=== PATIENT | female | born 1945 | race Caucasian/White ===

== ENCOUNTER 2017-07-02 08:11 | Day surgery (SDC) | payer MEDICARE, BC ==
[~2017-07-02 08:11] MED LIST: KETOROLAC TROMETHAMINE 0.45% 4 DROP/0.4 ML DROPERETTE OS PRN
[2017-07-02] MEDS: LIDOCAINE 3.5% OPH GEL/PF 1 ML/TUBE OS PRN ×3 (08:44→09:19)
[2017-07-02] MEDS: TROPICAMIDE 1% OPH SOLN 3 ML OS PRN ×3 (08:45→09:10)
[2017-07-02] MEDS: CYCLOPENTOLATE 0.2%/PHENYLEPHRINE 1% OPH SOLN 2 ML OS PRN ×3 (08:45→09:10)
[2017-07-02] MEDS: BESIFLOXACIN HCL 0.6% OPH SUSP 5 ML BOTTLE OS PRN ×4 (08:46→09:43)
[2017-07-02] MEDS ORDERED: MIDAZOLAM 2 MG/2 ML INJ ONE (09:06)
[2017-07-02] MEDS: EPINEPHRINE INJ/PF 1 MG/1 ML AMPULE ONE ×2 (09:32)
[2017-07-02] MEDS: CHONDR SU A NA/HYALUR INTRAOC KIT (SURGICARE) ONE ×2 (09:32)
[2017-07-02] MEDS: LIDOCAINE 1% INJ-PF (10 MG/ML) 30 ML SDV ONE ×2 (09:32)
[2017-07-02] MEDS: TOBRAMYCIN SULFATE/DEXAMETH OPH OINTMENT 3.5 GM ONE ×2 (09:43)
== END 2017-07-02 10:26 | disposition home or self-care (01) ==
LOC: SC 08:11
PROVIDERS: ATTEND Ophthalmology
PROC: 08RK3JZ Replacement of Left Lens with Synthetic Substitute, Percutaneous Approach (ICD-10-PCS; principal; 2017-07-02 09:15)
DX: H25.12 Age-related nuclear cataract, left eye (principal); M19.90 Unspecified osteoarthritis, unspecified site; I10 Essential (primary) hypertension; Z79.899 Other long term (current) drug therapy
CPT/HCPCS: 66984; V2630; J2250; J3490 ×3; A9270 ×2; J0171; 142

== ENCOUNTER 2017-07-07 19:55 | Emergency (ER) | payer MEDICARE, BC ==
[2017-07-07] MEDS ORDERED: KETOROLAC TROMETHAMINE 60 MG/2 ML SDV IM ONE (19:59)
[2017-07-07] MEDS ORDERED: MORPHINE SULFATE 10 MG/ML INJ IM ONE (19:59)
[2017-07-07 20:09] VITALS: BP 158/71
--- NOTE | 2017-07-07 20:10 | ER Document Report ---
ED General - General Stated Complaint: BACK PAIN Time Seen by Provider: 07/07/17 19:59 Mode of Arrival: Medic Information source: Patient Notes: 71-year-old female presents with sudden right scapular pain when she was stretching. Patient has a history of gallbladder issues initially believed this was her gallbladder but denies any abdominal pain nausea vomiting or diarrhea TRAVEL OUTSIDE OF THE [place] IN LAST 30 DAYS: No - HPI Onset: Just prior to arrival Onset/Duration: Sudden Quality of pain: Sharp Severity: Moderate Pain Level: 2 Associated symptoms: Body/muscle aches Exacerbated by: Movement Relieved by: Denies Similar symptoms previously: No Recently seen / treated by doctor: No - Related Data Allergies/Adverse Reactions: No Known Allergies Allergy (Unverified 12/04/12 13:45) Past Medical History - Social History Smoking Status: Never Smoker Cigarette use (# per day): No Chew tobacco use (# tins/day): No Smoking Education Provided: No Family History: Reviewed & Not Pertinent - Past Medical History Cardiac Medical History: Reports: Hx Hypertension Denies: Hx Coronary Artery Disease, Hx Heart Attack Pulmonary Medical History: Reports: Hx Bronchitis - sinusitis,occas cough, Hx Pneumonia Denies: Hx Asthma, Hx COPD Neurological Medical History: Denies: Hx Cerebrovascular Accident, Hx Seizures GI Medical History: Denies: Hx Hepatitis, Hx Hiatal Hernia, Hx Ulcer Musculoskeltal Medical History: Reports Hx Arthritis - fingers,thumbs Infectious Medical History: Denies: Hx Hepatitis Past Surgical History: Denies: Hx Mastectomy, Hx Open Heart Surgery, Hx Pacemaker - Immunizations Hx Diphtheria, Pertussis, Tetanus Vaccination: No Hx Pneumococcal Vaccination: 11/17/09 Review of Systems - Review of Systems Notes: REVIEW OF SYSTEMS: CONSTITUTIONAL : Denies fever, chills, or sweats. Denies recent illness. EENT: Denies eye, ear, throat, or mouth pain or symptoms. Denies nasal or sinus congestion or discharge. Denies throat, tongue, or mouth swelling or difficulty swallowing. CARDIOVASCULAR: Denies chest pain. Denies palpitations or racing or irregular heart beat. Denies ankle edema. RESPIRATORY: Denies cough, cold, or chest congestion. Denies shortness of breath, difficulty breathing, or wheezing. GASTROINTESTINAL: Denies abdominal pain or distention. Denies nausea, vomiting , or diarrhea. Denies blood in vomitus, stools, or per rectum. Denies black, tarry stools. Denies constipation. GENITOURINARY: Denies difficulty urinating, painful urination, burning, frequency, blood in urine, or discharge. FEMALE GENITOURINARY: Denies vaginal bleeding, heavy or abnormal periods, irregular periods. Denies vaginal discharge or odor. MUSCULOSKELETAL: Right scapular pain. SKIN: Denies rash, lesions or sores. HEMATOLOGIC : Denies easy bruising or bleeding. LYMPHATIC: Denies swollen, enlarged glands. NEUROLOGICAL: Denies confusion or altered mental status. Denies passing out or loss of consciousness. Denies dizziness or lightheadedness. Denies headache. Denies weakness or paralysis or loss of use of either side. Denies problems with gait or speech. Denies sensory loss, numbness, or tingling. Denies seizures. PSYCHIATRIC: Denies anxiety or stress. Denies depression, suicidal ideation, or homicidal ideation. ALL OTHER SYSTEMS REVIEWED AND NEGATIVE. PHYSICAL EXAMINATION: GENERAL: Well-appearing, well-nourished and in no acute distress. HEAD: Atraumatic, normocephalic. EYES: Pupils equal round and reactive to light, extraocular movements intact, conjunctiva are normal. ENT: Nares patent, oropharynx clear without exudates. Moist mucous membranes. NECK: Normal range of motion, supple without lymphadenopathy LUNGS: Breath sounds clear to auscultation bilaterally and equal. No wheezes rales or rhonchi. HEART: Regular rate and rhythm without murmurs ABDOMEN: Soft, nontender, nondistended abdomen. No guarding, no rebound. No masses appreciated. Female : deferred Musculoskeletal: Tenderness with movement of the right shoulder pinpoint tenderness of the right scalp NEUROLOGICAL: Cranial nerves grossly intact. Normal speech, normal gait. Normal sensory, motor exams PSYCH: Normal mood, normal affect. SKIN: Warm, Dry, normal turgor, no rashes or lesions noted. Dictation was performed using [employer] voice recognition software Physical Exam - Vital signs Vitals: Temp Pulse Resp BP Pulse Ox 98.1 F 64 16 158/71 H 94 07/07/17 20:08 07/07/17 20:08 07/07/17 20:08 07/07/17 20:08 07/07/17 20:08 Course - Re-evaluation Re-evalutation: 07/07/17 20:10 Patient will be treated with pain control anti-inflammatory, x-ray is pending 07/08/17 00:05 X-ray noted no significant abnormality, patient on physical examination had easily reproducible pain with no abdominal tenderness, therefore I do not believe this is intra-abdominal cardiac in nature or related to the lungs. Is completely musculoskeletal related to her movement. Patient notes significant relief after treatment will be discharged home with the same. Patient will be given surgery follow-up for her presumptive gallbladder concerns After performing a Medical Screening Examination, I estimate there is LOW risk for RUPTURED ESOPHAGUS, PNEUMOTHORAX, PULMONARY EMBOLISM, ACUTE CORONARY SYNDROME, OR THORACIC AORTIC DISSECTION, thus I consider the discharge disposition reasonable. I have reevaluated this patient multiple times and no significant life threatening changes are noted. The patient and I have discussed the diagnosis and risks, and we agree with discharging home with close follow-up. We also discussed returning to the Emergency Department immediately if new or worsening symptoms occur. We have discussed the symptoms which are most concerning (e.g., bloody sputum, worsening pain or shortness of breath) that necessitate immediate return. - Vital Signs Vital signs: Temp Pulse Resp BP Pulse Ox 98.1 F 64 16 158/71 H 94 07/07/17 20:08 07/07/17 20:08 07/07/17 20:08 07/07/17 20:08 07/07/17 20:08 - Diagnostic Test Radiology reviewed: Image reviewed, Reports reviewed - No acute abnormality Discharge - Discharge Clinical Impression: Muscle strain of right scapular region Qualifiers: Encounter type: initial encounter Qualified Code(s): S46.911A - Strain of unspecified muscle, fascia and tendon at shoulder and upper arm level, right arm , initial encounter Hypertension Qualifiers: Hypertension type: essential hypertension Qualified Code(s): I10 - Essential ( primary) hypertension Condition: Stable Disposition: HOME, SELF-CARE Instructions: Muscle Strain ([facility]) Prescriptions: Ketorolac Tromethamine [Toradol 10 mg Tablet] 10 mg PO Q8HP PRN #14 tablet PRN Reason: Referrals: NISSA BRANHAM MD [ACTIVE STAFF] - Follow up tomorrow
--- NOTE | 2017-07-07 20:45 | RADIOLOGY REPORT (SQ) ---
EXAM DESCRIPTION: CHEST PA/LAT COMPLETED DATE/TIME: 07/07/2017 8:32 pm REASON FOR STUDY: right scapular pain COMPARISON: 12/04/2012 EXAM PARAMETERS: NUMBER OF VIEWS: two views TECHNIQUE: Digital Frontal and Lateral radiographic views of the chest acquired. RADIATION DOSE: NA LIMITATIONS: none FINDINGS: LUNGS AND PLEURA: No opacities, masses or pneumothorax. No pleural effusion. MEDIASTINUM AND HILAR STRUCTURES: No masses or contour abnormalities. HEART AND VASCULAR STRUCTURES: Heart normal size. No evidence for failure. BONES: No acute findings. HARDWARE: None in the chest. OTHER: No other significant finding. IMPRESSION: NO SIGNIFICANT RADIOGRAPHIC FINDING IN THE CHEST. TECHNICAL DOCUMENTATION: JOB ID: [id number] [employer]- All Rights Reserved
[2017-07-07] MEDS ORDERED: HYDROCODONE/ACETAMINOPHEN 5-325 MG 6 TAB/DSPK PO SCH (22:00)
== END 2017-07-07 22:09 | disposition home or self-care (01) ==
LOC: ER 19:55
DX: S46.911A Strain of unspecified muscle, fascia and tendon at shoulder and upper arm level, right arm, initial encounter (principal); I10 Essential (primary) hypertension; M79.1 Myalgia; M54.9 Dorsalgia, unspecified; X58.XXXA Exposure to other specified factors, initial encounter
CPT/HCPCS: 96372; 71020; J1885; J2270; A9270

== ENCOUNTER 2018-08-15 09:27 | Inpatient (IN) | payer MEDICARE, BC ==
[2018-08-15] MEDS ORDERED: NORMAL SALINE 1000 ML 1,000 ML IV ONE (09:52)
[2018-08-15] MEDS ORDERED: FENTANYL CITRATE INJ/PF 100 MCG/2 ML AMPUL IV ONE (09:52)
[2018-08-15] MEDS ORDERED: KETOROLAC TROMETHAMINE INJ/PF 30 MG/1 ML SDV IV ONE (09:52)
--- NOTE | 2018-08-15 09:55 | ER Document Report ---
ED Medical Screen (RME) - General Chief Complaint: Abdominal Pain Stated Complaint: ABDOMINAL PAIN Time Seen by Provider: 08/15/18 09:48 Notes: 72 years old female with a history of hypertension presents today since last Friday that is 3 days ago started having abdominal cramps and nausea which progressed to multiple episodes of loose stools, and diffuse abdominal pain, general body aches and pain and also chills. She went to the urgent care and she was given Phenergan IM and subsequently referred to the ED. She seems to be in moderate discomfort. Diffuse abdominal tenderness noted. TRAVEL OUTSIDE OF THE [place] IN LAST 30 DAYS: No - Related Data Allergies/Adverse Reactions: No Known Allergies Allergy (Verified 08/15/18 09:28) Past Medical History - Past Medical History Cardiac Medical History: Reports: Hx Hypertension Denies: Hx Coronary Artery Disease, Hx Heart Attack Pulmonary Medical History: Reports: Hx Bronchitis - sinusitis,occas cough, Hx Pneumonia Denies: Hx Asthma, Hx COPD Neurological Medical History: Denies: Hx Cerebrovascular Accident, Hx Seizures Renal/ Medical History: Denies: Hx Peritoneal Dialysis GI Medical History: Denies: Hx Hepatitis, Hx Hiatal Hernia, Hx Ulcer Musculoskeltal Medical History: Reports Hx Arthritis - fingers,thumbs Infectious Medical History: Denies: Hx Hepatitis Past Surgical History: Reports: Hx Appendectomy, Hx Hysterectomy, Hx Orthopedic Surgery - lt hand, josh feet. Denies: Hx Mastectomy, Hx Open Heart Surgery, Hx Pacemaker - Immunizations Hx Diphtheria, Pertussis, Tetanus Vaccination: No Physical Exam - Vital signs Vitals: Temp Pulse Resp BP Pulse Ox 97.8 F 87 16 184/81 H 95 08/15/18 09:31 08/15/18 09:31 08/15/18 09:31 08/15/18 09:31 08/15/18 09:31 Course - Vital Signs Vital signs: Temp Pulse Resp BP Pulse Ox 97.8 F 87 16 184/81 H 95 08/15/18 09:31 08/15/18 09:31 08/15/18 09:31 08/15/18 09:31 08/15/18 09:31 Doctor's Discharge - Discharge Referrals: LOCALMD,NO [Primary Care Provider] - Follow up as needed
[2018-08-15] MEDS ORDERED: DICYCLOMINE HCL INJ 20 MG/2 ML AMPULE IM ONE (10:00)
[2018-08-15 10:46] LABS: APPEARANCE,URINE CLOUDY; BILIRUBIN,URINE NEGATIVE (NEGATIVE); COLOR,URINE YELLOW; GLUCOSE, URINE 50 mg/dL (NEGATIVE); KETONES,URINE 20 mg/dL (NEGATIVE); LEUKOCYTE ESTERASE,URINE MODERATE (NEGATIVE); NITRITE,URINE NEGATIVE (NEGATIVE); PROTEIN,URINE 100 mg/dL (NEGATIVE); URINE SPECIFIC GRAVITY 1.026; UROBILINOGEN,URINE NEGATIVE mg/dL (<2.0)
--- NOTE | 2018-08-15 10:54 | RADIOLOGY REPORT (SQ) ---
EXAM DESCRIPTION: ACUTE ABDOMEN SERIES COMPLETED DATE/TIME: 08/15/2018 10:43 am REASON FOR STUDY: Abdominal pain COMPARISON: 2017 chest film. NUMBER OF VIEWS: Three views. TECHNIQUE: Frontal chest, supine abdomen and upright/decubitus abdomen radiographic images acquired. LIMITATIONS: None. FINDINGS: CHEST: Lungs clear of infiltrates. FREE AIR: None. No abnormal gas collections. BOWEL GAS PATTERN: Nonobstructive pattern. No dilated loops or air fluid levels. CALCIFICATIONS: No suspicious calcifications. HARDWARE: None in the abdomen. SOFT TISSUES: No gross mass or suggestion of organomegaly. BONES: No acute fracture. No worrisome bone lesions. OTHER: No other significant finding. IMPRESSION: NO RADIOGRAPHIC EVIDENCE FOR ACUTE ABDOMINAL DISEASE. TECHNICAL DOCUMENTATION: JOB ID: [id number] [employer] All Rights Reserved Reading location - IP/workstation name: [email or web address]
--- NOTE | 2018-08-15 10:55 | ER Document Report ---
ED GI/ - General Chief Complaint: Abdominal Pain Stated Complaint: ABDOMINAL PAIN Time Seen by Provider: 08/15/18 09:48 Notes: The patient is a 72-year-old female, past medical history hypertension, diverticulosis, presents with 4 days of diffuse abdominal pain and watery diarrhea. She is also having some nausea and subjective fevers. She was at her primary care office at the urgent care center and was sent to the ER for further evaluation and treatment. She denies hematemesis, blood in her stool, urinary symptoms, chest pain, shortness of breath, recent antibiotic use or recent travel. TRAVEL OUTSIDE OF THE [place] IN LAST 30 DAYS: No - Related Data Allergies/Adverse Reactions: No Known Allergies Allergy (Verified 08/15/18 09:28) Past Medical History - General Information source: Patient - Social History Smoking Status: Never Smoker Frequency of alcohol use: None Drug Abuse: None Family History: Reviewed & Not Pertinent Patient has suicidal ideation: No Patient has homicidal ideation: No - Past Medical History Cardiac Medical History: Reports: Hx Hypertension Denies: Hx Coronary Artery Disease, Hx Heart Attack Pulmonary Medical History: Reports: Hx Bronchitis - sinusitis,occas cough, Hx Pneumonia Denies: Hx Asthma, Hx COPD Neurological Medical History: Denies: Hx Cerebrovascular Accident, Hx Seizures Renal/ Medical History: Denies: Hx Peritoneal Dialysis GI Medical History: Denies: Hx Hepatitis, Hx Hiatal Hernia, Hx Ulcer Musculoskeletal Medical History: Reports Hx Arthritis - fingers,thumbs Infectious Medical History: Denies: Hx Hepatitis Past Surgical History: Reports: Hx Appendectomy, Hx Hysterectomy, Hx Orthopedic Surgery - lt hand, josh feet. Denies: Hx Mastectomy, Hx Open Heart Surgery, Hx Pacemaker - Immunizations Hx Diphtheria, Pertussis, Tetanus Vaccination: No Hx Pneumococcal Vaccination: 11/17/09 Review of Systems - Review of Systems Notes: REVIEW OF SYSTEMS: CONSTITUTIONAL: +fevers, -chills EENT: -eye pain, -difficulty swallowing, -nasal congestion CARDIOVASCULAR: -chest pain, -syncope. RESPIRATORY: -cough, -SOB GASTROINTESTINAL: +abdominal pain, +nausea, +vomiting, +diarrhea GENITOURINARY: -dysuria, -hematuria MUSCULOSKELETAL: -back pain, -neck pain SKIN: -rash or skin lesions. HEMATOLOGIC: -easy bruising or bleeding. LYMPHATIC: -swollen, enlarged glands. NEUROLOGICAL: -altered mental status or loss of consciousness, -headache, - neurologic symptoms PSYCHIATRIC: -anxiety, -depression. ALL OTHER SYSTEMS REVIEWED AND NEGATIVE. Physical Exam - Vital signs Vitals: Temp Pulse Resp BP Pulse Ox 97.8 F 87 16 184/81 H 95 08/15/18 09:31 08/15/18 09:31 08/15/18 09:31 08/15/18 09:31 08/15/18 09:31 - Notes Notes: PHYSICAL EXAMINATION: GENERAL: Uncomfortable. HEAD: Atraumatic, normocephalic. EYES: Pupils equal round and reactive to light, extraocular movements intact, sclera anicteric, conjunctiva are normal. ENT: nares patent, oropharynx clear without exudates. Moist mucous membranes. NECK: Normal range of motion, supple without lymphadenopathy LUNGS: Breath sounds clear to auscultation bilaterally and equal. No wheezes rales or rhonchi. HEART: Regular rate and rhythm without murmurs ABDOMEN: Diffuse tenderness, worse in epigastric region. Normal bowel sounds. No distention. EXTREMITIES: Normal range of motion, no pitting or edema. No cyanosis. NEUROLOGICAL: Cranial nerves grossly intact. Normal speech, normal gait. Normal sensory and motor exams. PSYCH: Normal mood, normal affect. SKIN: Warm, Dry, normal turgor, no rashes or lesions noted. Course - Re-evaluation Re-evalutation: 72-year-old female with nausea, vomiting and epigastric pain. Her lipase is elevated at [address] scan shows evidence of pancreatitis. Patient denies heavy drinking or history of gallstones. Her bilirubin is normal. Provided antibiotics due to the leukocytosis of 17. No other SIRS criteria to suggest sepsis. She requires admission for IV fluids, pain control and antiemetics. 08/15/18 13:[address] West (Hospitalist) and he has accepted patient to Inpatient Medical floor. - Vital Signs Vital signs: Temp Pulse Resp BP Pulse Ox 97.8 F 87 16 184/81 H 95 08/15/18 09:31 08/15/18 09:31 08/15/18 09:31 08/15/18 09:31 08/15/18 09:31 - Laboratory Result Diagrams: 08/15/18 11:38 08/15/18 11:38 Laboratory results interpreted by me: 08/15/18 08/15/18 08/15/18 10:08 11:38 11:38 WBC 17.0 H Hgb 16.0 H Seg Neuts % (Manual) 87 H Lymphocytes % (Manual) 7 L Abs Neuts (Manual) 14.8 H Chloride 97 L Glucose 134 H Lipase 1757.2 H Urine Protein 100 H Urine Glucose (UA) 50 H Urine Ketones 20 H Urine Blood SMALL H Ur Leukocyte Esterase MODERATE H - Diagnostic Test Radiology reviewed: Image reviewed, Reports reviewed Radiology results interpreted by me: CT A/P: Inflammation around the pancreas Discharge - Discharge Clinical Impression: Acute pancreatitis Qualifiers: Pancreatitis type: unspecified pancreatitis type Acute pancreatitis complication: unspecified Qualified Code(s): K85.90 - Acute pancreatitis without necrosis or infection, unspecified Condition: Stable Disposition: ADMITTED INPATIENT Admitting Provider: Hospitalist - Brett Unit Admitted: Medical Floor Referrals: LOCALMD,NO [NO LOCAL MD] - Follow up as needed
[2018-08-15] MEDS ORDERED: ONDANSETRON HCL INJ/PF 4 MG/2 ML SDV IV ONE (11:08)
[2018-08-15 12:20] LABS: MEAN CORPUSCULAR HEMOGLOBIN 31.4 pg (27.0-33.4); MEAN CORPUSCULAR VOLUME 92 fl (80-97); PLATELET COUNT 248 10^3/uL (150-450); RED BLOOD COUNT 5.08 10^6/uL (3.72-5.28); RED CELL DISTRIBUTION WIDTH 13.4 % (11.5-14.0)
[2018-08-15 12:38] LABS: ALANINE AMINOTRANSFERASE 23 U/L (9-52); ALBUMIN 4.3 g/dL (3.5-5.0); ALKALINE PHOSPHATASE 85 U/L (38-126); ANION GAP 15 (5-19); ASPARTATE AMINO TRANSFERASE 32 U/L (14-36); BILIRUBIN,DIRECT 0.3 mg/dL (0.0-0.4); BILIRUBIN,TOTAL 0.8 mg/dL (0.2-1.3); BLOOD UREA NITROGEN 19 mg/dL (7-20); CALCIUM 9.6 mg/dL (8.4-10.2); CARBON DIOXIDE 27 mmol/L (22-30); CHLORIDE 97 mmol/L (98-107); GLUCOSE 134 mg/dL (75-110); LIPASE 1757.2 U/L (23-300); POTASSIUM 3.9 mmol/L (3.6-5.0); SODIUM 139.4 mmol/L (137-145); TOTAL PROTEIN 7.9 g/dL (6.3-8.2)
[2018-08-15 12:39] LABS: ABSOLUTE LYMPHOCYTES# (MANUAL) 1.2 10^3/uL (0.5-4.7); ABSOLUTE NEUTROPHILS# (MANUAL) 14.8 10^3/uL (1.7-8.2); BASOPHILS % (MANUAL) 0 % (0-2); EOSINOPHILS % (MANUAL) 0 % (0-6); LYMPHOCYTES % (MANUAL) 7 % (13-45); MONOCYTES % (MANUAL) 6 % (3-13); PLATELET COMMENT ADEQUATE; RBC MORPHOLOGY COMMENT NORMO-CYTIC/CHROMIC; SEGMENTED NEUTROPHILS % (MAN) 87 % (42-78); TOTAL CELLS COUNTED 100
[2018-08-15] MEDS ORDERED: AMPICILLIN SOD/SULBACTAM 3 GM VIAL IV ONE (12:49)
--- NOTE | 2018-08-15 13:30 | RADIOLOGY REPORT (SQ) ---
EXAM DESCRIPTION: CT ABD/PELVIS WITH IV ONLY COMPLETED DATE/TIME: 08/15/2018 1:18 pm REASON FOR STUDY: LLQ tenderness, fever, Hx diverticulosis COMPARISON: 02/02/2014 TECHNIQUE: CT scan of the abdomen and pelvis performed using helical scanning technique with dynamic intravenous contrast injection. No oral contrast. Images reviewed with lung, soft tissue, and bone w indows. Reconstructed coronal and sagittal MPR images reviewed. Delayed images for evaluation of the urinary system also acquired. All images stored on PACS. All CT scanners at this facility use dose modulation, iterative reconstruction, and/or weight based d osing when appropriate to reduce radiation dose to as low as reasonably achievable (ALARA). [facility]: Dose Right [facility]: CareDose [facility]: Dose Right [facility]: Teradose 4D [facility]: Financeit CONTRAST TYPE AND DOSE: contrast/concentration: Isovue 350.00 mg/ml; Total Contrast Delivered: 88.0 ml; Total Saline Delivered: 39.9 ml RENAL FUNCTION: GFR > 60. RADIATION DOSE: CT Rad equipment meets quality standard of care and radiation dose reduction techniq ues were employed. CTDIvol: 11.3 - 14.6 mGy. DLP: 1423 mGy-cm.. LIMITATIONS: None. FINDINGS: LOWER CHEST: Minimal basilar subsegmental atelectasis. LIVER: Normal size. No enhancing masses. No dilated ducts. SPLEEN: Normal size. No focal lesions. PANCREAS: Mild adjacent inflammation in the region of the pancreatic head. Pancreatic duct not dilate d. GALLBLADDER: No calcified stones. No inflammatory changes to suggest cholecystitis. ADRENAL GLANDS: No significant masses. RIGHT KIDNEY AND URETER: No cysts identified. No solid masses identified. No calcified stones. No hyd ronephrosis or hydroureter. LEFT KIDNEY AND URETER: No cysts identified. No solid masses identified. No calcified stones. No hydr onephrosis or hydroureter. AORTA AND VESSELS: No aneurysm. No dissection. Renal arteries, SMA, celiac without significant stenos is. RETROPERITONEUM: No bulky retroperitoneal adenopathy. BOWEL AND PERITONEAL CAVITY: Diverticulosis. No obstruction or focal bowel inflammatory changes. No free fluid. APPENDIX: Surgically absent. PELVIS: Prior hysterectomy. Trace free fluid. Unremarkable bladder. ABDOMINAL WALL: No masses. No hernias. BONES: No acute findings. OTHER: No other significant finding. IMPRESSION: Mild adjacent inflammation in the region of the pancreatic head. TECHNICAL DOCUMENTATION: JOB ID: [id number] Quality ID # [id number]: Final reports with documentation of one or more dose reduction techniques (e.g., Au tomated exposure control, adjustment of the mA and/or kV according to patient size, use of iterative reconstruction technique) 2010 [employer]- All Rights Reserved Reading location - IP/workstation name: [email or web address]
[2018-08-15] MEDS ORDERED: HYDRALAZINE HCL 10 MG TABLET PO PRN (15:00)
--- NOTE | 2018-08-15 15:00 | PDOC H&P ---
History of Present Illness Admission Date/PCP: 08/15/18 14:02 Patient complains of: Abdominal pain times 4 days History of Present Illness: STARR TAYLOR is a 72 year old female with a complaint of abdominal pain onset Friday evening. Pain initially was a 7 out of 10. It persisted throughout the night and into the next day. Patient attempted to eat but had nausea and vomiting denies hematemesis. Pain continued throughout the week when she went to urgent care where she seeks her primary care. They advised her to come to the emergency room. Patient had been able to take her hypertensive medications and her Prozac for her depression. Evaluation in the emergency room patient was hypertensive having moderate abdominal pain. A CT of the abdomen was performed which was consistent with a pancreatitis there is no biliary obstruction detected. Her lipase was 1757 white count was elevated at 17,000. Urinalysis was negative. Patient was given empiric Unasyn for the elevated white count and no fever or other evidence of infection. Patient will be admitted for acute pancreatitis. She denies drinking denies elevated cholesterol by history. Past Medical History Cardiac Medical History: Reports: Hypertension Denies: Coronary Artery Disease, Myocardial Infarction Pulmonary Medical History: Reports: Bronchitis - sinusitis,occas cough, Pneumonia Denies: Asthma, Chronic Obstructive Pulmonary Disease (COPD) Neurological Medical History: Denies: Seizures GI Medical History: Denies: Hepatitis, Hiatal Hernia Musculoskeltal Medical History: Reports: Arthritis - fingers,thumbs Psychiatric Medical History: Reports: Depression Hematology: Denies: Anemia, Sickle Cell Disease Past Surgical History Past Surgical History: Reports: Appendectomy, Hysterectomy, Orthopedic Surgery - Left thumb arthroplasty, bilateral plantar fasciitis Denies: Amputation, Mastectomy, Pacemaker Social History Smoking Status: Never Smoker Frequency of Alcohol Use: None Drugs: None - Advance Directive Resuscitation Status: Full Code Family History Family History: Reviewed & Not Pertinent, COPD - Father and 2 brothers Parental Family History Reviewed: Yes Children Family History Reviewed: Yes Sibling(s) Family History Reviewed.: Yes Medication/Allergy Home Medications: Cetirizine HCl [Zyrtec 10 mg Tablet] 1 tab PO DAILY PRN 08/15/18 Fluoxetine HCl [Fluoxetine HCl] 1 cap PO DAILY 08/15/18 Lisinopril/Hydrochlorothiazide [Lisinopril-Hctz 20-12.5 mg Tab] 2 tab PO QAM Allergies/Adverse Reactions: No Known Allergies Allergy (Verified 08/15/18 09:28) Review of Systems Constitutional: ABSENT: chills, fever(s), headache(s), weight gain, weight loss Ears: ABSENT: hearing changes Nose, Mouth, and Throat: ABSENT: as per HPI, headache(s), mouth pain, sore throat, vertigo, other Cardiovascular: ABSENT: chest pain, dyspnea on exertion, edema, orthropnea, palpitations Respiratory: ABSENT: cough, hemoptysis Gastrointestinal: PRESENT: abdominal pain, heartburn, nausea, vomiting. ABSENT : coffee ground emesis, diarrhea, hematemesis, hematochezia Genitourinary: ABSENT: dysuria, hematuria Integumentary: ABSENT: rash, wounds Neurological: ABSENT: abnormal gait, abnormal speech, confusion, dizziness, focal weakness, syncope Psychiatric: ABSENT: anxiety, depression, homidical ideation, suicidal ideation Endocrine: ABSENT: cold intolerance, heat intolerance, polydipsia, polyuria Hematologic/Lymphatic: ABSENT: easy bleeding, easy bruising Physical Exam Vital Signs: Temp Pulse Resp BP Pulse Ox 98.1 F 78 16 144/57 H 96 08/15/18 14:39 08/15/18 14:39 08/15/18 14:39 08/15/18 14:39 08/15/18 14:39 General appearance: PRESENT: mild distress Eye exam: PRESENT: conjunctiva pink, EOMI, PERRLA. ABSENT: scleral icterus Mouth exam: PRESENT: moist, tongue midline Neck exam: ABSENT: carotid bruit, JVD, lymphadenopathy, thyromegaly Respiratory exam: PRESENT: clear to auscultation josh. ABSENT: rales, rhonchi, wheezes Cardiovascular exam: PRESENT: RRR. ABSENT: diastolic murmur, rubs, systolic murmur Pulses: PRESENT: normal dorsalis pedis pul GI/Abdominal exam: PRESENT: normal bowel sounds, rebound, soft, tenderness - Umbilical. ABSENT: distended, guarding, mass, organolmegaly Rectal exam: PRESENT: deferred Extremities exam: PRESENT: full ROM. ABSENT: calf tenderness, clubbing, pedal edema Musculoskeletal exam: PRESENT: normal inspection. ABSENT: tenderness Neurological exam: PRESENT: alert, awake, oriented to person, oriented to place , oriented to time, oriented to situation, CN II-XII grossly intact. ABSENT: motor sensory deficit Psychiatric exam: PRESENT: appropriate affect, normal mood. ABSENT: homicidal ideation, suicidal ideation Skin exam: PRESENT: dry, intact, warm. ABSENT: cyanosis, rash Results Impressions: Acute Abdomen Series 08/15/18 09:52 IMPRESSION: NO RADIOGRAPHIC EVIDENCE FOR ACUTE ABDOMINAL DISEASE. Abdomen/Pelvis CT 08/15/18 10:54 IMPRESSION: Mild adjacent inflammation in the region of the pancreatic head. Assessment & Plan - Diagnosis (1) Acute pancreatitis Qualifiers: Pancreatitis type: unspecified pancreatitis type Acute pancreatitis complication: unspecified Qualified Code(s): K85.90 - Acute pancreatitis without necrosis or infection, unspecified Is this a current diagnosis for this admission?: Yes Plan: Onset 4 days prior to admission. Patient's lipase currently 1757 I suspect it was higher. She has no history of alcohol consumption or high triglyceride. Patient may have passed a stone. Will obtain an ultrasound of the gallbladder to rule out small stones or sludge. If negative suspect patient may have had sphincter spasm. Will place on D5 half-normal saline repeat labs in a.m. and daily lipases x3. Will use morphine IV for pain control. Will not continue Unasyn no evidence of an infection repeat CBC in a.m. (2) Hypertension Is this a current diagnosis for this admission?: Yes Plan: Hypertension poor control due to pain will continue lisinopril but not hydrochlorothiazide. Will use as needed hydralazine IV for additional control. (3) Depression Plan: Continue Prozac. - Time Time Spent: 50 to 70 Minutes Anticipated discharge: Home Within: within 72 hours
[2018-08-15] MEDS: MORPHINE SULFATE 10 MG/ML INJ IV PRN ×2 (16:03→20:27)
[2018-08-15] MEDS: DEXTROSE 5%-1/2 NORMAL SALINE 1,000 ML IV PRN (16:12)
--- NOTE | 2018-08-15 20:17 | RADIOLOGY REPORT (SQ) ---
EXAM DESCRIPTION: U/S ABDOMEN COMPLETE W/O DOP COMPLETED DATE/TIME: 08/15/2018 4:56 pm REASON FOR STUDY: Pancreatitis COMPARISON: CT from earlier today. TECHNIQUE: Dynamic and static grayscale images acquired of the abdomen and recorded on PACS. Daleo keagan selected color Doppler and spectral images recorded. LIMITATIONS: None. FINDINGS: PANCREAS: Slightly echogenic and ill-defined. Probable pancreatitis. No regional fluid c ollections. LIVER: Just under 19 cm. Probable diffuse mild steatosis. LIVER VASCULATURE: Normal directional flow of the main portal vein and hepatic veins. GALLBLADDER: No stones. Normal wall thickness. No pericholecystic fluid. ULTRASOUND-DETECTED ANDERSON'S SIGN: Negative. INTRAHEPATIC DUCTS AND COMMON DUCT: CBD and intrahepatic ducts normal caliber. No filling defects. INFERIOR VENA CAVA: Normal flow. AORTA: No aneurysm. RIGHT KIDNEY:Normal size. Normal echogenicity. No solid or suspicious masses. No hydronephrosis. No c alcifications. LEFT KIDNEY: Normal size. Normal echogenicity. No solid or suspicious masses. No hydronephrosis. No calcifications. SPLEEN: Normal size. No solid masses. PERITONEAL AND PLEURAL SPACES: No ascites or effusions. OTHER: No other significant finding. IMPRESSION: 1. Findings suggesting pancreatitis. 2. Mildly enlarged liver, steatosis. 3. Gallbla dder unremarkable. TECHNICAL DOCUMENTATION: JOB ID: [id number] [employer]- All Rights Reserved Reading location - IP/workstation name: [email or web address]
[2018-08-15] MEDS: ONDANSETRON HCL INJ/PF 4 MG/2 ML SDV IV PRN (20:29)
[2018-08-16] MEDS: ACETAMINOPHEN 325 MG TABLET PO PRN ×3 (00:05→19:25)
[2018-08-16] MEDS: DEXTROSE 5%-1/2 NORMAL SALINE 1,000 ML IV PRN ×2 (02:44→13:21)
[2018-08-16] MEDS: MORPHINE SULFATE 10 MG/ML INJ IV PRN ×3 (05:59→23:34)
[2018-08-16] MEDS: ONDANSETRON HCL INJ/PF 4 MG/2 ML SDV IV PRN ×3 (06:03→23:56)
[2018-08-16 06:26] LABS: ABSOLUTE BASOPHILS # (AUTO) 0.1 10^3/uL (0.0-0.2); ABSOLUTE LYMPHOCYTES (AUTO) 1.5 10^3/uL (0.5-4.7); ABSOLUTE MONOCYTES (AUTO) 1.3 10^3/uL (0.1-1.4); ABSOLUTE NEUT (AUTO) 14.8 10^3/uL (1.7-8.2); BASOPHILS % (AUTO) 0.3 % (0-2); EOSINOPHILS % (AUTO) 0.2 % (0-6); HEMATOCRIT 40.6 % (36.0-47.0); HEMOGLOBIN 14.2 g/dL (12.0-15.5); LYMPHOCYTES % (AUTO) 8.6 % (13-45); MEAN CORPUSCULAR HEMOGLOBIN 32.1 pg (27.0-33.4); MEAN CORPUSCULAR VOLUME 92 fl (80-97); MONOCYTES % (AUTO) 7.5 % (3-13); PLATELET COUNT 194 10^3/uL (150-450); RED BLOOD COUNT 4.42 10^6/uL (3.72-5.28); RED CELL DISTRIBUTION WIDTH 13.2 % (11.5-14.0); SEGMENTED NEUTROPHILS % (AUTO) 83.4 % (42-78); TOTAL CELLS COUNTED % (AUTO) 100 %; WHITE BLOOD COUNT 17.8 10^3/uL (4.0-10.5)
[2018-08-16 06:45] LABS: ALANINE AMINOTRANSFERASE 25 U/L (9-52); ALBUMIN 3.3 g/dL (3.5-5.0); ALKALINE PHOSPHATASE 63 U/L (38-126); ANION GAP 7 (5-19); ASPARTATE AMINO TRANSFERASE 27 U/L (14-36); BILIRUBIN,DIRECT 0.4 mg/dL (0.0-0.4); BILIRUBIN,TOTAL 0.9 mg/dL (0.2-1.3); BLOOD UREA NITROGEN 17 mg/dL (7-20); CALCIUM 8.7 mg/dL (8.4-10.2); CARBON DIOXIDE 28 mmol/L (22-30); CHLORIDE 101 mmol/L (98-107); GLUCOSE 130 mg/dL (75-110); POTASSIUM 3.7 mmol/L (3.6-5.0); SODIUM 136.1 mmol/L (137-145); TOTAL PROTEIN 6.4 g/dL (6.3-8.2); TRIGLYCERIDES 81 mg/dL (<150)
[2018-08-16 06:56] LABS: DIRECT LDL 105 mg/dL (<100)
[2018-08-16] MEDS ORDERED: AMPICILLIN SOD/SULBACTAM 1.5 GM VIAL IV PRN (07:00)
[2018-08-16] MEDS ORDERED: AMPICILLIN SODIUM/SULBACTAM NA 1.5 GM in NORMAL SALINE 50 ML IV ONE (07:30)
[2018-08-16] MEDS: LISINOPRIL 10 MG TABLET PO SCH (09:21)
[2018-08-16] MEDS: ENOXAPARIN SODIUM INJ 40 MG/0.4 ML DISP.SYRIN SUBCUT SCH (09:21)
[2018-08-16] MEDS: FLUOXETINE HCL 20 MG CAPSULE PO SCH (09:22)
[2018-08-16] MEDS: AMPICILLIN SODIUM/SULBACTAM NA 1.5 GM in NORMAL SALINE 50 ML IV SCH ×2 (09:44→17:28)
[2018-08-16] MEDS ORDERED: FLUOXETINE HCL PO SCH (10:00)
--- NOTE | 2018-08-16 12:05 | PDOC PROGRESS REPORT ---
Subjective Progress Note for:: 08/16/18 Subjective:: 72-year-old white female presented with a elevated lipase consistent with pancreatitis. Ultrasound done showed normal gallbladder no stones steatohepatitis and pancreatic inflammatory changes consistent with pancreatitis. Patient's triglycerides are less than 100. Lipase this morning is 660 pain is still present but diminished. Patient remains n.p.o. pain control adequate Reason For Visit: PANCREATITIS Physical Exam Vital Signs: Temp Pulse Resp BP Pulse Ox 99.2 F 80 16 141/59 H 95 08/16/18 07:34 08/16/18 07:34 08/16/18 07:34 08/16/18 07:34 08/16/18 07:34 Intake & Output 08/15/18 08/16/18 08/17/18 06:59 06:59 06:59 Intake Total 1000 170 Balance 1000 170 Weight 78.4 kg General appearance: PRESENT: no acute distress, well-developed, well-nourished Head exam: PRESENT: atraumatic, normocephalic Neck exam: ABSENT: carotid bruit, JVD, lymphadenopathy, thyromegaly Respiratory exam: PRESENT: clear to auscultation josh. ABSENT: rales, rhonchi, wheezes Cardiovascular exam: PRESENT: RRR. ABSENT: diastolic murmur, rubs, systolic murmur GI/Abdominal exam: PRESENT: normal bowel sounds, rebound, soft, tenderness. ABSENT: distended, guarding, mass, organolmegaly Extremities exam: PRESENT: full ROM. ABSENT: calf tenderness, clubbing, pedal edema Results Laboratory Results: 08/16/18 06:04 08/16/18 06:04 08/16/18 08/16/18 06:04 06:04 WBC 17.8 H RBC 4.42 Hgb 14.2 Hct 40.6 MCV 92 MCH 32.1 MCHC 35.0 RDW 13.2 Plt Count 194 Seg Neutrophils % 83.4 H Lymphocytes % 8.6 L Monocytes % 7.5 Eosinophils % 0.2 Basophils % 0.3 Absolute Neutrophils 14.8 H Absolute Lymphocytes 1.5 Absolute Monocytes 1.3 Absolute Eosinophils 0.0 Absolute Basophils 0.1 Sodium 136.1 L Potassium 3.7 Chloride 101 Carbon Dioxide 28 Anion Gap 7 BUN 17 Creatinine 0.65 Est GFR ( Amer) > 60 Est GFR (Non-Af Amer) > 60 Glucose 130 H Calcium 8.7 Total Bilirubin 0.9 AST 27 ALT 25 Alkaline Phosphatase 63 Total Protein 6.4 Albumin 3.3 L Triglycerides 81 Cholesterol 175.20 LDL Cholesterol Direct 105 H VLDL Cholesterol 16.0 HDL Cholesterol 44 Lipase 667.0 H Impressions: Abdomen Ultrasound 08/15/18 00:00 IMPRESSION: 1. Findings suggesting pancreatitis. 2. Mildly enlarged liver, steatosis. 3. Gallbladder unremarkable. Acute Abdomen Series 08/15/18 09:52 IMPRESSION: NO RADIOGRAPHIC EVIDENCE FOR ACUTE ABDOMINAL DISEASE. Abdomen/Pelvis CT 08/15/18 10:54 IMPRESSION: Mild adjacent inflammation in the region of the pancreatic head. Assessment & Plan - Diagnosis (1) Acute pancreatitis Qualifiers: Pancreatitis type: unspecified pancreatitis type Acute pancreatitis complication: unspecified Qualified Code(s): K85.90 - Acute pancreatitis without necrosis or infection, unspecified Is this a current diagnosis for this admission?: Yes Plan: To new n.p.o. and BMP in a.m. lipase in a.m. If less than 300 begin later liquids (2) Hypertension Is this a current diagnosis for this admission?: Yes Plan: Reasonable control continue to monitor no change in current medications. (3) Depression Is this a current diagnosis for this admission?: Yes Plan: Continue Prozac. - Time Time Spent with patient: 25-34 minutes Anticipated discharge: Home Within: within 72 hours
[2018-08-16] MEDS ORDERED: AMPICILLIN SODIUM/SULBACTAM NA 1.5 GM in NORMAL SALINE 50 ML IV SCH (14:00)
[2018-08-17] MEDS: AMPICILLIN SODIUM/SULBACTAM NA 1.5 GM in NORMAL SALINE 50 ML IV SCH ×3 (02:19→18:55)
[2018-08-17 07:22] LABS: ANION GAP 5 (5-19); BLOOD UREA NITROGEN 11 mg/dL (7-20); CALCIUM 8.4 mg/dL (8.4-10.2); CARBON DIOXIDE 30 mmol/L (22-30); CHLORIDE 101 mmol/L (98-107); GLUCOSE 102 mg/dL (75-110); LIPASE 303.8 U/L (23-300); POTASSIUM 3.4 mmol/L (3.6-5.0); SODIUM 136.3 mmol/L (137-145)
[2018-08-17] MEDS: ONDANSETRON HCL INJ/PF 4 MG/2 ML SDV IV PRN ×2 (08:23→15:22)
[2018-08-17] MEDS: MORPHINE SULFATE 10 MG/ML INJ IV PRN ×2 (08:27→15:22)
--- NOTE | 2018-08-17 10:23 | PDOC PROGRESS REPORT ---
Subjective Progress Note for:: 08/17/18 Subjective:: 72-year-old white female presented with a elevated lipase consistent with pancreatitis. Ultrasound done showed normal gallbladder no stones steatohepatitis and pancreatic inflammatory changes consistent with pancreatitis. Patient's triglycerides are less than 100. Lipase this morning is 300 pain is still present but diminished. Patient begin clear liquids. Pain control adequate Reason For Visit: PANCREATITIS Physical Exam Vital Signs: Temp Pulse Resp BP Pulse Ox 99.0 F 82 20 130/69 H 94 08/17/18 07:50 08/17/18 07:50 08/17/18 07:50 08/17/18 07:50 08/17/18 07:50 Intake & Output 08/16/18 08/17/18 08/18/18 06:59 06:59 06:59 Intake Total 1000 2220 Balance 1000 2220 Weight 78.4 kg 77.5 kg General appearance: PRESENT: no acute distress, well-developed, well-nourished Neck exam: ABSENT: carotid bruit, JVD, lymphadenopathy, thyromegaly Cardiovascular exam: PRESENT: RRR. ABSENT: diastolic murmur, rubs, systolic murmur Vascular exam: PRESENT: normal capillary refill GI/Abdominal exam: PRESENT: normal bowel sounds, rebound, soft, tenderness - Umbilical and midepigastric. ABSENT: distended, guarding, mass, organolmegaly Extremities exam: PRESENT: full ROM. ABSENT: calf tenderness, clubbing, pedal edema Results Laboratory Results: 08/16/18 06:04 08/17/18 05:50 08/17/18 05:50 Sodium 136.3 L Potassium 3.4 L Chloride 101 Carbon Dioxide 30 Anion Gap 5 BUN 11 Creatinine 0.60 Est GFR ( Amer) > 60 Est GFR (Non-Af Amer) > 60 Glucose 102 Calcium 8.4 Lipase 303.8 H Impressions: Abdomen Ultrasound 08/15/18 00:00 IMPRESSION: 1. Findings suggesting pancreatitis. 2. Mildly enlarged liver, steatosis. 3. Gallbladder unremarkable. Acute Abdomen Series 08/15/18 09:52 IMPRESSION: NO RADIOGRAPHIC EVIDENCE FOR ACUTE ABDOMINAL DISEASE. Abdomen/Pelvis CT 08/15/18 10:54 IMPRESSION: Mild adjacent inflammation in the region of the pancreatic head. Assessment & Plan - Diagnosis (1) Acute pancreatitis Qualifiers: Pancreatitis type: unspecified pancreatitis type Acute pancreatitis complication: unspecified Qualified Code(s): K85.90 - Acute pancreatitis without necrosis or infection, unspecified Is this a current diagnosis for this admission?: Yes Plan: Continue to check lipases daily. Advance to clear liquids today. If tolerated and no increase of pain will go to full liquids this evening anticipate discharge if patient tolerating full liquids and lipase remains in a decreasing pattern in 24 hours. (2) Hypertension Is this a current diagnosis for this admission?: Yes Plan: Intensive continue to monitor (3) Depression Is this a current diagnosis for this admission?: Yes Plan: Continue Prozac. - Time Time Spent with patient: 15-24 minutes Anticipated discharge: Home Within: within 24 hours
[2018-08-17] MEDS: ENOXAPARIN SODIUM INJ 40 MG/0.4 ML DISP.SYRIN SUBCUT SCH (10:39)
[2018-08-17] MEDS: LISINOPRIL 10 MG TABLET PO SCH (10:41)
[2018-08-17] MEDS: FLUOXETINE HCL 20 MG CAPSULE PO SCH (10:43)
[2018-08-17] MEDS: DEXTROSE 5%-1/2 NORMAL SALINE 1,000 ML IV PRN ×2 (19:33)
[2018-08-18] MEDS: AMPICILLIN SODIUM/SULBACTAM NA 1.5 GM in NORMAL SALINE 50 ML IV SCH ×2 (05:09→12:44)
[2018-08-18 06:43] LABS: ABSOLUTE BASOPHILS # (AUTO) 0.1 10^3/uL (0.0-0.2); ABSOLUTE EOSINOPHILS # (AUTO) 0.6 10^3/uL (0.0-0.6); ABSOLUTE LYMPHOCYTES (AUTO) 1.8 10^3/uL (0.5-4.7); ABSOLUTE MONOCYTES (AUTO) 0.9 10^3/uL (0.1-1.4); ABSOLUTE NEUT (AUTO) 7.5 10^3/uL (1.7-8.2); BASOPHILS % (AUTO) 0.7 % (0-2); EOSINOPHILS % (AUTO) 5.5 % (0-6); HEMATOCRIT 32.7 % (36.0-47.0); LYMPHOCYTES % (AUTO) 16.9 % (13-45); MEAN CORPUSCULAR HEMOGLOBIN 32.3 pg (27.0-33.4); MEAN CORPUSCULAR VOLUME 92 fl (80-97); MONOCYTES % (AUTO) 8.3 % (3-13); PLATELET COUNT 210 10^3/uL (150-450); RED BLOOD COUNT 3.55 10^6/uL (3.72-5.28); RED CELL DISTRIBUTION WIDTH 13.1 % (11.5-14.0); SEGMENTED NEUTROPHILS % (AUTO) 68.6 % (42-78); TOTAL CELLS COUNTED % (AUTO) 100 %; WHITE BLOOD COUNT 10.9 10^3/uL (4.0-10.5)
[2018-08-18 06:44] LABS: HEMOGLOBIN 11.5 g/dL (12.0-15.5)
[2018-08-18 06:57] LABS: BLOOD UREA NITROGEN 8 mg/dL (7-20); CALCIUM 8.3 mg/dL (8.4-10.2); GLUCOSE 94 mg/dL (75-110); LIPASE 77.2 U/L (23-300); POTASSIUM 3.2 mmol/L (3.6-5.0)
[2018-08-18 07:02] LABS: CARBON DIOXIDE 32 mmol/L (22-30); CHLORIDE 101 mmol/L (98-107); SODIUM 136.5 mmol/L (137-145)
[2018-08-18 07:07] LABS: ANION GAP 4 (5-19)
[2018-08-18] MEDS: LISINOPRIL 10 MG TABLET PO SCH (09:14)
[2018-08-18] MEDS: FLUOXETINE HCL 20 MG CAPSULE PO SCH (09:15)
[2018-08-18] MEDS: ENOXAPARIN SODIUM INJ 40 MG/0.4 ML DISP.SYRIN SUBCUT SCH (09:33)
[2018-08-18] MEDS: POTASSI CL 20 MEQ/50 ML RIDER 20 MEQ/50 ML RTUPB IV SCH ×2 (09:35→10:51)
[2018-08-18] MEDS ORDERED: POTASSIUM CHLORIDE 10 MEQ CAPSULE.ER PO SCH (10:00)
[2018-08-18] MEDS: DEXTROSE 5%-1/2 NORMAL SALINE 1,000 ML IV PRN (12:44)
--- NOTE | 2018-08-18 14:04 | PDOC DISCHARGE SUMMARY ---
General - Admit/Disc Date/PCP Admission Date/Primary Care Provider: 08/15/18 14:02 Discharge Date: 08/18/18 - Discharge Diagnosis (1) Acute pancreatitis Is this a current diagnosis for this admission?: Yes (2) Hypertension Is this a current diagnosis for this admission?: Yes (3) Depression Is this a current diagnosis for this admission?: Yes (4) Hypokalemia Is this a current diagnosis for this admission?: Yes - Additional Information Resuscitation Status: Full Code Discharge Activity: Activity As Tolerated Prescriptions: Hydrocodone/Acetaminophen [Hydrocodon-Acetaminophen 5-325] 1 each PO Q6 PRN #12 tablet PRN Reason: For Pain Home Medications: Cetirizine HCl [Zyrtec 10 mg Tablet] 10 mg PO DAILYP PRN 08/15/18 Fluoxetine HCl [Prozac] 40 mg PO DAILY 08/15/18 Lisinopril/Hydrochlorothiazide [Zestoretic 20-12.5 mg Tablet] 2 tab PO QAM 08/15 Acetaminophen [Tylenol 325 mg Tablet] 650 mg PO Q4HP PRN tablet 08/18/18 Hydrocodone/Acetaminophen [Hydrocodon-Acetaminophen 5-325] 1 each PO Q6 PRN #12 tablet 08/18/18 History of Present Illness Patient complains of: Abdominal pain History of Present Illness: STARR TAYLOR is a 72 year old female with a complaint of abdominal pain onset Friday evening. Pain initially was a 7 out of 10. It persisted throughout the night and into the next day. Patient attempted to eat but had nausea and vomiting denies hematemesis. Pain continued throughout the week when she went to urgent care where she seeks her primary care. They advised her to come to the emergency room. Patient had been able to take her hypertensive medications and her Prozac for her depression. Evaluation in the emergency room patient was hypertensive having moderate abdominal pain. A CT of the abdomen was performed which was consistent with a pancreatitis there is no biliary obstruction detected. Her lipase was 1757 white count was elevated at 17,000. Urinalysis was negative. Patient was given empiric Unasyn for the elevated white count and no fever or other evidence of infection. Hospital Course Hospital Course: Patient was admitted to the medical floor and placed n.p.o. on IV hydration. Over the next 48 hours her lipase decreased to 300. She initially was placed on Unasyn for elevated white count. Her white count normalized and 48 hours and there was no source of infection found. She underwent a ultrasound of the abdomen which showed no gallstones no thickening of the gallbladder no evidence of biliary structuring. Her pancreatitis was felt to be secondary to sphincter spasm or idiopathic. Rods were checked and were less than 100 she was initiated on full liquids and tolerated them the following morning her lipase was in the 70s she was advanced to a GI soft diet. Her potassium had decreased to the low threes and she was given IV and p.o. supplementation. Patient had a gastrocolic reflux when eating causing her to have diarrhea but she did not have increased abdominal pain with her advancing of her diet. She wished to be discharged and it was recommended that she remain on full liquids for another 24 -48 hours and advance her diet slowly to a bland low-fat diet. She was provided hydrocodone for pain for short period of time and instructed to follow- up with her primary care provider. Physical Exam Vital Signs: Temp Pulse Resp BP Pulse Ox 98.4 F 75 16 109/89 H 91 L 08/18/18 11:30 08/18/18 11:30 08/18/18 11:30 08/18/18 11:30 08/18/18 11:30 Intake & Output 08/17/18 08/18/18 08/19/18 06:59 06:59 06:59 Intake Total 2270 3700 1432 Balance 2270 3700 1432 Weight 77.5 kg General appearance: PRESENT: no acute distress, well-developed, well-nourished Neck exam: ABSENT: carotid bruit, JVD, lymphadenopathy, thyromegaly Respiratory exam: PRESENT: clear to auscultation josh. ABSENT: rales, rhonchi, wheezes Cardiovascular exam: PRESENT: RRR. ABSENT: diastolic murmur, rubs, systolic murmur Pulses: PRESENT: normal dorsalis pedis pul GI/Abdominal exam: PRESENT: normal bowel sounds, soft, tenderness - Mild midepigastric. ABSENT: distended, guarding, mass, organolmegaly, rebound Extremities exam: PRESENT: full ROM. ABSENT: calf tenderness, clubbing, pedal edema Results Laboratory Results: 08/18/18 06:10 08/18/18 06:10 10/02/18 10/02/18 06:10 06:10 WBC 10.9 H RBC 3.55 L Hgb 11.5 L D Hct 32.7 L MCV 92 MCH 32.3 MCHC 35.0 RDW 13.1 Plt Count 210 Seg Neutrophils % 68.6 Lymphocytes % 16.9 Monocytes % 8.3 Eosinophils % 5.5 Basophils % 0.7 Absolute Neutrophils 7.5 Absolute Lymphocytes 1.8 Absolute Monocytes 0.9 Absolute Eosinophils 0.6 Absolute Basophils 0.1 Sodium 136.5 L Potassium 3.2 L Chloride 101 Carbon Dioxide 32 H Anion Gap 4 L BUN 8 Creatinine 0.57 Est GFR ( Amer) > 60 Est GFR (Non-Af Amer) > 60 Glucose 94 Calcium 8.3 L Magnesium 2.2 Lipase 77.2 Impressions: Abdomen Ultrasound 08/15/18 00:00 IMPRESSION: 1. Findings suggesting pancreatitis. 2. Mildly enlarged liver, steatosis. 3. Gallbladder unremarkable. Acute Abdomen Series 08/15/18 09:52 IMPRESSION: NO RADIOGRAPHIC EVIDENCE FOR ACUTE ABDOMINAL DISEASE. Abdomen/Pelvis CT 08/15/18 10:54 IMPRESSION: Mild adjacent inflammation in the region of the pancreatic head. Qualifiers - * PATIENT BEING DISCHARGED WITH ANY OF THE FOLLOWING DIAGNOSIS: No Plan Time Spent: Greater than 30 Minutes
[2018-08-18 14:50] VITALS: BP 144/57
== END 2018-08-18 15:52 | disposition home or self-care (01) | DRG 440 ==
LOC: ER 09:27 → EH 14:02 → 2N 14:35
PROVIDERS: ADMIT Family Medicine; ATTEND Family Medicine
DX: K85.90 Acute pancreatitis without necrosis or infection, unspecified (principal); I10 Essential (primary) hypertension; E87.6 Hypokalemia; F32.9 Major depressive disorder, single episode, unspecified; M13.849 Other specified arthritis, unspecified hand; Z90.49 Acquired absence of other specified parts of digestive tract; Z23 Encounter for immunization
CPT/HCPCS: 36415; 74022; 74177; 76700; 80048; 80053; 80061; 81001; 83690; 83735; 85025; 90471; 90686; 94799; 96361; 96365; 96372; 96375; 99285; G0008; J0295; J0500; J1650; J1885; J2270; J2405; J3010; J3480

== ENCOUNTER 2019-02-04 10:08 | Day surgery (SDC) | payer MEDICARE, BC ==
[2019-02-02 11:50] LABS: HEMATOCRIT 40.9 % (36.0-47.0); HEMOGLOBIN 14.2 g/dL (12.0-15.5); MEAN CORPUSCULAR HEMOGLOBIN 31.5 pg (27.0-33.4); MEAN CORPUSCULAR HGB CONC 34.7 g/dL (32.0-36.0); MEAN CORPUSCULAR VOLUME 91 fl (80-97); PLATELET COUNT 249 10^3/uL (150-450); RED BLOOD COUNT 4.51 10^6/uL (3.72-5.28); RED CELL DISTRIBUTION WIDTH 13.2 % (11.5-14.0)
[2019-02-02 12:13] LABS: ALANINE AMINOTRANSFERASE 28 U/L (9-52); ALBUMIN 4.1 g/dL (3.5-5.0); ALKALINE PHOSPHATASE 101 U/L (38-126); AMYLASE 86 U/L (30-110); ANION GAP 8 (5-19); ASPARTATE AMINO TRANSFERASE 28 U/L (14-36); BILIRUBIN,DIRECT 0.2 mg/dL (0.0-0.4); BILIRUBIN,TOTAL 0.8 mg/dL (0.2-1.3); BLOOD UREA NITROGEN 24 mg/dL (7-20); CALCIUM 9.7 mg/dL (8.4-10.2); CARBON DIOXIDE 29 mmol/L (22-30); CHLORIDE 104 mmol/L (98-107); GLUCOSE 97 mg/dL (75-110); POTASSIUM 4.2 mmol/L (3.6-5.0); SODIUM 140.5 mmol/L (137-145); TOTAL PROTEIN 7.4 g/dL (6.3-8.2)
[~2019-02-04 10:08] MED LIST changes: +ACETAMINOPHEN 325 MG TABLET PO PRN; +CEFAZOLIN 1 GM/D5W RTU 1 GM/50 ML RTUPB IV PRN; -KETOROLAC TROMETHAMINE 0.45% 4 DROP/0.4 ML DROPERETTE OS PRN; +LACTATED RINGERS 1000 ML IV PRN; +LIDOCAINE 0.5% INJ-PF (5 MG/ML) 50 ML SDV SUBCUT PRN; +METRONIDAZOLE 500 MG/NS RTU 500 MG/100 ML RTUPB IV PRN
[2019-02-04] MEDS ORDERED: GLYCOPYRROLATE 1 MG/5 ML SYRINGE ONE (10:19)
[2019-02-04] MEDS ORDERED: NEOSTIGMINE METHYLSULFATE 10 MG/10 ML VIAL ONE (10:19)
[2019-02-04] MEDS ORDERED: SUCCINYLCHOLINE CHLORIDE INJ 200 MG/10 ML VIAL ONE (10:19)
[2019-02-04] MEDS ORDERED: BUPIVACAINE HCL 0.25% /EPINEPHRINE INJ/PF 30 ML SDV ONE (10:32)
[2019-02-04] MEDS ORDERED: CEFAZOLIN 2 GM/D5W RTU 2 GM/50 ML RTUPB IV ONE (10:59)
[2019-02-04] MEDS ORDERED: CEFAZOLIN 1 GM/D5W RTU 1 GM/50 ML RTUPB IV ONE (11:00)
[2019-02-04] MEDS ORDERED: PROMETHAZINE HCL INJ 25 MG/1 ML VIAL ONE (11:45)
[2019-02-04] MEDS ORDERED: FENTANYL CITRATE INJ/PF 100 MCG/2 ML AMPUL ONE (11:45)
[2019-02-04] MEDS ORDERED: HYDROMORPHONE HCL INJ/PF 2 MG/ML AMPULE ONE (11:45)
[2019-02-04] MEDS ORDERED: DEXAMETHASONE SOD PHOSPHATE INJ 4 MG/1 ML VIAL ONE (11:46)
[2019-02-04] MEDS ORDERED: ONDANSETRON HCL INJ/PF 4 MG/2 ML SDV ONE (11:46)
[2019-02-04] MEDS ORDERED: MIDAZOLAM 2 MG/2 ML INJ ONE (11:46)
[2019-02-04] MEDS ORDERED: ACETAMINOPHEN 1,000 MG/100 ML RTUPB IV ONE (11:46)
[2019-02-04] MEDS ORDERED: PROPOFOL INJ 200 MG/20 ML VIAL IV ONE (11:46)
[2019-02-04] MEDS ORDERED: FENTANYL CITRATE INJ/PF 100 MCG/2 ML AMPUL IV PRN ×3 (12:22)
[2019-02-04] MEDS ORDERED: MORPHINE SULFATE 10 MG/ML INJ IV PRN (12:22)
[2019-02-04] MEDS ORDERED: PROMETHAZINE HCL INJ 25 MG/1 ML VIAL IV PRN ×2 (12:22)
[2019-02-04] MEDS ORDERED: DIPHENHYDRAMINE HCL 50 MG/ML VIAL IV PRN (12:22)
[2019-02-04] MEDS ORDERED: MEPERIDINE HCL/PF INJ 25 MG/1 ML DISP.SYRIN IV PRN (12:22)
--- NOTE | 2019-02-04 12:52 | Operative Report ---
Nonrecallable Operative Report DATE OF SURGERY: 02/04/19 PREOPERATIVE DIAGNOSIS: cholelilthiasis POSTOPERATIVE DIAGNOSIS: cholelithiasis OPERATION: laparoscopic chlecystectomy SURGEON: LAQUITA RIOS 1ST INSTRUCTIONAL TECHNOLOGY SPECIALIST: ELYSE BAUER ANESTHESIA: GA TISSUE REMOVED OR ALTERED: gallbladder COMPLICATIONS: none ESTIMATED BLOOD LOSS: 10cc INTRAOPERATIVE FINDINGS: see dictation PROCEDURE: see dictation
[2019-02-04] MEDS ORDERED: OXYCODONE-ACETAMINOPHEN 5-325 MG TABLET PO PRN (12:54)
--- NOTE | 2019-02-04 12:54 | Discharge Summary ---
Discharge Summary (SDC) - Discharge Final Diagnosis: cholelithiasis Date of Surgery: 02/04/19 Condition: Good Referrals: GIGI GIBBS MD [Primary Care Provider] - Discharge Diet: As Tolerated Discharge Activity: Activity As Tolerated, No Lifting Over 10 Pounds Report the Following to Your Physician Immediately: Shortness of Breath, Nausea, Vomiting, Increase in Pain, Yellow Skin - needs a f/u appoint with me in 7-10 days., Fever over 101 Degrees
--- NOTE | 2019-02-04 13:13 | OPERATIVE REPORT E ---
Operative Report NAME: STARR TAYLOR : 1945 AGE: 73Y DATE OF SURGERY: 02/04/2019 ROOM: PREOPERATIVE DIAGNOSIS: Cholelithiasis. POSTOPERATIVE DIAGNOSIS: Cholelithiasis. OPERATIVE PROCEDURE: Laparoscopic cholecystectomy. SURGEON: LAQUITA RIOS M.D. GEOTHERMAL PRODUCTION MANAGER: LATOSHA Calhoun, who was present for the entire case for wound retraction and wound closure. ANESTHESIA: General. PROCEDURE: The patient was brought to the operating room in an awake, alert, and stable condition, placed on the operating table in supine position, induced under general anesthesia, and intubated. The abdomen was prepped and draped in the usual sterile manner for the procedure. A Veress needle was placed into the umbilicus and the abdomen was insufflated with 6 L of CO2 gas. An infraumbilical semilunar incision was made with a 15 blade and a 10 mm port placed in the abdominal cavity. Intra-abdominal visualization revealed no evidence of Veress needle or trocar injury. An epigastric 5 mm port was placed under direct vision, and 2 lateral 5 mm ports were placed under direct vision. The gallbladder was identified. It was placed on traction. The hepatoduodenal ligament was identified and dissected. The cystic duct and cystic artery were both dissected out of the hepatoduodenal ligament, doubly clipped with Endoclips on the stay side, 1 on the specimen side, divided, and the gallbladder was dissected out of the liver bed with Bovie cautery. It was placed in an Endobag and removed through the umbilical port site. The right upper quadrant was irrigated with normal saline and suctioned dry. Hemostasis was noted to be intact. The pneumoperitoneum was reduced. The fascial defect at the umbilical site was closed with 0 Vicryl, and then all 4 skin incisions were closed with intracuticular 4-0 Biosyn. Steri-Strips completed the procedure. Estimated blood loss was less than 20 mL. Sponge and needle counts were correct x2. The patient was awakened in the operating room, extubated, and transferred to recovery in stable condition, no complications. DICTATING PHYSICIAN: LAQUITA RIOS M.D. [id number] PHY#: [id number] ID: [id number] JOB#: [id number] ACCT: [id number] cc:LAQUITA RIOS M.D. >
[2019-02-04] MEDS: FENTANYL CITRATE INJ/PF 100 MCG/2 ML AMPUL ONE ×2 (13:19→13:24)
[2019-02-04] MEDS ORDERED: KETOROLAC TROMETHAMINE INJ/PF 30 MG/1 ML SDV ONE (13:41)
[2019-02-04] MEDS ORDERED: NALOXONE HCL INJ/PF 0.4 MG/1 ML SDV ONE (16:53)
[2019-02-04 19:15] VITALS: BP 115/65
== END 2019-02-04 17:50 | disposition home or self-care (01) ==
LOC: OROUT 10:08
PROVIDERS: ATTEND Surgery
DX: K80.10 Calculus of gallbladder with chronic cholecystitis without obstruction (principal); I10 Essential (primary) hypertension; Z79.899 Other long term (current) drug therapy; Z01.818 Encounter for other preprocedural examination
CPT/HCPCS: 86900; 86901; 36415 ×2; 86850; 82150; 84132; 85027; 80076; 80048; 88304 ×2; 47562; J2250; J3490 ×2; J0690 ×2; J1100; J3010; J1885; J2310; J1170; J0330; J2405; J2704; J0131; 790; J2550

== ENCOUNTER 2019-02-06 16:53 | Inpatient (IN) | payer MEDICARE, BC ==
[2019-02-06] MEDS ORDERED: FAMOTIDINE INJ/PF 20 MG/2 ML SDV IV ONE (17:09)
[2019-02-06] MEDS ORDERED: ONDANSETRON HCL INJ/PF 4 MG/2 ML SDV IV ONE (17:09)
[2019-02-06] MEDS ORDERED: NORMAL SALINE 1000 ML 1,000 ML IV ONE (17:09)
--- NOTE | 2019-02-06 17:11 | ER Document Report ---
ED GI/ - General Chief Complaint: Abdominal Pain Stated Complaint: ABDOMINAL PAIN Time Seen by Provider: 02/06/19 17:05 Mode of Arrival: Stretcher Information source: Patient TRAVEL OUTSIDE OF THE [place] IN LAST 30 DAYS: No - HPI Patient complains to provider of: Abdominal pain, Vomiting Onset: Just prior to arrival Timing/Duration: Sudden Quality of pain: Achy Severity at maximum: Moderate Severity in ED: Moderate Pain Level: 3 Location: Epigastric, RLQ Associated symptoms: Nausea, Vomiting Exacerbated by: Denies Relieved by: Denies Similar symptoms previously: Yes Recently seen / treated by doctor: Yes Notes: 02/06/19 17:10 Patient is a 73-year-old female presenting to the emergency room today complaining of epigastric abdominal pain with nausea and vomiting that started at approximately 3:00 this afternoon, she reports pain in the epigastric and right upper quadrant, denies a fever, no sick contacts, denies dysuria hematuria, patient recently had a cholecystectomy on of last week, she ate fried chicken today right before her symptoms started - Related Data Allergies/Adverse Reactions: No Known Allergies Allergy (Verified 02/01/19 14:57) Past Medical History - General Information source: Patient - Social History Smoking Status: Unknown if Ever Smoked Family History: Reviewed & Not Pertinent, COPD - Father and 2 brothers Patient has suicidal ideation: No Patient has homicidal ideation: No - Past Medical History Cardiac Medical History: Reports: Hx Hypertension Denies: Hx Coronary Artery Disease, Hx Heart Attack Pulmonary Medical History: Reports: Hx Bronchitis, Hx Pneumonia Denies: Hx Asthma, Hx COPD Neurological Medical History: Denies: Hx Cerebrovascular Accident, Hx Seizures Renal/ Medical History: Denies: Hx Peritoneal Dialysis GI Medical History: Denies: Hx Hepatitis, Hx Hiatal Hernia, Hx Ulcer Musculoskeletal Medical History: Reports Hx Arthritis Psychiatric Medical History: Reports: Hx Depression - occasional takes prozac Infectious Medical History: Denies: Hx Hepatitis Past Surgical History: Reports: Hx Appendectomy, Hx Hysterectomy, Hx Orthopedic Surgery - Left thumb arthroplasty, bilateral plantar fasciitis. Denies: Hx Mastectomy, Hx Open Heart Surgery, Hx Pacemaker - Immunizations Hx Diphtheria, Pertussis, Tetanus Vaccination: No Hx Pneumococcal Vaccination: 11/17/16 Review of Systems - Review of Systems Constitutional: No symptoms reported EENT: No symptoms reported Cardiovascular: No symptoms reported Respiratory: No symptoms reported Gastrointestinal: See HPI Genitourinary: No symptoms reported Female Genitourinary: No symptoms reported Musculoskeletal: No symptoms reported Skin: No symptoms reported Hematologic/Lymphatic: No symptoms reported Neurological/Psychological: No symptoms reported -: Yes All other systems reviewed and negative Physical Exam - Vital signs Vitals: Resp BP 17 180/70 H 02/06/19 19:01 02/06/19 19:01 Interpretation: Normal - General General appearance: Appears well, Alert - HEENT Head: Normocephalic, Atraumatic Eyes: Normal Pupils: PERRL - Respiratory Respiratory status: No respiratory distress Chest status: Nontender Breath sounds: Normal Chest palpation: Normal - Cardiovascular Rhythm: Regular Heart sounds: Normal auscultation Murmur: No - Abdominal Inspection: Normal Distension: No distension Bowel sounds: Normal Tenderness: Tender - Epigastric and right upper quadrant Organomegaly: No organomegaly - Back Back: Normal, Nontender - Extremities General upper extremity: Normal inspection, Nontender, Normal color, Normal ROM, Normal temperature General lower extremity: Normal inspection, Nontender, Normal color, Normal ROM, Normal temperature, Normal weight bearing. No: Carley's sign - Neurological Neuro grossly intact: Yes Cognition: Normal Orientation: AAOx4 [place] Coma Scale Eye Opening: Spontaneous Karen Coma Scale Verbal: Oriented [place] Coma Scale Motor: Obeys Commands Karen Coma Scale Total: 15 Speech: Normal Motor strength normal: LUE, RUE, LLE, RLE Sensory: Normal - Psychological Associated symptoms: Normal affect, Normal mood - Skin Skin Temperature: Warm Skin Moisture: Dry Skin Color: Normal Course - Re-evaluation Re-evalutation: 02/06/19 19:33 Patient discussed with surgeon, Dr. Roman, who recommends proceeding with CT scan of the abdomen and pelvis with IV contrast, keep patient n.p.o., he will to admit for postop pancreatitis 02/06/19 21:22 Patient seen and evaluated by surgeon, Dr. Roman who will admit for postoperative pancreatitis, plan discussed with patient and family at bedside who are in agreement - Vital Signs Vital signs: Temp Pulse Resp BP Pulse Ox 17 180/70 H 02/06/19 19:01 02/06/19 19:01 - Laboratory Result Diagrams: 02/06/19 18:27 02/06/19 18:27 Laboratory results interpreted by me: 02/06/19 02/06/19 18:27 18:27 WBC 16.7 H Seg Neutrophils % 80.9 H Lymphocytes % 8.9 L Absolute Neutrophils 13.5 H Absolute Monocytes 1.6 H Potassium 3.3 L BUN 28 H Glucose 130 H AST 42 H Lipase 22148.9 H - Diagnostic Test Radiology reviewed: Image reviewed, Reports reviewed - EKG Interpretation by Me EKG shows normal: Sinus rhythm Rate: Normal Rhythm: NSR Discharge - Discharge Clinical Impression: Acute pancreatitis Qualifiers: Pancreatitis type: unspecified pancreatitis type Acute pancreatitis complication: unspecified Qualified Code(s): K85.90 - Acute pancreatitis without necrosis or infection, unspecified Condition: Stable Disposition: ADMITTED INPATIENT Admitting Provider: Surgicalist Unit Admitted: Medical Floor
[2019-02-06] MEDS ORDERED: MORPHINE SULFATE 10 MG/ML INJ IV ONE (18:27)
[2019-02-06 18:51] LABS: ABSOLUTE BASOPHILS # (AUTO) 0.1 10^3/uL (0.0-0.2); ABSOLUTE LYMPHOCYTES (AUTO) 1.5 10^3/uL (0.5-4.7); ABSOLUTE MONOCYTES (AUTO) 1.6 10^3/uL (0.1-1.4); ABSOLUTE NEUT (AUTO) 13.5 10^3/uL (1.7-8.2); BASOPHILS % (AUTO) 0.3 % (0-2); EOSINOPHILS % (AUTO) 0.2 % (0-6); HEMATOCRIT 45.3 % (36.0-47.0); HEMOGLOBIN 15.4 g/dL (12.0-15.5); LYMPHOCYTES % (AUTO) 8.9 % (13-45); MEAN CORPUSCULAR VOLUME 91 fl (80-97); MONOCYTES % (AUTO) 9.7 % (3-13); PLATELET COUNT 214 10^3/uL (150-450); RED BLOOD COUNT 4.97 10^6/uL (3.72-5.28); RED CELL DISTRIBUTION WIDTH 13.6 % (11.5-14.0); SEGMENTED NEUTROPHILS % (AUTO) 80.9 % (42-78); TOTAL CELLS COUNTED % (AUTO) 100 %; WHITE BLOOD COUNT 16.7 10^3/uL (4.0-10.5)
[2019-02-06 18:55] LABS: ALANINE AMINOTRANSFERASE 49 U/L (9-52); ALBUMIN 3.5 g/dL (3.5-5.0); ALKALINE PHOSPHATASE 80 U/L (38-126); ANION GAP 9 (5-19); ASPARTATE AMINO TRANSFERASE 42 U/L (14-36); BILIRUBIN,DIRECT 0.2 mg/dL (0.0-0.4); BILIRUBIN,TOTAL 0.6 mg/dL (0.2-1.3); BLOOD UREA NITROGEN 28 mg/dL (7-20); CALCIUM 8.9 mg/dL (8.4-10.2); CARBON DIOXIDE 29 mmol/L (22-30); CHLORIDE 103 mmol/L (98-107); GLUCOSE 130 mg/dL (75-110); POTASSIUM 3.3 mmol/L (3.6-5.0); SODIUM 141.2 mmol/L (137-145); TOTAL PROTEIN 6.4 g/dL (6.3-8.2)
[2019-02-06] MEDS: HYDROMORPHONE HCL INJ/PF 2 MG/ML AMPULE IV ONE ×2 (19:01→19:16)
[2019-02-06 19:18] LABS: LIPASE 17642.9 U/L (23-300)
[2019-02-06] MEDS ORDERED: HYDROMORPHONE HCL INJ/PF 2 MG/ML AMPULE IV ONE (20:19)
--- NOTE | 2019-02-06 20:19 | PDOC H&P ---
History of Present Illness Admission Date/PCP: GIGI GIBBS MD Patient complains of: upper abdominal pain and back pain. started this afternoon after eating chicken for breakfast History of Present Illness: STARR TAYLOR is a 73 year old female Past Medical History Cardiac Medical History: Reports: Hypertension Denies: Coronary Artery Disease, Myocardial Infarction Pulmonary Medical History: Reports: Bronchitis, Pneumonia Denies: Asthma, Chronic Obstructive Pulmonary Disease (COPD) Neurological Medical History: Denies: Seizures GI Medical History: Denies: Hepatitis, Hiatal Hernia Musculoskeltal Medical History: Reports: Arthritis Psychiatric Medical History: Reports: Depression - occasional takes prozac Hematology: Denies: Anemia, Sickle Cell Disease Past Surgical History Past Surgical History: Reports: Appendectomy, Cholecystectomy, Hysterectomy, Orthopedic Surgery - Left thumb arthroplasty, bilateral plantar fasciitis Denies: Amputation, Mastectomy, Pacemaker Social History Smoking Status: Unknown if Ever Smoked Frequency of Alcohol Use: None Hx Recreational Drug Use: No Drugs: None Hx Prescription Drug Abuse: No Family History Family History: Reviewed & Not Pertinent, COPD - Father and 2 brothers Parental Family History Reviewed: No Children Family History Reviewed: No Sibling(s) Family History Reviewed.: No Medication/Allergy Home Medications: Cetirizine HCl [Zyrtec 10 mg Tablet] 10 mg PO DAILYP PRN 08/15/18 Fluoxetine HCl [Prozac] 40 mg PO DAILY 08/15/18 Lisinopril/Hydrochlorothiazide [Zestoretic 20-12.5 mg Tablet] 2 tab PO QAM 08/15/18 Acetaminophen [Tylenol 325 mg Tablet] 650 mg PO Q4HP PRN tablet 08/18/18 Allergies/Adverse Reactions: No Known Allergies Allergy (Verified 02/01/19 14:57) Review of Systems Constitutional: PRESENT: fatigue, other - back pain and upper abdominal pain Ears: PRESENT: hearing changes, other - no hearing changes Breasts: PRESENT: other - no c/o breast masses Cardiovascular: PRESENT: other - no chest pain, Respiratory: PRESENT: other - no cough or shortness of breath Gastrointestinal: PRESENT: other - upper abdominal pain radiating to mid back Musculoskeletal: PRESENT: other - no muscular weakness Neurological: PRESENT: other - no focal weakness, no slurred speech or headaches Endocrine: PRESENT: other - no cold or heat intolerance Hematologic/Lymphatic: PRESENT: other - no easy brusing. Physical Exam Vital Signs: Temp Pulse Resp BP Pulse Ox 17 180/70 H 02/06/19 19:01 02/06/19 19:01 Intake & Output 02/05/19 02/06/19 02/07/19 06:59 06:59 06:59 Intake Total 1000 Balance 1000 Weight 83 kg General appearance: PRESENT: mild distress, morbidly obese Head exam: PRESENT: atraumatic Eye exam: PRESENT: conjunctiva pink, EOMI Mouth exam: PRESENT: dry mucosa Neck exam: PRESENT: full ROM Respiratory exam: PRESENT: clear to auscultation josh, unlabored Cardiovascular exam: PRESENT: RRR Pulses: PRESENT: normal radial pulses, normal femoral pulses Vascular exam: PRESENT: normal capillary refill GI/Abdominal exam: PRESENT: tenderness - tenderness in epigastrium to palpation lap sites intact Rectal exam: PRESENT: deferred Extremities exam: PRESENT: full ROM Musculoskeletal exam: PRESENT: full ROM Neurological exam: PRESENT: alert, awake, oriented to person, oriented to place, oriented to time, oriented to situation Psychiatric exam: PRESENT: appropriate affect Skin exam: PRESENT: dry Results Laboratory Results: 02/06/19 18:27 02/06/19 18:27 02/06/19 02/06/19 18:27 18:27 WBC 16.7 H RBC 4.97 Hgb 15.4 Hct 45.3 MCV 91 MCH 31.0 MCHC 34.0 RDW 13.6 Plt Count 214 Seg Neutrophils % 80.9 H Lymphocytes % 8.9 L Monocytes % 9.7 Eosinophils % 0.2 Basophils % 0.3 Absolute Neutrophils 13.5 H Absolute Lymphocytes 1.5 Absolute Monocytes 1.6 H Absolute Eosinophils 0.0 Absolute Basophils 0.1 Sodium 141.2 Potassium 3.3 L Chloride 103 Carbon Dioxide 29 Anion Gap 9 BUN 28 H Creatinine 0.78 Est GFR ( Amer) > 60 Est GFR (Non-Af Amer) > 60 Glucose 130 H Calcium 8.9 Total Bilirubin 0.6 AST 42 H ALT 49 Alkaline Phosphatase 80 Total Protein 6.4 Albumin 3.5 Lipase 19531.9 H Status: Imported from PACS Assessment & Plan - Diagnosis (1) Acute pancreatitis Qualifiers: Pancreatitis type: unspecified pancreatitis type Acute pancreatitis complication: unspecified Qualified Code(s): K85.90 - Acute pancreatitis without necrosis or infection, unspecified - Plan Summary Plan Summary: pt is two days s/p laparoscopic cholecystectomy developed acute abd pain radiating to her back this afternoon after eating chicken this morning. because of her pain, she came to er initial labs show elevated lipase c/w acute pancreatitis. impression biliary pancreatitis post lap wilfrido plan admit for iv hydration replace electrolytes pain management ct scan prob mrcp this admission
[2019-02-06] MEDS ORDERED: ONDANSETRON HCL INJ/PF 4 MG/2 ML SDV IV PRN (20:24)
[2019-02-06] MEDS ORDERED: HYDROMORPHONE HCL INJ/PF 2 MG/ML AMPULE IV PRN (20:27)
[2019-02-06] MEDS: POTASSI CL 30 MEQ/D5-1/2NS 1L 30 MEQ/1,000 ML RTUINJ IV PRN (21:20)
--- NOTE | 2019-02-06 21:25 | RADIOLOGY REPORT (SQ) ---
CT ABDOMEN PELVIS WITH IV CONTRAST EXAM DATE: 02/06/2019 19:23 HISTORY: Abdominal pain. COMPARISON: 08/15/2018 TECHNIQUE: CT scan of the abdomen and pelvis with IV contrast. This exam was performed according to our departmental dose-optimization program, which includes automated exposure control, adjustment of the mA and/or kV according to patient size and/or use of iterative reconstruction technique. FINDINGS: There is scattered atelectasis and scarring at the lung bases. No pleural or pericardial effusions. There is no hiatal hernia. There has been a prior cholecystectomy. There is marked inflammatory stranding surrounding the pancreas consistent with acute pancreatitis. No evidence of pseudocyst. The liver, spleen, adrenal glands, and kidneys are normal without hydronephrosis. There has been a prior hysterectomy. There are scattered colonic diverticula without surrounding inflammatory changes. There is a small amount of mesenteric stranding and free fluid likely reactive. There has been a prior appendectomy. The aorta is normal caliber and contains atherosclerotic calcifications. No acute osseous findings are seen. IMPRESSION: Acute pancreatitis without evidence of pseudocyst.
--- NOTE | 2019-02-06 22:14 | EKG REPORT ---
SEVERITY:- ABNORMAL ECG - SINUS RHYTHM PROBABLE LEFT ATRIAL ABNORMALITY BORDERLINE LEFT AXIS DEVIATION BORDERLINE T ABNORMALITIES, ANT-LAT LEADS BORDERLINE PROLONGED QT INTERVAL : Confirmed by: Yeison Ruby 06-Feb-2019 22:12:25
[2019-02-06 23:09] LABS: APPEARANCE,URINE SLIGHTLY-CLOUDY; BILIRUBIN,URINE NEGATIVE (NEGATIVE); COLOR,URINE YELLOW; GLUCOSE, URINE NEGATIVE (NEGATIVE); KETONES,URINE NEGATIVE (NEGATIVE); LEUKOCYTE ESTERASE,URINE SMALL (NEGATIVE); NITRITE,URINE NEGATIVE (NEGATIVE); PROTEIN,URINE NEGATIVE (NEGATIVE); URINE SPECIFIC GRAVITY 1.044; UROBILINOGEN,URINE NEGATIVE mg/dL (<2.0)
[2019-02-06] MEDS ORDERED: HYDRALAZINE HCL INJ/PF 20 MG/1 ML SDV ONE (23:30)
[2019-02-07 02:20] LABS: HEMATOCRIT 47.2 % (36.0-47.0); HEMOGLOBIN 16.1 g/dL (12.0-15.5); MEAN CORPUSCULAR HEMOGLOBIN 31.2 pg (27.0-33.4); MEAN CORPUSCULAR VOLUME 92 fl (80-97); PLATELET COUNT 178 10^3/uL (150-450); RED BLOOD COUNT 5.14 10^6/uL (3.72-5.28); RED CELL DISTRIBUTION WIDTH 13.2 % (11.5-14.0)
[2019-02-07 02:34] LABS: ABSOLUTE LYMPHOCYTES# (MANUAL) 0.1 10^3/uL (0.5-4.7); ABSOLUTE MONOCYTES # (MANUAL) 0.9 10^3/uL (0.1-1.4); BASOPHILS % (MANUAL) 0 % (0-2); EOSINOPHILS % (MANUAL) 0 % (0-6); LYMPHOCYTES % (MANUAL) 1 % (13-45); MONOCYTES % (MANUAL) 7 % (3-13); SEGMENTED NEUTROPHILS % (MAN) 92 % (42-78); TOTAL CELLS COUNTED 100
[2019-02-07 02:36] LABS: PLATELET COMMENT ADEQUATE; RBC MORPHOLOGY COMMENT NORMO-CYTIC/CHROMIC; TOXIC VACUOLATION PRESENT
[2019-02-07 03:10] LABS: ALANINE AMINOTRANSFERASE 45 U/L (9-52); ALBUMIN 3.5 g/dL (3.5-5.0); ALKALINE PHOSPHATASE 83 U/L (38-126); ANION GAP 10 (5-19); ASPARTATE AMINO TRANSFERASE 76 U/L (14-36); BILIRUBIN,DIRECT 0.3 mg/dL (0.0-0.4); BILIRUBIN,TOTAL 0.9 mg/dL (0.2-1.3); BLOOD UREA NITROGEN 29 mg/dL (7-20); CALCIUM 8.6 mg/dL (8.4-10.2); CARBON DIOXIDE 25 mmol/L (22-30); CHLORIDE 105 mmol/L (98-107); GLUCOSE 224 mg/dL (75-110); PHOSPHORUS 6.1 mg/dL (2.5-4.5); POTASSIUM 3.9 mmol/L (3.6-5.0); SODIUM 140.2 mmol/L (137-145); TOTAL PROTEIN 6.5 g/dL (6.3-8.2)
[2019-02-07 03:32] LABS: LIPASE 7158.4 U/L (23-300)
[2019-02-07 05:06] LABS: ARTERIAL BLOOD BASE EXCESS -1.7 mmol/L; ARTERIAL BLOOD H2CO3 1.56 mmol/L (1.05-1.35); ARTERIAL BLOOD HCO3 25.5 mmol/L (20-24); ARTERIAL BLOOD PCO2 51.9 mmHg (35-45); ARTERIAL BLOOD PH 7.31 (7.35-7.45); ARTERIAL BLOOD PO2 89.6 mmHg (80-100); ARTERIAL BLOOD TOTAL CO2 27.1 mmol/L (21-25)
[2019-02-07 05:08] LABS: ARTERIAL BLOOD FIO2 3L
[2019-02-07] MEDS: HYDRALAZINE HCL INJ/PF 20 MG/1 ML SDV IV PRN (05:20)
[2019-02-07] MEDS: MORPHINE SULFATE 10 MG/ML INJ IV PRN ×3 (05:24→20:02)
[2019-02-07] MEDS ORDERED: POTASSI CL 30 MEQ/D5-1/2NS 1L 30 MEQ/1,000 ML RTUINJ IV ONE (05:43)
[2019-02-07] MEDS: POTASSI CL 30 MEQ/D5-1/2NS 1L 30 MEQ/1,000 ML RTUINJ IV PRN ×2 (05:57→17:56)
[2019-02-07] MEDS ORDERED: HYDROMORPHONE HCL INJ/PF 2 MG/ML AMPULE IV PRN (08:13)
--- NOTE | 2019-02-07 08:22 | PDOC PROGRESS REPORT ---
Subjective Progress Note for:: 02/07/19 Subjective:: abdominal pain Reason For Visit: PANCREATITIS Physical Exam Vital Signs: Temp Pulse Resp BP Pulse Ox 98.4 F 94 14 162/56 H 94 02/07/19 03:20 02/07/19 06:20 02/07/19 06:20 02/07/19 06:20 02/07/19 06:20 Intake & Output 02/06/19 02/07/19 02/08/19 06:59 06:59 06:59 Intake Total 1999 Balance 1999 Weight 83 kg General appearance: PRESENT: mild distress, morbidly obese Head exam: PRESENT: normocephalic Eye exam: PRESENT: EOMI Mouth exam: PRESENT: dry mucosa Neck exam: PRESENT: full ROM Respiratory exam: PRESENT: clear to auscultation josh Cardiovascular exam: PRESENT: RRR Pulses: PRESENT: normal radial pulses, normal femoral pulses Vascular exam: PRESENT: normal capillary refill GI/Abdominal exam: PRESENT: other - softly distended, few bs tender to palpation no rebound tenderness Rectal exam: PRESENT: deferred Extremities exam: PRESENT: full ROM Musculoskeletal exam: PRESENT: full ROM Neurological exam: PRESENT: alert, awake Psychiatric exam: PRESENT: anxious Skin exam: PRESENT: dry Results Laboratory Results: 02/07/19 02:03 02/07/19 02:42 02/06/19 02/06/19 02/06/19 18:27 18:27 22:53 WBC 16.7 H RBC 4.97 Hgb 15.4 Hct 45.3 MCV 91 MCH 31.0 MCHC 34.0 RDW 13.6 Plt Count 214 Seg Neutrophils % 80.9 H Lymphocytes % 8.9 L Monocytes % 9.7 Eosinophils % 0.2 Basophils % 0.3 Absolute Neutrophils 13.5 H Absolute Lymphocytes 1.5 Absolute Monocytes 1.6 H Absolute Eosinophils 0.0 Absolute Basophils 0.1 Carbonic Acid HCO3/H2CO3 Ratio ABG pH ABG pCO2 ABG pO2 ABG HCO3 ABG O2 Saturation ABG Base Excess FiO2 Sodium 141.2 Potassium 3.3 L Chloride 103 Carbon Dioxide 29 Anion Gap 9 BUN 28 H Creatinine 0.78 Est GFR ( Amer) > 60 Est GFR (Non-Af Amer) > 60 Glucose 130 H Calcium 8.9 Phosphorus Magnesium Total Bilirubin 0.6 AST 42 H ALT 49 Alkaline Phosphatase 80 Total Protein 6.4 Albumin 3.5 Lipase 23776.9 H Urine Color YELLOW Urine Appearance SLIGHTLY-CLOUDY Urine pH 5.0 Ur Specific [place] 1.044 Urine Protein NEGATIVE Urine Glucose (UA) NEGATIVE Urine Ketones NEGATIVE Urine Blood MODERATE H Urine Nitrite NEGATIVE Ur Leukocyte Esterase SMALL H Urine WBC (Auto) 15 Urine RBC (Auto) 2 02/07/19 02/07/19 02/07/19 02:03 02:03 02:03 WBC 13.0 H RBC 5.14 Hgb 16.1 H Hct 47.2 H MCV 92 MCH 31.2 MCHC 34.0 RDW 13.2 Plt Count 178 Seg Neutrophils % Not Reportable Lymphocytes % Not Reportable Monocytes % Not Reportable Eosinophils % Not Reportable Basophils % Not Reportable Absolute Neutrophils Not Reportable Absolute Lymphocytes Not Reportable Absolute Monocytes Not Reportable Absolute Eosinophils Not Reportable Absolute Basophils Not Reportable Carbonic Acid HCO3/H2CO3 Ratio ABG pH ABG pCO2 ABG pO2 ABG HCO3 ABG O2 Saturation ABG Base Excess FiO2 Sodium Cancelled Cancelled Potassium Cancelled Cancelled Chloride Cancelled Cancelled Carbon Dioxide Cancelled Cancelled Anion Gap Cancelled Cancelled BUN Cancelled Cancelled Creatinine Cancelled Cancelled Est GFR ( Amer) Cancelled Cancelled Est GFR (Non-Af Amer) Cancelled Cancelled Glucose Cancelled Cancelled Calcium Cancelled Cancelled Phosphorus Cancelled Magnesium Cancelled Total Bilirubin Cancelled Cancelled AST Cancelled Cancelled ALT Cancelled Cancelled Alkaline Phosphatase Cancelled Cancelled Total Protein Cancelled Cancelled Albumin Cancelled Cancelled Lipase Cancelled Cancelled Urine Color Urine Appearance Urine pH Ur Specific [place] Urine Protein Urine Glucose (UA) Urine Ketones Urine Blood Urine Nitrite Ur Leukocyte Esterase Urine WBC (Auto) Urine RBC (Auto) 02/07/19 02/07/19 02:42 04:35 WBC RBC Hgb Hct MCV MCH MCHC RDW Plt Count Seg Neutrophils % Lymphocytes % Monocytes % Eosinophils % Basophils % Absolute Neutrophils Absolute Lymphocytes Absolute Monocytes Absolute Eosinophils Absolute Basophils Carbonic Acid 1.56 H HCO3/H2CO3 Ratio 16:1 ABG pH 7.31 L ABG pCO2 51.9 H ABG pO2 89.6 ABG HCO3 25.5 H ABG O2 Saturation 96.0 ABG Base Excess -1.7 FiO2 3L Sodium 140.2 Potassium 3.9 Chloride 105 Carbon Dioxide 25 Anion Gap 10 BUN 29 H Creatinine 0.85 Est GFR ( Amer) > 60 Est GFR (Non-Af Amer) > 60 Glucose 224 H Calcium 8.6 Phosphorus 6.1 H Magnesium 1.8 Total Bilirubin 0.9 AST 76 H ALT 45 Alkaline Phosphatase 83 Total Protein 6.5 Albumin 3.5 Lipase 7158.4 H Urine Color Urine Appearance Urine pH Ur Specific [place] Urine Protein Urine Glucose (UA) Urine Ketones Urine Blood Urine Nitrite Ur Leukocyte Esterase Urine WBC (Auto) Urine RBC (Auto) Impressions: Abdomen/Pelvis CT 02/06/19 19:23 IMPRESSION: Acute pancreatitis without evidence of pseudocyst. Assessment & Plan - Diagnosis (1) Acute pancreatitis Qualifiers: Pancreatitis type: unspecified pancreatitis type Acute pancreatitis complication: unspecified Qualified Code(s): K85.90 - Acute pancreatitis without necrosis or infection, unspecified Is this a current diagnosis for this admission?: Yes - Plan Summary Plan Summary: admitted with acute pancreatitis still with abd pain labs improved overnight with iv hydration lipase 44388 to 7000 this am wbc down to 16 to 13k plan will cont iv hydration cont pain management. add dilaudid and toradol close observation
[2019-02-07] MEDS ORDERED: LORAZEPAM INJ 2 MG/1 ML VIAL IV ONE (09:00)
[2019-02-07] MEDS ORDERED: BISACODYL 10 MG SUPP.RECT PR ONE ×2 (09:30→16:00)
[2019-02-07] MEDS: KETOROLAC TROMETHAMINE INJ/PF 30 MG/1 ML SDV IV PRN ×2 (16:30→23:20)
[2019-02-08] MEDS: POTASSI CL 30 MEQ/D5-1/2NS 1L 30 MEQ/1,000 ML RTUINJ IV PRN (00:56)
[2019-02-08] MEDS: MORPHINE SULFATE 10 MG/ML INJ IV PRN (03:01)
[2019-02-08] MEDS ORDERED: NORMAL SALINE 1000 ML 1,000 ML IV ONE (07:30)
[2019-02-08 07:59] LABS: HEMATOCRIT 42.9 % (36.0-47.0); HEMOGLOBIN 14.2 g/dL (12.0-15.5); MEAN CORPUSCULAR HGB CONC 33.1 g/dL (32.0-36.0); MEAN CORPUSCULAR VOLUME 94 fl (80-97); PLATELET COUNT 199 10^3/uL (150-450); RED BLOOD COUNT 4.59 10^6/uL (3.72-5.28); WHITE BLOOD COUNT 16.4 10^3/uL (4.0-10.5)
[2019-02-08 08:17] LABS: ANION GAP 8 (5-19); BLOOD UREA NITROGEN 36 mg/dL (7-20); CALCIUM 8.2 mg/dL (8.4-10.2); CARBON DIOXIDE 25 mmol/L (22-30); CHLORIDE 110 mmol/L (98-107); GLUCOSE 187 mg/dL (75-110); POTASSIUM 4.4 mmol/L (3.6-5.0); SODIUM 142.8 mmol/L (137-145)
[2019-02-08] MEDS: KETOROLAC TROMETHAMINE INJ/PF 30 MG/1 ML SDV IV PRN (08:28)
[2019-02-08 08:39] LABS: ABSOLUTE MONOCYTES # (MANUAL) 0.8 10^3/uL (0.1-1.4); ABSOLUTE NEUTROPHILS# (MANUAL) 14.6 10^3/uL (1.7-8.2); BASOPHILS % (MANUAL) 0 % (0-2); EOSINOPHILS % (MANUAL) 0 % (0-6); LYMPHOCYTES % (MANUAL) 5 % (13-45); METAMYELOCYTES % (MANUAL) 2 % (0); MONOCYTES % (MANUAL) 5 % (3-13); SEGMENTED NEUTROPHILS % (MAN) 73 % (42-78); TOTAL CELLS COUNTED 100
[2019-02-08 08:40] LABS: OVALOCYTES 1+; PLATELET COMMENT ADEQUATE; POIKILOCYTOSIS 1+; POLYCHROMASIA SLIGHT
[2019-02-08 08:42] LABS: BAND NEUTROPHILS % (MANUAL) 14 % (3-5)
[2019-02-08 09:16] LABS: LIPASE 4313.2 U/L (23-300)
[2019-02-08] MEDS ORDERED: NORMAL SALINE 1000 ML 1,000 ML IV PRN ×2 (09:59→13:00)
[2019-02-08] MEDS ORDERED: NORMAL SALINE 500 ML IV PRN (10:11)
[2019-02-08] MEDS ORDERED: VANCOMYCIN HCL 0 MG in DEXTROSE 5%-WATER 250 ML IV NR (10:15)
--- NOTE | 2019-02-08 10:18 | PDOC PROGRESS REPORT ---
Subjective Progress Note for:: 02/08/19 Subjective:: pancreatitis still with abd pain, sl better than admission sl more confused today pulled out her iv last pm Reason For Visit: PANCREATITIS, post lap wilfrido Physical Exam Vital Signs: Temp Pulse Resp BP Pulse Ox 99.3 F 106 H 20 172/68 H 91 L 02/08/19 07:37 02/08/19 07:37 02/08/19 07:37 02/08/19 07:37 02/08/19 07:37 Intake & Output 02/07/19 02/08/19 02/09/19 06:59 06:59 06:59 Intake Total 1999 1999 999 Balance 1999 1999 999 Weight 83 kg 83 kg General appearance: PRESENT: mild distress, morbidly obese Head exam: PRESENT: normocephalic Eye exam: PRESENT: conjunctiva pink, EOMI Mouth exam: PRESENT: dry mucosa Neck exam: PRESENT: full ROM Respiratory exam: PRESENT: clear to auscultation josh Cardiovascular exam: PRESENT: RRR Pulses: PRESENT: +2 pedal pulses bilateral GI/Abdominal exam: PRESENT: other - pump and still operator diffusely no rebound tenderness few bs Rectal exam: PRESENT: deferred Gentrourinary exam: PRESENT: other - passing urine into diaper, op not well recorded Extremities exam: PRESENT: full ROM Musculoskeletal exam: PRESENT: full ROM Neurological exam: PRESENT: alert, altered, awake, oriented to person, oriented to place, other - still sl confused,]knows where she is and who she is wanted to go to the lab this morning Skin exam: PRESENT: dry Results Laboratory Results: 02/08/19 07:14 02/08/19 07:14 02/08/19 02/08/19 07:14 07:14 WBC 16.4 H RBC 4.59 Hgb 14.2 Hct 42.9 MCV 94 MCH 31.0 MCHC 33.1 RDW 14.0 Plt Count 199 Seg Neutrophils % Not Reportable Lymphocytes % Not Reportable Monocytes % Not Reportable Eosinophils % Not Reportable Basophils % Not Reportable Absolute Neutrophils Not Reportable Absolute Lymphocytes Not Reportable Absolute Monocytes Not Reportable Absolute Eosinophils Not Reportable Absolute Basophils Not Reportable Sodium 142.8 Potassium 4.4 Chloride 110 H Carbon Dioxide 25 Anion Gap 8 BUN 36 H Creatinine 0.81 Est GFR ( Amer) > 60 Est GFR (Non-Af Amer) > 60 Glucose 187 H Calcium 8.2 L Lipase 4313.2 H 02/06/19 22:53 Clean Catch Midstream Urine Culture - Final NO GROWTH 2 DAYS Impressions: Abdomen/Pelvis CT 02/06/19 19:23 IMPRESSION: Acute pancreatitis without evidence of pseudocyst. Assessment & Plan - Diagnosis (1) Acute pancreatitis Qualifiers: Pancreatitis type: unspecified pancreatitis type Acute pancreatitis complication: unspecified Qualified Code(s): K85.90 - Acute pancreatitis without necrosis or infection, unspecified Is this a current diagnosis for this admission?: Yes - Plan Summary Plan Summary: post op pancreatiis lipase improving 4300 today from [id number] upon admission still with abd pain sl elevated wbc 16k iwth 14%bands other lft's wnl plan cont npo wiill arrange for picc for tpn baker for better monitoring of urine op have asked Dr Worley to eval iv bolus given this am 1l ns Dr Worley also gave 1 liter bolus, will start emperic abx due to wbc close observation
[2019-02-08 11:51] LABS: PATH REVIEW PATHOLOGIST REVIEWED
[2019-02-08] MEDS ORDERED: GLUCAGON,HUMAN RECOMB 1 MG INJ IM PRN (12:00)
[2019-02-08] MEDS ORDERED: DEXTROSE 40% GEL 15 GM TUBE X 2 PO PRN (12:00)
[2019-02-08] MEDS ORDERED: DEXTROSE 50%-WATER SYRINGE 12.5 GM/25 ML DOSE IV PRN (12:00)
[2019-02-08] MEDS ORDERED: DEXTROSE 10%-WATER 1,000 ML IV PRN (12:00)
[2019-02-08] MEDS ORDERED: DEXTROSE 40% GEL 15 GM TUBE PO PRN (12:00)
[2019-02-08] MEDS ORDERED: DEXTROSE 50%-WATER SYRINGE 25 GM/50 ML DOSE IV PRN (12:00)
[2019-02-08] MEDS: HYDRALAZINE HCL INJ/PF 20 MG/1 ML SDV IV PRN ×2 (12:11→21:31)
[2019-02-08] MEDS: CEFEPIME 1 GM/D5W RTU 1 GM/50 ML RTUPB IV SCH ×2 (12:18→21:30)
[2019-02-08 13:06] LABS: AMORPHOUS SEDIMENT,URINE 1+ /HPF; APPEARANCE,URINE CLOUDY; BILIRUBIN,URINE NEGATIVE (NEGATIVE); GLUCOSE, URINE 50 mg/dL (NEGATIVE); KETONES,URINE NEGATIVE (NEGATIVE); LEUKOCYTE ESTERASE,URINE NEGATIVE (NEGATIVE); NITRITE,URINE NEGATIVE (NEGATIVE); PROTEIN,URINE 30 mg/dL (NEGATIVE); URINE SPECIFIC GRAVITY 1.014
[2019-02-08 13:13] LABS: COLOR,URINE DARK YELLOW
[2019-02-08] MEDS: VANCOMYCIN HCL 750 MG in DEXTROSE 5%-WATER 250 ML IV SCH ×2 (13:22→23:24)
[2019-02-08 14:29] LABS: ARTERIAL BLOOD BASE EXCESS -2.7 mmol/L; ARTERIAL BLOOD FIO2 2L; ARTERIAL BLOOD H2CO3 1.06 mmol/L (1.05-1.35); ARTERIAL BLOOD HCO3 21.4 mmol/L (20-24); ARTERIAL BLOOD O2 SATURATION 92.5 % (94-98); ARTERIAL BLOOD PCO2 35.1 mmHg (35-45); ARTERIAL BLOOD PO2 63.4 mmHg (80-100); ARTERIAL BLOOD TOTAL CO2 22.4 mmol/L (21-25)
--- NOTE | 2019-02-08 15:16 | RADIOLOGY REPORT (SQ) ---
EXAM DESCRIPTION: PICC INSERTION; FLUORO/CV PLACEMENT; U/S GUIDE FOR VASCULAR ACCESS COMPLETED DATE/TIME: 02/08/2019 2:59 pm REASON FOR STUDY: needs picc for tpn; TPN COMPARISON: None. FLUOROSCOPY TIME: 0.2 minutes. 1 images saved to PACS. TECHNIQUE: Fluoroscopic and ultrasound guided PICC placement. LIMITATIONS: None. PROCEDURE: After written consent and assessment were obtained, the patient was brought into the fluo roscopy room and placed supine on the table. Ultrasound evaluation of potential access sites were per formed. After successfully identifying a patent left basilic vein, the left arm was prepped and drape d in a sterile fashion along with the ultrasound probe. The entry site was anesthetized with 1% lidoc darnell. A 21 gauge 7 cm needle was advanced through the skin and into the basilic vein under live ultra sound guidance. An ultrasound image was saved to PACS confirming access site. A .018 guide wire was then inserted through the needle and into the venous system. The needle was then removed and an 11 b lade scalpel was used to make a 1cm skin incision. A 5 fr peel-away sheath was advanced over the wir e and into the venous system. A measurement was then made using the existing wire and live fluoroscop ic guidance. The wire was then removed and trimmed. The PICC was advanced through the peel-away sheat h and into the venous system. The peel-away sheath was removed and the catheter was adhered to the pa tients arm with a stat lock. The catheter was then aspirated and flushed and a sterile bandage was pl aced over the access site. A fluoroscopic spot image was saved to PACS confirming the catheter tip w ithin the superior vena cava. IMPRESSION: SUCCESSFUL PLACEMENT OF A 5 FR DUAL LUMEN 44 CM PICC IN THE LEFT BASILIC VEIN. COMMENT: Patient medication list reviewed: Yes- Quality ID# 130:Eligible professional attests to doc umenting in the medical record they obtained, updated, or reviewed the patient's current medications. . Quality ID 145: Final reports for procedures using fluoroscopy that document radiation exposure magui aurelia, or exposure time and number of fluorographic images (if radiation exposure indices are not avail able) Quality ID #76: The patient was prepped and draped using maximum sterile barrier technique including cap, mask, sterile gown, sterile gloves, a large sterile sheet, hand hygiene, and 2% Chlorhexidine fo r cutaneous antisepsis. When ultrasound is used, sterile ultrasound techniques are followed requiring sterile gel and sterile probes. TECHNICAL DOCUMENTATION: JOB ID: [id number] [employer]- All Rights Reserved rev-04/03 Reading location - IP/workstation name: [email or web address]
--- NOTE | 2019-02-08 16:13 | RADIOLOGY REPORT (SQ) ---
EXAM DESCRIPTION: CHEST SINGLE VIEW COMPLETED DATE/TIME: 02/08/2019 4:03 pm REASON FOR STUDY: altered mental status. r/o pneumonia COMPARISON: 07/07/2017. EXAM PARAMETERS: NUMBER OF VIEWS: One view. TECHNIQUE: Single frontal radiographic view of the chest acquired. RADIATION DOSE: NA LIMITATIONS: None. FINDINGS: LUNGS AND PLEURA: Patchy left basilar density with poor definition of the left hemidiaphra gm. Possible left pleural effusion. MEDIASTINUM AND HILAR STRUCTURES: No masses. Contour normal. HEART AND VASCULAR STRUCTURES: Mild cardiac enlargement. Normal vasculature. BONES: No acute findings. HARDWARE: PICC line. OTHER: No other significant finding. IMPRESSION: LEFT BASILAR DENSITY SECONDARY TO ATELECTASIS AND/OR PNEUMONIA. POSSIBLE LEFT PLEURAL E FFUSION. TECHNICAL DOCUMENTATION: JOB ID: [id number] [employer]- All Rights Reserved Reading location - IP/workstation name: [email or web address]
[2019-02-08 16:21] LABS: HEMATOCRIT 40.1 % (36.0-47.0); HEMOGLOBIN 13.6 g/dL (12.0-15.5); MEAN CORPUSCULAR HEMOGLOBIN 31.4 pg (27.0-33.4); MEAN CORPUSCULAR HGB CONC 33.9 g/dL (32.0-36.0); MEAN CORPUSCULAR VOLUME 93 fl (80-97); PLATELET COUNT 205 10^3/uL (150-450); RED BLOOD COUNT 4.34 10^6/uL (3.72-5.28); RED CELL DISTRIBUTION WIDTH 14.5 % (11.5-14.0); WHITE BLOOD COUNT 16.9 10^3/uL (4.0-10.5)
[2019-02-08 16:33] LABS: ANION GAP 9 (5-19); BLOOD UREA NITROGEN 32 mg/dL (7-20); CALCIUM 8.3 mg/dL (8.4-10.2); CARBON DIOXIDE 20 mmol/L (22-30); CHLORIDE 115 mmol/L (98-107); GLUCOSE 156 mg/dL (75-110); POTASSIUM 4.3 mmol/L (3.6-5.0); SODIUM 143.8 mmol/L (137-145)
[2019-02-08] MEDS ORDERED: FUROSEMIDE INJ/PF 20 MG/2 ML SDV IV ONE (16:39)
[2019-02-08 17:05] LABS: ABSOLUTE LYMPHOCYTES# (MANUAL) 1.4 10^3/uL (0.5-4.7); ABSOLUTE MONOCYTES # (MANUAL) 1.4 10^3/uL (0.1-1.4); ABSOLUTE NEUTROPHILS# (MANUAL) 14.2 10^3/uL (1.7-8.2); BAND NEUTROPHILS % (MANUAL) 5 % (3-5); BASOPHILS % (MANUAL) 0 % (0-2); EOSINOPHILS % (MANUAL) 0 % (0-6); LYMPHOCYTES % (MANUAL) 8 % (13-45); MONOCYTES % (MANUAL) 8 % (3-13); SEGMENTED NEUTROPHILS % (MAN) 79 % (42-78); TOTAL CELLS COUNTED 100
[2019-02-08 17:07] LABS: PLATELET COMMENT ADEQUATE
--- NOTE | 2019-02-08 19:36 | PDOC CONSULTATION ---
Consultation Consult Date: 02/08/19 Attending physician:: LAQUITA RIOS Consult reason:: Somnolent, increasing white blood cell count, pancreatitis History of Present Illness Admission Date/PCP: 02/06/19 21:19 GIGI GIBBS MD Patient complains of: Abdominal pain History of Present Illness: STARR TAYLOR is a 73 year old female who recently underwent laparoscopic cholecystectomy. She was discharged home. Unfortunately she was not compliant with Dr. Rios's diet instructions and ate fried chicken after discharge. She did have significantly increased abdominal pain as well as a markedly elevated lipase level. Unfortunately yesterday and today she has exhibited somnolence. She is not forming concise thoughts and will mumble when trying to give answers. She keeps her eyes closed. She always reports that she feels terrible. Today her white blood cell count has increased. Dr. Rios has asked the hospitalist service to consult for hypertension as well as altered mental status. Past Medical History Past Medical History: Due to her current mental state the patient is not a reliable historian. In add ition to speaking with the patient I did review her Counts include 234 beds at the [facility] records for information. Cardiac Medical History: Reports: Hypertension Denies: Coronary Artery Disease, Myocardial Infarction Pulmonary Medical History: Reports: Bronchitis, Pneumonia Denies: Asthma, Chronic Obstructive Pulmonary Disease (COPD) Neurological Medical History: Denies: Seizures Endocrine Medical History: Denies: Diabetes Mellitus Type 1, Diabetes Mellitus Type 2 Renal/ Medical History: Denies: Chronic Kidney Disease GI Medical History: Denies: Hepatitis, Hiatal Hernia Musculoskeltal Medical History: Reports: Arthritis Skin Medical History: Denies: None Psychiatric Medical History: Reports: Depression - occasional takes prozac Hematology: Denies: Anemia, Sickle Cell Disease Past Surgical History Past Surgical History: Reports: Appendectomy, Cholecystectomy, Hysterectomy, Orthopedic Surgery - Left thumb arthroplasty, bilateral plantar fasciitis Denies: Amputation, Mastectomy, Pacemaker Social History Information Source: Patient, [facility] Records Lives with: Family Smoking Status: Unknown if Ever Smoked Frequency of Alcohol Use: None Hx Recreational Drug Use: No Drugs: None Hx Prescription Drug Abuse: No - Advance Directive Resuscitation Status: Full Code Surrogate healthcare decision maker:: Unable to tell me if there is an existing healthcare proxy. Her is listed as her contact. He is not at the bedside. Family History Family History: Reviewed & Not Pertinent, COPD - Father and 2 brothers Parental Family History Reviewed: Yes - By old records Children Family History Reviewed: Yes - By old records Sibling(s) Family History Reviewed.: Yes - By old records Medication/Allergy Home Medications: Cetirizine HCl [Zyrtec 10 mg Tablet] 10 mg PO DAILY 02/07/19 Fluoxetine HCl [Prozac 20 mg Capsule] 60 mg PO DAILY 02/07/19 Fluticasone Propionate [Flonase Nasal [place] 50 Mcg/[place] 16 gm] 2 sprays NASL DAILY 02/07/19 Lisinopril/Hydrochlorothiazide [Lisinopril-Hctz 20-12.5 mg Tab] 2 tab PO QAM 02/07/19 Omeprazole 20 mg PO Q6AM 02/07/19 Allergies/Adverse Reactions: No Known Allergies Allergy (Verified 02/01/19 14:57) Review of Systems ROS unobtainable: Due to mental status Constitutional: PRESENT: other - She did tell me that she feels terrible all over Eyes: PRESENT: other - Eyes are Closed during the encounter Gastrointestinal: PRESENT: abdominal pain, nausea, vomiting Integumentary: PRESENT: other - Incisions from laparoscopic cholecystectomy Physical Exam Vital Signs: Temp Pulse Resp BP Pulse Ox 99.3 F 106 H 20 172/68 H 91 L 02/08/19 07:37 02/08/19 07:37 02/08/19 07:37 02/08/19 07:37 02/08/19 07:37 Intake & Output 02/07/19 02/08/19 02/09/19 06:59 06:59 06:59 Intake Total 1999 1999 999 Balance 1999 1999 999 Weight 83 kg 83 kg General appearance: PRESENT: cooperative - Attempted to cooperate but could not to complete a sentence or maintain a thought. ABSENT: no acute distress - Moderate distress Head exam: PRESENT: atraumatic, normocephalic Eye exam: PRESENT: other - Did not assess Ear exam: PRESENT: normal external ear exam Neck exam: ABSENT: carotid bruit, lymphadenopathy Respiratory exam: PRESENT: rales, symmetrical. ABSENT: accessory muscle use, rhonchi, wheezes Cardiovascular exam: PRESENT: +S1, +S2, tachycardia GI/Abdominal exam: PRESENT: distended - Slightly, hypoactive bowel sounds, soft - Difficult to assess fully due to her pain, tenderness - Diffusely over the abdomen Rectal exam: PRESENT: deferred Gentrourinary exam: ABSENT: indwelling catheter Extremities exam: ABSENT: pedal edema, tenderness Musculoskeletal exam: ABSENT: ambulatory Neurological exam: PRESENT: awake, oriented to person, oriented to place, o riented to situation. ABSENT: alert - Somnolent Psychiatric exam: PRESENT: appropriate affect - Affect reflects her current state of discomfort. ABSENT: agitated, anxious Focused psych exam: PRESENT: other - Somnolent. Unable to communicate clearly consistently. Results Laboratory Results: 02/08/19 07:14 02/08/19 07:14 02/08/19 02/08/19 07:14 07:14 WBC 16.4 H RBC 4.59 Hgb 14.2 Hct 42.9 MCV 94 MCH 31.0 MCHC 33.1 RDW 14.0 Plt Count 199 Seg Neutrophils % Not Reportable Lymphocytes % Not Reportable Monocytes % Not Reportable Eosinophils % Not Reportable Basophils % Not Reportable Absolute Neutrophils Not Reportable Absolute Lymphocytes Not Reportable Absolute Monocytes Not Reportable Absolute Eosinophils Not Reportable Absolute Basophils Not Reportable Sodium 142.8 Potassium 4.4 Chloride 110 H Carbon Dioxide 25 Anion Gap 8 BUN 36 H Creatinine 0.81 Est GFR ( Amer) > 60 Est GFR (Non-Af Amer) > 60 Glucose 187 H Calcium 8.2 L Lipase 4313.2 H 02/06/19 22:53 Clean Catch Midstream Urine Culture - Final NO GROWTH 2 DAYS Impressions: Abdomen/Pelvis CT 02/06/19 19:23 IMPRESSION: Acute pancreatitis without evidence of pseudocyst. Assessment and Plan - Diagnosis (1) Acute pancreatitis Qualifiers: Pancreatitis type: unspecified pancreatitis type Acute pancreatitis complication: unspecified Qualified Code(s): K85.90 - Acute pancreatitis without necrosis or infection, unspecified Is this a current diagnosis for this admission?: Yes Plan: Recent laparoscopic cholecystectomy. The patient did not follow Dr. Rios's dietary directions. She comes back with a lipase of 17,000. Her lipase has been decreasing consistently. It was less than 5000 today. Her abdomen is stil l tender. Bowel sounds are decreased. Dr. Rios is going to initiate TPN orders. (2) Altered mental status Qualifiers: Altered mental status type: somnolence Qualified Code(s): R40.0 - Somnolence Is this a current diagnosis for this admission?: Yes Plan: Her somnolence is due to several factors. Certainly her acute illnesses is a contributing factor. She was receiving narcotic analgesia and did develop hypercapnia with depressed respiratory rate yesterday. Her blood gas today was improved and her PCO2 was normal. She is requiring oxygen supplementation. Her white blood cell count is increased and infection is a possibility. Cultures were sent and she was started on antibiotics. We will continue to evaluate daily. Staff reports that she is better today than yesterday. Hopefully by minimizing medications, providing IV fluid and supportive care as well as antibiotics we will continue to see improvement daily. (3) Left lower lobe pneumonia Qualifiers: Pneumonia type: due to unspecified organism Qualified Code(s): J18.1 - Lobar pneumonia, unspecified organism Is this a current diagnosis for this admission?: Yes Plan: The patient did have surgery recently. She certainly could have aspirated. She was hospitalized and hospital-acquired pneumonia is a possibility. She is not producing any sputum however. Chest x-ray did suggest a left lower lobe infiltrate. She is on oxygen supplementation and has an elevated white blood cell count. Antibiotic therapy was started. We will continue to monitor. (4) Hypertension Qualifiers: Hypertension type: essential hypertension Qualified Code(s): I10 - Essential (primary) hypertension Is this a current diagnosis for this admission?: Yes Plan: The patient's blood pressure has been quite high. She is on ELAINE inhibitor and diuretic therapy at home. I have ordered enalapril IV on a scheduled q. 6-hour basis at 6.25 mg. I will also start low-dose furosemide so that her fluid resuscitation is not overwhelming. She does have a Ley catheter now so that we may track intake and output. (5) Depression Qualifiers: Depression Type: unspecified Qualified Code(s): F32.9 - Major depressive disorder, single episode, unspecified Is this a current diagnosis for this admission?: Yes Plan: The patient has a history of depression. While on n.p.o. status she is unable to receive her serotonin reuptake inhibitor medication. I do not think that this is related to any type of abrupt cessation of her medication. Soon as she is back on oral diet we will resume her medication.
[2019-02-08] MEDS: AMINO ACIDS 5 %/DEXTROSE 20 % 1,000 ML IV PRN (20:07)
[2019-02-08] MEDS: FUROSEMIDE INJ/PF 20 MG/2 ML SDV IV SCH (21:32)
[2019-02-08 21:39] LABS: HEMATOCRIT 38.2 % (36.0-47.0); HEMOGLOBIN 12.8 g/dL (12.0-15.5); MEAN CORPUSCULAR HEMOGLOBIN 31.3 pg (27.0-33.4); MEAN CORPUSCULAR HGB CONC 33.6 g/dL (32.0-36.0); MEAN CORPUSCULAR VOLUME 93 fl (80-97); PLATELET COUNT 190 10^3/uL (150-450); RED CELL DISTRIBUTION WIDTH 14.1 % (11.5-14.0); WHITE BLOOD COUNT 14.3 10^3/uL (4.0-10.5)
[2019-02-08 21:42] LABS: INTERNATIONAL RATION (INR) 1.32; PROTHROMBIN TIME 17.1 SEC (11.4-15.4)
[2019-02-08 22:00] LABS: ALANINE AMINOTRANSFERASE 96 U/L (9-52); ALBUMIN 2.7 g/dL (3.5-5.0); ALKALINE PHOSPHATASE 98 U/L (38-126); ANION GAP 5 (5-19); ASPARTATE AMINO TRANSFERASE 127 U/L (14-36); BILIRUBIN,DIRECT 1.5 mg/dL (0.0-0.4); BILIRUBIN,TOTAL 3.1 mg/dL (0.2-1.3); BLOOD UREA NITROGEN 31 mg/dL (7-20); CARBON DIOXIDE 26 mmol/L (22-30); CHLORIDE 113 mmol/L (98-107); GLUCOSE 169 mg/dL (75-110); PHOSPHORUS 1.9 mg/dL (2.5-4.5); POTASSIUM 3.6 mmol/L (3.6-5.0); TOTAL PROTEIN 5.3 g/dL (6.3-8.2); TRIGLYCERIDES 101 mg/dL (<150)
[2019-02-08 22:12] LABS: PREALBUMIN 9.7 mg/dL (17.6-36.0)
[2019-02-08 22:17] LABS: ABSOLUTE LYMPHOCYTES# (MANUAL) 1.6 10^3/uL (0.5-4.7); ABSOLUTE MONOCYTES # (MANUAL) 0.4 10^3/uL (0.1-1.4); ABSOLUTE NEUTROPHILS# (MANUAL) 12.3 10^3/uL (1.7-8.2); BAND NEUTROPHILS % (MANUAL) 6 % (3-5); BASOPHILS % (MANUAL) 0 % (0-2); EOSINOPHILS % (MANUAL) 0 % (0-6); LYMPHOCYTES % (MANUAL) 9 % (13-45); MONOCYTES % (MANUAL) 3 % (3-13); PLATELET COMMENT ADEQUATE; SEGMENTED NEUTROPHILS % (MAN) 80 % (42-78); TOTAL CELLS COUNTED 100
[2019-02-08] MEDS: NORMAL SALINE 10 ML SDV (SCHEDULED) IV SCH (23:11)
[2019-02-09] MEDS: ENALAPRILAT DIHYDRATE INJ/PF 1.25 MG/1 ML SDV IV SCH ×5 (00:13→17:58)
[2019-02-09] MEDS ORDERED: LORAZEPAM INJ 2 MG/1 ML VIAL IV PRN (07:30)
--- NOTE | 2019-02-09 07:34 | PDOC PROGRESS REPORT ---
Subjective Progress Note for:: 02/09/19 Subjective:: abd pain improved Reason For Visit: PANCREATITIS Physical Exam Vital Signs: Temp Pulse Resp BP Pulse Ox 98.1 F 106 H 19 180/78 H 91 L 02/09/19 00:00 02/09/19 05:50 02/09/19 00:00 02/09/19 05:50 02/09/19 04:08 Pulse Oximeter Continuous Start: 02/08/19 13:05 Freq: RTQ4 Status: Active Protocol: Document 02/09/19 04:08 [facility] [place]Rec: 02/09/19 04:09 [facility] [id number]) Pulse Oximetry Assessment Oxygen Saturation (92-100) 91 Oxygen Flow Rate (L/min) 4 Oxygen Delivery Method Nasal Cannula Fraction of Inspired Oxygen (FIO2) 36 Equipment Usage Equipment in Use Continuous SpO2 Machine # [id number] Intake & Output 02/08/19 02/09/19 02/10/19 06:59 06:59 06:59 Intake Total 1999 3340 Output Total 2499 Balance 1999 840 Weight 83 kg 83 kg General appearance: PRESENT: mild distress Head exam: PRESENT: normocephalic Eye exam: PRESENT: EOMI Mouth exam: PRESENT: dry mucosa, moist Neck exam: PRESENT: full ROM Respiratory exam: PRESENT: clear to auscultation josh Cardiovascular exam: PRESENT: RRR, tachycardia Pulses: PRESENT: normal radial pulses, normal femoral pulses GI/Abdominal exam: PRESENT: soft Rectal exam: PRESENT: deferred Extremities exam: PRESENT: full ROM Musculoskeletal exam: PRESENT: full ROM Neurological exam: PRESENT: altered - sl confused, follows commands when reoriented, awake Skin exam: PRESENT: dry Results Laboratory Results: 02/09/19 05:00 02/09/19 05:00 02/08/19 02/08/19 02/08/19 07:14 07:14 12:20 WBC 16.4 H RBC 4.59 Hgb 14.2 Hct 42.9 MCV 94 MCH 31.0 MCHC 33.1 RDW 14.0 Plt Count 199 Seg Neutrophils % Not Reportable Lymphocytes % Not Reportable Monocytes % Not Reportable Eosinophils % Not Reportable Basophils % Not Reportable Absolute Neutrophils Not Reportable Absolute Lymphocytes Not Reportable Absolute Monocytes Not Reportable Absolute Eosinophils Not Reportable Absolute Basophils Not Reportable Carbonic Acid HCO3/H2CO3 Ratio ABG pH ABG pCO2 ABG pO2 ABG HCO3 ABG O2 Saturation ABG Base Excess FiO2 Sodium 142.8 Potassium 4.4 Chloride 110 H Carbon Dioxide 25 Anion Gap 8 BUN 36 H Creatinine 0.81 Est GFR ( Amer) > 60 Est GFR (Non-Af Amer) > 60 Glucose 187 H Lactic Acid Calcium 8.2 L Phosphorus Magnesium Total Bilirubin AST ALT Alkaline Phosphatase Total Protein Albumin Prealbumin Triglycerides Lipase 4313.2 H Urine Color DARK YELLOW Urine Appearance CLOUDY Urine pH 5.0 Ur Specific Center 1.014 Urine Protein 30 H Urine Glucose (UA) 50 H Urine Ketones NEGATIVE Urine Blood LARGE H Urine Nitrite NEGATIVE Ur Leukocyte Esterase NEGATIVE Urine WBC (Auto) 1 Urine RBC (Auto) 1 02/08/19 02/08/19 02/08/19 14:10 14:15 15:11 WBC RBC Hgb Hct MCV MCH MCHC RDW Plt Count Seg Neutrophils % Lymphocytes % Monocytes % Eosinophils % Basophils % Absolute Neutrophils Absolute Lymphocytes Absolute Monocytes Absolute Eosinophils Absolute Basophils Carbonic Acid 1.06 HCO3/H2CO3 Ratio 20:1 ABG pH 7.40 ABG pCO2 35.1 ABG pO2 63.4 L ABG HCO3 21.4 ABG O2 Saturation 92.5 L ABG Base Excess -2.7 FiO2 2L Sodium 143.8 Potassium 4.3 Chloride 115 H Carbon Dioxide 20 L Anion Gap 9 BUN 32 H Creatinine 0.68 Est GFR ( Amer) > 60 Est GFR (Non-Af Amer) > 60 Glucose 156 H Lactic Acid 2.6 H Calcium 8.3 L Phosphorus Magnesium 2.0 Total Bilirubin AST ALT Alkaline Phosphatase Total Protein Albumin Prealbumin Triglycerides Lipase Urine Color Urine Appearance Urine pH Ur Specific Center Urine Protein Urine Glucose (UA) Urine Ketones Urine Blood Urine Nitrite Ur Leukocyte Esterase Urine WBC (Auto) Urine RBC (Auto) 02/08/19 02/08/19 02/08/19 15:25 21:05 21:05 WBC 16.9 H 14.3 H RBC 4.34 4.10 Hgb 13.6 12.8 Hct 40.1 38.2 MCV 93 93 MCH 31.4 31.3 MCHC 33.9 33.6 RDW 14.5 H 14.1 H Plt Count 205 190 Seg Neutrophils % Not Reportable Not Reportable Lymphocytes % Not Reportable Not Reportable Monocytes % Not Reportable Not Reportable Eosinophils % Not Reportable Not Reportable Basophils % Not Reportable Not Reportable Absolute Neutrophils Not Reportable Not Reportable Absolute Lymphocytes Not Reportable Not Reportable Absolute Monocytes Not Reportable Not Reportable Absolute Eosinophils Not Reportable Not Reportable Absolute Basophils Not Reportable Not Reportable Carbonic Acid HCO3/H2CO3 Ratio ABG pH ABG pCO2 ABG pO2 ABG HCO3 ABG O2 Saturation ABG Base Excess FiO2 Sodium Cancelled Potassium Cancelled Chloride Cancelled Carbon Dioxide Cancelled Anion Gap Cancelled BUN Cancelled Creatinine Cancelled Est GFR ( Amer) Cancelled Est GFR (Non-Af Amer) Cancelled Glucose Cancelled Lactic Acid Calcium Cancelled Phosphorus Magnesium 1.8 Total Bilirubin AST ALT Alkaline Phosphatase Total Protein Albumin Prealbumin Triglycerides Lipase Urine Color Urine Appearance Urine pH Ur Specific Center Urine Protein Urine Glucose (UA) Urine Ketones Urine Blood Urine Nitrite Ur Leukocyte Esterase Urine WBC (Auto) Urine RBC (Auto) 02/08/19 02/08/19 02/09/19 21:05 21:05 05:00 WBC Cancelled RBC Cancelled Hgb Cancelled Hct Cancelled MCV Cancelled MCH Cancelled MCHC Cancelled RDW Cancelled Plt Count Cancelled Seg Neutrophils % Cancelled Lymphocytes % Cancelled Monocytes % Cancelled Eosinophils % Cancelled Basophils % Cancelled Absolute Neutrophils Cancelled Absolute Lymphocytes Cancelled Absolute Monocytes Cancelled Absolute Eosinophils Cancelled Absolute Basophils Cancelled Carbonic Acid HCO3/H2CO3 Ratio ABG pH ABG pCO2 ABG pO2 ABG HCO3 ABG O2 Saturation ABG Base Excess FiO2 Sodium 144.0 Potassium 3.6 Chloride 113 H Carbon Dioxide 26 Anion Gap 5 BUN 31 H Creatinine 0.75 Est GFR ( Amer) > 60 Est GFR (Non-Af Amer) > 60 Glucose 169 H Lactic Acid 2.3 H Calcium 8.0 L Phosphorus 1.9 L Magnesium Total Bilirubin 3.1 H AST 127 H ALT 96 H Alkaline Phosphatase 98 Total Protein 5.3 L Albumin 2.7 L Prealbumin 9.7 L Triglycerides 101 Lipase Urine Color Urine Appearance Urine pH Ur Specific Center Urine Protein Urine Glucose (UA) Urine Ketones Urine Blood Urine Nitrite Ur Leukocyte Esterase Urine WBC (Auto) Urine RBC (Auto) 02/09/19 05:00 WBC RBC Hgb Hct MCV MCH MCHC RDW Plt Count Seg Neutrophils % Lymphocytes % Monocytes % Eosinophils % Basophils % Absolute Neutrophils Absolute Lymphocytes Absolute Monocytes Absolute Eosinophils Absolute Basophils Carbonic Acid HCO3/H2CO3 Ratio ABG pH ABG pCO2 ABG pO2 ABG HCO3 ABG O2 Saturation ABG Base Excess FiO2 Sodium Cancelled Potassium Cancelled Chloride Cancelled Carbon Dioxide Cancelled Anion Gap Cancelled BUN Cancelled Creatinine Cancelled Est GFR ( Amer) Cancelled Est GFR (Non-Af Amer) Cancelled Glucose Cancelled Lactic Acid Calcium Cancelled Phosphorus Magnesium Total Bilirubin AST ALT Alkaline Phosphatase Total Protein Albumin Prealbumin Triglycerides Lipase Cancelled Urine Color Urine Appearance Urine pH Ur Specific Center Urine Protein Urine Glucose (UA) Urine Ketones Urine Blood Urine Nitrite Ur Leukocyte Esterase Urine WBC (Auto) Urine RBC (Auto) 02/06/19 22:53 Clean Catch Midstream Urine Culture - Final NO GROWTH 2 DAYS Impressions: Abdomen/Pelvis CT 02/06/19 19:23 IMPRESSION: Acute pancreatitis without evidence of pseudocyst. Chest X-Ray 02/08/19 00:00 IMPRESSION: LEFT BASILAR DENSITY SECONDARY TO ATELECTASIS AND/OR PNEUMONIA. POSSIBLE LEFT PLEURAL EFFUSION. Guidance Fluoroscopy 02/08/19 00:00 IMPRESSION: SUCCESSFUL PLACEMENT OF A 5 FR DUAL LUMEN 44 CM PICC IN THE LEFT BASILIC VEIN. Interventional Vascular Procedure 02/08/19 00:00 IMPRESSION: SUCCESSFUL PLACEMENT OF A 5 FR DUAL LUMEN 44 CM PICC IN THE LEFT BASILIC VEIN. PICC Line Insertion 02/08/19 00:00 IMPRESSION: SUCCESSFUL PLACEMENT OF A 5 FR DUAL LUMEN 44 CM PICC IN THE LEFT BASILIC VEIN. Assessment & Plan - Diagnosis (1) Acute pancreatitis Qualifiers: Pancreatitis type: unspecified pancreatitis type Acute pancreatitis complication: unspecified Qualified Code(s): K85.90 - Acute pancreatitis without necrosis or infection, unspecified Is this a current diagnosis for this admission?: Yes - Plan Summary Plan Summary: confused overnight, now with sitter am labs pending tbili 3.1 this am lipase pending good urine op with lasix yesterday lactate last pm down to 2.3 plan mrcp today, r/o retained cbc stones cont tpn awainting am labs.
[2019-02-09 07:53] LABS: HEMATOCRIT 37.1 % (36.0-47.0); HEMOGLOBIN 12.5 g/dL (12.0-15.5); MEAN CORPUSCULAR HEMOGLOBIN 31.1 pg (27.0-33.4); MEAN CORPUSCULAR HGB CONC 33.7 g/dL (32.0-36.0); MEAN CORPUSCULAR VOLUME 92 fl (80-97); PLATELET COUNT 190 10^3/uL (150-450); RED BLOOD COUNT 4.02 10^6/uL (3.72-5.28); RED CELL DISTRIBUTION WIDTH 14.1 % (11.5-14.0)
[2019-02-09 08:08] LABS: ANION GAP 6 (5-19); BLOOD UREA NITROGEN 29 mg/dL (7-20); CALCIUM 8.6 mg/dL (8.4-10.2); CARBON DIOXIDE 28 mmol/L (22-30); CHLORIDE 110 mmol/L (98-107); GLUCOSE 235 mg/dL (75-110); LIPASE 966.9 U/L (23-300); POTASSIUM 3.5 mmol/L (3.6-5.0); SODIUM 143.8 mmol/L (137-145)
[2019-02-09 08:45] LABS: ALANINE AMINOTRANSFERASE 79 U/L (9-52); ALBUMIN 2.5 g/dL (3.5-5.0); ALKALINE PHOSPHATASE 68 U/L (38-126); ASPARTATE AMINO TRANSFERASE 100 U/L (14-36); BILIRUBIN,TOTAL 2.1 mg/dL (0.2-1.3); PHOSPHORUS 2.7 mg/dL (2.5-4.5); TOTAL PROTEIN 4.8 g/dL (6.3-8.2)
[2019-02-09 09:08] LABS: ABSOLUTE LYMPHOCYTES# (MANUAL) 1.3 10^3/uL (0.5-4.7); ABSOLUTE NEUTROPHILS# (MANUAL) 11.8 10^3/uL (1.7-8.2); BAND NEUTROPHILS % (MANUAL) 5 % (3-5); BASOPHILS % (MANUAL) 0 % (0-2); EOSINOPHILS % (MANUAL) 0 % (0-6); LYMPHOCYTES % (MANUAL) 9 % (13-45); MONOCYTES % (MANUAL) 7 % (3-13); SEGMENTED NEUTROPHILS % (MAN) 79 % (42-78); TOTAL CELLS COUNTED 100
[2019-02-09] MEDS: HYDRALAZINE HCL INJ/PF 20 MG/1 ML SDV IV PRN ×3 (09:08→20:37)
[2019-02-09] MEDS: FUROSEMIDE INJ/PF 20 MG/2 ML SDV IV SCH ×2 (09:08→22:50)
[2019-02-09 09:09] LABS: ANISOCYTOSIS SLIGHT; OVALOCYTES 1+; PLATELET COMMENT ADEQUATE; POIKILOCYTOSIS 1+; TEAR DROP CELLS 1+
[2019-02-09] MEDS: CEFEPIME 1 GM/D5W RTU 1 GM/50 ML RTUPB IV SCH (09:09)
[2019-02-09] MEDS: INSULIN REG, HUMAN 100 UNIT/ML 3 ML VIAL (PYX) SUBCUT PRN ×2 (09:09→11:28)
[2019-02-09] MEDS: NORMAL SALINE 10 ML SDV (SCHEDULED) IV SCH ×2 (09:10→21:51)
[2019-02-09] MEDS ORDERED: (PENDING PHARMACY ID) (Lisinopril/Hydrochlorothiazide [Lisinopril-Hctz 20-12.5 Mg Tab] 2 T PO SCH (09:15)
[2019-02-09] MEDS ORDERED: FLUOXETINE HCL 20 MG CAPSULE PO SCH (10:00)
[2019-02-09] MEDS ORDERED: CETIRIZINE 10 MG TABLET PO SCH (10:00)
[2019-02-09] MEDS ORDERED: MORPHINE SULFATE 10 MG/ML INJ IV PRN (10:00)
[2019-02-09] MEDS: ONDANSETRON HCL INJ/PF 4 MG/2 ML SDV IV PRN (10:22)
[2019-02-09] MEDS: VANCOMYCIN HCL 750 MG in DEXTROSE 5%-WATER 250 ML IV SCH ×2 (10:22→22:53)
[2019-02-09] MEDS: FLUTICASONE NASAL SPRAY 50 MCG/SPRY 120 SPRAY/16 GM NASL SCH (11:17)
[2019-02-09] MEDS ORDERED: LABETALOL HCL INJ 20 MG/4 ML DISP.SYRIN IV PRN (14:43)
[2019-02-09] MEDS ORDERED: HALOPERIDOL LACTATE INJ 5 MG/1 ML VIAL IV ONE (17:30)
[2019-02-09 18:06] LABS: ARTERIAL BLOOD BASE EXCESS 1.6 mmol/L; ARTERIAL BLOOD H2CO3 1.06 mmol/L (1.05-1.35); ARTERIAL BLOOD O2 SATURATION 93.7 % (94-98); ARTERIAL BLOOD PCO2 35.2 mmHg (35-45); ARTERIAL BLOOD PH 7.47 (7.35-7.45); ARTERIAL BLOOD PO2 63.8 mmHg (80-100); ARTERIAL BLOOD TOTAL CO2 26.1 mmol/L (21-25)
[2019-02-09 18:10] LABS: ARTERIAL BLOOD FIO2 2.5L
[2019-02-09 19:47] LABS: HEMATOCRIT 35.1 % (36.0-47.0); HEMOGLOBIN 11.9 g/dL (12.0-15.5); MEAN CORPUSCULAR HEMOGLOBIN 31.1 pg (27.0-33.4); MEAN CORPUSCULAR HGB CONC 33.7 g/dL (32.0-36.0); PLATELET COUNT 203 10^3/uL (150-450); RED BLOOD COUNT 3.81 10^6/uL (3.72-5.28); RED CELL DISTRIBUTION WIDTH 14.6 % (11.5-14.0); WHITE BLOOD COUNT 14.9 10^3/uL (4.0-10.5)
[2019-02-09 19:54] LABS: MEAN CORPUSCULAR VOLUME 92 fl (80-97)
[2019-02-09 20:01] LABS: ALANINE AMINOTRANSFERASE 66 U/L (9-52); ALBUMIN 2.5 g/dL (3.5-5.0); ALKALINE PHOSPHATASE 85 U/L (38-126); ASPARTATE AMINO TRANSFERASE 58 U/L (14-36); BILIRUBIN,DIRECT 0.8 mg/dL (0.0-0.4); BILIRUBIN,TOTAL 1.6 mg/dL (0.2-1.3); BLOOD UREA NITROGEN 26 mg/dL (7-20); CALCIUM 8.4 mg/dL (8.4-10.2); GLUCOSE 250 mg/dL (75-110); LIPASE 459.9 U/L (23-300); PHOSPHORUS 1.3 mg/dL (2.5-4.5); POTASSIUM 3.7 mmol/L (3.6-5.0); TOTAL PROTEIN 5.1 g/dL (6.3-8.2)
[2019-02-09 20:05] LABS: CARBON DIOXIDE 29 mmol/L (22-30); CHLORIDE 110 mmol/L (98-107); SODIUM 142.4 mmol/L (137-145)
[2019-02-09 20:10] LABS: ANION GAP 4 (5-19)
[2019-02-09 20:21] LABS: ABSOLUTE MONOCYTES # (MANUAL) 0.9 10^3/uL (0.1-1.4); ABSOLUTE NEUTROPHILS# (MANUAL) 12.8 10^3/uL (1.7-8.2); ANISOCYTOSIS SLIGHT; BAND NEUTROPHILS % (MANUAL) 8 % (3-5); BASOPHILS % (MANUAL) 0 % (0-2); EOSINOPHILS % (MANUAL) 1 % (0-6); LYMPHOCYTES % (MANUAL) 5 % (13-45); METAMYELOCYTES % (MANUAL) 2 % (0); MONOCYTES % (MANUAL) 6 % (3-13); PLATELET COMMENT ADEQUATE; SEGMENTED NEUTROPHILS % (MAN) 76 % (42-78); TOTAL CELLS COUNTED 100; TOXIC GRANULATION 2+
[2019-02-09] MEDS ORDERED: DEXTROSE 10%-WATER 1,000 ML IV PRN (21:45)
--- NOTE | 2019-02-09 21:49 | PDOC PROGRESS REPORT ---
Subjective Progress Note for:: 02/09/19 Subjective:: The patient is acutely encephalopathic. She is agitated and looks acutely sick. She is receiving oxygen via nasal cannula and currently is hypoxic. Review of systems could not be obtained. Her hospitalization was reviewed with the daughter at the bedside. We are going to repeat her CT imaging studies tonight as her abdomen seems to be more distended today. I am going to repeat labs as well. Reason For Visit: PANCREATITIS Physical Exam Vital Signs: Temp Pulse Resp BP Pulse Ox 101.0 F H 114 H 20 180/70 H 93 02/09/19 20:07 02/09/19 20:07 02/09/19 20:07 02/09/19 20:32 02/09/19 20:07 Pulse Oximeter Continuous Start: 02/08/19 13:05 Freq: RTQ4 Status: Active Protocol: Document 02/09/19 16:29 [facility] (Rec: 02/09/19 16:29 [facility] [id number]) Pulse Oximetry Assessment Equipment Usage Equipment Standby Continuous SpO2 Machine # 8 Intake & Output 02/08/19 02/09/19 02/10/19 06:59 06:59 06:59 Intake Total 1999 3340 1292 Output Total 2500 1560 Balance 1999 840 -268 Weight 83 kg 83 kg General appearance: PRESENT: other - Acutely ill-appearing and encephalopathic and somewhat agitated. Head exam: PRESENT: atraumatic, normocephalic Mouth exam: PRESENT: moist, tongue midline Respiratory exam: PRESENT: decreased breath sounds - She has decreased breath sounds in the lower bases bilaterally, tachypnea Cardiovascular exam: PRESENT: tachycardia GI/Abdominal exam: PRESENT: other - Abdomen is somewhat distended. It is tender to palpation diffusely. She has significantly hypoactive bowel sounds. No rigidity or rebound tenderness. Laparoscopic wounds show no evidence of infection. Rectal exam: PRESENT: deferred Extremities exam: PRESENT: full ROM. ABSENT: calf tenderness, clubbing, pedal edema Neurological exam: PRESENT: altered, awake. ABSENT: alert, oriented to person, oriented to time, oriented to situation Psychiatric exam: PRESENT: agitated Skin exam: PRESENT: dry, intact, warm. ABSENT: cyanosis, rash Results Laboratory Results: 02/09/19 19:10 02/09/19 19:10 02/08/19 02/08/19 02/08/19 21:05 21:05 21:05 WBC 14.3 H RBC 4.10 Hgb 12.8 Hct 38.2 MCV 93 MCH 31.3 MCHC 33.6 RDW 14.1 H Plt Count 190 Seg Neutrophils % Not Reportable Lymphocytes % Not Reportable Monocytes % Not Reportable Eosinophils % Not Reportable Basophils % Not Reportable Absolute Neutrophils Not Reportable Absolute Lymphocytes Not Reportable Absolute Monocytes Not Reportable Absolute Eosinophils Not Reportable Absolute Basophils Not Reportable Carbonic Acid HCO3/H2CO3 Ratio ABG pH ABG pCO2 ABG pO2 ABG HCO3 ABG O2 Saturation ABG Base Excess FiO2 Sodium Cancelled Potassium Cancelled Chloride Cancelled Carbon Dioxide Cancelled Anion Gap Cancelled BUN Cancelled Creatinine Cancelled Est GFR ( Amer) Cancelled Est GFR (Non-Af Amer) Cancelled Glucose Cancelled Lactic Acid 2.3 H Calcium Cancelled Phosphorus Magnesium 1.8 Total Bilirubin AST ALT Alkaline Phosphatase Total Protein Albumin Prealbumin Triglycerides Lipase 02/08/19 02/09/19 02/09/19 21:05 05:00 05:00 WBC Cancelled RBC Cancelled Hgb Cancelled Hct Cancelled MCV Cancelled MCH Cancelled MCHC Cancelled RDW Cancelled Plt Count Cancelled Seg Neutrophils % Cancelled Lymphocytes % Cancelled Monocytes % Cancelled Eosinophils % Cancelled Basophils % Cancelled Absolute Neutrophils Cancelled Absolute Lymphocytes Cancelled Absolute Monocytes Cancelled Absolute Eosinophils Cancelled Absolute Basophils Cancelled Carbonic Acid HCO3/H2CO3 Ratio ABG pH ABG pCO2 ABG pO2 ABG HCO3 ABG O2 Saturation ABG Base Excess FiO2 Sodium 144.0 Cancelled Potassium 3.6 Cancelled Chloride 113 H Cancelled Carbon Dioxide 26 Cancelled Anion Gap 5 Cancelled BUN 31 H Cancelled Creatinine 0.75 Cancelled Est GFR ( Amer) > 60 Cancelled Est GFR (Non-Af Amer) > 60 Cancelled Glucose 169 H Cancelled Lactic Acid Calcium 8.0 L Cancelled Phosphorus 1.9 L Magnesium Total Bilirubin 3.1 H AST 127 H ALT 96 H Alkaline Phosphatase 98 Total Protein 5.3 L Albumin 2.7 L Prealbumin 9.7 L Triglycerides 101 Lipase Cancelled 02/09/19 02/09/19 02/09/19 07:30 07:30 07:30 WBC 14.0 H RBC 4.02 Hgb 12.5 Hct 37.1 MCV 92 MCH 31.1 MCHC 33.7 RDW 14.1 H Plt Count 190 Seg Neutrophils % Not Reportable Lymphocytes % Not Reportable Monocytes % Not Reportable Eosinophils % Not Reportable Basophils % Not Reportable Absolute Neutrophils Not Reportable Absolute Lymphocytes Not Reportable Absolute Monocytes Not Reportable Absolute Eosinophils Not Reportable Absolute Basophils Not Reportable Carbonic Acid HCO3/H2CO3 Ratio ABG pH ABG pCO2 ABG pO2 ABG HCO3 ABG O2 Saturation ABG Base Excess FiO2 Sodium 143.8 Cancelled Potassium 3.5 L Cancelled Chloride 110 H Cancelled Carbon Dioxide 28 Cancelled Anion Gap 6 Cancelled BUN 29 H Cancelled Creatinine 0.69 Cancelled Est GFR ( Amer) > 60 Cancelled Est GFR (Non-Af Amer) > 60 Cancelled Glucose 235 H Cancelled Lactic Acid Calcium 8.6 Cancelled Phosphorus 2.7 Magnesium Total Bilirubin 2.1 H AST 100 H ALT 79 H Alkaline Phosphatase 68 Total Protein 4.8 L Albumin 2.5 L Prealbumin 7.0 L Triglycerides Lipase 966.9 H 02/09/19 02/09/19 02/09/19 17:03 17:03 17:50 WBC Cancelled RBC Cancelled Hgb Cancelled Hct Cancelled MCV Cancelled MCH Cancelled MCHC Cancelled RDW Cancelled Plt Count Cancelled Seg Neutrophils % Cancelled Lymphocytes % Cancelled Monocytes % Cancelled Eosinophils % Cancelled Basophils % Cancelled Absolute Neutrophils Cancelled Absolute Lymphocytes Cancelled Absolute Monocytes Cancelled Absolute Eosinophils Cancelled Absolute Basophils Cancelled Carbonic Acid 1.06 HCO3/H2CO3 Ratio 23:1 ABG pH 7.47 H ABG pCO2 35.2 ABG pO2 63.8 L ABG HCO3 25.0 H ABG O2 Saturation 93.7 L ABG Base Excess 1.6 FiO2 2.5L Sodium Cancelled Potassium Cancelled Chloride Cancelled Carbon Dioxide Cancelled Anion Gap Cancelled BUN Cancelled Creatinine Cancelled Est GFR ( Amer) Cancelled Est GFR (Non-Af Amer) Cancelled Glucose Cancelled Lactic Acid Calcium Cancelled Phosphorus Cancelled Magnesium Cancelled Total Bilirubin Cancelled AST Cancelled ALT Cancelled Alkaline Phosphatase Cancelled Total Protein Cancelled Albumin Cancelled Prealbumin Triglycerides Lipase Cancelled 02/09/19 02/09/19 19:10 19:10 WBC 14.9 H RBC 3.81 Hgb 11.9 L Hct 35.1 L MCV 92 MCH 31.1 MCHC 33.7 RDW 14.6 H Plt Count 203 Seg Neutrophils % Not Reportable Lymphocytes % Not Reportable Monocytes % Not Reportable Eosinophils % Not Reportable Basophils % Not Reportable Absolute Neutrophils Not Reportable Absolute Lymphocytes Not Reportable Absolute Monocytes Not Reportable Absolute Eosinophils Not Reportable Absolute Basophils Not Reportable Carbonic Acid HCO3/H2CO3 Ratio ABG pH ABG pCO2 ABG pO2 ABG HCO3 ABG O2 Saturation ABG Base Excess FiO2 Sodium 142.4 Potassium 3.7 Chloride 110 H Carbon Dioxide 29 Anion Gap 4 L BUN 26 H Creatinine 0.72 Est GFR ( Amer) > 60 Est GFR (Non-Af Amer) > 60 Glucose 250 H Lactic Acid Calcium 8.4 Phosphorus 1.3 L Magnesium 2.1 Total Bilirubin 1.6 H AST 58 H ALT 66 H Alkaline Phosphatase 85 Total Protein 5.1 L Albumin 2.5 L Prealbumin Triglycerides Lipase 459.9 H 02/09/19 07:30 NT-Pro-B Natriuret Pep 1330 H Impressions: Chest X-Ray 02/08/19 00:00 IMPRESSION: LEFT BASILAR DENSITY SECONDARY TO ATELECTASIS AND/OR PNEUMONIA. POSSIBLE LEFT PLEURAL EFFUSION. Guidance Fluoroscopy 02/08/19 00:00 IMPRESSION: SUCCESSFUL PLACEMENT OF A 5 FR DUAL LUMEN 44 CM PICC IN THE LEFT BASILIC VEIN. Interventional Vascular Procedure 02/08/19 00:00 IMPRESSION: SUCCESSFUL PLACEMENT OF A 5 FR DUAL LUMEN 44 CM PICC IN THE LEFT BASILIC VEIN. PICC Line Insertion 02/08/19 00:00 IMPRESSION: SUCCESSFUL PLACEMENT OF A 5 FR DUAL LUMEN 44 CM PICC IN THE LEFT BASILIC VEIN. Assessment and Plan - Diagnosis (1) Acute pancreatitis Qualifiers: Pancreatitis type: unspecified pancreatitis type Acute pancreatitis complication: unspecified Qualified Code(s): K85.90 - Acute pancreatitis without necrosis or infection, unspecified Is this a current diagnosis for this admission?: Yes Plan: Recent laparoscopic cholecystectomy. The patient did not follow Dr. Roman's dietary directions at discharge. She came back in with a lipase of 17,000. This is been trending downwards however the patient has had worsening encephalopathy and is now running high fever tonight. (2) Acute encephalopathy Is this a current diagnosis for this admission?: Yes Plan: She remains acutely encephalopathic. This is likely multifactorial. I believe she is developing a septic picture. Also due to pain medications and recent surgery. (3) Acute respiratory failure with hypoxia Is this a current diagnosis for this admission?: Yes Plan: She has no pneumonia and increasing oxygen requirements. She has been receiving IV vancomycin and cefepime. I am changing her cefepime to Zosyn tonight. We will continue oxygen support as needed. (4) Sepsis Is this a current diagnosis for this admission?: Yes Plan: I believe the patient is developing a septic picture. Currently with a fever of 101. She has leukocytosis which is worsening, tachycardia, acute encephalopathy and likely has some sort of infection related to her recent surgery. Going to get a stat lactic acid on the patient. A CT scan of the abdomen and pelvis has been ordered but not yet read. (5) Hypertensive urgency Is this a current diagnosis for this admission?: Yes Plan: Markedly elevated blood pressures today. She has IV hydralazine and IV labetalol available as needed. (6) Left lower lobe pneumonia Qualifiers: Pneumonia type: due to unspecified organism Qualified Code(s): J18.1 - Lobar pneumonia, unspecified organism Is this a current diagnosis for this admission?: Yes Plan: The patient did have surgery recently. She certainly could have aspirated. She was hospitalized and hospital-acquired pneumonia is a possibility. She is not producing any sputum however. Chest x-ray did suggest a left lower lobe infiltrate. She has increasing oxygen requirement. I am going to change her cefepime to Zosyn and she will continue IV vancomycin. Continue oxygen support as needed. (7) Status post laparoscopic cholecystectomy Is this a current diagnosis for this admission?: Yes Plan: Certainly she is having significant complications post surgery. It was reported that she did not follow instructions when she went home. (8) Diabetes Is this a current diagnosis for this admission?: Yes Plan: Continue sliding scale coverage (9) Obesity (BMI 30.0-34.9) Is this a current diagnosis for this admission?: Yes Plan: At this point she remains n.p.o. (10) Hypokalemia Is this a current diagnosis for this admission?: Yes Plan: Repleted and resolved (11) Hypophosphatemia Is this a current diagnosis for this admission?: Yes Plan: We will replete with IV potassium phosphate (12) Elevated liver function tests Is this a current diagnosis for this admission?: Yes Plan: Her liver function tests are actually trending downwards. - Time Time Spent with patient: 35 or more minutes - Inpatient Certification Medical Necessity: Other - Inpatient hospitalization remains necessary. The patient is developing early sepsis from some sort of abdominal process. She needs imaging studies and further input from the surgery service. Timing of di sposition will be determined by her clinical course
--- NOTE | 2019-02-09 21:59 | RADIOLOGY REPORT (SQ) ---
CT ABDOMEN PELVIS WITHOUT IV CONTRAST HISTORY: History of pancreatitis. Abdominal pain. COMPARISON: None. TECHNIQUE: CT scan of the abdomen and pelvis without IV contrast. This exam was performed according to our departmental dose-optimization program, which includes automated exposure control, adjustment of the mA and/or kV according to patient size and/or use of iterative reconstruction technique. FINDINGS: There is a small left and trace right pleural effusion with adjacent atelectasis. No pericardial effusion. There has been a prior cholecystectomy. Again seen is marked inflammatory stranding surrounding the pancreas. No fluid collection is seen. The liver, spleen, adrenal glands, and kidneys are normal without hydronephrosis. There has been a prior hysterectomy. A Ley catheter is seen in the bladder. There are scattered colonic diverticula without surrounding inflammatory changes. No small bowel obstruction. There has been a prior appendectomy. There is mild mesenteric stranding, unchanged from prior. The aorta is normal caliber and contains atherosclerotic calcifications. No acute osseous findings. Mild body wall anasarca. No body wall hernia is appreciated. IMPRESSION: Redemonstrated pancreatitis. No fluid collection is seen.
[2019-02-09] MEDS ORDERED: PIPERACILLIN SODIUM/TAZOBACTAM 3.375 GM in NORMAL SALINE 100 ML IV SCH (22:00)
[2019-02-09] MEDS ORDERED: POTASSIUM PHOS,M-BASIC-D-BASIC 20 MMOL in NORMAL SALINE 500 ML IV ONE (22:30)
--- NOTE | 2019-02-10 00:17 | RADIOLOGY REPORT (SQ) ---
EXAM DESCRIPTION: XR ABDOMEN 1 VIEW (KUB) COMPLETED DATE/TME: 02/09/2019 23:15 CLINICAL HISTORY: 73 years Female, abdominal distention COMPARISON: Concurrent CT. NUMBER OF VIEWS/TECHNIQUE: 2 FINDINGS: Intestinal gas pattern is within normal limits. No suspicious calcification. Grossly intact skeletal structures. Ley. IMPRESSION: No acute findings.
[2019-02-10] MEDS: ENALAPRILAT DIHYDRATE INJ/PF 1.25 MG/1 ML SDV IV SCH ×4 (00:48→18:40)
[2019-02-10] MEDS: INSULIN REG, HUMAN 100 UNIT/ML 3 ML VIAL (PYX) SUBCUT PRN ×2 (01:42→18:40)
[2019-02-10] MEDS: HYDRALAZINE HCL INJ/PF 20 MG/1 ML SDV IV PRN ×2 (02:37→21:38)
[2019-02-10 05:47] LABS: HEMATOCRIT 35.8 % (36.0-47.0); HEMOGLOBIN 12.2 g/dL (12.0-15.5); MEAN CORPUSCULAR HEMOGLOBIN 31.1 pg (27.0-33.4); MEAN CORPUSCULAR HGB CONC 34.1 g/dL (32.0-36.0); MEAN CORPUSCULAR VOLUME 91 fl (80-97); PLATELET COUNT 219 10^3/uL (150-450); RED BLOOD COUNT 3.92 10^6/uL (3.72-5.28); RED CELL DISTRIBUTION WIDTH 14.7 % (11.5-14.0); WHITE BLOOD COUNT 17.6 10^3/uL (4.0-10.5)
[2019-02-10 06:14] LABS: ALANINE AMINOTRANSFERASE 59 U/L (9-52); ALBUMIN 2.7 g/dL (3.5-5.0); ALKALINE PHOSPHATASE 100 U/L (38-126); ANION GAP 8 (5-19); ASPARTATE AMINO TRANSFERASE 45 U/L (14-36); BILIRUBIN,DIRECT 0.8 mg/dL (0.0-0.4); BILIRUBIN,TOTAL 1.3 mg/dL (0.2-1.3); BLOOD UREA NITROGEN 25 mg/dL (7-20); CARBON DIOXIDE 27 mmol/L (22-30); CHLORIDE 112 mmol/L (98-107); GLUCOSE 186 mg/dL (75-110); POTASSIUM 3.4 mmol/L (3.6-5.0); SODIUM 146.9 mmol/L (137-145); TOTAL PROTEIN 5.4 g/dL (6.3-8.2)
[2019-02-10 06:21] LABS: PREALBUMIN 6.1 mg/dL (17.6-36.0)
[2019-02-10 06:27] LABS: ABSOLUTE LYMPHOCYTES# (MANUAL) 1.4 10^3/uL (0.5-4.7); ABSOLUTE MONOCYTES # (MANUAL) 2.5 10^3/uL (0.1-1.4); ABSOLUTE NEUTROPHILS# (MANUAL) 13.7 10^3/uL (1.7-8.2); BASOPHILS % (MANUAL) 0 % (0-2); EOSINOPHILS % (MANUAL) 0 % (0-6); HYPOCHROMASIA SLIGHT; LYMPHOCYTES % (MANUAL) 8 % (13-45); MONOCYTES % (MANUAL) 14 % (3-13); PLATELET COMMENT ADEQUATE; POLYCHROMASIA 1+; ROULEAUX SLIGHT; SEGMENTED NEUTROPHILS % (MAN) 78 % (42-78); TOTAL CELLS COUNTED 100
--- NOTE | 2019-02-10 08:04 | PDOC PROGRESS REPORT ---
Subjective Progress Note for:: 02/10/19 Subjective:: abd pain improved Reason For Visit: PANCREATITIS abd pain improved Physical Exam Vital Signs: Temp Pulse Resp BP Pulse Ox 98.9 F 91 21 H 152/70 H 94 02/10/19 03:58 02/10/19 07:00 02/10/19 03:58 02/10/19 03:58 02/10/19 03:58 Pulse Oximeter Continuous Start: 02/08/19 13:05 Freq: RTQ4 Status: Active Protocol: Document 02/10/19 03:54 [facility] (Rec: 02/10/19 03:55 [facility] [id number]) Pulse Oximetry Assessment Oxygen Saturation (92-100) 93 Oxygen Flow Rate (L/min) 4 Oxygen Delivery Method Nasal Cannula Fraction of Inspired Oxygen (FIO2) 36 Equipment Usage Equipment in Use Continuous SpO2 Machine # 8 Intake & Output 02/09/19 02/10/19 02/11/19 06:59 06:59 06:59 Intake Total 3340 2456.6667 Output Total 2500 2510 Balance 840 -53.3333 Weight 83 kg 81.5 kg General appearance: PRESENT: mild distress Head exam: PRESENT: atraumatic Eye exam: PRESENT: EOMI Mouth exam: PRESENT: dry mucosa, moist Neck exam: PRESENT: full ROM Respiratory exam: PRESENT: clear to auscultation josh Cardiovascular exam: PRESENT: RRR Pulses: PRESENT: normal radial pulses, normal femoral pulses Vascular exam: PRESENT: normal capillary refill GI/Abdominal exam: PRESENT: hypoactive bowel sounds Rectal exam: PRESENT: deferred Gentrourinary exam: PRESENT: indwelling catheter Extremities exam: PRESENT: +1 edema Musculoskeletal exam: PRESENT: full ROM Neurological exam: PRESENT: awake, oriented to person, oriented to place Psychiatric exam: PRESENT: anxious Skin exam: PRESENT: dry Results Laboratory Results: 02/10/19 04:52 02/10/19 04:52 02/09/19 02/09/19 02/09/19 07:30 07:30 17:03 WBC RBC Hgb Hct MCV MCH MCHC RDW Plt Count Seg Neutrophils % Lymphocytes % Monocytes % Eosinophils % Basophils % Absolute Neutrophils Absolute Lymphocytes Absolute Monocytes Absolute Eosinophils Absolute Basophils Carbonic Acid HCO3/H2CO3 Ratio ABG pH ABG pCO2 ABG pO2 ABG HCO3 ABG O2 Saturation ABG Base Excess FiO2 Sodium 143.8 Cancelled Cancelled Potassium 3.5 L Cancelled Cancelled Chloride 110 H Cancelled Cancelled Carbon Dioxide 28 Cancelled Cancelled Anion Gap 6 Cancelled Cancelled BUN 29 H Cancelled Cancelled Creatinine 0.69 Cancelled Cancelled Est GFR ( Amer) > 60 Cancelled Cancelled Est GFR (Non-Af Amer) > 60 Cancelled Cancelled Glucose 235 H Cancelled Cancelled Lactic Acid Calcium 8.6 Cancelled Cancelled Phosphorus 2.7 Cancelled Magnesium Cancelled Total Bilirubin 2.1 H Cancelled AST 100 H Cancelled ALT 79 H Cancelled Alkaline Phosphatase 68 Cancelled Total Protein 4.8 L Cancelled Albumin 2.5 L Cancelled Prealbumin 7.0 L Lipase 966.9 H Cancelled 02/09/19 02/09/19 02/09/19 17:03 17:50 19:10 WBC Cancelled 14.9 H RBC Cancelled 3.81 Hgb Cancelled 11.9 L Hct Cancelled 35.1 L MCV Cancelled 92 MCH Cancelled 31.1 MCHC Cancelled 33.7 RDW Cancelled 14.6 H Plt Count Cancelled 203 Seg Neutrophils % Cancelled Not Reportable Lymphocytes % Cancelled Not Reportable Monocytes % Cancelled Not Reportable Eosinophils % Cancelled Not Reportable Basophils % Cancelled Not Reportable Absolute Neutrophils Cancelled Not Reportable Absolute Lymphocytes Cancelled Not Reportable Absolute Monocytes Cancelled Not Reportable Absolute Eosinophils Cancelled Not Reportable Absolute Basophils Cancelled Not Reportable Carbonic Acid 1.06 HCO3/H2CO3 Ratio 23:1 ABG pH 7.47 H ABG pCO2 35.2 ABG pO2 63.8 L ABG HCO3 25.0 H ABG O2 Saturation 93.7 L ABG Base Excess 1.6 FiO2 2.5L Sodium Potassium Chloride Carbon Dioxide Anion Gap BUN Creatinine Est GFR ( Amer) Est GFR (Non-Af Amer) Glucose Lactic Acid Calcium Phosphorus Magnesium Total Bilirubin AST ALT Alkaline Phosphatase Total Protein Albumin Prealbumin Lipase 02/09/19 02/09/19 02/10/19 19:10 22:35 04:52 WBC RBC Hgb Hct MCV MCH MCHC RDW Plt Count Seg Neutrophils % Lymphocytes % Monocytes % Eosinophils % Basophils % Absolute Neutrophils Absolute Lymphocytes Absolute Monocytes Absolute Eosinophils Absolute Basophils Carbonic Acid HCO3/H2CO3 Ratio ABG pH ABG pCO2 ABG pO2 ABG HCO3 ABG O2 Saturation ABG Base Excess FiO2 Sodium 142.4 146.9 H Potassium 3.7 3.4 L Chloride 110 H 112 H Carbon Dioxide 29 27 Anion Gap 4 L 8 BUN 26 H 25 H Creatinine 0.72 0.65 Est GFR ( Amer) > 60 > 60 Est GFR (Non-Af Amer) > 60 > 60 Glucose 250 H 186 H Lactic Acid 1.7 Calcium 8.4 8.0 L Phosphorus 1.3 L 3.0 Magnesium 2.1 2.1 Total Bilirubin 1.6 H 1.3 AST 58 H 45 H ALT 66 H 59 H Alkaline Phosphatase 85 100 Total Protein 5.1 L 5.4 L Albumin 2.5 L 2.7 L Prealbumin 6.1 L Lipase 459.9 H 02/10/19 02/10/19 04:52 04:52 WBC 17.6 H RBC 3.92 Hgb 12.2 Hct 35.8 L MCV 91 MCH 31.1 MCHC 34.1 RDW 14.7 H Plt Count 219 Seg Neutrophils % Not Reportable Lymphocytes % Not Reportable Monocytes % Not Reportable Eosinophils % Not Reportable Basophils % Not Reportable Absolute Neutrophils Not Reportable Absolute Lymphocytes Not Reportable Absolute Monocytes Not Reportable Absolute Eosinophils Not Reportable Absolute Basophils Not Reportable Carbonic Acid HCO3/H2CO3 Ratio ABG pH ABG pCO2 ABG pO2 ABG HCO3 ABG O2 Saturation ABG Base Excess FiO2 Sodium Cancelled Potassium Cancelled Chloride Cancelled Carbon Dioxide Cancelled Anion Gap Cancelled BUN Cancelled Creatinine Cancelled Est GFR ( Amer) Cancelled Est GFR (Non-Af Amer) Cancelled Glucose Cancelled Lactic Acid Calcium Cancelled Phosphorus Cancelled Magnesium Total Bilirubin AST ALT Alkaline Phosphatase Total Protein Albumin Cancelled Prealbumin Lipase 02/09/19 07:30 NT-Pro-B Natriuret Pep 1330 H Impressions: Chest X-Ray 02/08/19 00:00 IMPRESSION: LEFT BASILAR DENSITY SECONDARY TO ATELECTASIS AND/OR PNEUMONIA. POSSIBLE LEFT PLEURAL EFFUSION. Guidance Fluoroscopy 02/08/19 00:00 IMPRESSION: SUCCESSFUL PLACEMENT OF A 5 FR DUAL LUMEN 44 CM PICC IN THE LEFT BASILIC VEIN. Interventional Vascular Procedure 02/08/19 00:00 IMPRESSION: SUCCESSFUL PLACEMENT OF A 5 FR DUAL LUMEN 44 CM PICC IN THE LEFT BASILIC VEIN. PICC Line Insertion 02/08/19 00:00 IMPRESSION: SUCCESSFUL PLACEMENT OF A 5 FR DUAL LUMEN 44 CM PICC IN THE LEFT BASILIC VEIN. Abdomen/Pelvis CT 02/09/19 00:00 IMPRESSION: Redemonstrated pancreatitis. No fluid collection is seen. KUB X-Ray 02/09/19 23:15 IMPRESSION: No acute findings. 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 lft improved, \ lipase improved lytes wnl This am pt is afebril stable vitals she is more alert still with dry mucosa abd is soft with min tenderness passing flatus plan will increase mobilization start clear liquid diet bp management per medicine.\
[2019-02-10 10:57] LABS: VANCOMYCIN,TROUGH 6.7 ug/mL (5.0-20.0)
--- NOTE | 2019-02-10 11:10 | RADIOLOGY REPORT (SQ) ---
EXAM DESCRIPTION: PICC INSERTION; FLUORO/CV PLACEMENT; U/S GUIDE FOR VASCULAR ACCESS COMPLETED DATE/TIME: 02/10/2019 11:03 am REASON FOR STUDY: TPN COMPARISON: 02/08/2019 FLUOROSCOPY TIME: 23 seconds 1 digital fluoroscopic and 1 digital ultrasound images saved to PACS. TECHNIQUE: Fluoroscopic and ultrasound guided PICC placement. LIMITATIONS: None. PROCEDURE: After written consent and assessment were obtained, the patient was brought into the fluo roscopy room and placed supine on the table. Ultrasound evaluation of potential access sites were per formed. After successfully identifying a patent left basilic vein, the left arm was prepped and drape d in a sterile fashion along with the ultrasound probe. The entry site was anesthetized with 1% lidoc darnell. A 21 gauge 7 cm needle was advanced through the skin and into the basilic vein under live ultra sound guidance. An ultrasound image was saved to PACS confirming access site. A .018 guide wire was then inserted through the needle and into the venous system. The needle was then removed and an 11 b lade scalpel was used to make a 1cm skin incision. A 5 fr peel-away sheath was advanced over the wir e and into the venous system. A measurement was then made using the existing wire and live fluoroscop ic guidance. The wire was then removed and trimmed. The PICC was advanced through the peel-away sheat h and into the venous system. The peel-away sheath was removed and the catheter was adhered to the pa tients arm with a stat lock. The catheter was then aspirated and flushed and a sterile bandage was pl aced over the access site. A fluoroscopic spot image was saved to PACS confirming the catheter tip w ithin the superior vena cava. IMPRESSION: SUCCESSFUL PLACEMENT OF A 5 FR DUAL LUMEN 44 CM PICC IN THE LEFT BASILIC VEIN. COMMENT: Patient medication list reviewed: Yes- Quality ID# 130:Eligible professional attests to doc umenting in the medical record they obtained, updated, or reviewed the patient's current medications. . Quality ID 145: Final reports for procedures using fluoroscopy that document radiation exposure magui aurelia, or exposure time and number of fluorographic images (if radiation exposure indices are not avail able) Quality ID #76: The patient was prepped and draped using maximum sterile barrier technique including cap, mask, sterile gown, sterile gloves, a large sterile sheet, hand hygiene, and 2% Chlorhexidine fo r cutaneous antisepsis. When ultrasound is used, sterile ultrasound techniques are followed requiring sterile gel and sterile probes. TECHNICAL DOCUMENTATION: JOB ID: [id number] [employer]- All Rights Reserved rev-04/03 Reading location - IP/workstation name: [email or web address]
[2019-02-10] MEDS: VANCOMYCIN HCL 750 MG in DEXTROSE 5%-WATER 250 ML IV SCH (11:32)
[2019-02-10] MEDS: FLUTICASONE NASAL SPRAY 50 MCG/SPRY 120 SPRAY/16 GM NASL SCH (11:33)
[2019-02-10] MEDS: POTASSIUM CHLORIDE 20 MEQ/50 ML RTU IV SCH ×2 (11:33→13:49)
[2019-02-10] MEDS: NORMAL SALINE 10 ML SDV (SCHEDULED) IV SCH ×2 (11:34→21:39)
[2019-02-10] MEDS: AMINO ACIDS 5 %/DEXTROSE 20 % 1,000 ML IV PRN (12:00)
[2019-02-10] MEDS: ONDANSETRON HCL INJ/PF 4 MG/2 ML SDV IV PRN (13:52)
--- NOTE | 2019-02-10 17:50 | PDOC PROGRESS REPORT ---
Subjective Progress Note for:: 02/10/19 Subjective:: No adverse events overnight. She still a little encephalopathic but her mental status has improved and she is more awake. She is afebrile. Blood pressures remain elevated and treated with IV medication. She is not having much of a cough. Still has some abdominal pain but it apparently has improved. Surgery has advanced her diet today. Reason For Visit: PANCREATITIS Physical Exam Vital Signs: Temp Pulse Resp BP Pulse Ox 98.4 F 86 20 177/73 H 95 02/10/19 16:20 02/10/19 16:20 02/10/19 16:20 02/10/19 16:20 02/10/19 16:20 Pulse Oximeter Continuous Start: 02/08/19 13:05 Freq: RTQ4 Status: Active Protocol: Document 02/10/19 15:35 LDA (Rec: 02/10/19 15:35 LDA [id number]) Pulse Oximetry Assessment Equipment Usage Equipment Standby Continuous SpO2 Machine # 8 Intake & Output 02/09/19 02/10/19 02/11/19 06:59 06:59 06:59 Intake Total 3340 2456.6667 1373 Output Total 2500 2510 502 Balance 840 -53.3333 871 Weight 83 kg 81.5 kg General appearance: PRESENT: cooperative, disheveled, mild distress, obese Respiratory exam: PRESENT: clear to auscultation josh, decreased breath sounds - Left base, unlabored. ABSENT: accessory muscle use, chest wall tenderness, crackles, rhonchi, symmetrical, tachypnea, wheezes Cardiovascular exam: PRESENT: tachycardia Pulses: PRESENT: normal carotid pulses Vascular exam: PRESENT: normal capillary refill GI/Abdominal exam: PRESENT: hypoactive bowel sounds, soft, tenderness - Mild midepigastric tenderness. ABSENT: distended, guarding, rebound Extremities exam: ABSENT: clubbing, pedal edema Musculoskeletal exam: PRESENT: normal inspection. ABSENT: deformity Neurological exam: PRESENT: awake - Minimally conversive but can follow some simple commands, oriented to person Psychiatric exam: PRESENT: flat affect Skin exam: PRESENT: dry, warm Results Laboratory Results: 02/10/19 04:52 02/10/19 04:52 02/09/19 02/09/19 02/09/19 17:03 17:03 17:50 WBC Cancelled RBC Cancelled Hgb Cancelled Hct Cancelled MCV Cancelled MCH Cancelled MCHC Cancelled RDW Cancelled Plt Count Cancelled Seg Neutrophils % Cancelled Lymphocytes % Cancelled Monocytes % Cancelled Eosinophils % Cancelled Basophils % Cancelled Absolute Neutrophils Cancelled Absolute Lymphocytes Cancelled Absolute Monocytes Cancelled Absolute Eosinophils Cancelled Absolute Basophils Cancelled Carbonic Acid 1.06 HCO3/H2CO3 Ratio 23:1 ABG pH 7.47 H ABG pCO2 35.2 ABG pO2 63.8 L ABG HCO3 25.0 H ABG O2 Saturation 93.7 L ABG Base Excess 1.6 FiO2 2.5L Sodium Cancelled Potassium Cancelled Chloride Cancelled Carbon Dioxide Cancelled Anion Gap Cancelled BUN Cancelled Creatinine Cancelled Est GFR ( Amer) Cancelled Est GFR (Non-Af Amer) Cancelled Glucose Cancelled Lactic Acid Calcium Cancelled Phosphorus Cancelled Magnesium Cancelled Total Bilirubin Cancelled AST Cancelled ALT Cancelled Alkaline Phosphatase Cancelled Total Protein Cancelled Albumin Cancelled Prealbumin Lipase Cancelled 02/09/19 02/09/19 02/09/19 19:10 19:10 22:35 WBC 14.9 H RBC 3.81 Hgb 11.9 L Hct 35.1 L MCV 92 MCH 31.1 MCHC 33.7 RDW 14.6 H Plt Count 203 Seg Neutrophils % Not Reportable Lymphocytes % Not Reportable Monocytes % Not Reportable Eosinophils % Not Reportable Basophils % Not Reportable Absolute Neutrophils Not Reportable Absolute Lymphocytes Not Reportable Absolute Monocytes Not Reportable Absolute Eosinophils Not Reportable Absolute Basophils Not Reportable Carbonic Acid HCO3/H2CO3 Ratio ABG pH ABG pCO2 ABG pO2 ABG HCO3 ABG O2 Saturation ABG Base Excess FiO2 Sodium 142.4 Potassium 3.7 Chloride 110 H Carbon Dioxide 29 Anion Gap 4 L BUN 26 H Creatinine 0.72 Est GFR ( Amer) > 60 Est GFR (Non-Af Amer) > 60 Glucose 250 H Lactic Acid 1.7 Calcium 8.4 Phosphorus 1.3 L Magnesium 2.1 Total Bilirubin 1.6 H AST 58 H ALT 66 H Alkaline Phosphatase 85 Total Protein 5.1 L Albumin 2.5 L Prealbumin Lipase 459.9 H 02/10/19 02/10/19 02/10/19 04:52 04:52 04:52 WBC 17.6 H RBC 3.92 Hgb 12.2 Hct 35.8 L MCV 91 MCH 31.1 MCHC 34.1 RDW 14.7 H Plt Count 219 Seg Neutrophils % Not Reportable Lymphocytes % Not Reportable Monocytes % Not Reportable Eosinophils % Not Reportable Basophils % Not Reportable Absolute Neutrophils Not Reportable Absolute Lymphocytes Not Reportable Absolute Monocytes Not Reportable Absolute Eosinophils Not Reportable Absolute Basophils Not Reportable Carbonic Acid HCO3/H2CO3 Ratio ABG pH ABG pCO2 ABG pO2 ABG HCO3 ABG O2 Saturation ABG Base Excess FiO2 Sodium 146.9 H Cancelled Potassium 3.4 L Cancelled Chloride 112 H Cancelled Carbon Dioxide 27 Cancelled Anion Gap 8 Cancelled BUN 25 H Cancelled Creatinine 0.65 Cancelled Est GFR ( Amer) > 60 Cancelled Est GFR (Non-Af Amer) > 60 Cancelled Glucose 186 H Cancelled Lactic Acid Calcium 8.0 L Cancelled Phosphorus 3.0 Cancelled Magnesium 2.1 Total Bilirubin 1.3 AST 45 H ALT 59 H Alkaline Phosphatase 100 Total Protein 5.4 L Albumin 2.7 L Cancelled Prealbumin 6.1 L Lipase 02/10/19 04:52 WBC RBC Hgb Hct MCV MCH MCHC RDW Plt Count Seg Neutrophils % Lymphocytes % Monocytes % Eosinophils % Basophils % Absolute Neutrophils Absolute Lymphocytes Absolute Monocytes Absolute Eosinophils Absolute Basophils Carbonic Acid HCO3/H2CO3 Ratio ABG pH ABG pCO2 ABG pO2 ABG HCO3 ABG O2 Saturation ABG Base Excess FiO2 Sodium Potassium Chloride Carbon Dioxide Anion Gap BUN Creatinine Est GFR ( Amer) Est GFR (Non-Af Amer) Glucose Lactic Acid Calcium Phosphorus Magnesium Total Bilirubin AST ALT Alkaline Phosphatase Total Protein Albumin Prealbumin Lipase 314.2 H 02/09/19 07:30 NT-Pro-B Natriuret Pep 1330 H Impressions: Chest X-Ray 02/08/19 00:00 IMPRESSION: LEFT BASILAR DENSITY SECONDARY TO ATELECTASIS AND/OR PNEUMONIA. POSSIBLE LEFT PLEURAL EFFUSION. Abdomen/Pelvis CT 02/09/19 00:00 IMPRESSION: Redemonstrated pancreatitis. No fluid collection is seen. KUB X-Ray 02/09/19 23:15 IMPRESSION: No acute findings. Guidance Fluoroscopy 02/10/19 00:00 IMPRESSION: SUCCESSFUL PLACEMENT OF A 5 FR DUAL LUMEN 44 CM PICC IN THE LEFT BASILIC VEIN. Interventional Vascular Procedure 02/10/19 00:00 IMPRESSION: SUCCESSFUL PLACEMENT OF A 5 FR DUAL LUMEN 44 CM PICC IN THE LEFT BASILIC VEIN. PICC Line Insertion 02/10/19 00:00 IMPRESSION: SUCCESSFUL PLACEMENT OF A 5 FR DUAL LUMEN 44 CM PICC IN THE LEFT BASILIC VEIN. Assessment and Plan - Diagnosis (1) Acute pancreatitis Qualifiers: Pancreatitis type: unspecified pancreatitis type Acute pancreatitis co mplication: unspecified Qualified Code(s): K85.90 - Acute pancreatitis without necrosis or infection, unspecified Is this a current diagnosis for this admission?: Yes Plan: This is improving nicely, her lipase was down to 314 today, greater than 17,000 on admission. She is currently getting TPN, and her diet was advanced to clear liquids today. (2) Acute encephalopathy Is this a current diagnosis for this admission?: Yes Plan: Metabolic encephalopathy due to her medical issues. Improving today with treatment of her condition. (3) Obesity (BMI 30.0-34.9) Is this a current diagnosis for this admission?: Yes Plan: Encouraged lifestyle modification - Time Time Spent with patient: 25-34 minutes - Plan Summary Plan Summary: She was empirically put on antibiotics, switched to Zosyn, which I think was appropriate. She definitely has SIRS. I am not entirely convinced that she has a left lower lobe pneumonia, as the degree of pancreatitis that she had could have certainly caused the pleural effusion, and the inflammatory response triggered by the pancreatitis could have definitely given her the fever that she had yesterday. However, I think antibiotics are appropriate and would recommend continuing them at this time. Cultures are pending.
[2019-02-10] MEDS: VANCOMYCIN HCL 1,000 MG in DEXTROSE 5%-WATER 250 ML IV SCH (18:40)
--- NOTE | 2019-02-10 21:59 | XCELERA REPORT ---
[address] [address] Transthoracic Echocardiogram Report Name: STARR TAYLOR Age: 73 yrs Gender: Female : 1945 Patient Status: Inpatient Patient Location: [facility]^A Study Date: 02/10/2019 09:21 AM Height: 61 in Weight: 182 lb BSA: 1.8 m2 Procedure: A two-dimensional transthoracic echocardiogram with color flow Doppler was performed. Study Quality: Poor. The study was technically difficult with many images being suboptimal in quality. Reason For Study: htn urgency, r/o chf History: CHF. Ordering Physician: ZAK HOLLOWAY Performed By: Laure Rothman Interpretation Summary The left ventricle is normal in size. There is mild concentric left ventricular hypertrophy. The left ventricular ejection fraction is within normal limits. LV EF is > than 65% Doppler measurements suggest pseudonormalized left ventricular relaxation, which is associated with grade II/IV or mild to moderate diastolic dysfunction Probably no regional wall motion abnormality. The right ventricle is not well visualized secondary to technical limitations Right atrium not well visualized secondary to technical limitations The left atrial size is normal. There is no evidence of mitral valve prolapse. There is no mitral valve stenosis. There is no mitral regurgitation noted. There is no aortic valve stenosis No aortic regurgitation is present. There is no tricuspid stenosis. There is a trace to mild amount of tricuspid regurgitation There is mild pulmonary hypertension by echo RVSP is 41 mm of Hg , with RA mean of 10. There is no pulmonic valvular stenosis. There is no pulmonic valvular regurgitation. There is no pericardial effusion. Probable moderate Left Pleural effusion. MMode/2D Measurements & Calculations RVDd: 3.4 cm LVIDd: 4.1 cm FS: 37.0 % Ao root diam: 3.5 cm IVSd: 1.2 cm LVIDs: 2.6 cm EDV(Teich): 72.2 ml Ao root area: 9.4 cm2 LVPWd: 1.2 cm ESV(Teich): 23.5 ml EF(Teich): 67.4 % Doppler Measurements & Calculations MV E max irvin: MV dec slope: Ao V2 max: LV V1 max P.6 cm/sec 694.9 cm/sec2 136.7 cm/sec 4.5 mmHg MV A max irvin: MV dec time: 0.10 secAo max PG: LV V1 max: 130.4 cm/sec 7.5 mmHg 106.6 cm/sec MV E/A: 0.52 PA V2 max: TR max irvin: 112.2 cm/sec 278.8 cm/sec PA max P.0 mmHg TR max P.1 mmHg Left Ventricle The left ventricle is normal in size. There is mild concentric left ventricular hypertrophy. The left ventricular ejection fraction is within normal limits. LV EF is > than 65%. Doppler measurements suggest pseudonormalized left ventricular relaxation, which is associated with grade II/IV or mild to moderate diastolic dysfunction. Probably no regional wall motion abnormality. Right Ventricle The right ventricle is not well visualized secondary to technical limitations. Atria Right atrium not well visualized secondary to technical limitations. The left atrial size is normal. Mitral Valve There is no evidence of mitral valve prolapse. There is no vegetation seen on the mitral valve. There is no mitral valve stenosis. There is no mitral regurgitation noted. Aortic Valve There is no aortic valve stenosis. No aortic regurgitation is present. Tricuspid Valve There is no tricuspid stenosis. There is a trace to mild amount of tricuspid regurgitation. There is mild pulmonary hypertension by echo. RVSP is 41 mm of Hg , with RA mean of 10. Pulmonic Valve There is no pulmonic valvular stenosis. There is no pulmonic valvular regurgitation. Effusions There is no pericardial effusion. Probable moderate Left Pleural effusion. : ZAK HOLLOWAY > Lucia Maza
[2019-02-11] MEDS: ENALAPRILAT DIHYDRATE INJ/PF 1.25 MG/1 ML SDV IV SCH ×3 (00:36→11:26)
[2019-02-11] MEDS: INSULIN REG, HUMAN 100 UNIT/ML 3 ML VIAL (PYX) SUBCUT PRN ×3 (00:41→12:46)
[2019-02-11] MEDS: VANCOMYCIN HCL 1,000 MG in DEXTROSE 5%-WATER 250 ML IV SCH ×3 (02:42→18:37)
[2019-02-11] MEDS: HYDRALAZINE HCL INJ/PF 20 MG/1 ML SDV IV PRN ×2 (04:43→21:42)
--- NOTE | 2019-02-11 09:20 | PDOC PROGRESS REPORT ---
Subjective Progress Note for:: 02/11/19 Subjective:: pancreatitis feels better today no further abdominal pain passing stool and flatus Reason For Visit: PANCREATITIS Physical Exam Vital Signs: Temp Pulse Resp BP Pulse Ox 97.3 F 95 24 H 157/52 H 96 02/11/19 04:04 02/11/19 07:00 02/11/19 04:04 02/11/19 05:20 02/11/19 04:04 Pulse Oximeter Continuous Start: 02/08/19 13:05 Freq: RTQ4 Status: Active Protocol: Document 02/11/19 04:00 LRO (Rec: 02/11/19 05:37 LRO [id number]) Pulse Oximetry Assessment Oxygen Saturation (92-100) 6 Oxygen Flow Rate (L/min) 3 Oxygen Delivery Method Nasal Cannula Fraction of Inspired Oxygen (FIO2) 32 Equipment Usage Equipment Standby Continuous SpO2 Machine # 8 Intake & Output 02/10/19 02/11/19 02/12/19 06:59 06:59 06:59 Intake Total 1257.6627 2681 Output Total 5104 5460 Balance -53.3333 55 Weight 81.5 kg 86 kg General appearance: PRESENT: no acute distress Head exam: PRESENT: normocephalic Eye exam: PRESENT: EOMI Mouth exam: PRESENT: moist Neck exam: PRESENT: full ROM Respiratory exam: PRESENT: clear to auscultation josh Cardiovascular exam: PRESENT: RRR Pulses: PRESENT: normal radial pulses, normal femoral pulses GI/Abdominal exam: PRESENT: soft Rectal exam: PRESENT: deferred Gentrourinary exam: PRESENT: indwelling catheter Musculoskeletal exam: PRESENT: full ROM Neurological exam: PRESENT: alert, awake, oriented to person, oriented to place Psychiatric exam: PRESENT: appropriate affect Skin exam: PRESENT: dry Results Laboratory Results: 02/10/19 04:52 02/10/19 04:52 02/09/19 07:30 NT-Pro-B Natriuret Pep 1330 H Impressions: Chest X-Ray 02/08/19 00:00 IMPRESSION: LEFT BASILAR DENSITY SECONDARY TO ATELECTASIS AND/OR PNEUMONIA. POSSIBLE LEFT PLEURAL EFFUSION. Abdomen/Pelvis CT 02/09/19 00:00 IMPRESSION: Redemonstrated pancreatitis. No fluid collection is seen. KUB X-Ray 02/09/19 23:15 IMPRESSION: No acute findings. Guidance Fluoroscopy 02/10/19 00:00 IMPRESSION: SUCCESSFUL PLACEMENT OF A 5 FR DUAL LUMEN 44 CM PICC IN THE LEFT BASILIC VEIN. Interventional Vascular Procedure 02/10/19 00:00 IMPRESSION: SUCCESSFUL PLACEMENT OF A 5 FR DUAL LUMEN 44 CM PICC IN THE LEFT BASILIC VEIN. PICC Line Insertion 02/10/19 00:00 IMPRESSION: SUCCESSFUL PLACEMENT OF A 5 FR DUAL LUMEN 44 CM PICC IN THE LEFT BASILIC VEIN. Assessment & Plan - Diagnosis (1) Acute pancreatitis Qualifiers: Pancreatitis type: unspecified pancreatitis type Acute pancreatitis complication: unspecified Qualified Code(s): K85.90 - Acute pancreatitis without necrosis or infection, unspecified Is this a current diagnosis for this admission?: Yes - Plan Summary Plan Summary: afeb vss feels better much more alert and cooperative slept well last pm cont tpn dc baker awaiting labs
[2019-02-11] MEDS: AMINO ACIDS 5 %/DEXTROSE 20 % 1,000 ML IV PRN (10:30)
[2019-02-11] MEDS: FLUTICASONE NASAL SPRAY 50 MCG/SPRY 120 SPRAY/16 GM NASL SCH (10:31)
[2019-02-11] MEDS: FAT EMULSIONS 250 ML IV SCH (10:31)
[2019-02-11] MEDS: NORMAL SALINE 10 ML SDV (SCHEDULED) IV SCH ×2 (10:31→21:41)
[2019-02-11 10:45] LABS: HEMATOCRIT 35.7 % (36.0-47.0); HEMOGLOBIN 11.8 g/dL (12.0-15.5); MEAN CORPUSCULAR HEMOGLOBIN 30.3 pg (27.0-33.4); MEAN CORPUSCULAR HGB CONC 33.1 g/dL (32.0-36.0); MEAN CORPUSCULAR VOLUME 92 fl (80-97); PLATELET COUNT 207 10^3/uL (150-450); RED CELL DISTRIBUTION WIDTH 14.5 % (11.5-14.0)
[2019-02-11 11:06] LABS: ALANINE AMINOTRANSFERASE 47 U/L (9-52); ALBUMIN 2.6 g/dL (3.5-5.0); ALKALINE PHOSPHATASE 112 U/L (38-126); ANION GAP 9 (5-19); ASPARTATE AMINO TRANSFERASE 28 U/L (14-36); BILIRUBIN,DIRECT 0.4 mg/dL (0.0-0.4); BILIRUBIN,TOTAL 0.9 mg/dL (0.2-1.3); BLOOD UREA NITROGEN 19 mg/dL (7-20); CARBON DIOXIDE 30 mmol/L (22-30); CHLORIDE 100 mmol/L (98-107); GLUCOSE 206 mg/dL (75-110); LIPASE 86.4 U/L (23-300); POTASSIUM 3.4 mmol/L (3.6-5.0); SODIUM 138.7 mmol/L (137-145); TOTAL PROTEIN 5.3 g/dL (6.3-8.2)
[2019-02-11 11:19] LABS: ABSOLUTE LYMPHOCYTES# (MANUAL) 2.1 10^3/uL (0.5-4.7); ABSOLUTE MONOCYTES # (MANUAL) 0.2 10^3/uL (0.1-1.4); ABSOLUTE NEUTROPHILS# (MANUAL) 16.5 10^3/uL (1.7-8.2); BAND NEUTROPHILS % (MANUAL) 3 % (3-5); BASOPHILS % (MANUAL) 0 % (0-2); EOSINOPHILS % (MANUAL) 1 % (0-6); LYMPHOCYTES % (MANUAL) 9 % (13-45); MONOCYTES % (MANUAL) 1 % (3-13); MYELOCYTES % (MANUAL) 1 % (0); SEGMENTED NEUTROPHILS % (MAN) 82 % (42-78); TOTAL CELLS COUNTED 100
[2019-02-11 11:20] LABS: TOXIC GRANULATION 1+; TOXIC VACUOLATION PRESENT
[2019-02-11 11:22] LABS: ANISOCYTOSIS SLIGHT; PLATELET COMMENT ADEQUATE; PLATELET GIANT PRESENT
[2019-02-11 11:32] LABS: METAMYELOCYTES % (MANUAL) 1 % (0)
[2019-02-11] MEDS ORDERED: LISINOPRIL 10 MG TABLET PO ONE (16:58)
[2019-02-11] MEDS ORDERED: AMLODIPINE BESYLATE 5 MG TABLET PO ONE (16:59)
--- NOTE | 2019-02-11 17:10 | PDOC PROGRESS REPORT ---
Subjective Progress Note for:: 02/11/19 Subjective:: More alert and awake today. Much more interactive and talkative. Diet has been advanced to clears, but she said she really does not want to eat Jell-O and would like to have something with a bit more substance. I deferred this decision to her surgeon. Blood pressure is still somewhat elevated. She said at home she was on lisinopril and HCTZ. Reason For Visit: PANCREATITIS Physical Exam Vital Signs: Temp Pulse Resp BP Pulse Ox 98.0 F 92 18 173/71 H 97 02/11/19 10:46 02/11/19 10:46 02/11/19 10:46 02/11/19 10:46 02/11/19 10:46 Pulse Oximeter Continuous Start: 02/08/19 13:05 Freq: RTQ4 Status: Complete Protocol: Document 02/11/19 08:00 LDA (Rec: 02/11/19 09:42 LDA [email or web address]) Pulse Oximetry Assessment Equipment Usage Equipment Discontinued Continuous SpO2 Machine # 8 Intake & Output 02/10/19 02/11/19 02/12/19 06:59 06:59 06:59 Intake Total 2456.6667 2685 1605 Output Total 2510 2630 450 Balance -53.3333 55 1155 Weight 81.5 kg 86 kg General appearance: PRESENT: cooperative, disheveled, no apparent distress, obese Respiratory exam: PRESENT: clear to auscultation josh, decreased breath sounds - Left base, unlabored. ABSENT: accessory muscle use, chest wall tenderness, crackles, rhonchi, symmetrical, tachypnea, wheezes Cardiovascular exam: PRESENT: RRR S1-S2 Pulses: PRESENT: normal carotid pulses Vascular exam: PRESENT: normal capillary refill GI/Abdominal exam: PRESENT: hypoactive bowel sounds, soft, tenderness - Mild midepigastric tenderness. ABSENT: distended, guarding, rebound Extremities exam: ABSENT: clubbing, pedal edema Musculoskeletal exam: PRESENT: normal inspection. ABSENT: deformity Neurological exam: PRESENT: awake, alert, oriented to person, oriented to place, oriented to situation Psychiatric exam: PRESENT: flat affect Skin exam: PRESENT: dry, warm Results Laboratory Results: 02/11/19 10:26 02/11/19 10:26 02/11/19 02/11/19 10:26 10:26 WBC 19.0 H RBC 3.90 Hgb 11.8 L Hct 35.7 L MCV 92 MCH 30.3 MCHC 33.1 RDW 14.5 H Plt Count 207 Seg Neutrophils % Not Reportable Lymphocytes % Not Reportable Monocytes % Not Reportable Eosinophils % Not Reportable Basophils % Not Reportable Absolute Neutrophils Not Reportable Absolute Lymphocytes Not Reportable Absolute Monocytes Not Reportable Absolute Eosinophils Not Reportable Absolute Basophils Not Reportable Sodium 138.7 Potassium 3.4 L Chloride 100 Carbon Dioxide 30 Anion Gap 9 BUN 19 Creatinine 0.56 Est GFR ( Amer) > 60 Est GFR (Non-Af Amer) > 60 Glucose 206 H Calcium 8.0 L Total Bilirubin 0.9 AST 28 ALT 47 Alkaline Phosphatase 112 Total Protein 5.3 L Albumin 2.6 L Lipase 86.4 02/09/19 07:30 NT-Pro-B Natriuret Pep 1330 H Impressions: Chest X-Ray 02/08/19 00:00 IMPRESSION: LEFT BASILAR DENSITY SECONDARY TO ATELECTASIS AND/OR PNEUMONIA. POSSIBLE LEFT PLEURAL EFFUSION. Abdomen/Pelvis CT 02/09/19 00:00 IMPRESSION: Redemonstrated pancreatitis. No fluid collection is seen. KUB X-Ray 02/09/19 23:15 IMPRESSION: No acute findings. Guidance Fluoroscopy 02/10/19 00:00 IMPRESSION: SUCCESSFUL PLACEMENT OF A 5 FR DUAL LUMEN 44 CM PICC IN THE LEFT BASILIC VEIN. Interventional Vascular Procedure 02/10/19 00:00 IMPRESSION: SUCCESSFUL PLACEMENT OF A 5 FR DUAL LUMEN 44 CM PICC IN THE LEFT BASILIC VEIN. PICC Line Insertion 02/10/19 00:00 IMPRESSION: SUCCESSFUL PLACEMENT OF A 5 FR DUAL LUMEN 44 CM PICC IN THE LEFT BASILIC VEIN. Assessment and Plan - Diagnosis (1) Acute pancreatitis Qualifiers: Pancreatitis type: other Acute pancreatitis complication: no infection or necrosis Qualified Code(s): K85.80 - Other acute pancreatitis without necrosis or infection Is this a current diagnosis for this admission?: Yes Plan: , Currently still on TPN, diet has advanced to clears. I told her that if she is able to tolerate clears without any problems, her surgery may be likely to discontinue the TPN and advance her diet, but that ultimately the decision was up to the surgeon. (2) Acute encephalopathy Is this a current diagnosis for this admission?: Yes Plan: Resolved (3) Obesity (BMI 30.0-34.9) Is this a current diagnosis for this admission?: Yes Plan: Encouraged lifestyle modification (4) Hypertensive urgency Is this a current diagnosis for this admission?: Yes Plan: Since she is now able to take p.o., I am going to discontinue the scheduled IV enalapril and will put her back on lisinopril. I declined to put her back on HCTZ, even though it is only a class III drug for drug-induced pancreatitis, and in favor of amlodipine. It is noted that lisinopril is also a class III drug, but felt that since she has been on enalapril here, which is a class I a drug, that she would likely tolerate the lisinopril without complication. - Time Time Spent with patient: 25-34 minutes
[2019-02-11] MEDS: POLYETHYLENE GLYCOL 3350 POWDER 17 GM/1 PACKET PO PRN (17:49)
[2019-02-11 19:10] LABS: VANCOMYCIN,TROUGH 11.5 ug/mL (5.0-20.0)
[2019-02-11] MEDS: MAG HYDROX/AL HYDROX/SIMETH SUSP 30 ML UDCUP PO PRN (23:47)
[2019-02-12] MEDS: VANCOMYCIN HCL 1,000 MG in DEXTROSE 5%-WATER 250 ML IV SCH ×2 (02:27→10:44)
[2019-02-12] MEDS: INSULIN REG, HUMAN 100 UNIT/ML 3 ML VIAL (PYX) SUBCUT PRN ×2 (03:17→12:41)
[2019-02-12] MEDS ORDERED: AMLODIPINE BESYLATE 5 MG TABLET PO SCH (10:00)
[2019-02-12] MEDS ORDERED: LISINOPRIL 10 MG TABLET PO SCH (10:00)
[2019-02-12] MEDS: FLUTICASONE NASAL SPRAY 50 MCG/SPRY 120 SPRAY/16 GM NASL SCH (10:44)
[2019-02-12] MEDS: AMINO ACIDS 5 %/DEXTROSE 20 % 1,000 ML IV PRN (10:46)
[2019-02-12] MEDS: NORMAL SALINE 10 ML SDV (SCHEDULED) IV SCH ×2 (10:52→21:28)
[2019-02-12] MEDS: MAG HYDROX/AL HYDROX/SIMETH SUSP 30 ML UDCUP PO PRN (11:01)
--- NOTE | 2019-02-12 11:04 | PDOC PROGRESS REPORT ---
Subjective Progress Note for:: 02/12/19 Subjective:: pancreatitis feels better today no further abdominal pain passing stool and flatus Reason For Visit: PANCREATITIS Physical Exam Vital Signs: Temp Pulse Resp BP Pulse Ox 97.6 F 93 16 180/72 H 97 02/12/19 08:39 02/12/19 08:39 02/12/19 08:39 02/12/19 08:57 02/12/19 08:39 Pulse Oximeter Continuous Start: 02/08/19 13:05 Freq: RTQ4 Status: Complete Protocol: Document 02/11/19 08:00 LDA (Rec: 02/11/19 09:42 LDA [email or web address]) Pulse Oximetry Assessment Equipment Usage Equipment Discontinued Continuous SpO2 Machine # 8 Intake & Output 02/11/19 02/12/19 02/13/19 06:59 06:59 06:59 Intake Total 2685 3555 1000 Output Total 2630 2925 Balance 55 630 1000 Weight 86 kg 86.8 kg General appearance: PRESENT: mild distress Head exam: PRESENT: normocephalic Eye exam: PRESENT: EOMI Mouth exam: PRESENT: moist Neck exam: PRESENT: full ROM Respiratory exam: PRESENT: clear to auscultation josh Cardiovascular exam: PRESENT: RRR Pulses: PRESENT: normal radial pulses, normal femoral pulses Vascular exam: PRESENT: normal capillary refill GI/Abdominal exam: PRESENT: other - ABD SOFTLY DISTENDED, SOME TENDERNESS TO PALPATION NO REBOUND TENDERNESS + BOWEL SOUNDS Gentrourinary exam: PRESENT: indwelling catheter Musculoskeletal exam: PRESENT: full ROM Neurological exam: PRESENT: alert, altered, awake, oriented to person, oriented to time, oriented to situation Psychiatric exam: PRESENT: anxious Skin exam: PRESENT: dry Results Laboratory Results: 02/11/19 10:26 02/11/19 10:26 02/11/19 10:26 Sodium 138.7 Potassium 3.4 L Chloride 100 Carbon Dioxide 30 Anion Gap 9 BUN 19 Creatinine 0.56 Est GFR ( Amer) > 60 Est GFR (Non-Af Amer) > 60 Glucose 206 H Calcium 8.0 L Total Bilirubin 0.9 AST 28 ALT 47 Alkaline Phosphatase 112 Total Protein 5.3 L Albumin 2.6 L Lipase 86.4 02/09/19 07:30 NT-Pro-B Natriuret Pep 1330 H Impressions: Chest X-Ray 02/08/19 00:00 IMPRESSION: LEFT BASILAR DENSITY SECONDARY TO ATELECTASIS AND/OR PNEUMONIA. POSSIBLE LEFT PLEURAL EFFUSION. Abdomen/Pelvis CT 02/09/19 00:00 IMPRESSION: Redemonstrated pancreatitis. No fluid collection is seen. KUB X-Ray 02/09/19 23:15 IMPRESSION: No acute findings. Guidance Fluoroscopy 02/10/19 00:00 IMPRESSION: SUCCESSFUL PLACEMENT OF A 5 FR DUAL LUMEN 44 CM PICC IN THE LEFT BASILIC VEIN. Interventional Vascular Procedure 02/10/19 00:00 IMPRESSION: SUCCESSFUL PLACEMENT OF A 5 FR DUAL LUMEN 44 CM PICC IN THE LEFT BASILIC VEIN. PICC Line Insertion 02/10/19 00:00 IMPRESSION: SUCCESSFUL PLACEMENT OF A 5 FR DUAL LUMEN 44 CM PICC IN THE LEFT BASILIC VEIN. Assessment & Plan - Diagnosis (1) Acute pancreatitis Qualifiers: Pancreatitis type: other Acute pancreatitis complication: no infection or necrosis Qualified Code(s): K85.80 - Other acute pancreatitis without necrosis or infection Is this a current diagnosis for this admission?: Yes - Plan Summary Plan Summary: AFEB VSS C/O MORE ABD BLOATING THIS AM PASSING FLATUS, MIN STOOL SINCE 2 DAYS AGO AUGUSTINE PO LIQUIDS LABS THIS AM PENDING DISCUSSED PROGRESS WITH PT ABOUT THE PANCREATITIS EXPLAINED RESOLUTION CAN TAKE SOME TIME AND DESPITE THE FACT SHE WANTS TO EAT AND GO HOME TODAY OR TOMORROW, WE NEED TO WAIT ON RESOLUCTION OF THE PANCREATIC SWELLING AND ABD DISTENSION LABS PENDING THIS AM WILL ORDER KUB TO ASSESS FOR ILEUS AND DC MATTHEWS PT NEEDS TO BE UP AMBULATING MORE OFTEN.
[2019-02-12 11:25] LABS: HEMATOCRIT 32.1 % (36.0-47.0); HEMOGLOBIN 10.9 g/dL (12.0-15.5); MEAN CORPUSCULAR HEMOGLOBIN 31.1 pg (27.0-33.4); MEAN CORPUSCULAR HGB CONC 34.1 g/dL (32.0-36.0); MEAN CORPUSCULAR VOLUME 91 fl (80-97); PLATELET COUNT 206 10^3/uL (150-450); RED BLOOD COUNT 3.51 10^6/uL (3.72-5.28); RED CELL DISTRIBUTION WIDTH 14.3 % (11.5-14.0); WHITE BLOOD COUNT 21.1 10^3/uL (4.0-10.5)
[2019-02-12 11:43] LABS: ALANINE AMINOTRANSFERASE 41 U/L (9-52); ALBUMIN 2.4 g/dL (3.5-5.0); ALKALINE PHOSPHATASE 119 U/L (38-126); ANION GAP 5 (5-19); ASPARTATE AMINO TRANSFERASE 31 U/L (14-36); BILIRUBIN,DIRECT 0.4 mg/dL (0.0-0.4); BILIRUBIN,TOTAL 0.7 mg/dL (0.2-1.3); BLOOD UREA NITROGEN 14 mg/dL (7-20); CALCIUM 7.9 mg/dL (8.4-10.2); CARBON DIOXIDE 28 mmol/L (22-30); CHLORIDE 103 mmol/L (98-107); GLUCOSE 255 mg/dL (75-110); LIPASE 69.5 U/L (23-300); POTASSIUM 3.4 mmol/L (3.6-5.0); SODIUM 135.9 mmol/L (137-145)
[2019-02-12 11:48] LABS: ABSOLUTE LYMPHOCYTES# (MANUAL) 3.6 10^3/uL (0.5-4.7); ABSOLUTE MONOCYTES # (MANUAL) 1.1 10^3/uL (0.1-1.4); ABSOLUTE NEUTROPHILS# (MANUAL) 16.5 10^3/uL (1.7-8.2); BAND NEUTROPHILS % (MANUAL) 2 % (3-5); BASOPHILS % (MANUAL) 0 % (0-2); EOSINOPHILS % (MANUAL) 0 % (0-6); LYMPHOCYTES % (MANUAL) 16 % (13-45); MONOCYTES % (MANUAL) 5 % (3-13); SEGMENTED NEUTROPHILS % (MAN) 76 % (42-78); TOTAL CELLS COUNTED 100
[2019-02-12 11:49] LABS: ANISOCYTOSIS SLIGHT; OVALOCYTES SLIGHT; PLATELET COMMENT ADEQUATE; POIKILOCYTOSIS SLIGHT; POLYCHROMASIA SLIGHT
[2019-02-12] MEDS ORDERED: METRONIDAZOLE 500 MG/NS RTU 500 MG/100 ML RTUPB IV SCH (12:00)
--- NOTE | 2019-02-12 12:17 | RADIOLOGY REPORT (SQ) ---
EXAM DESCRIPTION: KUB/ABDOMEN (SINGLE VIEW) COMPLETED DATE/TIME: 02/12/2019 11:49 am REASON FOR STUDY: PANCREATITIS COMPARISON: None. NUMBER OF VIEWS: One view. TECHNIQUE: Supine radiographic image of the abdomen acquired. LIMITATIONS: None. FINDINGS: BOWEL GAS PATTERN: Normal bowel gas pattern. No dilated loops. CALCIFICATIONS: No suspicious calcifications. SOFT TISSUES: No gross mass or suggestion of organomegaly. HARDWARE: None in the abdomen. BONES: No acute fracture. No worrisome bone lesions. OTHER: No other significant finding. IMPRESSION: NO RADIOGRAPHIC EVIDENCE FOR ACUTE ABDOMINAL DISEASE. TECHNICAL DOCUMENTATION: JOB ID: [id number] [employer]- All Rights Reserved Reading location - IP/workstation name: [email or web address]
[2019-02-12] MEDS: KETOROLAC TROMETHAMINE INJ/PF 30 MG/1 ML SDV IV PRN (12:41)
[2019-02-12] MEDS: AMPICILLIN SODIUM/SULBACTAM NA 3 GM in NORMAL SALINE 100 ML IV SCH ×2 (13:33→18:39)
[2019-02-12] MEDS: NORMAL SALINE 1000 ML 1,000 ML IV PRN (13:39)
[2019-02-12] MEDS ORDERED: AMLODIPINE BESYLATE 5 MG TABLET PO ONE (13:52)
[2019-02-12] MEDS: ONDANSETRON HCL INJ/PF 4 MG/2 ML SDV IV PRN ×2 (15:13→21:34)
--- NOTE | 2019-02-12 15:19 | PDOC PROGRESS REPORT ---
Subjective Progress Note for:: 02/12/19 Subjective:: 02/12/2019. No acute events overnight. Still complaining of persistent bloating and abdominal pain. Passing flatus has not had a bowel movement for the last 2 days. Tolerating p.o. liquid intake. Somnolent however easily arousable and answering questions properly. Denies any any fever, chills, chest pain or shortness of breath. Reason For Visit: PANCREATITIS Physical Exam Vital Signs: Temp Pulse Resp BP Pulse Ox 98.3 F 89 16 167/68 H 96 02/12/19 12:29 02/12/19 12:29 02/12/19 12:29 02/12/19 12:29 02/12/19 12:29 Pulse Oximeter Continuous Start: 02/08/19 13:05 Freq: RTQ4 Status: Complete Protocol: Document 02/11/19 08:00 LDA (Rec: 02/11/19 09:42 LDA [email or web address]) Pulse Oximetry Assessment Equipment Usage Equipment Discontinued Continuous SpO2 Machine # 8 Intake & Output 02/11/19 02/12/19 02/13/19 06:59 06:59 06:59 Intake Total 2685 3555 1400 Output Total 2630 2925 1 Balance 55 630 1399 Weight 86 kg 86.8 kg General appearance: PRESENT: no acute distress Head exam: PRESENT: atraumatic, normocephalic Respiratory exam: PRESENT: clear to auscultation josh. ABSENT: rales, rhonchi, wheezes Cardiovascular exam: PRESENT: RRR. ABSENT: diastolic murmur, rubs, systolic murmur GI/Abdominal exam: PRESENT: normal bowel sounds, soft, tenderness. ABSENT: distended, guarding, mass, organolmegaly, rebound Neurological exam: PRESENT: alert, oriented to person Results Laboratory Results: 02/12/19 10:37 02/12/19 10:37 02/12/19 02/12/19 10:37 10:37 WBC 21.1 H RBC 3.51 L Hgb 10.9 L Hct 32.1 L MCV 91 MCH 31.1 MCHC 34.1 RDW 14.3 H Plt Count 206 Seg Neutrophils % Not Reportable Lymphocytes % Not Reportable Monocytes % Not Reportable Eosinophils % Not Reportable Basophils % Not Reportable Absolute Neutrophils Not Reportable Absolute Lymphocytes Not Reportable Absolute Monocytes Not Reportable Absolute Eosinophils Not Reportable Absolute Basophils Not Reportable Sodium 135.9 L Potassium 3.4 L Chloride 103 Carbon Dioxide 28 Anion Gap 5 BUN 14 Creatinine 0.49 L Est GFR ( Amer) > 60 Est GFR (Non-Af Amer) > 60 Glucose 255 H Calcium 7.9 L Total Bilirubin 0.7 AST 31 ALT 41 Alkaline Phosphatase 119 Total Protein 5.0 L Albumin 2.4 L Lipase 69.5 02/09/19 07:30 NT-Pro-B Natriuret Pep 1330 H Impressions: Chest X-Ray 02/08/19 00:00 IMPRESSION: LEFT BASILAR DENSITY SECONDARY TO ATELECTASIS AND/OR PNEUMONIA. POSSIBLE LEFT PLEURAL EFFUSION. Abdomen/Pelvis CT 02/09/19 00:00 IMPRESSION: Redemonstrated pancreatitis. No fluid collection is seen. Guidance Fluoroscopy 02/10/19 00:00 IMPRESSION: SUCCESSFUL PLACEMENT OF A 5 FR DUAL LUMEN 44 CM PICC IN THE LEFT BASILIC VEIN. Interventional Vascular Procedure 02/10/19 00:00 IMPRESSION: SUCCESSFUL PLACEMENT OF A 5 FR DUAL LUMEN 44 CM PICC IN THE LEFT BASILIC VEIN. PICC Line Insertion 02/10/19 00:00 IMPRESSION: SUCCESSFUL PLACEMENT OF A 5 FR DUAL LUMEN 44 CM PICC IN THE LEFT BASILIC VEIN. KUB X-Ray 02/12/19 00:00 IMPRESSION: NO RADIOGRAPHIC EVIDENCE FOR ACUTE ABDOMINAL DISEASE. Assessment and Plan - Diagnosis (1) Hypertensive urgency Is this a current diagnosis for this admission?: Yes Plan: Better controlled not optimized. IV enalapril was switched to p.o. lisinopril. Increase amlodipine to 10 mg p.o. daily. Monitoring vitals and adjust meds as needed. (2) Acute pancreatitis Qualifiers: Pancreatitis type: other Acute pancreatitis complication: no infection or necrosis Qualified Code(s): K85.80 - Other acute pancreatitis without necrosis or infection Is this a current diagnosis for this admission?: Yes Plan: Some leukocytosis with bandemia. Continue empiric antibiotics. Follow blood cultures. Currently on TPN and clear liquids. Tolerating p.o. intake. Will defer manag ement to surgery. (3) Status post laparoscopic cholecystectomy Is this a current diagnosis for this admission?: Yes Plan: Postsurgical complication. Likely due to noncompliance. Will defer management to surgery.
--- NOTE | 2019-02-12 17:59 | RADIOLOGY REPORT (SQ) ---
EXAM DESCRIPTION: CT ABD/PELVIS WITH IV ONLY COMPLETED DATE/TIME: 02/12/2019 5:12 pm REASON FOR STUDY: pancreatitis, rising wbc. COMPARISON: None. TECHNIQUE: CT scan of the abdomen and pelvis performed using helical scanning technique with dynamic intravenous contrast injection. No oral contrast. Images reviewed with lung, soft tissue, and bone windows. Reconstructed coronal and sagittal MPR images reviewed. Delayed images for evaluation of the urinary system also acquired. All images stored on PACS. All CT scanners at this facility use dose modulation, iterative reconstruction, and/or weight based d osing when appropriate to reduce radiation dose to as low as reasonably achievable (ALARA). [facility]: Dose Right [facility]: CareDose [facility]: Dose Right [facility]: Teradose 4D [facility]: Sparktrend CONTRAST TYPE AND DOSE: contrast/concentration: Isovue 350.00 mg/ml; Total Contrast Delivered: 98.0 ml; Total Saline Delivered: 72.0 ml RENAL FUNCTION: BUN 14 creatinine 0.5 RADIATION DOSE: CT Rad equipment meets quality standard of care and radiation dose reduction techniq ues were employed. CTDIvol: 16.5 - 19.3 mGy. DLP: 1903 mGy-cm.. LIMITATIONS: None. FINDINGS: LOWER CHEST: No significant findings. No nodules or infiltrates. LIVER: The liver is mildly hypoattenuating. There is no mass. SPLEEN: Normal size. No focal lesions. PANCREAS: Marked inflammatory changes are present around the pancreas. There is fluid around the jauregui creas. There is a definable 5 x 8 cm fluid collection anterior to the pancreas, posterior to the sto mach on image 29. GALLBLADDER: Surgically absent. ADRENAL GLANDS: No significant masses or asymmetry. RIGHT KIDNEY AND URETER: No solid masses. No significant calcifications. No hydronephrosis or hyd roureter. LEFT KIDNEY AND URETER: No solid masses. No significant calcifications. No hydronephrosis or hydr oureter. AORTA AND VESSELS: No aneurysm. No dissection. Renal arteries, SMA, celiac without stenosis. RETROPERITONEUM: No retroperitoneal adenopathy, hemorrhage or masses. BOWEL AND PERITONEAL CAVITY: Extensive sigmoid diverticulosis with no associated inflammation. APPENDIX: Surgically absent. PELVIS: No mass. No free fluid. Normal bladder. ABDOMINAL WALL: No masses. No hernias. BONES: No significant or acute findings. OTHER: No other significant finding. IMPRESSION: Worsening pancreatitis with considerable free fluid and with a definable 5 x 8 cm pseudo cyst as described. TECHNICAL DOCUMENTATION: JOB ID: [id number] Quality ID # [id number]: Final reports with documentation of one or more dose reduction techniques (e.g., Au tomated exposure control, adjustment of the mA and/or kV according to patient size, use of iterative reconstruction technique) 2010 [employer]- All Rights Reserved Reading location - IP/workstation name: [email or web address]
[2019-02-12] MEDS: POLYETHYLENE GLYCOL 3350 POWDER 17 GM/1 PACKET PO PRN (20:09)
[2019-02-12] MEDS ORDERED: DIPHENHYDRAMINE HCL 50 MG/ML VIAL IV ONE (22:22)
[2019-02-13] MEDS: KETOROLAC TROMETHAMINE INJ/PF 30 MG/1 ML SDV IV PRN ×4 (00:02→22:55)
[2019-02-13] MEDS: AMPICILLIN SODIUM/SULBACTAM NA 3 GM in NORMAL SALINE 100 ML IV SCH ×5 (00:02→23:07)
[2019-02-13] MEDS: INSULIN REG, HUMAN 100 UNIT/ML 3 ML VIAL (PYX) SUBCUT PRN ×2 (01:07→05:51)
[2019-02-13] MEDS: NORMAL SALINE 1000 ML 1,000 ML IV PRN (04:01)
[2019-02-13 05:08] LABS: ALANINE AMINOTRANSFERASE 39 U/L (9-52); ALBUMIN 2.3 g/dL (3.5-5.0); ALKALINE PHOSPHATASE 125 U/L (38-126); ASPARTATE AMINO TRANSFERASE 43 U/L (14-36); BILIRUBIN,DIRECT 0.3 mg/dL (0.0-0.4); BILIRUBIN,TOTAL 0.5 mg/dL (0.2-1.3)
[2019-02-13] MEDS: AMINO ACIDS 5 %/DEXTROSE 20 % 1,000 ML IV PRN (07:17)
[2019-02-13] MEDS ORDERED: DEXTROSE 40% GEL 15 GM TUBE PO PRN ×2 (07:29)
[2019-02-13] MEDS ORDERED: GLUCAGON,HUMAN RECOMB 1 MG INJ IM PRN (07:29)
[2019-02-13] MEDS ORDERED: DEXTROSE 50%-WATER 25 GM/50 ML DISP.SYRIN IV PRN ×2 (07:29)
--- NOTE | 2019-02-13 08:35 | PDOC PROGRESS REPORT ---
Subjective Progress Note for:: 02/13/19 Subjective:: feels better, less abd pain tatum clear liquids Reason For Visit: PANCREATITIS Physical Exam Vital Signs: Temp Pulse Resp BP Pulse Ox 98.4 F 90 20 161/70 H 95 02/13/19 04:47 02/13/19 07:00 02/13/19 04:47 02/13/19 04:55 02/13/19 04:47 Pulse Oximeter Continuous Start: 02/08/19 13:05 Freq: RTQ4 Status: Complete Protocol: Document 02/11/19 08:00 LDA (Rec: 02/11/19 09:42 LDA [email or web address]) Pulse Oximetry Assessment Equipment Usage Equipment Discontinued Continuous SpO2 Machine # 8 Intake & Output 02/12/19 02/13/19 02/14/19 06:59 06:59 06:59 Intake Total 3555 4589 923 Output Total 2925 701 Balance 630 3888 923 Weight 86.8 kg 87 kg General appearance: PRESENT: no acute distress Head exam: PRESENT: normocephalic Mouth exam: PRESENT: moist Neck exam: PRESENT: full ROM Respiratory exam: PRESENT: clear to auscultation josh Cardiovascular exam: PRESENT: RRR Pulses: PRESENT: normal radial pulses, normal femoral pulses GI/Abdominal exam: PRESENT: soft Rectal exam: PRESENT: deferred Extremities exam: PRESENT: full ROM Musculoskeletal exam: PRESENT: full ROM Neurological exam: PRESENT: alert, awake, oriented to person, oriented to time Skin exam: PRESENT: dry Results Laboratory Results: 02/12/19 10:37 02/12/19 10:37 02/12/19 02/12/19 02/13/19 10:37 10:37 04:01 WBC 21.1 H RBC 3.51 L Hgb 10.9 L Hct 32.1 L MCV 91 MCH 31.1 MCHC 34.1 RDW 14.3 H Plt Count 206 Seg Neutrophils % Not Reportable Lymphocytes % Not Reportable Monocytes % Not Reportable Eosinophils % Not Reportable Basophils % Not Reportable Absolute Neutrophils Not Reportable Absolute Lymphocytes Not Reportable Absolute Monocytes Not Reportable Absolute Eosinophils Not Reportable Absolute Basophils Not Reportable Sodium 135.9 L Potassium 3.4 L Chloride 103 Carbon Dioxide 28 Anion Gap 5 BUN 14 Creatinine 0.49 L Est GFR ( Amer) > 60 Est GFR (Non-Af Amer) > 60 Glucose 255 H Calcium 7.9 L Total Bilirubin 0.7 0.5 AST 31 43 H ALT 41 39 Alkaline Phosphatase 119 125 Total Protein 5.0 L 5.0 L Albumin 2.4 L 2.3 L Lipase 69.5 02/09/19 07:30 NT-Pro-B Natriuret Pep 1330 H Impressions: Chest X-Ray 02/08/19 00:00 IMPRESSION: LEFT BASILAR DENSITY SECONDARY TO ATELECTASIS AND/OR PNEUMONIA. POSSIBLE LEFT PLEURAL EFFUSION. Guidance Fluoroscopy 02/10/19 00:00 IMPRESSION: SUCCESSFUL PLACEMENT OF A 5 FR DUAL LUMEN 44 CM PICC IN THE LEFT BASILIC VEIN. Interventional Vascular Procedure 02/10/19 00:00 IMPRESSION: SUCCESSFUL PLACEMENT OF A 5 FR DUAL LUMEN 44 CM PICC IN THE LEFT BASILIC VEIN. PICC Line Insertion 02/10/19 00:00 IMPRESSION: SUCCESSFUL PLACEMENT OF A 5 FR DUAL LUMEN 44 CM PICC IN THE LEFT BA SILIC VEIN. Abdomen/Pelvis CT 02/12/19 00:00 IMPRESSION: Worsening pancreatitis with considerable free fluid and with a definable 5 x 8 cm pseudocyst as described. KUB X-Ray 02/12/19 00:00 IMPRESSION: NO RADIOGRAPHIC EVIDENCE FOR ACUTE ABDOMINAL DISEASE. Assessment & Plan - Diagnosis (1) Acute pancreatitis Qualifiers: Pancreatitis type: other Acute pancreatitis complication: no infection or necrosis Qualified Code(s): K85.80 - Other acute pancreatitis without necrosis or infection Is this a current diagnosis for this admission?: Yes - Plan Summary Plan Summary: pt with pancreatitis slowely improving lipase normalized, pain improved with return of bowel function wbc yesterday 21k, prompted a ct showing inflmmation around pancrease with large pseudocyst, no evidence of pancreatic necrosis or abscess plan, will cont current management with zosyn ok to start full liquids cont tpn if pain is controlled and pt tolerats full liquids and wbc down, will plan on dc home and f/u on the pseudocyst as op.
[2019-02-13] MEDS: INSULIN LISPRO 100 UNIT/ML 3 ML VIAL SUBCUT SCH ×7 (09:04→21:14)
--- NOTE | 2019-02-13 09:52 | PDOC PROGRESS REPORT ---
Subjective Progress Note for:: 02/13/19 Subjective:: 02/12/2019. No acute events overnight. Still complaining of persistent bloating and abdominal pain. Passing flatus has not had a bowel movement for the last 2 days. Tolerating p.o. liquid intake. Somnolent however easily arousable and answering questions properly. Denies any any fever, chills, chest pain or shortness of breath. 02/13/2019. No acute events overnight. Patient alert oriented x3 in no apparent distress and cooperative with physical examination. Patient states she is feeling better and had a better sleep last night. She is tolerating clear l iquid and passing gas. Abdominal pain is improving. Denies any fever, chills, nausea, vomiting, diarrhea, constipation or any urinary symptoms. Reason For Visit: PANCREATITIS Physical Exam Vital Signs: Temp Pulse Resp BP Pulse Ox 97.9 F 94 18 169/71 H 96 02/13/19 08:30 02/13/19 08:30 02/13/19 08:30 02/13/19 08:30 02/13/19 08:30 Pulse Oximeter Continuous Start: 02/08/19 13:05 Freq: RTQ4 Status: Complete Protocol: Document 02/11/19 08:00 LDA (Rec: 02/11/19 09:42 LDA [email or web address]) Pulse Oximetry Assessment Equipment Usage Equipment Discontinued Continuous SpO2 Machine # 8 Intake & Output 02/12/19 02/13/19 02/14/19 06:59 06:59 06:59 Intake Total 3555 4589 923 Output Total 2925 701 Balance 630 3888 923 Weight 86.8 kg 87 kg General appearance: PRESENT: no acute distress, well-developed, well-nourished Head exam: PRESENT: atraumatic, normocephalic Respiratory exam: PRESENT: clear to auscultation josh. ABSENT: rales, rhonchi, wheezes GI/Abdominal exam: PRESENT: distended, guarding, normal bowel sounds, soft, tenderness - Epigastric. ABSENT: mass, organolmegaly, rebound Neurological exam: PRESENT: alert, awake, oriented to person, oriented to place, oriented to time, oriented to situation, CN II-XII grossly intact. ABSENT: motor sensory deficit Results Laboratory Results: 02/12/19 10:37 02/12/19 10:37 02/12/19 02/12/19 02/13/19 10:37 10:37 04:01 WBC 21.1 H RBC 3.51 L Hgb 10.9 L Hct 32.1 L MCV 91 MCH 31.1 MCHC 34.1 RDW 14.3 H Plt Count 206 Seg Neutrophils % Not Reportable Lymphocytes % Not Reportable Monocytes % Not Reportable Eosinophils % Not Reportable Basophils % Not Reportable Absolute Neutrophils Not Reportable Absolute Lymphocytes Not Reportable Absolute Monocytes Not Reportable Absolute Eosinophils Not Reportable Absolute Basophils Not Reportable Sodium 135.9 L Potassium 3.4 L Chloride 103 Carbon Dioxide 28 Anion Gap 5 BUN 14 Creatinine 0.49 L Est GFR ( Amer) > 60 Est GFR (Non-Af Amer) > 60 Glucose 255 H Calcium 7.9 L Total Bilirubin 0.7 0.5 AST 31 43 H ALT 41 39 Alkaline Phosphatase 119 125 Total Protein 5.0 L 5.0 L Albumin 2.4 L 2.3 L Lipase 69.5 02/09/19 07:30 NT-Pro-B Natriuret Pep 1330 H Impressions: Chest X-Ray 02/08/19 00:00 IMPRESSION: LEFT BASILAR DENSITY SECONDARY TO ATELECTASIS AND/OR PNEUMONIA. POSSIBLE LEFT PLEURAL EFFUSION. Guidance Fluoroscopy 02/10/19 00:00 IMPRESSION: SUCCESSFUL PLACEMENT OF A 5 FR DUAL LUMEN 44 CM PICC IN THE LEFT BASILIC VEIN. Interventional Vascular Procedure 02/10/19 00:00 IMPRESSION: SUCCESSFUL PLACEMENT OF A 5 FR DUAL LUMEN 44 CM PICC IN THE LEFT BASILIC VEIN. PICC Line Insertion 02/10/19 00:00 IMPRESSION: SUCCESSFUL PLACEMENT OF A 5 FR DUAL LUMEN 44 CM PICC IN THE LEFT BASILIC VEIN. Abdomen/Pelvis CT 02/12/19 00:00 IMPRESSION: Worsening pancreatitis with considerable free fluid and with a definable 5 x 8 cm pseudocyst as described. KUB X-Ray 02/12/19 00:00 IMPRESSION: NO RADIOGRAPHIC EVIDENCE FOR ACUTE ABDOMINAL DISEASE. Assessment and Plan - Diagnosis (1) Hypertensive urgency Is this a current diagnosis for this admission?: Yes Plan: Better controlled not optimized. IV enalapril was switched to p.o. lisinopril. Increase amlodipine to 10 mg p.o. daily. Increase lisinopril to 40 mg daily. Monitoring vitals and adjust meds as needed. (2) Acute pancreatitis Qualifiers: Pancreatitis type: other Acute pancreatitis complication: no infection or necrosis Qualified Code(s): K85.80 - Other acute pancreatitis without necrosis or infection Is this a current diagnosis for this admission?: Yes Plan: Some leukocytosis with bandemia. Continue empiric antibiotics. Follow blood cultures. Currently on TPN and clear liquids. Tolerating p.o. intake. Will defer m anagement to surgery. (3) Status post laparoscopic cholecystectomy Is this a current diagnosis for this admission?: Yes Plan: Postsurgical complication. Likely due to noncompliance. Will defer management to surgery.
[2019-02-13] MEDS: FLUTICASONE NASAL SPRAY 50 MCG/SPRY 120 SPRAY/16 GM NASL SCH (10:38)
[2019-02-13] MEDS: NORMAL SALINE 10 ML SDV (SCHEDULED) IV SCH ×2 (10:39→21:13)
[2019-02-13] MEDS: INSULIN GLARGINE,HUM.REC.ANLOG 1,000 UNIT/10 ML VIAL SUBCUT SCH (10:39)
[2019-02-13] MEDS: AMLODIPINE BESYLATE 5 MG TABLET PO SCH (10:40)
[2019-02-13] MEDS: LISINOPRIL 10 MG TABLET PO SCH (10:40)
[2019-02-13] MEDS: HYDRALAZINE HCL INJ/PF 20 MG/1 ML SDV IV PRN (13:25)
[2019-02-13 14:17] LABS: HEMATOCRIT 27.6 % (36.0-47.0); HEMOGLOBIN 9.1 g/dL (12.0-15.5); MEAN CORPUSCULAR HEMOGLOBIN 31.2 pg (27.0-33.4); PLATELET COUNT 196 10^3/uL (150-450); RED BLOOD COUNT 2.92 10^6/uL (3.72-5.28); RED CELL DISTRIBUTION WIDTH 15.2 % (11.5-14.0); WHITE BLOOD COUNT 17.6 10^3/uL (4.0-10.5)
[2019-02-13 14:42] LABS: MEAN CORPUSCULAR VOLUME 95 fl (80-97)
[2019-02-13 14:45] LABS: ABSOLUTE LYMPHOCYTES# (MANUAL) 1.6 10^3/uL (0.5-4.7); ABSOLUTE MONOCYTES # (MANUAL) 0.5 10^3/uL (0.1-1.4); BAND NEUTROPHILS % (MANUAL) 3 % (3-5); BASOPHILS % (MANUAL) 0 % (0-2); EOSINOPHILS % (MANUAL) 3 % (0-6); LYMPHOCYTES % (MANUAL) 9 % (13-45); MONOCYTES % (MANUAL) 3 % (3-13); NUCLEATED RED BLOOD CELLS 2 /100 WBC (0); SEGMENTED NEUTROPHILS % (MAN) 82 % (42-78); TOTAL CELLS COUNTED 100
[2019-02-13 14:46] LABS: ANISOCYTOSIS SLIGHT; PLATELET COMMENT ADEQUATE; POLYCHROMASIA SLIGHT
[2019-02-13 16:45] LABS: BLOOD UREA NITROGEN 15 mg/dL (7-20); CALCIUM 7.4 mg/dL (8.4-10.2); CARBON DIOXIDE 28 mmol/L (22-30); CHLORIDE 103 mmol/L (98-107); GLUCOSE 273 mg/dL (75-110); LIPASE 94.2 U/L (23-300); POTASSIUM 3.4 mmol/L (3.6-5.0); SODIUM 135.1 mmol/L (137-145)
[2019-02-13 16:46] LABS: ANION GAP 4 (5-19)
[2019-02-13] MEDS: MAG HYDROX/AL HYDROX/SIMETH SUSP 30 ML UDCUP PO PRN (21:21)
[2019-02-14] MEDS: AMPICILLIN SODIUM/SULBACTAM NA 3 GM in NORMAL SALINE 100 ML IV SCH ×3 (05:20→17:55)
[2019-02-14] MEDS: AMINO ACIDS 5 %/DEXTROSE 20 % 1,000 ML IV PRN (05:20)
[2019-02-14] MEDS: KETOROLAC TROMETHAMINE INJ/PF 30 MG/1 ML SDV IV PRN ×2 (06:40→22:24)
[2019-02-14] MEDS: INSULIN LISPRO 100 UNIT/ML 3 ML VIAL SUBCUT SCH ×5 (08:58→21:33)
[2019-02-14] MEDS: AMLODIPINE BESYLATE 5 MG TABLET PO SCH (09:00)
[2019-02-14] MEDS: FLUTICASONE NASAL SPRAY 50 MCG/SPRY 120 SPRAY/16 GM NASL SCH (09:00)
[2019-02-14] MEDS: LISINOPRIL 10 MG TABLET PO SCH (09:01)
[2019-02-14] MEDS: NORMAL SALINE 10 ML SDV (SCHEDULED) IV SCH ×2 (09:02→21:34)
[2019-02-14] MEDS: INSULIN GLARGINE,HUM.REC.ANLOG 1,000 UNIT/10 ML VIAL SUBCUT SCH (09:03)
[2019-02-14] MEDS ORDERED: DEXTROSE 50%-WATER 25 GM/50 ML DISP.SYRIN IV PRN ×4 (09:20→09:26)
[2019-02-14] MEDS ORDERED: DEXTROSE 40% GEL 15 GM TUBE PO PRN ×4 (09:20→09:26)
[2019-02-14] MEDS ORDERED: GLUCAGON,HUMAN RECOMB 1 MG INJ IM PRN ×2 (09:20→09:26)
--- NOTE | 2019-02-14 09:38 | PDOC PROGRESS REPORT ---
Subjective Progress Note for:: 02/14/19 Subjective:: 02/12/2019. No acute events overnight. Still complaining of persistent bloating and abdominal pain. Passing flatus has not had a bowel movement for the last 2 days. Tolerating p.o. liquid intake. Somnolent however easily arousable and answering questions properly. Denies any any fever, chills, chest pain or shortness of breath. 02/13/2019. No acute events overnight. Patient alert oriented x3 in no apparent distress and cooperative with physical examination. Patient states she is feeling better and had a better sleep last night. She is tolerating clear l iquid and passing gas. Abdominal pain is improving. Denies any fever, chills, nausea, vomiting, diarrhea, constipation or any urinary symptoms. 02/14/2019. No acute events overnight. Abdominal pain is improving compared to yesterday. Patient is having nonbloody loose bowels since yesterday. Denies any fever, chills, nausea, vomiting, constipation or any urinary symptoms. Reason For Visit: PANCREATITIS Physical Exam Vital Signs: Temp Pulse Resp BP Pulse Ox 98.1 F 94 15 166/71 H 95 02/14/19 08:02 02/14/19 08:02 02/14/19 08:02 02/14/19 08:02 02/14/19 08:02 Pulse Oximeter Continuous Start: 02/08/19 13:05 Freq: RTQ4 Status: Complete Protocol: Document 02/11/19 08:00 LDA (Rec: 02/11/19 09:42 LDA [email or web address]) Pulse Oximetry Assessment Equipment Usage Equipment Discontinued Continuous SpO2 Machine # 8 Intake & Output 02/13/19 02/14/19 02/15/19 06:59 06:59 06:59 Intake Total 4589 4008 Output Total 701 Balance 3888 4008 Weight 87 kg 87.9 kg General appearance: PRESENT: obese Head exam: PRESENT: atraumatic, normocephalic Respiratory exam: PRESENT: clear to auscultation josh. ABSENT: rales, rhonchi, wheezes Cardiovascular exam: PRESENT: RRR. ABSENT: diastolic murmur, rubs, systolic murmur GI/Abdominal exam: PRESENT: distended, normal bowel sounds, soft, tenderness - Epigastric.. ABSENT: guarding, mass, organolmegaly, rebound Neurological exam: PRESENT: alert, awake, oriented to person, oriented to place, oriented to time, oriented to situation, CN II-XII grossly intact. ABSENT: motor sensory deficit Results Laboratory Results: 02/13/19 14:00 02/13/19 16:02 02/13/19 02/13/19 02/13/19 14:00 14:00 16:02 WBC 17.6 H RBC 2.92 L Hgb 9.1 L Hct 27.6 L MCV 95 D MCH 31.2 MCHC 33.0 RDW 15.2 H Plt Count 196 Seg Neutrophils % Not Reportable Lymphocytes % Not Reportable Monocytes % Not Reportable Eosinophils % Not Reportable Basophils % Not Reportable Absolute Neutrophils Not Reportable Absolute Lymphocytes Not Reportable Absolute Monocytes Not Reportable Absolute Eosinophils Not Reportable Absolute Basophils Not Reportable Sodium Cancelled 135.1 L Potassium Cancelled 3.4 L Chloride Cancelled 103 Carbon Dioxide Cancelled 28 Anion Gap Cancelled 4 L BUN Cancelled 15 Creatinine Cancelled 0.50 L Est GFR ( Amer) Cancelled > 60 Est GFR (Non-Af Amer) Cancelled > 60 Glucose Cancelled 273 H Calcium Cancelled 7.4 L Lipase Cancelled 94.2 02/08/19 12:20 Blood Blood Culture - Final NO GROWTH IN 5 DAYS 02/08/19 12:30 Blood Blood Culture - Final NO GROWTH IN 5 DAYS 02/09/19 07:30 NT-Pro-B Natriuret Pep 1330 H Impressions: Chest X-Ray 02/08/19 00:00 IMPRESSION: LEFT BASILAR DENSITY SECONDARY TO ATELECTASIS AND/OR PNEUMONIA. POSSIBLE LEFT PLEURAL EFFUSION. Guidance Fluoroscopy 02/10/19 00:00 IMPRESSION: SUCCESSFUL PLACEMENT OF A 5 FR DUAL LUMEN 44 CM PICC IN THE LEFT BASILIC VEIN. Interventional Vascular Procedure 02/10/19 00:00 IMPRESSION: SUCCESSFUL PLACEMENT OF A 5 FR DUAL LUMEN 44 CM PICC IN THE LEFT BASILIC VEIN. PICC Line Insertion 02/10/19 00:00 IMPRESSION: SUCCESSFUL PLACEMENT OF A 5 FR DUAL LUMEN 44 CM PICC IN THE LEFT BASILIC VEIN. Abdomen/Pelvis CT 02/12/19 00:00 IMPRESSION: Worsening pancreatitis with considerable free fluid and with a definable 5 x 8 cm pseudocyst as described. KUB X-Ray 03/29/19 00:00 IMPRESSION: NO RADIOGRAPHIC EVIDENCE FOR ACUTE ABDOMINAL DISEASE. Assessment and Plan - Diagnosis (1) Hypertensive urgency Is this a current diagnosis for this admission?: Yes Plan: Better controlled not optimized. IV enalapril was switched to p.o. lisinopril. Increase amlodipine to 10 mg p.o. daily. Increase lisinopril to 40 mg daily. Monitoring vitals and adjust meds as needed. (2) Acute pancreatitis Qualifiers: Pancreatitis type: other Acute pancreatitis complication: no infection or necrosis Qualified Code(s): K85.80 - Other acute pancreatitis without necrosis or infection Is this a current diagnosis for this admission?: Yes Plan: Complicated by pancreatic pseudocyst. Improving leukocytosis and bandemia. Afebrile. Continue empiric antibiotics. Cultures from admission negative. Tolerating p.o. intake. Started on TPN by surgery. Continue IV fluids guided by volume status. DC DW 10 due to hyperglycemia. Monitor electrolytes and vitals. Advance diet as tolerated. 02/12/2019 CT abdomen worsening pancreatitis was controllable free fluid and with a definable 5 x 8 cm pseudocyst. (3) Status post laparoscopic cholecystectomy Is this a current diagnosis for this admission?: Yes Plan: Postsurgical complication. Likely due to noncompliance. Will defer management to surgery. (4) Diabetes Is this a current diagnosis for this admission?: Yes Plan: Hemoglobin A1c 6%. Patient has been having uncontrolled hyperglycemia most likely due to DW10 that she has been receiving on top of TPN. DC DW10. Continue normal saline. Continue sliding scale insulin. Adjust dosage as needed. (5) Diarrhea Is this a current diagnosis for this admission?: Yes Plan: C. difficile toxin to rule out C. difficile colitis. Stool workup to rule out any infectious causes. Volume status and electrolytes. Continue IV fluids guided by volume status.
[2019-02-14] MEDS ORDERED: INSULIN GLARGINE,HUM.REC.ANLOG 1,000 UNIT/10 ML VIAL SUBCUT SCH (10:00)
[2019-02-14] MEDS ORDERED: CARVEDILOL 6.25 MG TABLET PO SCH (10:00)
[2019-02-14] MEDS ORDERED: INSULIN LISPRO 100 UNIT/ML 3 ML VIAL SUBCUT SCH (11:00)
[2019-02-14 11:18] LABS: HEMATOCRIT 29.2 % (36.0-47.0); HEMOGLOBIN 9.5 g/dL (12.0-15.5); MEAN CORPUSCULAR HEMOGLOBIN 31.3 pg (27.0-33.4); MEAN CORPUSCULAR HGB CONC 32.6 g/dL (32.0-36.0); MEAN CORPUSCULAR VOLUME 96 fl (80-97); PLATELET COUNT 262 10^3/uL (150-450); RED BLOOD COUNT 3.04 10^6/uL (3.72-5.28); RED CELL DISTRIBUTION WIDTH 15.1 % (11.5-14.0); WHITE BLOOD COUNT 19.6 10^3/uL (4.0-10.5)
[2019-02-14 11:19] LABS: ALANINE AMINOTRANSFERASE 45 U/L (9-52); ALBUMIN 2.1 g/dL (3.5-5.0); ALKALINE PHOSPHATASE 92 U/L (38-126); ANION GAP 7 (5-19); ASPARTATE AMINO TRANSFERASE 42 U/L (14-36); BILIRUBIN,DIRECT 0.3 mg/dL (0.0-0.4); BILIRUBIN,TOTAL 0.4 mg/dL (0.2-1.3); BLOOD UREA NITROGEN 12 mg/dL (7-20); CALCIUM 7.5 mg/dL (8.4-10.2); CARBON DIOXIDE 29 mmol/L (22-30); CHLORIDE 98 mmol/L (98-107); SODIUM 133.6 mmol/L (137-145); TOTAL PROTEIN 4.6 g/dL (6.3-8.2)
[2019-02-14 11:29] LABS: POTASSIUM 4.6 mmol/L (3.6-5.0)
[2019-02-14 11:31] LABS: GLUCOSE 765 mg/dL (75-110)
[2019-02-14 11:39] LABS: ABSOLUTE LYMPHOCYTES# (MANUAL) 2.2 10^3/uL (0.5-4.7); ABSOLUTE MONOCYTES # (MANUAL) 0.6 10^3/uL (0.1-1.4); ABSOLUTE NEUTROPHILS# (MANUAL) 16.9 10^3/uL (1.7-8.2); BAND NEUTROPHILS % (MANUAL) 3 % (3-5); BASOPHILS % (MANUAL) 0 % (0-2); EOSINOPHILS % (MANUAL) 0 % (0-6); LYMPHOCYTES % (MANUAL) 11 % (13-45); MONOCYTES % (MANUAL) 3 % (3-13); SEGMENTED NEUTROPHILS % (MAN) 83 % (42-78); TOTAL CELLS COUNTED 100
[2019-02-14 11:41] LABS: ANISOCYTOSIS SLIGHT; PLATELET COMMENT ADEQUATE; POLYCHROMASIA SLIGHT; TOXIC GRANULATION SLIGHT; TOXIC VACUOLATION PRESENT
[2019-02-14] MEDS: NORMAL SALINE 1000 ML 1,000 ML IV PRN ×2 (11:53→22:24)
[2019-02-14] MEDS: TRAMADOL HCL 50 MG TABLET PO PRN (13:00)
[2019-02-14] MEDS: HYDRALAZINE HCL INJ/PF 20 MG/1 ML SDV IV PRN (13:00)
--- NOTE | 2019-02-14 20:39 | PDOC PROGRESS REPORT ---
Subjective Progress Note for:: 02/14/19 Reason For Visit: PANCREATITIS Physical Exam Vital Signs: Temp Pulse Resp BP Pulse Ox 98.2 F 96 24 H 134/45 H 96 02/14/19 19:12 02/14/19 19:12 02/14/19 19:12 02/14/19 19:12 02/14/19 19:12 Pulse Oximeter Continuous Start: 02/08/19 13:05 Freq: RTQ4 Status: Complete Protocol: Document 02/11/19 08:00 LDA (Rec: 02/11/19 09:42 LDA [email or web address]) Pulse Oximetry Assessment Equipment Usage Equipment Discontinued Continuous SpO2 Machine # 8 Intake & Output 02/13/19 02/14/19 02/15/19 06:59 06:59 06:59 Intake Total 4589 4008 974 Output Total 701 Balance 3888 4008 974 Weight 87 kg 87.9 kg Results Laboratory Results: 02/14/19 11:01 02/14/19 10:44 02/14/19 02/14/19 02/14/19 10:44 10:44 11:01 WBC 19.6 H RBC 3.04 L Hgb 9.5 L Hct 29.2 L MCV 96 MCH 31.3 MCHC 32.6 RDW 15.1 H Plt Count 262 Seg Neutrophils % Not Reportable Lymphocytes % Not Reportable Monocytes % Not Reportable Eosinophils % Not Reportable Basophils % Not Reportable Absolute Neutrophils Not Reportable Absolute Lymphocytes Not Reportable Absolute Monocytes Not Reportable Absolute Eosinophils Not Reportable Absolute Basophils Not Reportable Sodium 133.6 L Cancelled Potassium 4.6 D Cancelled Chloride 98 Cancelled Carbon Dioxide 29 Cancelled Anion Gap 7 Cancelled BUN 12 Cancelled Creatinine 0.61 Cancelled Est GFR ( Amer) > 60 Cancelled Est GFR (Non-Af Amer) > 60 Cancelled Glucose 765 H* Cancelled Calcium 7.5 L Cancelled Magnesium 2.6 H Total Bilirubin 0.4 AST 42 H ALT 45 Alkaline Phosphatase 92 Total Protein 4.6 L Albumin 2.1 L Lipase 91.2 02/09/19 07:30 NT-Pro-B Natriuret Pep 1330 H Impressions: Chest X-Ray 02/08/19 00:00 IMPRESSION: LEFT BASILAR DENSITY SECONDARY TO ATELECTASIS AND/OR PNEUMONIA. POSSIBLE LEFT PLEURAL EFFUSION. Guidance Fluoroscopy 02/10/19 00:00 IMPRESSION: SUCCESSFUL PLACEMENT OF A 5 FR DUAL LUMEN 44 CM PICC IN THE LEFT BASILIC VEIN. Interventional Vascular Procedure 02/10/19 00:00 IMPRESSION: SUCCESSFUL PLACEMENT OF A 5 FR DUAL LUMEN 44 CM PICC IN THE LEFT BASILIC VEIN. PICC Line Insertion 02/10/19 00:00 IMPRESSION: SUCCESSFUL PLACEMENT OF A 5 FR DUAL LUMEN 44 CM PICC IN THE LEFT BASILIC VEIN. Abdomen/Pelvis CT 02/12/19 00:00 IMPRESSION: Worsening pancreatitis with considerable free fluid and with a definable 5 x 8 cm pseudocyst as described. KUB X-Ray 02/12/19 00:00 IMPRESSION: NO RADIOGRAPHIC EVIDENCE FOR ACUTE ABDOMINAL DISEASE. Assessment & Plan - Diagnosis (1) Pancreatic pseudocyst Is this a current diagnosis for this admission?: Yes (2) Acute pancreatitis Qualifiers: Pancreatitis type: other Acute pancreatitis complication: no infection or necrosis Qualified Code(s): K85.80 - Other acute pancreatitis without necrosis or infection Is this a current diagnosis for this admission?: Yes - Plan Summary Plan Summary: 73 y/o f with acute pancreatitis after cholecystectomy. She has a developing pseudocyst. She complains of pain with oral intake. She does not feel well today. She denies vomiting, fevers, or chills. Continue with supportive care. Cont TPN. Add ultram for pain. Still with leukocytosis Lipase normal.
[2019-02-14] MEDS: MAG HYDROX/AL HYDROX/SIMETH SUSP 30 ML UDCUP PO PRN (21:34)
[2019-02-15] MEDS: AMINO ACIDS 5 %/DEXTROSE 20 % 1,000 ML IV PRN ×2 (00:12→19:30)
[2019-02-15] MEDS: AMPICILLIN SODIUM/SULBACTAM NA 3 GM in NORMAL SALINE 100 ML IV SCH ×5 (00:12→23:06)
[2019-02-15] MEDS: NORMAL SALINE 10 ML SDV (AFTER EACH USE) IV PRN (05:37)
[2019-02-15 05:58] LABS: HEMATOCRIT 30.3 % (36.0-47.0); HEMOGLOBIN 10.1 g/dL (12.0-15.5); MEAN CORPUSCULAR HEMOGLOBIN 30.2 pg (27.0-33.4); MEAN CORPUSCULAR HGB CONC 33.3 g/dL (32.0-36.0); PLATELET COUNT 325 10^3/uL (150-450); RED BLOOD COUNT 3.34 10^6/uL (3.72-5.28); RED CELL DISTRIBUTION WIDTH 13.8 % (11.5-14.0); WHITE BLOOD COUNT 20.8 10^3/uL (4.0-10.5)
[2019-02-15 06:00] LABS: MEAN CORPUSCULAR VOLUME 91 fl (80-97)
[2019-02-15 06:07] LABS: ALANINE AMINOTRANSFERASE 39 U/L (9-52); ALBUMIN 2.3 g/dL (3.5-5.0); ALKALINE PHOSPHATASE 126 U/L (38-126); ASPARTATE AMINO TRANSFERASE 38 U/L (14-36); BILIRUBIN,DIRECT 0.3 mg/dL (0.0-0.4); BILIRUBIN,TOTAL 0.5 mg/dL (0.2-1.3); BLOOD UREA NITROGEN 9 mg/dL (7-20); CALCIUM 7.5 mg/dL (8.4-10.2); CARBON DIOXIDE 28 mmol/L (22-30); CHLORIDE 105 mmol/L (98-107); GLUCOSE 207 mg/dL (75-110); LIPASE 97.1 U/L (23-300); SODIUM 136.1 mmol/L (137-145); TOTAL PROTEIN 5.3 g/dL (6.3-8.2)
[2019-02-15 06:25] LABS: ANION GAP 3 (5-19); POTASSIUM 3.4 mmol/L (3.6-5.0)
[2019-02-15 06:27] LABS: ABSOLUTE LYMPHOCYTES# (MANUAL) 0.8 10^3/uL (0.5-4.7); ABSOLUTE NEUTROPHILS# (MANUAL) 18.9 10^3/uL (1.7-8.2); BAND NEUTROPHILS % (MANUAL) 3 % (3-5); BASOPHILS % (MANUAL) 0 % (0-2); EOSINOPHILS % (MANUAL) 0 % (0-6); LYMPHOCYTES % (MANUAL) 4 % (13-45); MONOCYTES % (MANUAL) 5 % (3-13); SEGMENTED NEUTROPHILS % (MAN) 84 % (42-78); TOTAL CELLS COUNTED 100
[2019-02-15 06:50] LABS: PLATELET COMMENT ADEQUATE; POLYCHROMASIA SLIGHT
[2019-02-15 06:51] LABS: ANISOCYTOSIS SLIGHT; METAMYELOCYTES % (MANUAL) 3 % (0); MYELOCYTES % (MANUAL) 1 % (0); POIKILOCYTOSIS SLIGHT; TOXIC GRANULATION 1+; TOXIC VACUOLATION PRESENT
--- NOTE | 2019-02-15 07:23 | PDOC PROGRESS REPORT ---
Subjective Progress Note for:: 02/15/19 Subjective:: slept well, feels better, min pain Reason For Visit: PANCREATITIS Physical Exam Vital Signs: Temp Pulse Resp BP Pulse Ox 97.9 F 91 24 H 176/72 H 95 02/15/19 03:02 02/15/19 03:02 02/15/19 03:02 02/15/19 03:02 02/15/19 03:02 Pulse Oximeter Continuous Start: 02/08/19 13:05 Freq: RTQ4 Status: Complete Protocol: Document 02/11/19 08:00 LDA (Rec: 02/11/19 09:42 LDA [email or web address]) Pulse Oximetry Assessment Equipment Usage Equipment Discontinued Continuous SpO2 Machine # 8 Intake & Output 02/14/19 02/15/19 02/16/19 06:59 06:59 06:59 Intake Total 4008 4161 Balance 4008 4161 Weight 87.9 kg 89.3 kg General appearance: PRESENT: no acute distress Head exam: PRESENT: normocephalic Eye exam: PRESENT: EOMI Mouth exam: PRESENT: moist Neck exam: PRESENT: full ROM Respiratory exam: PRESENT: clear to auscultation josh Cardiovascular exam: PRESENT: RRR Pulses: PRESENT: normal radial pulses, normal femoral pulses Vascular exam: PRESENT: normal capillary refill GI/Abdominal exam: PRESENT: soft - min llq tenderness. Rectal exam: PRESENT: deferred Extremities exam: PRESENT: full ROM Musculoskeletal exam: PRESENT: full ROM Neurological exam: PRESENT: alert, awake, oriented to person, oriented to place, oriented to time, oriented to situation Skin exam: PRESENT: dry Results Laboratory Results: 02/15/19 05:35 02/15/19 05:35 02/14/19 02/14/19 02/14/19 10:44 10:44 11:01 WBC 19.6 H RBC 3.04 L Hgb 9.5 L Hct 29.2 L MCV 96 MCH 31.3 MCHC 32.6 RDW 15.1 H Plt Count 262 Seg Neutrophils % Not Reportable Lymphocytes % Not Reportable Monocytes % Not Reportable Eosinophils % Not Reportable Basophils % Not Reportable Absolute Neutrophils Not Reportable Absolute Lymphocytes Not Reportable Absolute Monocytes Not Reportable Absolute Eosinophils Not Reportable Absolute Basophils Not Reportable Sodium 133.6 L Cancelled Potassium 4.6 D Cancelled Chloride 98 Cancelled Carbon Dioxide 29 Cancelled Anion Gap 7 Cancelled BUN 12 Cancelled Creatinine 0.61 Cancelled Est GFR ( Amer) > 60 Cancelled Est GFR (Non-Af Amer) > 60 Cancelled Glucose 765 H* Cancelled Calcium 7.5 L Cancelled Magnesium 2.6 H Total Bilirubin 0.4 AST 42 H ALT 45 Alkaline Phosphatase 92 Total Protein 4.6 L Albumin 2.1 L Lipase 91.2 02/15/19 02/15/19 05:35 05:35 WBC 20.8 H RBC 3.34 L Hgb 10.1 L Hct 30.3 L MCV 91 D MCH 30.2 MCHC 33.3 RDW 13.8 Plt Count 325 Seg Neutrophils % Not Reportable Lymphocytes % Not Reportable Monocytes % Not Reportable Eosinophils % Not Reportable Basophils % Not Reportable Absolute Neutrophils Not Reportable Absolute Lymphocytes Not Reportable Absolute Monocytes Not Reportable Absolute Eosinophils Not Reportable Absolute Basophils Not Reportable Sodium 136.1 L Potassium 3.4 L D Chloride 105 Carbon Dioxide 28 Anion Gap 3 L BUN 9 Creatinine 0.46 L Est GFR ( Amer) > 60 Est GFR (Non-Af Amer) > 60 Glucose 207 H Calcium 7.5 L Magnesium 2.1 Total Bilirubin 0.5 AST 38 H ALT 39 Alkaline Phosphatase 126 Total Protein 5.3 L Albumin 2.3 L Lipase 97.1 02/09/19 07:30 NT-Pro-B Natriuret Pep 1330 H Impressions: Chest X-Ray 02/08/19 00:00 IMPRESSION: LEFT BASILAR DENSITY SECONDARY TO ATELECTASIS AND/OR PNEUMONIA. POSSIBLE LEFT PLEURAL EFFUSION. Guidance Fluoroscopy 02/10/19 00:00 IMPRESSION: SUCCESSFUL PLACEMENT OF A 5 FR DUAL LUMEN 44 CM PICC IN THE LEFT BASILIC VEIN. Interventional Vascular Procedure 02/10/19 00:00 IMPRESSION: SUCCESSFUL PLACEMENT OF A 5 FR DUAL LUMEN 44 CM PICC IN THE LEFT BASILIC VEIN. PICC Line Insertion 02/10/19 00:00 IMPRESSION: SUCCESSFUL PLACEMENT OF A 5 FR DUAL LUMEN 44 CM PICC IN THE LEFT BASILIC VEIN. Abdomen/Pelvis CT 02/12/19 00:00 IMPRESSION: Worsening pancreatitis with considerable free fluid and with a definable 5 x 8 cm pseudocyst as described. KUB X-Ray 02/12/19 00:00 IMPRESSION: NO RADIOGRAPHIC EVIDENCE FOR ACUTE ABDOMINAL DISEASE. Assessment & Plan - Diagnosis (1) Acute pancreatitis Qualifiers: Pancreatitis type: other Acute pancreatitis complication: no infection or necrosis Qualified Code(s): K85.80 - Other acute pancreatitis without necrosis or infection Is this a current diagnosis for this admission?: Yes - Plan Summary Plan Summary: feeling better this am tolerated full liquids still with leukocytosis, on abx no fevers. will cont iv abx now with pancreatic pseudocyst. prob repeat ct in 1-2 days cont encourage po full liquids
[2019-02-15] MEDS: INSULIN LISPRO 100 UNIT/ML 3 ML VIAL SUBCUT SCH ×4 (09:49→21:35)
[2019-02-15] MEDS: FLUTICASONE NASAL SPRAY 50 MCG/SPRY 120 SPRAY/16 GM NASL SCH (09:51)
[2019-02-15] MEDS: LISINOPRIL 10 MG TABLET PO SCH (09:53)
[2019-02-15] MEDS: AMLODIPINE BESYLATE 5 MG TABLET PO SCH (09:53)
[2019-02-15] MEDS: NORMAL SALINE 10 ML SDV (SCHEDULED) IV SCH ×2 (09:53→21:33)
[2019-02-15] MEDS: FAT EMULSIONS 250 ML IV SCH (09:53)
[2019-02-15] MEDS: NORMAL SALINE 1000 ML 1,000 ML IV PRN ×2 (10:00→19:31)
[2019-02-15 12:04] LABS: PATH REVIEW PATHOLOGIST REVIEWED
[2019-02-15] MEDS: CHLORTHALIDONE 25 MG TABLET PO SCH (12:45)
[2019-02-15] MEDS ORDERED: POTASSIUM CHLORIDE 20 MEQ/15 ML UDCUP PO ONE (13:30)
[2019-02-15] MEDS: TRAMADOL HCL 50 MG TABLET PO PRN ×2 (15:10→19:35)
[2019-02-15] MEDS: MAG HYDROX/AL HYDROX/SIMETH SUSP 30 ML UDCUP PO PRN (15:11)
--- NOTE | 2019-02-15 15:16 | PDOC PROGRESS REPORT ---
Subjective Progress Note for:: 02/15/19 Subjective:: No adverse events overnight. No new complaints. She still has a little bit of abdominal pain. It is nonradiating. Blood pressure is still been a little bit elevated. She still on clear liquids. Reason For Visit: PANCREATITIS Physical Exam Vital Signs: Temp Pulse Resp BP Pulse Ox 98.7 F 91 16 166/58 H 97 02/15/19 12:05 02/15/19 12:05 02/15/19 12:05 02/15/19 12:05 02/15/19 12:05 Pulse Oximeter Continuous Start: 02/08/19 13:05 Freq: RTQ4 Status: Complete Protocol: Document 02/11/19 08:00 LDA (Rec: 02/11/19 09:42 LDA [email or web address]) Pulse Oximetry Assessment Equipment Usage Equipment Discontinued Continuous SpO2 Machine # 8 Intake & Output 02/14/19 02/15/19 02/16/19 06:59 06:59 06:59 Intake Total 4008 4261 100 Balance 4008 4261 100 Weight 87.9 kg 89.3 kg General appearance: PRESENT: cooperative, disheveled, mild distress, obese Respiratory exam: PRESENT: clear to auscultation josh, decreased breath sounds - Left base, unlabored. ABSENT: accessory muscle use, chest wall tenderness, crackles, rhonchi, symmetrical, tachypnea, wheezes Cardiovascular exam: PRESENT: RRR Pulses: PRESENT: normal carotid pulses Vascular exam: PRESENT: normal capillary refill GI/Abdominal exam: PRESENT: hypoactive bowel sounds, soft, tenderness - Mild midepigastric tenderness. ABSENT: distended, guarding, rebound Extremities exam: ABSENT: clubbing, pedal edema Musculoskeletal exam: PRESENT: normal inspection. ABSENT: deformity Neurological exam: PRESENT: awake, alert, oriented to person, oriented to place, oriented to time, oriented to situation Psychiatric exam: PRESENT: flat affect Skin exam: PRESENT: dry, warm Results Laboratory Results: 02/15/19 05:35 02/15/19 05:35 02/15/19 02/15/19 05:35 05:35 WBC 20.8 H RBC 3.34 L Hgb 10.1 L Hct 30.3 L MCV 91 D MCH 30.2 MCHC 33.3 RDW 13.8 Plt Count 325 Seg Neutrophils % Not Reportable Lymphocytes % Not Reportable Monocytes % Not Reportable Eosinophils % Not Reportable Basophils % Not Reportable Absolute Neutrophils Not Reportable Absolute Lymphocytes Not Reportable Absolute Monocytes Not Reportable Absolute Eosinophils Not Reportable Absolute Basophils Not Reportable Sodium 136.1 L Potassium 3.4 L D Chloride 105 Carbon Dioxide 28 Anion Gap 3 L BUN 9 Creatinine 0.46 L Est GFR ( Amer) > 60 Est GFR (Non-Af Amer) > 60 Glucose 207 H Calcium 7.5 L Magnesium 2.1 Total Bilirubin 0.5 AST 38 H ALT 39 Alkaline Phosphatase 126 Total Protein 5.3 L Albumin 2.3 L Lipase 97.1 02/09/19 07:30 NT-Pro-B Natriuret Pep 1330 H Impressions: Chest X-Ray 02/08/19 00:00 IMPRESSION: LEFT BASILAR DENSITY SECONDARY TO ATELECTASIS AND/OR PNEUMONIA. POSSIBLE LEFT PLEURAL EFFUSION. Guidance Fluoroscopy 02/10/19 00:00 IMPRESSION: SUCCESSFUL PLACEMENT OF A 5 FR DUAL LUMEN 44 CM PICC IN THE LEFT BASILIC VEIN. Interventional Vascular Procedure 02/10/19 00:00 IMPRESSION: SUCCESSFUL PLACEMENT OF A 5 FR DUAL LUMEN 44 CM PICC IN THE LEFT BASILIC VEIN. PICC Line Insertion 02/10/19 00:00 IMPRESSION: SUCCESSFUL PLACEMENT OF A 5 FR DUAL LUMEN 44 CM PICC IN THE LEFT BASILIC VEIN. Abdomen/Pelvis CT 02/12/19 00:00 IMPRESSION: Worsening pancreatitis with considerable free fluid and with a de finable 5 x 8 cm pseudocyst as described. KUB X-Ray 02/12/19 00:00 IMPRESSION: NO RADIOGRAPHIC EVIDENCE FOR ACUTE ABDOMINAL DISEASE. Assessment and Plan - Diagnosis (1) Acute pancreatitis Qualifiers: Pancreatitis type: other Acute pancreatitis complication: no infection or necrosis Qualified Code(s): K85.80 - Other acute pancreatitis without necrosis or infection Is this a current diagnosis for this admission?: Yes Plan: Now resolved. Patient has now developed pseudocyst. Surgery is monitoring this and planning to repeat a CT scan of the next 1-2 days. She continues on TPN and clear liquids. (2) Acute encephalopathy Is this a current diagnosis for this admission?: Yes Plan: Resolved (3) Obesity (BMI 30.0-34.9) Is this a current diagnosis for this admission?: Yes Plan: Encouraged lifestyle modification (4) Hypertensive urgency Is this a current diagnosis for this admission?: Yes Plan: She is been on 2 different medications and her blood pressures are still elevated. We will start low-dose chlorthalidone. - Time Time Spent with patient: 25-34 minutes
[2019-02-15] MEDS: ONDANSETRON HCL INJ/PF 4 MG/2 ML SDV IV PRN (22:43)
[2019-02-15] MEDS: KETOROLAC TROMETHAMINE INJ/PF 30 MG/1 ML SDV IV PRN (23:12)
[2019-02-16] MEDS: NORMAL SALINE 1000 ML 1,000 ML IV PRN ×2 (05:04→17:12)
[2019-02-16] MEDS: AMPICILLIN SODIUM/SULBACTAM NA 3 GM in NORMAL SALINE 100 ML IV SCH ×4 (05:04→23:42)
[2019-02-16 05:43] LABS: HEMATOCRIT 32.1 % (36.0-47.0); HEMOGLOBIN 10.8 g/dL (12.0-15.5); MEAN CORPUSCULAR HEMOGLOBIN 30.4 pg (27.0-33.4); MEAN CORPUSCULAR HGB CONC 33.7 g/dL (32.0-36.0); MEAN CORPUSCULAR VOLUME 90 fl (80-97); PLATELET COUNT 394 10^3/uL (150-450); RED BLOOD COUNT 3.56 10^6/uL (3.72-5.28); RED CELL DISTRIBUTION WIDTH 14.3 % (11.5-14.0); WHITE BLOOD COUNT 23.2 10^3/uL (4.0-10.5)
[2019-02-16 05:55] LABS: BLOOD UREA NITROGEN 10 mg/dL (7-20); CARBON DIOXIDE 29 mmol/L (22-30); CHLORIDE 104 mmol/L (98-107); GLUCOSE 272 mg/dL (75-110); POTASSIUM 3.8 mmol/L (3.6-5.0); SODIUM 137.2 mmol/L (137-145)
[2019-02-16 06:40] LABS: ABSOLUTE LYMPHOCYTES# (MANUAL) 1.4 10^3/uL (0.5-4.7); ABSOLUTE MONOCYTES # (MANUAL) 0.9 10^3/uL (0.1-1.4); ABSOLUTE NEUTROPHILS# (MANUAL) 20.6 10^3/uL (1.7-8.2); BASOPHILS % (MANUAL) 0 % (0-2); EOSINOPHILS % (MANUAL) 1 % (0-6); LYMPHOCYTES % (MANUAL) 6 % (13-45); MONOCYTES % (MANUAL) 4 % (3-13); SEGMENTED NEUTROPHILS % (MAN) 89 % (42-78); TOTAL CELLS COUNTED 100
[2019-02-16 06:41] LABS: TOXIC GRANULATION 1+; TOXIC VACUOLATION PRESENT
[2019-02-16 06:42] LABS: ANION GAP 8 (5-19)
[2019-02-16 06:43] LABS: ANISOCYTOSIS SLIGHT; OVALOCYTES 1+; PLATELET COMMENT ADEQUATE; POIKILOCYTOSIS SLIGHT
[2019-02-16] MEDS: INSULIN LISPRO 100 UNIT/ML 3 ML VIAL SUBCUT SCH ×4 (09:34→21:24)
[2019-02-16] MEDS: AMLODIPINE BESYLATE 5 MG TABLET PO SCH (09:36)
[2019-02-16] MEDS: NORMAL SALINE 10 ML SDV (SCHEDULED) IV SCH ×2 (09:41→21:14)
[2019-02-16] MEDS: LISINOPRIL 10 MG TABLET PO SCH (09:41)
[2019-02-16] MEDS: CHLORTHALIDONE 25 MG TABLET PO SCH (09:44)
[2019-02-16] MEDS: FLUTICASONE NASAL SPRAY 50 MCG/SPRY 120 SPRAY/16 GM NASL SCH (09:45)
--- NOTE | 2019-02-16 10:04 | PDOC PROGRESS REPORT ---
Subjective Progress Note for:: 02/16/19 Reason For Visit: PANCREATITIS Physical Exam Vital Signs: Temp Pulse Resp BP Pulse Ox 97.8 F 94 16 154/73 H 91 L 02/16/19 07:30 02/16/19 07:30 02/16/19 07:30 02/16/19 07:30 02/16/19 07:30 Pulse Oximeter Continuous Start: 02/08/19 13:05 Freq: RTQ4 Status: Complete Protocol: Document 02/11/19 08:00 LDA (Rec: 02/11/19 09:42 LDA [email or web address]) Pulse Oximetry Assessment Equipment Usage Equipment Discontinued Continuous SpO2 Machine # 8 Intake & Output 02/15/19 02/16/19 02/17/19 06:59 06:59 06:59 Intake Total 4261 4247 Balance 4261 4247 Weight 89.3 kg 86.6 kg General appearance: PRESENT: no acute distress Eye exam: PRESENT: PERRLA Respiratory exam: PRESENT: clear to auscultation josh Cardiovascular exam: PRESENT: RRR GI/Abdominal exam: PRESENT: soft, other - sl tenderness in epigstrium Rectal exam: PRESENT: deferred Extremities exam: PRESENT: full ROM Musculoskeletal exam: PRESENT: full ROM Neurological exam: PRESENT: alert, awake, oriented to place Psychiatric exam: PRESENT: appropriate affect Skin exam: PRESENT: dry Results Laboratory Results: 02/16/19 05:27 02/16/19 05:27 02/16/19 02/16/19 02/16/19 04:00 04:00 05:27 WBC Cancelled RBC Cancelled Hgb Cancelled Hct Cancelled MCV Cancelled MCH Cancelled MCHC Cancelled RDW Cancelled Plt Count Cancelled Seg Neutrophils % Cancelled Lymphocytes % Cancelled Monocytes % Cancelled Eosinophils % Cancelled Basophils % Cancelled Absolute Neutrophils Cancelled Absolute Lymphocytes Cancelled Absolute Monocytes Cancelled Absolute Eosinophils Cancelled Absolute Basophils Cancelled Sodium Cancelled 137.2 Potassium Cancelled 3.8 Chloride Cancelled 104 Carbon Dioxide Cancelled 29 Anion Gap Cancelled 8 BUN Cancelled 10 Creatinine Cancelled 0.46 L Est GFR ( Amer) Cancelled > 60 Est GFR (Non-Af Amer) Cancelled > 60 Glucose Cancelled 272 H Calcium Cancelled 8.0 L 02/16/19 05:27 WBC 23.2 H RBC 3.56 L Hgb 10.8 L Hct 32.1 L MCV 90 MCH 30.4 MCHC 33.7 RDW 14.3 H Plt Count 394 Seg Neutrophils % Not Reportable Lymphocytes % Not Reportable Monocytes % Not Reportable Eosinophils % Not Reportable Basophils % Not Reportable Absolute Neutrophils Not Reportable Absolute Lymphocytes Not Reportable Absolute Monocytes Not Reportable Absolute Eosinophils Not Reportable Absolute Basophils Not Reportable Sodium Potassium Chloride Carbon Dioxide Anion Gap BUN Creatinine Est GFR ( Amer) Est GFR (Non-Af Amer) Glucose Calcium 02/09/19 07:30 NT-Pro-B Natriuret Pep 1330 H Impressions: Chest X-Ray 02/08/19 00:00 IMPRESSION: LEFT BASILAR DENSITY SECONDARY TO ATELECTASIS AND/OR PNEUMONIA. POSSIBLE LEFT PLEURAL EFFUSION. Guidance Fluoroscopy 02/10/19 00:00 IMPRESSION: SUCCESSFUL PLACEMENT OF A 5 FR DUAL LUMEN 44 CM PICC IN THE LEFT BASILIC VEIN. Interventional Vascular Procedure 02/10/19 00:00 IMPRESSION: SUCCESSFUL PLACEMENT OF A 5 FR DUAL LUMEN 44 CM PICC IN THE LEFT BASILIC VEIN. PICC Line Insertion 02/10/19 00:00 IMPRESSION: SUCCESSFUL PLACEMENT OF A 5 FR DUAL LUMEN 44 CM PICC IN THE LEFT BASILIC VEIN. Abdomen/Pelvis CT 02/12/19 00:00 IMPRESSION: Worsening pancreatitis with considerable free fluid and with a definable 5 x 8 cm pseudocyst as described. KUB X-Ray 02/12/19 00:00 IMPRESSION: NO RADIOGRAPHIC EVIDENCE FOR ACUTE ABDOMINAL DISEASE. Assessment & Plan - Diagnosis (1) Acute pancreatitis Qualifiers: Pancreatitis type: other Acute pancreatitis complication: no infection or necrosis Qualified Code(s): K85.80 - Other acute pancreatitis without necrosis or infection Is this a current diagnosis for this admission?: Yes - Plan Summary Plan Summary: pt feels well today states she has not "felt this good in awhile" tatum full liquids without nausea wbc stll elevagted to 23 today no fever, chills no palp pain in extremities neg narayan's plan will advance diet dc picc line if wbc still elevated in am will repeat ct.
[2019-02-16] MEDS: KETOROLAC TROMETHAMINE INJ/PF 30 MG/1 ML SDV IV PRN ×2 (13:08→23:43)
[2019-02-16] MEDS: PANTOPRAZOLE SODIUM 40 MG TABLET.DR PO SCH (17:08)
[2019-02-16] MEDS: MAG HYDROX/AL HYDROX/SIMETH SUSP 30 ML UDCUP PO PRN (21:18)
--- NOTE | 2019-02-16 22:25 | PDOC PROGRESS REPORT ---
Subjective Progress Note for:: 02/16/19 Subjective:: STARR TAYLOR is a 73 year old female with a PMH of HTN, morbid obesity and bronchitis. who recently underwent laparoscopic cholecystectomy. She was discharged home. Unfortunately she was not compliant with Dr. Roman's diet instructions and ate fried chicken after discharge. She did have significantly increased abdominal pain as well as a markedly elevated lipase level. She was admitted to [facility] with pancreatitis. The patient was seen this morning on rounds, her diet was advanced today from full luquids to a cardiac diet. The patient was able to tolerate a few bites of applesauce when she began experiencing abdominal bloating. The patient reports she is passing gas. Denies BM, N/V/D. (+) bowel sounds. Abdomen appears distended. Worsening leukocytosis today, patient remains afebrile. PICC line removed. If WBC increases tomorrow, plan for CT abdomen. BP moderately controlled, SBP remains 150-160. Will plan to add 4th medication to regimen today. Reason For Visit: PANCREATITIS Physical Exam Vital Signs: Temp Pulse Resp BP Pulse Ox 98.6 F 103 H 18 154/58 H 95 02/16/19 19:08 02/16/19 20:07 02/16/19 19:08 02/16/19 19:08 02/16/19 19:08 Pulse Oximeter Continuous Start: 02/08/19 13:05 Freq: RTQ4 Status: Complete Protocol: Document 02/11/19 08:00 LDA (Rec: 02/11/19 09:42 LDA [email or web address]) Pulse Oximetry Assessment Equipment Usage Equipment Discontinued Continuous SpO2 Machine # 8 Intake & Output 02/15/19 02/16/19 02/17/19 06:59 06:59 06:59 Intake Total 4264 4247 3135 Balance 4261 4247 3135 Weight 89.3 kg 86.6 kg General appearance: PRESENT: morbidly obese Eye exam: PRESENT: conjunctiva pink Mouth exam: PRESENT: moist Neck exam: PRESENT: full ROM Respiratory exam: PRESENT: clear to auscultation josh, symmetrical, unlabored Cardiovascular exam: PRESENT: RRR Pulses: PRESENT: normal radial pulses GI/Abdominal exam: PRESENT: distended, normal bowel sounds, soft, tenderness Rectal exam: PRESENT: deferred Extremities exam: PRESENT: full ROM, pedal edema, tenderness Musculoskeletal exam: PRESENT: full ROM Neurological exam: PRESENT: alert, awake, oriented to person, oriented to place, oriented to time, oriented to situation Psychiatric exam: PRESENT: appropriate affect Skin exam: PRESENT: dry, intact Results Laboratory Results: 02/16/19 05:27 02/16/19 05:27 02/16/19 02/16/19 02/16/19 04:00 04:00 05:27 WBC Cancelled RBC Cancelled Hgb Cancelled Hct Cancelled MCV Cancelled MCH Cancelled MCHC Cancelled RDW Cancelled Plt Count Cancelled Seg Neutrophils % Cancelled Lymphocytes % Cancelled Monocytes % Cancelled Eosinophils % Cancelled Basophils % Cancelled Absolute Neutrophils Cancelled Absolute Lymphocytes Cancelled Absolute Monocytes Cancelled Absolute Eosinophils Cancelled Absolute Basophils Cancelled Sodium Cancelled 137.2 Potassium Cancelled 3.8 Chloride Cancelled 104 Carbon Dioxide Cancelled 29 Anion Gap Cancelled 8 BUN Cancelled 10 Creatinine Cancelled 0.46 L Est GFR ( Amer) Cancelled > 60 Est GFR (Non-Af Amer) Cancelled > 60 Glucose Cancelled 272 H Calcium Cancelled 8.0 L 02/16/19 05:27 WBC 23.2 H RBC 3.56 L Hgb 10.8 L Hct 32.1 L MCV 90 MCH 30.4 MCHC 33.7 RDW 14.3 H Plt Count 394 Seg Neutrophils % Not Reportable Lymphocytes % Not Reportable Monocytes % Not Reportable Eosinophils % Not Reportable Basophils % Not Reportable Absolute Neutrophils Not Reportable Absolute Lymphocytes Not Reportable Absolute Monocytes Not Reportable Absolute Eosinophils Not Reportable Absolute Basophils Not Reportable Sodium Potassium Chloride Carbon Dioxide Anion Gap BUN Creatinine Est GFR ( Amer) Est GFR (Non-Af Amer) Glucose Calcium 02/09/19 07:30 NT-Pro-B Natriuret Pep 1330 H Impressions: Chest X-Ray 02/08/19 00:00 IMPRESSION: LEFT BASILAR DENSITY SECONDARY TO ATELECTASIS AND/OR PNEUMONIA. POSSIBLE LEFT PLEURAL EFFUSION. Guidance Fluoroscopy 02/10/19 00:00 IMPRESSION: SUCCESSFUL PLACEMENT OF A 5 FR DUAL LUMEN 44 CM PICC IN THE LEFT BASILIC VEIN. Interventional Vascular Procedure 02/10/19 00:00 IMPRESSION: SUCCESSFUL PLACEMENT OF A 5 FR DUAL LUMEN 44 CM PICC IN THE LEFT BASILIC VEIN. PICC Line Insertion 02/10/19 00:00 IMPRESSION: SUCCESSFUL PLACEMENT OF A 5 FR DUAL LUMEN 44 CM PICC IN THE LEFT BASILIC VEIN. Abdomen/Pelvis CT 02/12/19 00:00 IMPRESSION: Worsening pancreatitis with considerable free fluid and with a definable 5 x 8 cm pseudocyst as described. KUB X-Ray 02/12/19 00:00 IMPRESSION: NO RADIOGRAPHIC EVIDENCE FOR ACUTE ABDOMINAL DISEASE. Status: Imported from PACS Assessment and Plan - Diagnosis (1) Acute pancreatitis Qualifiers: Pancreatitis type: other Acute pancreatitis complication: no infection or necrosis Qualified Code(s): K85.80 - Other acute pancreatitis without necrosis or infection Is this a current diagnosis for this admission?: Yes Plan: Management regarding fiet per surgery Patient had advanced diet from full iquids to cardiac solid foods (2) Acute encephalopathy Is this a current diagnosis for this admission?: Yes Plan: Resolved (3) Hypertensive urgency Is this a current diagnosis for this admission?: Yes Plan: Lisinopril and amlodipine different medications and her blood pressures are still elevated. Started low-dose chlorthalidone yesterday, did not make much difference Start metoprolol today (4) Obesity (BMI 30.0-34.9) Is this a current diagnosis for this admission?: Yes Plan: Encouraged lifestyle modification - Time Time Spent with patient: 15-24 minutes Medications reviewed and adjusted accordingly: Yes Anticipated discharge: Home - Inpatient Certification Based on my medical assessment, after consideration of the patient's comorbidities, presenting symptoms, or acuity I expect that the services needed warrant INPATIENT care.: Yes I certify that my determination is in accordance with my understanding of Medicare's requirements for reasonable and necessary INPATIENT services [42 CFR 412.3e].: Yes Medical Necessity: Risk of Complication if Not Cared For in Hospital
[2019-02-16] MEDS: METOPROLOL TARTRATE 25 MG TABLET PO SCH (23:43)
[2019-02-17] MEDS: PANTOPRAZOLE SODIUM 40 MG TABLET.DR PO SCH ×2 (05:06→17:19)
[2019-02-17] MEDS: AMPICILLIN SODIUM/SULBACTAM NA 3 GM in NORMAL SALINE 100 ML IV SCH ×4 (05:06→23:04)
[2019-02-17] MEDS: NORMAL SALINE 1000 ML 1,000 ML IV PRN ×2 (05:06→14:34)
[2019-02-17 05:30] LABS: HEMATOCRIT 35.8 % (36.0-47.0); MEAN CORPUSCULAR HEMOGLOBIN 30.4 pg (27.0-33.4); MEAN CORPUSCULAR HGB CONC 33.5 g/dL (32.0-36.0); MEAN CORPUSCULAR VOLUME 91 fl (80-97); PLATELET COUNT 477 10^3/uL (150-450); RED BLOOD COUNT 3.94 10^6/uL (3.72-5.28); RED CELL DISTRIBUTION WIDTH 14.2 % (11.5-14.0); WHITE BLOOD COUNT 22.2 10^3/uL (4.0-10.5)
[2019-02-17 05:50] LABS: ANION GAP 7 (5-19); BLOOD UREA NITROGEN 10 mg/dL (7-20); CALCIUM 8.4 mg/dL (8.4-10.2); CARBON DIOXIDE 30 mmol/L (22-30); CHLORIDE 102 mmol/L (98-107); GLUCOSE 128 mg/dL (75-110); POTASSIUM 3.8 mmol/L (3.6-5.0); SODIUM 139.1 mmol/L (137-145)
[2019-02-17 06:07] LABS: ABSOLUTE LYMPHOCYTES# (MANUAL) 1.8 10^3/uL (0.5-4.7); ABSOLUTE MONOCYTES # (MANUAL) 1.3 10^3/uL (0.1-1.4); ABSOLUTE NEUTROPHILS# (MANUAL) 18.9 10^3/uL (1.7-8.2); BAND NEUTROPHILS % (MANUAL) 1 % (3-5); BASOPHILS % (MANUAL) 1 % (0-2); EOSINOPHILS % (MANUAL) 0 % (0-6); LYMPHOCYTES % (MANUAL) 8 % (13-45); MONOCYTES % (MANUAL) 6 % (3-13); PLATELET COMMENT INCREASED; RBC MORPHOLOGY COMMENT NORMO-CYTIC/CHROMIC; SEGMENTED NEUTROPHILS % (MAN) 84 % (42-78); TOTAL CELLS COUNTED 100; TOXIC GRANULATION 1+; TOXIC VACUOLATION PRESENT
--- NOTE | 2019-02-17 08:38 | PDOC PROGRESS REPORT ---
Subjective Progress Note for:: 02/17/19 Reason For Visit: PANCREATITIS Physical Exam Vital Signs: Temp Pulse Resp BP Pulse Ox 98.0 F 82 17 158/68 H 93 02/17/19 03:34 02/17/19 07:00 02/17/19 03:34 02/17/19 03:34 02/17/19 03:34 Pulse Oximeter Continuous Start: 02/08/19 13:05 Freq: RTQ4 Status: Complete Protocol: Document 02/11/19 08:00 LDA (Rec: 02/11/19 09:42 LDA [email or web address]) Pulse Oximetry Assessment Equipment Usage Equipment Discontinued Continuous SpO2 Machine # 8 Intake & Output 02/16/19 02/17/19 02/18/19 06:59 06:59 06:59 Intake Total 4247 5807 Balance 4247 5807 Weight 86.6 kg 87.5 kg General appearance: PRESENT: no acute distress Head exam: PRESENT: normocephalic Eye exam: PRESENT: EOMI Mouth exam: PRESENT: moist Neck exam: PRESENT: full ROM Respiratory exam: PRESENT: clear to auscultation josh Cardiovascular exam: PRESENT: RRR Pulses: PRESENT: normal femoral pulses, normal dorsalis pedis pul GI/Abdominal exam: PRESENT: soft, other Rectal exam: PRESENT: deferred Extremities exam: PRESENT: full ROM Musculoskeletal exam: PRESENT: full ROM Neurological exam: PRESENT: alert, awake, oriented to person, oriented to place, oriented to time Results Laboratory Results: 02/17/19 04:47 02/17/19 04:47 02/17/19 02/17/19 04:47 04:47 WBC 22.2 H RBC 3.94 Hgb 12.0 Hct 35.8 L MCV 91 MCH 30.4 MCHC 33.5 RDW 14.2 H Plt Count 477 H Seg Neutrophils % Not Reportable Lymphocytes % Not Reportable Monocytes % Not Reportable Eosinophils % Not Reportable Basophils % Not Reportable Absolute Neutrophils Not Reportable Absolute Lymphocytes Not Reportable Absolute Monocytes Not Reportable Absolute Eosinophils Not Reportable Absolute Basophils Not Reportable Sodium 139.1 Potassium 3.8 Chloride 102 Carbon Dioxide 30 Anion Gap 7 BUN 10 Creatinine 0.48 L Est GFR ( Amer) > 60 Est GFR (Non-Af Amer) > 60 Glucose 128 H Calcium 8.4 Magnesium 2.2 02/09/19 07:30 NT-Pro-B Natriuret Pep 1330 H Impressions: Chest X-Ray 02/08/19 00:00 IMPRESSION: LEFT BASILAR DENSITY SECONDARY TO ATELECTASIS AND/OR PNEUMONIA. POSSIBLE LEFT PLEURAL EFFUSION. Guidance Fluoroscopy 02/10/19 00:00 IMPRESSION: SUCCESSFUL PLACEMENT OF A 5 FR DUAL LUMEN 44 CM PICC IN THE LEFT BASILIC VEIN. Interventional Vascular Procedure 02/10/19 00:00 IMPRESSION: SUCCESSFUL PLACEMENT OF A 5 FR DUAL LUMEN 44 CM PICC IN THE LEFT BASILIC VEIN. PICC Line Insertion 02/10/19 00:00 IMPRESSION: SUCCESSFUL PLACEMENT OF A 5 FR DUAL LUMEN 44 CM PICC IN THE LEFT BASILIC VEIN. Abdomen/Pelvis CT 02/12/19 00:00 IMPRESSION: Worsening pancreatitis with considerable free fluid and with a definable 5 x 8 cm pseudocyst as described. KUB X-Ray 02/12/19 00:00 IMPRESSION: NO RADIOGRAPHIC EVIDENCE FOR ACUTE ABDOMINAL DISEASE. Assessment & Plan - Diagnosis (1) Acute pancreatitis Qualifiers: Pancreatitis type: other Acute pancreatitis complication: no infection or necrosis Qualified Code(s): K85.80 - Other acute pancreatitis without necrosis or infection Is this a current diagnosis for this admission?: Yes - Plan Summary Plan Summary: afeb vss feels ok tatum solid foods yesterday passing small bm's wbc sl decreased but still elevated ?etiol will obtain doppler studies today to r/o occult dvt repeat ct abd to reassess pancreatitis picc line removed yesterday will cont iv abx
[2019-02-17] MEDS: INSULIN LISPRO 100 UNIT/ML 3 ML VIAL SUBCUT SCH ×2 (09:34→12:36)
[2019-02-17] MEDS: FLUTICASONE NASAL SPRAY 50 MCG/SPRY 120 SPRAY/16 GM NASL SCH (09:38)
[2019-02-17] MEDS: AMLODIPINE BESYLATE 5 MG TABLET PO SCH (09:39)
[2019-02-17] MEDS: LISINOPRIL 10 MG TABLET PO SCH (09:39)
[2019-02-17] MEDS: CHLORTHALIDONE 25 MG TABLET PO SCH (09:40)
[2019-02-17] MEDS: NORMAL SALINE 10 ML SDV (SCHEDULED) IV SCH ×2 (09:41→21:37)
[2019-02-17] MEDS: METOPROLOL TARTRATE 25 MG TABLET PO SCH ×2 (09:46→21:37)
[2019-02-17] MEDS: TRAMADOL HCL 50 MG TABLET PO PRN (09:53)
--- NOTE | 2019-02-17 11:43 | RADIOLOGY REPORT (SQ) ---
EXAM DESCRIPTION: CT ABD/PELVIS NO ORAL OR IV COMPLETED DATE/TIME: 02/17/2019 10:46 am REASON FOR STUDY: pancreatitis, f/u pseudocyst COMPARISON: 02/11/2019 TECHNIQUE: CT scan of the abdomen and pelvis performed without intravenous or oral contrast. Images reviewed with lung, soft tissue, and bone windows. Reconstructed coronal and sagittal MPR images revi ewed. All images stored on PACS. All CT scanners at this facility use dose modulation, iterative reconstruction, and/or weight based d osing when appropriate to reduce radiation dose to as low as reasonably achievable (ALARA). [facility]: Dose Right [facility]: CareDose [facility]: Dose Right [facility]: Teradose 4D [facility]: [employer] RADIATION DOSE: CT Rad equipment meets quality standard of care and radiation dose reduction techniq ues were employed. CTDIvol: 13.0 mGy. DLP: 696 mGy-cm.mGy. LIMITATIONS: None. FINDINGS: LOWER CHEST: Small left pleural effusion and left basilar consolidation, likely atelectasi s. Unremarkable visualized right hemithorax. NON-CONTRASTED LIVER, SPLEEN, ADRENALS: Evaluation limited by lack of IV contrast. No identified sign ificant masses. PANCREAS: Persistent hypoattenuation throughout the pancreatic body and tail with peripancreatic stra nding and fluid. There is been interval development of a low-attenuation collection anterior to the pancreas and posterior to the stomach measuring 10.9 x 7.2 cm (series 2, image 24). There are additi onal collections tracking posterior to the pancreas and within the left paracolic gutter measuring ap proximately an 5.3 x 3.4 x 5.7 cm. Evaluation for pancreatic enhancement limited secondary to lack o f intravenous contrast. GALLBLADDER: Surgically absent. RIGHT KIDNEY AND URETER: No suspicious masses. Assessment limited by lack of IV contrast. No signif icant calcifications. No hydronephrosis or hydroureter. LEFT KIDNEY AND URETER: No suspicious masses. Assessment limited by lack of IV contrast. No signifi cant calcifications. No hydronephrosis or hydroureter. AORTA AND RETROPERITONEUM: Aortoiliac atherosclerosis. No aneurysm. BOWEL AND PERITONEAL CAVITY: Multiple colonic diverticula. No focal bowel wall thickening. No evide nce of intestinal obstruction. Peritoneal fluid as above. No free intraperitoneal gas. APPENDIX: Surgically absent. PELVIS, BLADDER, AND ABDOMINAL WALL:Small amount of fluid within the pelvis. Unremarkable urinary bl adder. No discrete pelvic mass. No lymphadenopathy. BONES: No significant findings. OTHER: No other significant finding. IMPRESSION: 1. Findings compatible with pancreatitis with interval development of a 10.9 x 7.2 cm h ypodense collection anterior to the pancreatic body most compatible with a pseudocyst. Additional fl uid posterior to the pancreas and tracking into the left paracolic gutter as detailed above. 2. Hypoattenuation of the pancreatic body. Evaluation for pancreatic necrosis limited secondary to lack of intravenous contrast. COMMENT: Quality ID # [id number]: Final reports with documentation of one or more dose reduction techniques (e.g., Automated exposure control, adjustment of the mA and/or kV according to patient size, use of iterative reconstruction technique) TECHNICAL DOCUMENTATION: JOB ID: [id number] [employer]- All Rights Reserved Reading location - IP/workstation name: [email or web address]
--- NOTE | 2019-02-17 12:22 | RADIOLOGY REPORT (SQ) ---
EXAM DESCRIPTION: VENOUS BILATERAL LOWER COMPLETED DATE/TIME: 02/17/2019 12:13 pm REASON FOR STUDY: r/o DVT COMPARISON: None. TECHNIQUE: Dynamic and static almanza scale and color images acquired of both lower extremity venous sy stems. Selected spectral images acquired with additional compression and augmentation maneuvers. Imag es stored on PACS. LIMITATIONS: None. FINDINGS: RIGHT LEG COMMON FEMORAL AND FEMORAL: Normal phasicity, compression and augmentation. No visualized echogenic m aterial on almanza scale. No defects on color images. POPLITEAL: Normal compression and augmentation. No visualized echogenic material on almanza scale. No de fects on color images. CALF VESSELS: Normal compression and augmentation. No visualized echogenic material on almanza scale. No defects on color image. GSV AND SSV: Normal compression. No visualized echogenic material on almanza scale. No defects on color images. ANY DEEP VENOUS INSUFFICIENCY: Not evaluated. ANY EVIDENCE OF POPLITEAL CYST: No. OTHER: No other significant finding. LEFT LEG COMMON FEMORAL AND FEMORAL: Normal phasicity, compression and augmentation. No visualized echogenic m aterial on almanza scale. No defects on color images. POPLITEAL: Normal compression and augmentation. No visualized echogenic material on almanza scale. No de fects on color images. CALF VESSELS: Normal compression and augmentation. No visualized echogenic material on almanza scale. No defects on color images. GSV AND SSV: Normal compression. No visualized echogenic material on almanza scale. No defects on color images. ANY DEEP VENOUS INSUFFICIENCY: Not evaluated. ANY EVIDENCE POPLITEAL CYST: No. OTHER: No other significant finding. IMPRESSION: NO EVIDENCE DVT OR SVT IN EITHER LEG. TECHNICAL DOCUMENTATION: JOB ID: [id number] [employer]- All Rights Reserved Reading location - IP/workstation name: [email or web address]
[2019-02-17] MEDS: KETOROLAC TROMETHAMINE INJ/PF 30 MG/1 ML SDV IV PRN (12:27)
[2019-02-17] MEDS: ONDANSETRON HCL INJ/PF 4 MG/2 ML SDV IV PRN (12:27)
[2019-02-17] MEDS ORDERED: MORPHINE SULFATE 10 MG/ML INJ IV PRN ×2 (13:54→17:05)
--- NOTE | 2019-02-17 15:22 | PDOC PROGRESS REPORT ---
Subjective Progress Note for:: 02/17/19 Subjective:: STARR TAYLOR is a 73 year old female with a PMH of HTN, morbid obesity and bronchitis. who recently underwent laparoscopic cholecystectomy. She was discharged home. Unfortunately she was not compliant with Dr. Roman's diet instructions and ate fried chicken after discharge. She did have significantly increased abdominal pain as well as a markedly elevated lipase level. She was admitted to [facility] with pancreatitis. The patient was seen this morning on rounds, she is sitting up on side of the bed holding an emesis bag. The patient reports she is very nauseous and has a good deal of abdominal pain. The patient's diet was advanced yesterday from full liquids to regular food. The patient reports passing gas and having a bowel movement today. Leukocytosis slightly improved today 24-->22, patient remains afebrile. CT abdomen/pelvis completed, shows slight expansion of the pancreatic pseudocyst. Dr. Roman, surgery, made aware. States the pseudocyst is likely pushing on her stomach, which would explain why the patient is nauseous and vomiting, because she is unable to digest her food. Initiate scheduled Octreotide. BP moderately controlled, SBP remains slightly elevated 145-150. Will make adjustments to Anti-HTN regimen. Reason For Visit: PANCREATITIS Physical Exam Vital Signs: Temp Pulse Resp BP Pulse Ox 98.0 F 84 16 147/72 H 92 02/17/19 11:46 02/17/19 14:00 02/17/19 11:46 02/17/19 11:46 02/17/19 11:46 Pulse Oximeter Continuous Start: 02/08/19 13:05 Freq: RTQ4 Status: Complete Protocol: Document 02/11/19 08:00 LDA (Rec: 02/11/19 09:42 LDA [email or web address]) Pulse Oximetry Assessment Equipment Usage Equipment Discontinued Continuous SpO2 Machine # 8 Intake & Output 02/16/19 02/17/19 02/18/19 06:59 06:59 06:59 Intake Total 4245 5806 1100 Balance 4247 5807 1100 Weight 86.6 kg 87.5 kg General appearance: PRESENT: morbidly obese Eye exam: PRESENT: conjunctiva pink, PERRLA Mouth exam: PRESENT: moist, tongue midline Neck exam: PRESENT: full ROM Respiratory exam: PRESENT: clear to auscultation josh, symmetrical, unlabored Cardiovascular exam: PRESENT: RRR Pulses: PRESENT: normal radial pulses, normal dorsalis pedis pul Vascular exam: PRESENT: normal capillary refill GI/Abdominal exam: PRESENT: normal bowel sounds, soft. ABSENT: tenderness Rectal exam: PRESENT: deferred Extremities exam: PRESENT: full ROM Musculoskeletal exam: PRESENT: ambulatory - with assistance. only able to get oob to commode. patient states at home she can ambulate w/o difficulty Neurological exam: PRESENT: alert, awake, oriented to person, oriented to place, oriented to time, oriented to situation Psychiatric exam: PRESENT: appropriate affect Skin exam: PRESENT: dry, intact, normal color Results Laboratory Results: 02/17/19 04:47 02/17/19 04:47 02/17/19 02/17/19 04:47 04:47 WBC 22.2 H RBC 3.94 Hgb 12.0 Hct 35.8 L MCV 91 MCH 30.4 MCHC 33.5 RDW 14.2 H Plt Count 477 H Seg Neutrophils % Not Reportable Lymphocytes % Not Reportable Monocytes % Not Reportable Eosinophils % Not Reportable Basophils % Not Reportable Absolute Neutrophils Not Reportable Absolute Lymphocytes Not Reportable Absolute Monocytes Not Reportable Absolute Eosinophils Not Reportable Absolute Basophils Not Reportable Sodium 139.1 Potassium 3.8 Chloride 102 Carbon Dioxide 30 Anion Gap 7 BUN 10 Creatinine 0.48 L Est GFR ( Amer) > 60 Est GFR (Non-Af Amer) > 60 Glucose 128 H Calcium 8.4 Magnesium 2.2 02/09/19 07:30 NT-Pro-B Natriuret Pep 1330 H Impressions: Chest X-Ray 02/08/19 00:00 IMPRESSION: LEFT BASILAR DENSITY SECONDARY TO ATELECTASIS AND/OR PNEUMONIA. POSSIBLE LEFT PLEURAL EFFUSION. Guidance Fluoroscopy 02/10/19 00:00 IMPRESSION: SUCCESSFUL PLACEMENT OF A 5 FR DUAL LUMEN 44 CM PICC IN THE LEFT BASILIC VEIN. Interventional Vascular Procedure 02/10/19 00:00 IMPRESSION: SUCCESSFUL PLACEMENT OF A 5 FR DUAL LUMEN 44 CM PICC IN THE LEFT BASILIC VEIN. PICC Line Insertion 02/10/19 00:00 IMPRESSION: SUCCESSFUL PLACEMENT OF A 5 FR DUAL LUMEN 44 CM PICC IN THE LEFT BASILIC VEIN. KUB X-Ray 02/12/19 00:00 IMPRESSION: NO RADIOGRAPHIC EVIDENCE FOR ACUTE ABDOMINAL DISEASE. Abdomen/Pelvis CT 02/17/19 00:00 IMPRESSION: 1. Findings compatible with pancreatitis with interval development of a 10.9 x 7.2 cm hypodense collection anterior to the pancreatic body most compatible with a pseudocyst. Additional fluid posterior to the pancreas and tracking into the left paracolic gutter as detailed above. 2. Hypoattenuation of the pancreatic body. Evaluation for pancreatic necrosis limited secondary to lack of intravenous contrast. Venous Doppler Study 02/17/19 00:00 IMPRESSION: NO EVIDENCE DVT OR SVT IN EITHER LEG. Status: Imported from PACS Assessment and Plan - Diagnosis (1) Acute pancreatitis Qualifiers: Pancreatitis type: other Acute pancreatitis complication: no infection or necrosis Qualified Code(s): K85.80 - Other acute pancreatitis without necrosis or infection Is this a current diagnosis for this admission?: Yes Plan: Primary management per surgery Patient had advanced diet from full liquids to cardiac solid foods yesterday but will change back to full liquids in light of her abdominal pain/vomiting today Repeat CT Abd/Pelvis today, shows interval development of pseudocyst with additional collections tracking posterior to the pancreas Discussed findings with Dr. Roman, no surgical intervention at this time Octreotide SC 200mg TID started today (2) Acute encephalopathy Is this a current diagnosis for this admission?: Yes Plan: Resolved (3) Hypertensive urgency Is this a current diagnosis for this admission?: Yes Plan: Lisinopril, amlodipine and chlorthalidone 12.5mg BID Toprol XL started yesterday, will increase dose to 25mg BID (4) Obesity (BMI 30.0-34.9) Is this a current diagnosis for this admission?: Yes Plan: Encouraged lifestyle modification - Time Time Spent with patient: 15-24 minutes Medications reviewed and adjusted accordingly: Yes Anticipated discharge: Home - Inpatient Certification Based on my medical assessment, after consideration of the patient's comorbidities, presenting symptoms, or acuity I expect that the services needed warrant INPATIENT care.: Yes I certify that my determination is in accordance with my understanding of Medicare's requirements for reasonable and necessary INPATIENT services [42 CFR 412.3e].: Yes Medical Necessity: Need For IV Fluids, Need for Pain Control, Risk of Complication if Not Cared For in Hospital
[2019-02-17] MEDS: OCTREOTIDE ACETATE INJ/PF 100 MCG/1 ML SDV SUBCUT SCH ×2 (17:06→21:31)
[2019-02-17] MEDS ORDERED: PROMETHAZINE HCL INJ 25 MG/1 ML VIAL IV PRN (17:35)
[2019-02-17] MEDS: SIMETHICONE 80 MG TAB.CHEW PO PRN (18:17)
[2019-02-17] MEDS: MAG HYDROX/AL HYDROX/SIMETH SUSP 30 ML UDCUP PO PRN (18:22)
[2019-02-18] MEDS: NORMAL SALINE 1000 ML 1,000 ML IV PRN ×3 (01:53→23:15)
[2019-02-18] MEDS: AMPICILLIN SODIUM/SULBACTAM NA 3 GM in NORMAL SALINE 100 ML IV SCH ×2 (05:04→12:48)
[2019-02-18] MEDS: PANTOPRAZOLE SODIUM 40 MG TABLET.DR PO SCH ×2 (05:05→17:43)
[2019-02-18] MEDS: OCTREOTIDE ACETATE INJ/PF 100 MCG/1 ML SDV SUBCUT SCH ×3 (05:05→21:16)
[2019-02-18] MEDS: SIMETHICONE 80 MG TAB.CHEW PO PRN ×2 (05:09→17:42)
[2019-02-18 05:23] LABS: HEMATOCRIT 32.5 % (36.0-47.0); HEMOGLOBIN 10.7 g/dL (12.0-15.5); MEAN CORPUSCULAR HEMOGLOBIN 30.3 pg (27.0-33.4); MEAN CORPUSCULAR HGB CONC 32.9 g/dL (32.0-36.0); MEAN CORPUSCULAR VOLUME 92 fl (80-97); PLATELET COUNT 700 10^3/uL (150-450); RED BLOOD COUNT 3.53 10^6/uL (3.72-5.28); RED CELL DISTRIBUTION WIDTH 14.1 % (11.5-14.0); WHITE BLOOD COUNT 29.3 10^3/uL (4.0-10.5)
[2019-02-18 05:41] LABS: ALANINE AMINOTRANSFERASE 36 U/L (9-52); ALBUMIN 2.6 g/dL (3.5-5.0); ALKALINE PHOSPHATASE 114 U/L (38-126); ANION GAP 11 (5-19); ASPARTATE AMINO TRANSFERASE 47 U/L (14-36); BILIRUBIN,DIRECT 0.4 mg/dL (0.0-0.4); BILIRUBIN,TOTAL 0.8 mg/dL (0.2-1.3); BLOOD UREA NITROGEN 25 mg/dL (7-20); CALCIUM 7.8 mg/dL (8.4-10.2); CARBON DIOXIDE 24 mmol/L (22-30); CHLORIDE 103 mmol/L (98-107); GLUCOSE 200 mg/dL (75-110); POTASSIUM 4.5 mmol/L (3.6-5.0); TOTAL PROTEIN 5.9 g/dL (6.3-8.2)
[2019-02-18 07:33] LABS: HEMATOCRIT 31.4 % (36.0-47.0); HEMOGLOBIN 10.4 g/dL (12.0-15.5); MEAN CORPUSCULAR HEMOGLOBIN 30.3 pg (27.0-33.4); MEAN CORPUSCULAR HGB CONC 32.9 g/dL (32.0-36.0); MEAN CORPUSCULAR VOLUME 92 fl (80-97); RED BLOOD COUNT 3.42 10^6/uL (3.72-5.28); RED CELL DISTRIBUTION WIDTH 14.2 % (11.5-14.0); WHITE BLOOD COUNT 27.6 10^3/uL (4.0-10.5)
[2019-02-18 07:51] LABS: ABSOLUTE LYMPHOCYTES# (MANUAL) 1.4 10^3/uL (0.5-4.7); ABSOLUTE MONOCYTES # (MANUAL) 1.1 10^3/uL (0.1-1.4); ABSOLUTE NEUTROPHILS# (MANUAL) 25.1 10^3/uL (1.7-8.2); BAND NEUTROPHILS % (MANUAL) 1 % (3-5); BASOPHILS % (MANUAL) 0 % (0-2); EOSINOPHILS % (MANUAL) 0 % (0-6); LYMPHOCYTES % (MANUAL) 4 % (13-45); METAMYELOCYTES % (MANUAL) 1 % (0); MONOCYTES % (MANUAL) 4 % (3-13); PROMYELOCYTES % (MANUAL) 1 % (0); SEGMENTED NEUTROPHILS % (MAN) 88 % (42-78); TOTAL CELLS COUNTED 100
[2019-02-18 07:53] LABS: ANISOCYTOSIS SLIGHT; PLATELET CLUMPS PRESENT; POIKILOCYTOSIS SLIGHT; POLYCHROMASIA 1+; SCHISTOCYTES SLIGHT; TEAR DROP CELLS SLIGHT; TOXIC GRANULATION SLIGHT
[2019-02-18 07:58] LABS: PLATELET COMMENT INCREASED; PLATELET COUNT 688 10^3/uL (150-450)
--- NOTE | 2019-02-18 08:10 | PDOC PROGRESS REPORT ---
Subjective Progress Note for:: 02/18/19 Subjective:: vomited multiple times yesterday after reg diet slept ok min pain this am tatum liquids Reason For Visit: PANCREATITIS Physical Exam Vital Signs: Temp Pulse Resp BP Pulse Ox 97.4 F 86 20 101/54 L 93 02/18/19 03:05 02/18/19 03:05 02/18/19 03:05 02/18/19 03:05 02/18/19 03:05 Pulse Oximeter Continuous Start: 02/08/19 13:05 Freq: RTQ4 Status: Complete Protocol: Document 02/11/19 08:00 LDA (Rec: 02/11/19 09:42 LDA [email or web address]) Pulse Oximetry Assessment Equipment Usage Equipment Discontinued Continuous SpO2 Machine # 8 Intake & Output 02/17/19 02/18/19 02/19/19 06:59 06:59 06:59 Intake Total 5807 2677 Balance 5807 2677 Weight 87.5 kg 86.8 kg General appearance: PRESENT: no acute distress Head exam: PRESENT: normocephalic Mouth exam: PRESENT: moist Neck exam: PRESENT: full ROM Respiratory exam: PRESENT: clear to auscultation josh Cardiovascular exam: PRESENT: RRR Pulses: PRESENT: normal radial pulses, normal femoral pulses GI/Abdominal exam: PRESENT: soft - tender to palpation in epigastrium Rectal exam: PRESENT: deferred Extremities exam: PRESENT: full ROM Musculoskeletal exam: PRESENT: full ROM Neurological exam: PRESENT: alert, awake, oriented to person, oriented to place, oriented to time, oriented to situation Psychiatric exam: PRESENT: appropriate affect Results Laboratory Results: 02/18/19 04:39 02/18/19 02/18/19 02/18/19 04:39 04:39 07:07 WBC 29.3 H RBC 3.53 L Hgb 10.7 L Hct 32.5 L MCV 92 MCH 30.3 MCHC 32.9 RDW 14.1 H Plt Count 700 H Seg Neutrophils % Not Reportable Lymphocytes % Not Reportable Monocytes % Not Reportable Eosinophils % Not Reportable Basophils % Not Reportable Absolute Neutrophils Not Reportable Absolute Lymphocytes Not Reportable Absolute Monocytes Not Reportable Absolute Eosinophils Not Reportable Absolute Basophils Not Reportable Sodium 138.0 Potassium 4.5 Chloride 103 Carbon Dioxide 24 Anion Gap 11 BUN 25 H Creatinine 1.68 H Est GFR ( Amer) 36 L Est GFR (Non-Af Amer) 30 L Glucose 200 H Calcium 7.8 L Magnesium 2.1 Total Bilirubin 0.8 AST 47 H ALT 36 Alkaline Phosphatase 114 Total Protein 5.9 L Albumin 2.6 L 02/09/19 07:30 NT-Pro-B Natriuret Pep 1330 H Impressions: Chest X-Ray 02/08/19 00:00 IMPRESSION: LEFT BASILAR DENSITY SECONDARY TO ATELECTASIS AND/OR PNEUMONIA. POSSIBLE LEFT PLEURAL EFFUSION. Guidance Fluoroscopy 02/10/19 00:00 IMPRESSION: SUCCESSFUL PLACEMENT OF A 5 FR DUAL LUMEN 44 CM PICC IN THE LEFT BASILIC VEIN. Interventional Vascular Procedure 02/10/19 00:00 IMPRESSION: SUCCESSFUL PLACEMENT OF A 5 FR DUAL LUMEN 44 CM PICC IN THE LEFT BASILIC VEIN. PICC Line Insertion 02/10/19 00:00 IMPRESSION: SUCCESSFUL PLACEMENT OF A 5 FR DUAL LUMEN 44 CM PICC IN THE LEFT BASILIC VEIN. KUB X-Ray 02/12/19 00:00 IMPRESSION: NO RADIOGRAPHIC EVIDENCE FOR ACUTE ABDOMINAL DISEASE. Abdomen/Pelvis CT 02/17/19 00:00 IMPRESSION: 1. Findings compatible with pancreatitis with interval development of a 10.9 x 7.2 cm hypodense collection anterior to the pancreatic body most c ompatible with a pseudocyst. Additional fluid posterior to the pancreas and tracking into the left paracolic gutter as detailed above. 2. Hypoattenuation of the pancreatic body. Evaluation for pancreatic necrosis limited secondary to lack of intravenous contrast. Venous Doppler Study 02/17/19 00:00 IMPRESSION: NO EVIDENCE DVT OR SVT IN EITHER LEG. Assessment & Plan - Diagnosis (1) Acute pancreatitis Qualifiers: Pancreatitis type: other Acute pancreatitis complication: no infection or necrosis Qualified Code(s): K85.80 - Other acute pancreatitis without necrosis or infection Is this a current diagnosis for this admission?: Yes - Plan Summary Plan Summary: repeat ct yesterday shows larger pseudocyst with posterior compression of stomach small fluid collection paracolic gutter spoke with Dr Lazo about possible pancreatic stent however doesnt feel it would be of beniifit. recommend cont with liquids wbc elevated this am 29k doppler neg for dvt. ct not c/w abscess chest clear bilat, pt without resp sxs plan u/a cxr cont with full liquids sandostatin will plan on replacing picc for tpn
[2019-02-18] MEDS: NORMAL SALINE 10 ML SDV (SCHEDULED) IV SCH ×2 (09:52→21:18)
[2019-02-18] MEDS: AMLODIPINE BESYLATE 10 MG TABLET PO SCH (09:53)
[2019-02-18] MEDS: LISINOPRIL 10 MG TABLET PO SCH (09:53)
[2019-02-18] MEDS: KETOROLAC TROMETHAMINE INJ/PF 30 MG/1 ML SDV IV PRN (10:04)
[2019-02-18] MEDS: FLUTICASONE NASAL SPRAY 50 MCG/SPRY 120 SPRAY/16 GM NASL SCH (10:04)
[2019-02-18] MEDS: METOPROLOL TARTRATE 25 MG TABLET PO SCH ×2 (10:05→21:17)
[2019-02-18] MEDS: CHLORTHALIDONE 25 MG TABLET PO SCH (10:05)
[2019-02-18] MEDS: ONDANSETRON HCL INJ/PF 4 MG/2 ML SDV IV PRN (10:05)
--- NOTE | 2019-02-18 10:47 | RADIOLOGY REPORT (SQ) ---
EXAM DESCRIPTION: CHEST SINGLE VIEW COMPLETED DATE/TIME: 02/18/2019 10:23 am REASON FOR STUDY: r/o pneumonia COMPARISON: 02/08/2019 NUMBER OF VIEWS: One view. TECHNIQUE: Single frontal radiographic image of the chest acquired. LIMITATIONS: AP portable. Body habitus. FINDINGS: LUNGS AND PLEURA: Silhouetting of the left costophrenic angle and diaphragm. The right dulce ng is clear. MEDIASTINUM AND HEART: Stable heart size and mediastinal structures. BONY STRUCTURES: No acute findings. HARDWARE: None. OTHER: No other significant finding. IMPRESSION: Small left pleural effusion and associated airspace disease consistent with pneumonia. TECHNICAL DOCUMENTATION: JOB ID: [id number] Reading location - IP/workstation name: [email or web address]
[2019-02-18 13:32] LABS: APPEARANCE,URINE CLOUDY; BILIRUBIN,URINE NEGATIVE (NEGATIVE); COLOR,URINE YELLOW; GLUCOSE, URINE 50 mg/dL (NEGATIVE); KETONES,URINE TRACE mg/dL (NEGATIVE); LEUKOCYTE ESTERASE,URINE NEGATIVE (NEGATIVE); NITRITE,URINE NEGATIVE (NEGATIVE); PROTEIN,URINE NEGATIVE (NEGATIVE); URINE SPECIFIC GRAVITY 1.019; UROBILINOGEN,URINE NEGATIVE mg/dL (<2.0)
[2019-02-18 14:02] LABS: URINE CREATININE 89.2 mg/dL (15-278)
--- NOTE | 2019-02-18 16:32 | PDOC PROGRESS REPORT ---
Subjective Progress Note for:: 02/18/19 Subjective:: STARR TAYLOR is a 73 year old female with a PMH of HTN, morbid obesity and bronchitis. who recently underwent laparoscopic cholecystectomy. She was discharged home. Unfortunately she was not compliant with Dr. Roman's diet instructions and one bite of chicken at breakfast the next morning. Initial Lipase 17,000. She was admitted to [facility] with pancreatitis. She is resting in bed on nasal cannula. The patient is very lethargic, she is falling asleep during the interview. Nursing staff reports that the patient has not received any pain medication or Phenergan in 12+ hrs. On exam, her abdomen appears more distended when compared to yesterday. The patient states that her abdomen feels "more bloated" that it has been. States there is constant abdominal pain but it is "manageable." (+) TTP (+) bowel sounds. Patient endorses passing flatus and had a BM yesterday. Leukocytosis worse today 22-->29, patient remains afebrile. Creatinine jumped from 0.48-->1.68. Patient's SBP is down to low 100s from 150s yesterday. Patient was started on metoprolol yesterday, so this could be BB related or these constellation of symptoms (AMS, ARF, leukocytosis, hypotension) could be due to sepsis. CXR is basically unchanged. UA negative. ?Possible necrotic pancreas but unable to definitively determine this based on yesterday's CT. Unfortunately, today, the patient's GFR is too low to repeat the CT Abd w/contrast. Other possibility is an abscess formation in the fluid collection in the L paracolic gutter. Will broaden antibiotic coverage to Meropenem. Discussed patient's status with Dr. Roman Reason For Visit: PANCREATITIS Physical Exam Vital Signs: Temp Pulse Resp BP Pulse Ox 97.4 F 81 20 101/54 L 93 02/18/19 03:05 02/18/19 07:00 02/18/19 03:05 02/18/19 03:05 02/18/19 03:05 Pulse Oximeter Continuous Start: 02/08/19 13:05 Freq: RTQ4 Status: Complete Protocol: Document 02/11/19 08:00 LDA (Rec: 02/11/19 09:42 LDA [email or web address]) Pulse Oximetry Assessment Equipment Usage Equipment Discontinued Continuous SpO2 Machine # 8 Intake & Output 02/17/19 02/18/19 02/19/19 06:59 06:59 06:59 Intake Total 5808 2676 1000 Balance 5807 2677 1000 Weight 87.5 kg 86.8 kg General appearance: PRESENT: obese Eye exam: PRESENT: conjunctiva pink, PERRLA Mouth exam: PRESENT: moist, tongue midline Neck exam: PRESENT: full ROM Respiratory exam: PRESENT: clear to auscultation josh, decreased breath sounds - B/L LOWER BASES, symmetrical, unlabored Cardiovascular exam: PRESENT: RRR Pulses: PRESENT: normal radial pulses, normal dorsalis pedis pul GI/Abdominal exam: PRESENT: distended, normal bowel sounds, soft, tenderness Rectal exam: PRESENT: deferred Extremities exam: PRESENT: full ROM Musculoskeletal exam: PRESENT: full ROM. ABSENT: deformity Neurological exam: PRESENT: oriented to person, oriented to place, oriented to time, oriented to situation, other - PATIENT IS VERY LETHARGIC TODAY. FALLING ALEEP BETWEEN QUESTIONS DURING INTERVIEW. ABSENT: alert, awake - DROWSY Skin exam: PRESENT: dry, normal color Results Laboratory Results: 02/18/19 07:07 02/18/19 04:39 02/18/19 02/18/19 02/18/19 04:39 04:39 07:07 WBC 29.3 H 27.6 H RBC 3.53 L 3.42 L Hgb 10.7 L 10.4 L Hct 32.5 L 31.4 L MCV 92 92 MCH 30.3 30.3 MCHC 32.9 32.9 RDW 14.1 H 14.2 H Plt Count 700 H 688 H Seg Neutrophils % Not Reportable Lymphocytes % Not Reportable Monocytes % Not Reportable Eosinophils % Not Reportable Basophils % Not Reportable Absolute Neutrophils Not Reportable Absolute Lymphocytes Not Reportable Absolute Monocytes Not Reportable Absolute Eosinophils Not Reportable Absolute Basophils Not Reportable Sodium 138.0 Potassium 4.5 Chloride 103 Carbon Dioxide 24 Anion Gap 11 BUN 25 H Creatinine 1.68 H Est GFR ( Amer) 36 L Est GFR (Non-Af Amer) 30 L Glucose 200 H Lactic Acid Calcium 7.8 L Magnesium 2.1 Total Bilirubin 0.8 AST 47 H ALT 36 Alkaline Phosphatase 114 Total Protein 5.9 L Albumin 2.6 L Urine Color Urine Appearance Urine pH Ur Specific [place] Urine Protein Urine Glucose (UA) Urine Ketones Urine Blood Urine Nitrite Ur Leukocyte Esterase Urine WBC (Auto) Urine RBC (Auto) 02/18/19 02/18/19 12:21 13:00 WBC RBC Hgb Hct MCV MCH MCHC RDW Plt Count Seg Neutrophils % Lymphocytes % Monocytes % Eosinophils % Basophils % Absolute Neutrophils Absolute Lymphocytes Absolute Monocytes Absolute Eosinophils Absolute Basophils Sodium Potassium Chloride Carbon Dioxide Anion Gap BUN Creatinine Est GFR ( Amer) Est GFR (Non-Af Amer) Glucose Lactic Acid 1.5 Calcium Magnesium Total Bilirubin AST ALT Alkaline Phosphatase Total Protein Albumin Urine Color YELLOW Urine Appearance CLOUDY Urine pH 5.0 Ur Specific [place] 1.019 Urine Protein NEGATIVE Urine Glucose (UA) 50 H Urine Ketones TRACE H Urine Blood NEGATIVE Urine Nitrite NEGATIVE Ur Leukocyte Esterase NEGATIVE Urine WBC (Auto) 5 Urine RBC (Auto) 2 02/14/19 09:30 Stool - Stool - Final 02/14/19 09:30 Stool - Stool Stool Culture - Final NO SALMONELLA, SHIGELLA, CAMPYLOBACTER, OR E.COLI 0157 RECOVERED. NEGATIVE FOR SHIGA TOXINS 1&2. 02/09/19 07:30 NT-Pro-B Natriuret Pep 1330 H Impressions: Guidance Fluoroscopy 02/10/19 00:00 IMPRESSION: SUCCESSFUL PLACEMENT OF A 5 FR DUAL LUMEN 44 CM PICC IN THE LEFT B ASILIC VEIN. Interventional Vascular Procedure 02/10/19 00:00 IMPRESSION: SUCCESSFUL PLACEMENT OF A 5 FR DUAL LUMEN 44 CM PICC IN THE LEFT BASILIC VEIN. PICC Line Insertion 02/10/19 00:00 IMPRESSION: SUCCESSFUL PLACEMENT OF A 5 FR DUAL LUMEN 44 CM PICC IN THE LEFT BASILIC VEIN. KUB X-Ray 02/12/19 00:00 IMPRESSION: NO RADIOGRAPHIC EVIDENCE FOR ACUTE ABDOMINAL DISEASE. Abdomen/Pelvis CT 02/17/19 00:00 IMPRESSION: 1. Findings compatible with pancreatitis with interval development of a 10.9 x 7.2 cm hypodense collection anterior to the pancreatic body most compatible with a pseudocyst. Additional fluid posterior to the pancreas and tracking into the left paracolic gutter as detailed above. 2. Hypoattenuation of the pancreatic body. Evaluation for pancreatic necrosis limited secondary to lack of intravenous contrast. Venous Doppler Study 02/17/19 00:00 IMPRESSION: NO EVIDENCE DVT OR SVT IN EITHER LEG. Chest X-Ray 02/18/19 00:00 IMPRESSION: Small left pleural effusion and associated airspace disease c onsistent with pneumonia. Status: Imported from PACS Assessment and Plan - Diagnosis (1) Acute pancreatitis Qualifiers: Pancreatitis type: other Acute pancreatitis complication: no infection or necrosis Qualified Code(s): K85.80 - Other acute pancreatitis without necrosis or infection Is this a current diagnosis for this admission?: Yes Plan: Primary management per surgery Lipase 91 yesterday, will check in AM Worsening leukocytosis 22-->29 Afebrile but toxic appearing Creatinine worse 0.48-->1.68 Tolerating full liquids but abdomen more distended today, +BS, +TTP Octreotide 200mg TID 02/17/19 CT Abd/Pelvis today, shows interval development of pseudocyst with additional fluid collections tracking posterior to the pancreas. Broadened antibiotic coverage from Unasyn to Meropenem If patient continues to deteriorate, plan for repeat CT in 24-48 hrs to evaluate for pancreatic necrosis or abscess formation in the paracolic gutter Morphine PRN for pain scale 4-5 Tramadol PRN for pain scale 1-[address] Roman, no surgical intervention at this time (2) Acute encephalopathy Is this a current diagnosis for this admission?: Yes Plan: Patient is very lethargic today but answers questions appropriately Patient's clinical presentation today is lethargy more than encephalopathy (3) Hypertensive urgency Is this a current diagnosis for this admission?: Yes Plan: Lisinopril decreased from 40mg to 20mg BID due to ARF Continue amlodipine 10mg PO daily and chlorthalidone 12.5mg PO daily Toprol XL 25mg BID SBP 100-115 today, dropped from 140-150 yesterday 40 point drop could be related to new Toprol XL dose or sepsis/worsening clinical status Lactate today is relatively benign (1.5) (4) Obesity (BMI 30.0-34.9) Is this a current diagnosis for this admission?: Yes Plan: Encouraged lifestyle modification - Time Time Spent with patient: 25-34 minutes Medications reviewed and adjusted accordingly: Yes Anticipated discharge: Home - Inpatient Certification Based on my medical assessment, after consideration of the patient's comorbidities, presenting symptoms, or acuity I expect that the services needed warrant INPATIENT care.: Yes I certify that my determination is in accordance with my understanding of Medicare's requirements for reasonable and necessary INPATIENT services [42 CFR 412.3e].: Yes Medical Necessity: Need Close Monitoring Due to Risk of Patient Decompensation, Need for IV Antibiotics, Risk of Complication if Not Cared For in Hospital
[2019-02-18] MEDS ORDERED: AMPICILLIN SODIUM/SULBACTAM NA 3 GM in NORMAL SALINE 100 ML IV SCH (18:00)
[2019-02-18] MEDS: MEROPENEM 1 GM in NORMAL SALINE 50 ML IV SCH (21:17)
[2019-02-18] MEDS ORDERED: MEROPENEM 1 GM in NORMAL SALINE 50 ML IV SCH (22:00)
[2019-02-19] MEDS: OCTREOTIDE ACETATE INJ/PF 100 MCG/1 ML SDV SUBCUT SCH ×3 (05:16→21:18)
[2019-02-19] MEDS: PANTOPRAZOLE SODIUM 40 MG TABLET.DR PO SCH (05:16)
[2019-02-19 08:06] LABS: HEMATOCRIT 27.4 % (36.0-47.0); HEMOGLOBIN 9.3 g/dL (12.0-15.5); MEAN CORPUSCULAR HEMOGLOBIN 30.8 pg (27.0-33.4); MEAN CORPUSCULAR HGB CONC 33.7 g/dL (32.0-36.0); MEAN CORPUSCULAR VOLUME 91 fl (80-97); RED BLOOD COUNT 3.01 10^6/uL (3.72-5.28); WHITE BLOOD COUNT 21.6 10^3/uL (4.0-10.5)
[2019-02-19 08:19] LABS: ANION GAP 6 (5-19); BLOOD UREA NITROGEN 31 mg/dL (7-20); CALCIUM 7.7 mg/dL (8.4-10.2); CARBON DIOXIDE 26 mmol/L (22-30); CHLORIDE 103 mmol/L (98-107); GLUCOSE 166 mg/dL (75-110); LIPASE 96.4 U/L (23-300); PHOSPHORUS 3.8 mg/dL (2.5-4.5); POTASSIUM 4.3 mmol/L (3.6-5.0); SODIUM 134.7 mmol/L (137-145)
[2019-02-19 08:31] LABS: PLATELET COUNT 676 10^3/uL (150-450)
[2019-02-19] MEDS: NORMAL SALINE 10 ML SDV (SCHEDULED) IV SCH ×2 (09:32→21:19)
[2019-02-19] MEDS: FLUTICASONE NASAL SPRAY 50 MCG/SPRY 120 SPRAY/16 GM NASL SCH (09:35)
[2019-02-19] MEDS: AMLODIPINE BESYLATE 10 MG TABLET PO SCH (09:37)
[2019-02-19] MEDS: CHLORTHALIDONE 25 MG TABLET PO SCH (09:38)
[2019-02-19] MEDS: LISINOPRIL 10 MG TABLET PO SCH (09:38)
[2019-02-19] MEDS: METOPROLOL TARTRATE 25 MG TABLET PO SCH ×2 (09:38→21:18)
[2019-02-19] MEDS: MEROPENEM 1 GM in NORMAL SALINE 50 ML IV SCH ×2 (09:40→21:19)
--- NOTE | 2019-02-19 11:35 | RADIOLOGY REPORT (SQ) ---
EXAM DESCRIPTION: PICC INSERTION; FLUORO/CV PLACEMENT; U/S GUIDE FOR VASCULAR ACCESS COMPLETED DATE/TIME: 02/19/2019 11:26 am REASON FOR STUDY: IV ABX COMPARISON: AP chest 02/18/2019 FLUOROSCOPY TIME: Less than 5 seconds 1 ultrasound and 1 digital fluoro image saved to PACS. TECHNIQUE: Fluoroscopic and ultrasound guided PICC placement. LIMITATIONS: None. PROCEDURE: After written consent and assessment were obtained, the patient was brought into the fluo roscopy room and placed supine on the table. Ultrasound evaluation of potential access sites were per formed. After successfully identifying a patent right basilic vein, the right arm was prepped and tori ped in a sterile fashion along with the ultrasound probe. The entry site was anesthetized with 1% lid ocaine. A 21 gauge 7 cm needle was advanced through the skin and into the basilic vein under live ult rasound guidance. An ultrasound image was saved to PACS confirming access site. A .018 guide wire w as then inserted through the needle and into the venous system. The needle was then removed and an 11 blade scalpel was used to make a 1cm skin incision. A 5 fr peel-away sheath was advanced over the w iker and into the venous system. A measurement was then made using the existing wire and live fluorosc opic guidance. The wire was then removed and trimmed. The PICC was advanced through the peel-away she ath and into the venous system. The peel-away sheath was removed and the catheter was adhered to the patients arm with a stat lock. The catheter was then aspirated and flushed and a sterile bandage was placed over the access site. A fluoroscopic spot image was saved to PACS confirming the catheter tip within the superior vena cava. IMPRESSION: SUCCESSFUL PLACEMENT OF A 5 FR DUAL LUMEN 33 CM PICC IN THE RIGHT BASILIC VEIN. COMMENT: Patient medication list reviewed: Yes- Quality ID# [id number]:Eligible professional attests to doc umenting in the medical record they obtained, updated, or reviewed the patient's current medications. . Quality ID 145: Final reports for procedures using fluoroscopy that document radiation exposure magui aurelia, or exposure time and number of fluorographic images (if radiation exposure indices are not avail able) Quality ID #76: The patient was prepped and draped using maximum sterile barrier technique including cap, mask, sterile gown, sterile gloves, a large sterile sheet, hand hygiene, and 2% Chlorhexidine fo r cutaneous antisepsis. When ultrasound is used, sterile ultrasound techniques are followed requiring sterile gel and sterile probes. TECHNICAL DOCUMENTATION: JOB ID: [id number] [employer]- All Rights Reserved rev-04/03 Reading location - IP/workstation name: [email or web address]
[2019-02-19] MEDS: NORMAL SALINE 1000 ML 1,000 ML IV PRN ×2 (12:24→21:21)
[2019-02-19] MEDS: ASPIRIN 81 MG TABLET, CHEWABLE PO SCH (12:24)
--- NOTE | 2019-02-19 13:21 | PDOC PROGRESS REPORT ---
Subjective Progress Note for:: 02/19/19 Subjective:: feels better this am Reason For Visit: PANCREATITIS Physical Exam Vital Signs: Temp Pulse Resp BP Pulse Ox 98.0 F 86 17 152/67 H 91 L 02/19/19 07:19 02/19/19 07:19 02/19/19 07:19 02/19/19 07:19 02/19/19 07:19 Pulse Oximeter Continuous Start: 02/08/19 13:05 Freq: RTQ4 Status: Complete Protocol: Document 02/11/19 08:00 LDA (Rec: 02/11/19 09:42 LDA [email or web address]) Pulse Oximetry Assessment Equipment Usage Equipment Discontinued Continuous SpO2 Machine # 8 Intake & Output 02/18/19 02/19/19 02/20/19 06:59 06:59 06:59 Intake Total 2677 2772 1050 Output Total 1250 Balance 2677 1522 1050 Weight 86.8 kg 91.2 kg General appearance: PRESENT: no acute distress Eye exam: PRESENT: PERRLA Mouth exam: PRESENT: moist Respiratory exam: PRESENT: clear to auscultation josh Cardiovascular exam: PRESENT: RRR Pulses: PRESENT: normal femoral pulses, normal dorsalis pedis pul GI/Abdominal exam: PRESENT: other - tender to palp in epigstrium and left abd wall no peritoneal signs Rectal exam: PRESENT: deferred Extremities exam: PRESENT: full ROM Musculoskeletal exam: PRESENT: full ROM Neurological exam: PRESENT: alert, awake, oriented to person, oriented to place, oriented to time Skin exam: PRESENT: dry Results Laboratory Results: 02/19/19 07:51 02/19/19 07:51 02/18/19 02/19/19 02/19/19 13:00 04:57 07:51 WBC 21.6 H RBC 3.01 L Hgb 9.3 L Hct 27.4 L MCV 91 MCH 30.8 MCHC 33.7 RDW 14.0 Plt Count 676 H Sodium Potassium Chloride Carbon Dioxide Anion Gap BUN Creatinine Est GFR ( Amer) Est GFR (Non-Af Amer) Glucose Calcium Phosphorus Magnesium Ammonia < 8.7 L Lipase Urine Color YELLOW Urine Appearance CLOUDY Urine pH 5.0 Ur Specific [place] 1.019 Urine Protein NEGATIVE Urine Glucose (UA) 50 H Urine Ketones TRACE H Urine Blood NEGATIVE Urine Nitrite NEGATIVE Ur Leukocyte Esterase NEGATIVE Urine WBC (Auto) 5 Urine RBC (Auto) 2 02/19/19 07:51 WBC RBC Hgb Hct MCV MCH MCHC RDW Plt Count Sodium 134.7 L Potassium 4.3 Chloride 103 Carbon Dioxide 26 Anion Gap 6 BUN 31 H Creatinine 0.87 Est GFR ( Amer) > 60 Est GFR (Non-Af Amer) > 60 Glucose 166 H Calcium 7.7 L Phosphorus 3.8 Magnesium 2.2 Ammonia Lipase 96.4 Urine Color Urine Appearance Urine pH Ur Specific [place] Urine Protein Urine Glucose (UA) Urine Ketones Urine Blood Urine Nitrite Ur Leukocyte Esterase Urine WBC (Auto) Urine RBC (Auto) 02/16/19 10:15 Catheter Tip - Picc Line Catheter Tip Culture - Final NO GROWTH 3 DAYS 02/09/19 07:30 NT-Pro-B Natriuret Pep 1330 H Impressions: KUB X-Ray 02/12/19 00:00 IMPRESSION: NO RADIOGRAPHIC EVIDENCE FOR ACUTE ABDOMINAL DISEASE. Abdomen/Pelvis CT 02/17/19 00:00 IMPRESSION: 1. Findings compatible with pancreatitis with interval development of a 10.9 x 7.2 cm hypodense collection anterior to the pancreatic body most compatible with a pseudocyst. Additional fluid posterior to the pancreas and tracking into the left paracolic gutter as detailed above. 2. Hypoattenuation of the pancreatic body. Evaluation for pancreatic necrosis limited secondary to lack of intravenous contrast. Venous Doppler Study 02/17/19 00:00 IMPRESSION: NO EVIDENCE DVT OR SVT IN EITHER LEG. Chest X-Ray 02/18/19 00:00 IMPRESSION: Small left pleural effusion and associated airspace disease consistent with pneumonia. Guidance Fluoroscopy 02/19/19 00:00 IMPRESSION: SUCCESSFUL PLACEMENT OF A 5 FR DUAL LUMEN 33 CM PICC IN THE RIGHT BASILIC VEIN. Interventional Vascular Procedure 02/19/19 00:00 IMPRESSION: SUCCESSFUL PLACEMENT OF A 5 FR DUAL LUMEN 33 CM PICC IN THE RIGHT BASILIC VEIN. PICC Line Insertion 02/19/19 00:00 IMPRESSION: SUCCESSFUL PLACEMENT OF A 5 FR DUAL LUMEN 33 CM PICC IN THE RIGHT BASILIC VEIN. Assessment & Plan - Diagnosis (1) Acute pancreatitis Qualifiers: Pancreatitis type: other Acute pancreatitis complication: no infection or necrosis Qualified Code(s): K85.80 - Other acute pancreatitis without necrosis or infection Is this a current diagnosis for this admission?: Yes - Plan Summary Plan Summary: doing better today wbc decreasing creat now nl\ lipase normal pt doing ok with full liquids will place new picc line today and restart tpn.
[2019-02-19] MEDS ORDERED: DEXTROSE 50%-WATER SYRINGE 25 GM/50 ML DOSE IV PRN (14:30)
[2019-02-19] MEDS ORDERED: DEXTROSE 50%-WATER SYRINGE 12.5 GM/25 ML DOSE IV PRN (14:30)
[2019-02-19] MEDS ORDERED: INSULIN REG, HUMAN 100 UNIT/ML 3 ML VIAL (PYX) SUBCUT PRN (14:30)
[2019-02-19] MEDS ORDERED: DEXTROSE 40% GEL 15 GM TUBE X 2 PO PRN (14:30)
[2019-02-19] MEDS ORDERED: DEXTROSE 10%-WATER 1,000 ML IV PRN (14:30)
[2019-02-19] MEDS ORDERED: GLUCAGON,HUMAN RECOMB 1 MG INJ IM PRN (14:30)
[2019-02-19] MEDS ORDERED: DEXTROSE 40% GEL 15 GM TUBE PO PRN (14:30)
--- NOTE | 2019-02-19 16:42 | PDOC PROGRESS REPORT ---
Subjective Progress Note for:: 02/19/19 Subjective:: STARR TAYLOR is a 73 year old female with a PMH of HTN, morbid obesity and bronchitis. who recently underwent laparoscopic cholecystectomy. She was discharged home. Unfortunately she was not compliant with Dr. Roman's diet instructions and one bite of chicken at breakfast the next morning. Initial Lipase 17,000. She was admitted to [facility] with pancreatitis. She is resting in bed on nasal cannula. The patient somewhat lethargic, she is falling asleep during the interview. Nursing staff reports that the patient does not take pain medication, only tylenol and seldomly Tramadol despite her constant complaint of abdominal pain. States there is constant abdominal pain but it is "manageable." (+) TTP (+) bowel sounds. Patient endorses passing flatus. On exam, her abdomen appears distended, unchanged from yesterday. Leukocytosis improved today 22-->21, patient remains afebrile. Creatinine improved1.68-->0.8. Patient's SBP is back up to 150s today. Will increase lisinopril back to 40 mg twice daily for blood pressure control. PICC line placed today, plan to restart TPN. Patient's expressed frustration and lack of understanding of her clinical situation. Lengthy discussion regarding the pathophysiology of p ancreatitis and the likelihood of a very slow recovery. Additionally, the patient was encouraged to participate in physical therapy. Thus far, she has refused. Reason For Visit: PANCREATITIS Physical Exam Vital Signs: Temp Pulse Resp BP Pulse Ox 98.0 F 83 17 152/67 H 91 L 02/19/19 07:19 02/19/19 14:00 02/19/19 07:19 02/19/19 07:19 02/19/19 07:19 Pulse Oximeter Continuous Start: 02/08/19 13:05 Freq: RTQ4 Status: Complete Protocol: Document 02/11/19 08:00 LDA (Rec: 02/11/19 09:42 LDA [email or web address]) Pulse Oximetry Assessment Equipment Usage Equipment Discontinued Continuous SpO2 Machine # 8 Intake & Output 02/18/19 02/19/19 02/20/19 06:59 06:59 06:59 Intake Total 4299 2772 1509 Output Total 1250 1100 Balance 2677 1522 409 Weight 86.8 kg 91.2 kg General appearance: PRESENT: obese Head exam: PRESENT: atraumatic Eye exam: PRESENT: conjunctiva pink, PERRLA Mouth exam: PRESENT: moist, tongue midline Neck exam: PRESENT: full ROM Respiratory exam: PRESENT: clear to auscultation josh, decreased breath sounds - Bilateral lower lobes, symmetrical, unlabored Cardiovascular exam: PRESENT: RRR Pulses: PRESENT: normal radial pulses, normal dorsalis pedis pul Vascular exam: PRESENT: normal capillary refill GI/Abdominal exam: PRESENT: distended, normal bowel sounds, soft, tenderness Rectal exam: PRESENT: deferred Extremities exam: PRESENT: full ROM. ABSENT: pedal edema Musculoskeletal exam: PRESENT: full ROM, normal inspection. ABSENT: ambulatory, deformity Neurological exam: PRESENT: awake - Arousable to tactile stimuli. Falls asleep during interview, oriented to person, oriented to place, oriented to time, oriented to situation. ABSENT: alert - Drowsy Psychiatric exam: PRESENT: appropriate affect Skin exam: PRESENT: dry, intact, normal color Results Laboratory Results: 02/19/19 07:51 02/19/19 07:51 02/19/19 02/19/19 02/19/19 04:57 07:51 07:51 WBC 21.6 H RBC 3.01 L Hgb 9.3 L Hct 27.4 L MCV 91 MCH 30.8 MCHC 33.7 RDW 14.0 Plt Count 676 H Sodium 134.7 L Potassium 4.3 Chloride 103 Carbon Dioxide 26 Anion Gap 6 BUN 31 H Creatinine 0.87 Est GFR ( Amer) > 60 Est GFR (Non-Af Amer) > 60 Glucose 166 H Calcium 7.7 L Phosphorus 3.8 Magnesium 2.2 Ammonia < 8.7 L Lipase 96.4 02/16/19 10:15 Catheter Tip - Picc Line Catheter Tip Culture - Final NO GROWTH 3 DAYS 02/09/19 07:30 NT-Pro-B Natriuret Pep 1330 H Impressions: KUB X-Ray 02/12/19 00:00 IMPRESSION: NO RADIOGRAPHIC EVIDENCE FOR ACUTE ABDOMINAL DISEASE. Abdomen/Pelvis CT 02/17/19 00:00 IMPRESSION: 1. Findings compatible with pancreatitis with interval development of a 10.9 x 7.2 cm hypodense collection anterior to the pancreatic body most compatible with a pseudocyst. Additional fluid posterior to the pancreas and tracking into the left paracolic gutter as detailed above. 2. Hypoattenuation of the pancreatic body. Evaluation for pancreatic necrosis limited secondary to lack of intravenous contrast. Venous Doppler Study 02/17/19 00:00 IMPRESSION: NO EVIDENCE DVT OR SVT IN EITHER LEG. Chest X-Ray 02/18/19 00:00 IMPRESSION: Small left pleural effusion and associated airspace disease consistent with pneumonia. Guidance Fluoroscopy 02/19/19 00:00 IMPRESSION: SUCCESSFUL PLACEMENT OF A 5 FR DUAL LUMEN 33 CM PICC IN THE RIGHT BASILIC VEIN. Interventional Vascular Procedure 02/19/19 00:00 IMPRESSION: SUCCESSFUL PLACEMENT OF A 5 FR DUAL LUMEN 33 CM PICC IN THE RIGHT BASILIC VEIN. PICC Line Insertion 02/19/19 00:00 IMPRESSION: SUCCESSFUL PLACEMENT OF A 5 FR DUAL LUMEN 33 CM PICC IN THE RIGHT BASILIC VEIN. Status: Imported from PACS Assessment and Plan - Diagnosis (1) Acute pancreatitis Qualifiers: Pancreatitis type: other Acute pancreatitis complication: no infection or necrosis Qualified Code(s): K85.80 - Other acute pancreatitis without necrosis or infection Is this a current diagnosis for this admission?: Yes Plan: Primary management per surgery Lipase 96.4 Improving leukocytosis 22-->21 Afebrile but still somewhat toxic appearing Creatinine improving 1.68-->0.8 Tolerating full liquids but abdomen remains distended today, +BS, +TTP 02/17/19 CT Abd/Pelvis shows interval development of pseudocyst with additional fluid collections tracking posterior to the pancreas. Octreotide 200mg TID Continue broad spectrum antibiotic coverage with meropenem If patient were to deteriorate, plan for repeat CT to evaluate for pancreatic necrosis or abscess formation in the paracolic gutter Morphine PRN for pain scale 4-5 Tramadol PRN for pain scale 1-4 PICC line placed today, plan to restart TPN (2) Acute encephalopathy Is this a current diagnosis for this admission?: Yes Plan: Patient is very lethargic but able to answer questions appropriately Patient's clinical presentation today is lethargy more than encephalopathy (3) Hypertensive urgency Is this a current diagnosis for this admission?: Yes Plan: Lisinopril increased from 20 mg twice daily to 40 mg twice daily Continue amlodipine 10mg PO daily and chlorthalidone 12.5mg PO daily Toprol XL 25mg BID SBP 150-155 today (4) Obesity (BMI 30.0-34.9) Is this a current diagnosis for this admission?: Yes Plan: Encouraged lifestyle modification - Time Time Spent with patient: 15-24 minutes Medications reviewed and adjusted accordingly: Yes Anticipated discharge: Acute Rehab - Inpatient Certification Based on my medical assessment, after consideration of the patient's comorbidities, presenting symptoms, or acuity I expect that the services needed warrant INPATIENT care.: Yes I certify that my determination is in accordance with my understanding of Medicare's requirements for reasonable and necessary INPATIENT services [42 CFR 412.3e].: Yes Medical Necessity: Need For Continuous Telemetry Monitoring, Risk of Complication if Not Cared For in Hospital
[2019-02-19] MEDS: ACETAMINOPHEN 325 MG TABLET PO PRN ×2 (17:01→23:16)
[2019-02-19] MEDS: POLYETHYLENE GLYCOL 3350 POWDER 17 GM/1 PACKET PO PRN (19:33)
[2019-02-19] MEDS: SIMETHICONE 80 MG TAB.CHEW PO PRN (19:33)
[2019-02-19] MEDS: MAG HYDROX/AL HYDROX/SIMETH SUSP 30 ML UDCUP PO PRN (23:16)
[2019-02-20] MEDS: NORMAL SALINE 1000 ML 1,000 ML IV PRN ×2 (05:49→17:12)
[2019-02-20] MEDS: OCTREOTIDE ACETATE INJ/PF 100 MCG/1 ML SDV SUBCUT SCH ×3 (05:50→21:13)
[2019-02-20 06:03] LABS: HEMATOCRIT 24.8 % (36.0-47.0); HEMOGLOBIN 8.3 g/dL (12.0-15.5); MEAN CORPUSCULAR HEMOGLOBIN 30.5 pg (27.0-33.4); MEAN CORPUSCULAR HGB CONC 33.5 g/dL (32.0-36.0); MEAN CORPUSCULAR VOLUME 91 fl (80-97); PLATELET COUNT 656 10^3/uL (150-450); RED BLOOD COUNT 2.73 10^6/uL (3.72-5.28); RED CELL DISTRIBUTION WIDTH 13.9 % (11.5-14.0); WHITE BLOOD COUNT 20.1 10^3/uL (4.0-10.5)
[2019-02-20 06:21] LABS: ALANINE AMINOTRANSFERASE 44 U/L (9-52); ALKALINE PHOSPHATASE 120 U/L (38-126); ANION GAP 6 (5-19); ASPARTATE AMINO TRANSFERASE 57 U/L (14-36); BILIRUBIN,DIRECT 0.3 mg/dL (0.0-0.4); BILIRUBIN,TOTAL 0.4 mg/dL (0.2-1.3); BLOOD UREA NITROGEN 15 mg/dL (7-20); CALCIUM 7.1 mg/dL (8.4-10.2); CARBON DIOXIDE 27 mmol/L (22-30); CHLORIDE 104 mmol/L (98-107); GLUCOSE 132 mg/dL (75-110); POTASSIUM 3.6 mmol/L (3.6-5.0); SODIUM 136.8 mmol/L (137-145); TOTAL PROTEIN 4.8 g/dL (6.3-8.2)
[2019-02-20] MEDS: ACETAMINOPHEN 325 MG TABLET PO PRN ×2 (07:02→21:13)
[2019-02-20] MEDS: METOPROLOL TARTRATE 25 MG TABLET PO SCH ×2 (09:15→22:00)
[2019-02-20] MEDS: ASPIRIN 81 MG TABLET, CHEWABLE PO SCH (09:15)
[2019-02-20] MEDS: FLUTICASONE NASAL SPRAY 50 MCG/SPRY 120 SPRAY/16 GM NASL SCH (09:15)
[2019-02-20] MEDS: AMLODIPINE BESYLATE 10 MG TABLET PO SCH (09:16)
[2019-02-20] MEDS: LISINOPRIL 10 MG TABLET PO SCH (09:17)
[2019-02-20] MEDS: MEROPENEM 1 GM in NORMAL SALINE 50 ML IV SCH ×2 (09:17→21:13)
[2019-02-20] MEDS: CHLORTHALIDONE 25 MG TABLET PO SCH (09:18)
[2019-02-20] MEDS: NORMAL SALINE 10 ML SDV (SCHEDULED) IV SCH ×2 (09:19→22:00)
--- NOTE | 2019-02-20 10:08 | PDOC PROGRESS REPORT ---
Subjective Progress Note for:: 02/20/19 Subjective:: feeling sl better Reason For Visit: PANCREATITIS Physical Exam Vital Signs: Temp Pulse Resp BP Pulse Ox 97.2 F 74 16 125/65 92 02/20/19 07:25 02/20/19 07:25 02/20/19 07:25 02/20/19 07:25 02/20/19 07:25 Pulse Oximeter Continuous Start: 02/08/19 13:05 Freq: RTQ4 Status: Complete Protocol: Document 02/11/19 08:00 LDA (Rec: 02/11/19 09:42 LDA [email or web address]) Pulse Oximetry Assessment Equipment Usage Equipment Discontinued Continuous SpO2 Machine # 8 Intake & Output 02/19/19 02/20/19 02/21/19 06:59 06:59 06:59 Intake Total 2772 4095 Output Total 1250 3225 Balance 1522 870 Weight 91.2 kg 91.8 kg General appearance: PRESENT: mild distress Head exam: PRESENT: normocephalic Eye exam: PRESENT: conjunctiva pink, EOMI Mouth exam: PRESENT: moist Neck exam: PRESENT: full ROM Respiratory exam: PRESENT: clear to auscultation josh Cardiovascular exam: PRESENT: RRR GI/Abdominal exam: PRESENT: soft - min epigastric tenderness Rectal exam: PRESENT: deferred Extremities exam: PRESENT: +1 edema Musculoskeletal exam: PRESENT: full ROM Neurological exam: PRESENT: alert, awake, oriented to person, oriented to place, oriented to time, oriented to situation Psychiatric exam: PRESENT: appropriate affect Results Laboratory Results: 02/20/19 05:45 02/20/19 05:45 02/20/19 02/20/19 05:45 05:45 WBC 20.1 H RBC 2.73 L Hgb 8.3 L Hct 24.8 L MCV 91 MCH 30.5 MCHC 33.5 RDW 13.9 Plt Count 656 H Sodium 136.8 L Potassium 3.6 Chloride 104 Carbon Dioxide 27 Anion Gap 6 BUN 15 Creatinine 0.58 Est GFR ( Amer) > 60 Est GFR (Non-Af Amer) > 60 Glucose 132 H Calcium 7.1 L Magnesium 2.0 Total Bilirubin 0.4 AST 57 H ALT 44 Alkaline Phosphatase 120 Total Protein 4.8 L Albumin 2.0 L 02/16/19 10:15 Catheter Tip - Picc Line Catheter Tip Culture - Final NO GROWTH 3 DAYS 03/26/19 07:30 NT-Pro-B Natriuret Pep 1330 H Impressions: KUB X-Ray 02/12/19 00:00 IMPRESSION: NO RADIOGRAPHIC EVIDENCE FOR ACUTE ABDOMINAL DISEASE. Abdomen/Pelvis CT 02/17/19 00:00 IMPRESSION: 1. Findings compatible with pancreatitis with interval development of a 10.9 x 7.2 cm hypodense collection anterior to the pancreatic body most compatible with a pseudocyst. Additional fluid posterior to the pancreas and tracking into the left paracolic gutter as detailed above. 2. Hypoattenuation of the pancreatic body. Evaluation for pancreatic necrosis limited secondary to lack of intravenous contrast. Venous Doppler Study 02/17/19 00:00 IMPRESSION: NO EVIDENCE DVT OR SVT IN EITHER LEG. Chest X-Ray 02/18/19 00:00 IMPRESSION: Small left pleural effusion and associated airspace disease consistent with pneumonia. Guidance Fluoroscopy 02/19/19 00:00 IMPRESSION: SUCCESSFUL PLACEMENT OF A 5 FR DUAL LUMEN 33 CM PICC IN THE RIGHT BASILIC VEIN. Interventional Vascular Procedure 02/19/19 00:00 IMPRESSION: SUCCESSFUL PLACEMENT OF A 5 FR DUAL LUMEN 33 CM PICC IN THE RIGHT BASILIC VEIN. PICC Line Insertion 02/19/19 00:00 IMPRESSION: SUCCESSFUL PLACEMENT OF A 5 FR DUAL LUMEN 33 CM PICC IN THE RIGHT BASILIC VEIN. Assessment & Plan - Diagnosis (1) Acute pancreatitis Qualifiers: Pancreatitis type: other Acute pancreatitis complication: no infection or necrosis Qualified Code(s): K85.80 - Other acute pancreatitis without necrosis or infection Is this a current diagnosis for this admission?: Yes - Plan Summary Plan Summary: feeling a bit better wbc trending down piccline placed yesterday tatum min amts of full liquids had bm yesterday will start tpn today cont iv abx trend wbc cont sandostatin
[2019-02-20] MEDS: AMINO ACIDS 5 %/DEXTROSE 20 % 1,000 ML IV PRN (10:41)
--- NOTE | 2019-02-20 20:49 | PDOC PROGRESS REPORT ---
Subjective Progress Note for:: 02/20/19 Subjective:: STARR TAYLOR is a 73 year old female with a PMH of HTN, morbid obesity and bronchitis. who recently underwent laparoscopic cholecystectomy. She was discharged home. Unfortunately she was not compliant with Dr. Roman's diet instructions and one bite of chicken at breakfast the next morning. Initial Lipase 17,000. She was admitted to [facility] with pancreatitis. She is resting in bed on nasal cannula. The patient more awake today but still somewhat lethargic, she is intermittently falling asleep during the interview. Patient reports she had a large bowel movement today. Abdomen (+) TTP (+) bowel sounds. On exam, her abdomen appears distended, unchanged from yesterday. Leukocytosis improved today 21-->20, patient remains afebrile. PICC line placed yesterday, restarted TPN today. She tolerates her full liquid diet. Reason For Visit: PANCREATITIS Physical Exam Vital Signs: Temp Pulse Resp BP Pulse Ox 98.1 F 71 18 131/60 H 90 L 02/20/19 15:21 02/20/19 19:00 02/20/19 15:21 02/20/19 15:21 02/20/19 15:21 Pulse Oximeter Continuous Start: 02/08/19 13:05 Freq: RTQ4 Status: Complete Protocol: Document 02/11/19 08:00 LDA (Rec: 02/11/19 09:42 LDA [email or web address]) Pulse Oximetry Assessment Equipment Usage Equipment Discontinued Continuous SpO2 Machine # 8 Intake & Output 02/19/19 02/20/19 02/21/19 06:59 06:59 06:59 Intake Total 2772 4095 1759 Output Total 1250 3225 1850 Balance 1522 870 -91 Weight 91.2 kg 91.8 kg General appearance: PRESENT: morbidly obese Head exam: PRESENT: atraumatic Eye exam: PRESENT: conjunctiva pink, PERRLA Mouth exam: PRESENT: moist, tongue midline Neck exam: PRESENT: full ROM Respiratory exam: PRESENT: clear to auscultation josh, symmetrical, unlabored Cardiovascular exam: PRESENT: RRR Pulses: PRESENT: normal radial pulses, normal dorsalis pedis pul Vascular exam: PRESENT: normal capillary refill GI/Abdominal exam: PRESENT: distended, normal bowel sounds, soft, tenderness. ABSENT: firm, rigid Rectal exam: PRESENT: deferred Extremities exam: PRESENT: full ROM. ABSENT: pedal edema Musculoskeletal exam: PRESENT: full ROM. ABSENT: ambulatory - needs 2 person assist Neurological exam: PRESENT: alert, awake, oriented to person, oriented to place, oriented to time, oriented to situation Psychiatric exam: PRESENT: appropriate affect Skin exam: PRESENT: dry, intact, normal color Results Laboratory Results: 02/20/19 05:45 02/20/19 05:45 02/20/19 02/20/19 05:45 05:45 WBC 20.1 H RBC 2.73 L Hgb 8.3 L Hct 24.8 L MCV 91 MCH 30.5 MCHC 33.5 RDW 13.9 Plt Count 656 H Sodium 136.8 L Potassium 3.6 Chloride 104 Carbon Dioxide 27 Anion Gap 6 BUN 15 Creatinine 0.58 Est GFR ( Amer) > 60 Est GFR (Non-Af Amer) > 60 Glucose 132 H Calcium 7.1 L Magnesium 2.0 Total Bilirubin 0.4 AST 57 H ALT 44 Alkaline Phosphatase 120 Total Protein 4.8 L Albumin 2.0 L 02/09/19 07:30 NT-Pro-B Natriuret Pep 1330 H Impressions: KUB X-Ray 02/12/19 00:00 IMPRESSION: NO RADIOGRAPHIC EVIDENCE FOR ACUTE ABDOMINAL DISEASE. Abdomen/Pelvis CT 02/17/19 00:00 IMPRESSION: 1. Findings compatible with pancreatitis with interval development of a 10.9 x 7.2 cm hypodense collection anterior to the pancreatic body most compatible with a pseudocyst. Additional fluid posterior to the pancreas and tracking into the left paracolic gutter as detailed above. 2. Hypoattenuation of the pancreatic body. Evaluation for pancreatic necrosis limited secondary to lack of intravenous contrast. Venous Doppler Study 02/17/19 00:00 IMPRESSION: NO EVIDENCE DVT OR SVT IN EITHER LEG. Chest X-Ray 02/18/19 00:00 IMPRESSION: Small left pleural effusion and associated airspace disease consistent with pneumonia. Guidance Fluoroscopy 02/19/19 00:00 IMPRESSION: SUCCESSFUL PLACEMENT OF A 5 FR DUAL LUMEN 33 CM PICC IN THE RIGHT BASILIC VEIN. Interventional Vascular Procedure 02/19/19 00:00 IMPRESSION: SUCCESSFUL PLACEMENT OF A 5 FR DUAL LUMEN 33 CM PICC IN THE RIGHT BASILIC VEIN. PICC Line Insertion 04/05/19 00:00 IMPRESSION: SUCCESSFUL PLACEMENT OF A 5 FR DUAL LUMEN 33 CM PICC IN THE RIGHT BASILIC VEIN. Status: Imported from PACS Assessment and Plan - Diagnosis (1) Acute pancreatitis Qualifiers: Pancreatitis type: other Acute pancreatitis complication: no infection or necrosis Qualified Code(s): K85.80 - Other acute pancreatitis without necrosis or infection Is this a current diagnosis for this admission?: Yes Plan: Primary management per surgery Lipase 96.4 Improving leukocytosis 21-->20 Afebrile but still somewhat toxic appearing Tolerating full liquids but abdomen remains distended today, +BS, +TTP PICC line placed yesterday, TPN started today 02/17/19 CT Abd/Pelvis shows interval development of pseudocyst with additional fluid collections tracking posterior to the pancreas. Octreotide 200mg TID Continue broad spectrum antibiotic coverage with meropenem If patient were to deteriorate, plan for repeat CT to evaluate for pancreatic necrosis or abscess formation in the paracolic gutter Morphine PRN for pain scale 4-5 Tramadol PRN for pain scale 1-4 (2) Acute encephalopathy Is this a current diagnosis for this admission?: Yes Plan: Improving Patient is mildly lethargic but able to answer questions appropriately Patient's clinical presentation today is lethargy more than encephalopathy (3) Hypertensive urgency Is this a current diagnosis for this admission?: Yes Plan: Lisinopril 40 mg twice daily Continue amlodipine 10mg PO daily and chlorthalidone 12.5mg PO daily Toprol XL 25mg BID SBP 130s today (4) Obesity (BMI 30.0-34.9) Is this a current diagnosis for this admission?: Yes Plan: Encouraged lifestyle modification - Time Time Spent with patient: 15-24 minutes Medications reviewed and adjusted accordingly: Yes Anticipated discharge: Acute Rehab - Inpatient Certification Based on my medical assessment, after consideration of the patient's comorbidities, presenting symptoms, or acuity I expect that the services needed warrant INPATIENT care.: Yes I certify that my determination is in accordance with my understanding of Medicare's requirements for reasonable and necessary INPATIENT services [42 CFR 412.3e].: Yes Medical Necessity: Risk of Complication if Not Cared For in Hospital
[2019-02-21] MEDS: ACETAMINOPHEN 325 MG TABLET PO PRN (01:11)
[2019-02-21] MEDS: OCTREOTIDE ACETATE INJ/PF 100 MCG/1 ML SDV SUBCUT SCH ×3 (05:16→22:08)
[2019-02-21 05:46] LABS: HEMATOCRIT 27.6 % (36.0-47.0); HEMOGLOBIN 8.9 g/dL (12.0-15.5); MEAN CORPUSCULAR HEMOGLOBIN 30.5 pg (27.0-33.4); MEAN CORPUSCULAR HGB CONC 32.3 g/dL (32.0-36.0); MEAN CORPUSCULAR VOLUME 94 fl (80-97); PLATELET COUNT 676 10^3/uL (150-450); RED BLOOD COUNT 2.92 10^6/uL (3.72-5.28); RED CELL DISTRIBUTION WIDTH 14.6 % (11.5-14.0); WHITE BLOOD COUNT 17.5 10^3/uL (4.0-10.5)
[2019-02-21 05:49] LABS: ALANINE AMINOTRANSFERASE 38 U/L (9-52); ALBUMIN 2.1 g/dL (3.5-5.0); ALKALINE PHOSPHATASE 114 U/L (38-126); ANION GAP 5 (5-19); ASPARTATE AMINO TRANSFERASE 65 U/L (14-36); BILIRUBIN,DIRECT 0.3 mg/dL (0.0-0.4); BILIRUBIN,TOTAL 0.3 mg/dL (0.2-1.3); BLOOD UREA NITROGEN 12 mg/dL (7-20); CALCIUM 7.8 mg/dL (8.4-10.2); CARBON DIOXIDE 29 mmol/L (22-30); CHLORIDE 99 mmol/L (98-107); PHOSPHORUS 3.4 mg/dL (2.5-4.5); SODIUM 133.2 mmol/L (137-145); TOTAL PROTEIN 4.9 g/dL (6.3-8.2)
[2019-02-21 06:18] LABS: POTASSIUM 4.6 mmol/L (3.6-5.0)
[2019-02-21 06:24] LABS: GLUCOSE 660 mg/dL (75-110)
[2019-02-21] MEDS: NORMAL SALINE 1000 ML 1,000 ML IV PRN ×2 (06:30→10:43)
[2019-02-21] MEDS: MEROPENEM 1 GM in NORMAL SALINE 50 ML IV SCH ×2 (09:34→22:08)
[2019-02-21] MEDS: FLUTICASONE NASAL SPRAY 50 MCG/SPRY 120 SPRAY/16 GM NASL SCH (09:34)
[2019-02-21] MEDS: ASPIRIN 81 MG TABLET, CHEWABLE PO SCH (09:34)
[2019-02-21] MEDS: AMLODIPINE BESYLATE 10 MG TABLET PO SCH (09:35)
[2019-02-21] MEDS: CHLORTHALIDONE 25 MG TABLET PO SCH (09:35)
[2019-02-21] MEDS: LISINOPRIL 10 MG TABLET PO SCH (09:36)
[2019-02-21] MEDS: METOPROLOL TARTRATE 25 MG TABLET PO SCH ×2 (09:36→22:08)
[2019-02-21] MEDS: NORMAL SALINE 10 ML SDV (SCHEDULED) IV SCH ×2 (09:36→22:08)
--- NOTE | 2019-02-21 10:25 | PDOC PROGRESS REPORT ---
Subjective Progress Note for:: 02/21/19 Subjective:: feeling sl better Reason For Visit: PANCREATITIS Physical Exam Vital Signs: Temp Pulse Resp BP Pulse Ox 97.8 F 69 17 152/75 H 91 L 02/21/19 07:50 02/21/19 07:50 02/21/19 07:50 02/21/19 07:50 02/21/19 07:50 Pulse Oximeter Continuous Start: 02/08/19 13:05 Freq: RTQ4 Status: Complete Protocol: Document 02/11/19 08:00 LDA (Rec: 02/11/19 09:42 LDA [email or web address]) Pulse Oximetry Assessment Equipment Usage Equipment Discontinued Continuous SpO2 Machine # 8 Intake & Output 02/20/19 02/21/19 02/22/19 06:59 06:59 06:59 Intake Total 4095 3045 Output Total 3225 6323 Balance 870 -3330 Weight 91.8 kg 92.6 kg General appearance: PRESENT: no acute distress Head exam: PRESENT: normocephalic Eye exam: PRESENT: EOMI Mouth exam: PRESENT: moist Respiratory exam: PRESENT: clear to auscultation josh Cardiovascular exam: PRESENT: RRR Pulses: PRESENT: normal radial pulses, normal femoral pulses GI/Abdominal exam: PRESENT: soft Rectal exam: PRESENT: deferred Extremities exam: PRESENT: full ROM Musculoskeletal exam: PRESENT: full ROM Neurological exam: PRESENT: alert, awake, oriented to person, oriented to place, oriented to time Skin exam: PRESENT: dry - continues to feel better passing stools still some tenderness on left side of abd, min appears sl drowsy but arouses easily oriented tatum clears without pain wbc continues to trend down creat wnl plan will increase tpn today cont po clears only cont iv abx for now. will prob repeat ct early next wk to rassess pseudocyst still need to wait for another 2-3 wks before considering drainage of cyst if it does not begin to resolve. Results Laboratory Results: 02/21/19 05:15 02/21/19 05:15 02/21/19 02/21/19 05:15 05:15 WBC 17.5 H RBC 2.92 L Hgb 8.9 L Hct 27.6 L MCV 94 MCH 30.5 MCHC 32.3 RDW 14.6 H Plt Count 676 H Sodium 133.2 L Potassium 4.6 D Chloride 99 Carbon Dioxide 29 Anion Gap 5 BUN 12 Creatinine 0.62 Est GFR ( Amer) > 60 Est GFR (Non-Af Amer) > 60 Glucose 660 H* Calcium 7.8 L Phosphorus 3.4 Magnesium 2.3 Total Bilirubin 0.3 AST 65 H ALT 38 Alkaline Phosphatase 114 Total Protein 4.9 L Albumin 2.1 L 02/09/19 07:30 NT-Pro-B Natriuret Pep 1330 H Impressions: KUB X-Ray 02/12/19 00:00 IMPRESSION: NO RADIOGRAPHIC EVIDENCE FOR ACUTE ABDOMINAL DISEASE. Abdomen/Pelvis CT 02/17/19 00:00 IMPRESSION: 1. Findings compatible with pancreatitis with interval development of a 10.9 x 7.2 cm hypodense collection anterior to the pancreatic body most compatible with a pseudocyst. Additional fluid posterior to the pancreas and tracking into the left paracolic gutter as detailed above. 2. Hypoattenuation of the pancreatic body. Evaluation for pancreatic necrosis limited secondary to lack of intravenous contrast. Venous Doppler Study 02/17/19 00:00 IMPRESSION: NO EVIDENCE DVT OR SVT IN EITHER LEG. Chest X-Ray 02/18/19 00:00 IMPRESSION: Small left pleural effusion and associated airspace disease consistent with pneumonia. Guidance Fluoroscopy 02/19/19 00:00 IMPRESSION: SUCCESSFUL PLACEMENT OF A 5 FR DUAL LUMEN 33 CM PICC IN THE RIGHT BASILIC VEIN. Interventional Vascular Procedure 02/19/19 00:00 IMPRESSION: SUCCESSFUL PLACEMENT OF A 5 FR DUAL LUMEN 33 CM PICC IN THE RIGHT BASILIC VEIN. PICC Line Insertion 02/19/19 00:00 IMPRESSION: SUCCESSFUL PLACEMENT OF A 5 FR DUAL LUMEN 33 CM PICC IN THE RIGHT BASILIC VEIN. Assessment & Plan - Diagnosis (1) Acute pancreatitis Qualifiers: Pancreatitis type: other Acute pancreatitis complication: no infection or necrosis Qualified Code(s): K85.80 - Other acute pancreatitis without necrosis or infection Is this a current diagnosis for this admission?: Yes
[2019-02-21] MEDS: AMINO ACIDS 5 %/DEXTROSE 20 % 1,000 ML IV PRN (10:42)
[2019-02-21] MEDS: INSULIN REG, HUMAN 100 UNIT/ML 3 ML VIAL (PYX) SUBCUT SCH ×2 (12:04→20:13)
--- NOTE | 2019-02-21 15:50 | PDOC PROGRESS REPORT ---
Addendum entered and electronically signed by KAREN AWAN NP 02/25/19 13:53: Assessment and Plan - Assessment and Plan (1) Acute pancreatitis Qualifiers: Pancreatitis type: other Acute pancreatitis complication: no infection or necrosis Qualified Code(s): K85.80 - Other acute pancreatitis without necrosis or infection Is this a current diagnosis for this admission?: Yes Plan: Primary management per surgery Lipase 96.4 Improving leukocytosis 20-->17 Afebrile but still somewhat toxic appearing Tolerating full liquids but abdomen remains distended today, +BS, +TTP PICC line replaced (was previously d/c'd for elevated WBC) and restarted TPN 02/17/19 CT Abd/Pelvis shows interval development of pseudocyst with additional fluid collections tracking posterior to the pancreas. Octreotide 200mg TID Continue broad spectrum antibiotic coverage with meropenem If patient were to deteriorate, plan for repeat CT to evaluate for pancreatic necrosis or abscess formation in the paracolic gutter Morphine PRN for pain scale 4-5 Tramadol PRN for pain scale 1-4 (2) Acute encephalopathy Is this a current diagnosis for this admission?: Yes Plan: Improving Patient is mildly lethargic but able to answer questions appropriately Patient's clinical presentation today is lethargy more than encephalopathy (3) Hypertensive urgency Is this a current diagnosis for this admission?: Yes Plan: Lisinopril 40 mg twice daily Amlodipine 10mg PO daily Chlorthalidone 12.5mg PO daily Toprol XL 25mg BID SBP within acceptable range today (4) Obesity (BMI 30.0-34.9) Is this a current diagnosis for this admission?: Yes Plan: Encouraged lifestyle modification (5) Hyponatremia Is this a current diagnosis for this admission?: Yes Plan: Secondary to malnutrition Continue TPN 1000mL free water restriction (6) Serum albumin decreased Is this a current diagnosis for this admission?: Yes Plan: Secondary to malnutrition Initiate 50G albumin BID x 48hrs - Time Spent with Patient Medications reviewed and adjusted accordingly: Yes - Disposition Anticipated Discharge: Home with Homehealth Original Note: Subjective Progress Note for:: 02/21/19 Subjective:: STARR TAYLOR is a 73 year old female with a PMH of HTN, morbid obesity and bronchitis. who recently underwent laparoscopic cholecystectomy. She was discharged home. Unfortunately she was not compliant with Dr. Belzberg's diet instructions and had one bite of chicken at breakfast the next morning. Initial Lipase 17,000. She was admitted to [facility] with pancreatitis. She is resting in bed on nasal cannula. The patient awake today but still somewhat lethargic. Nursing staff reports that the patient is becoming more dependent on staff for ADLs even though she is capable of doing them herself. Abdomen (+) TTP (+) bowel sounds. On exam, her abdomen appears distended, unchanged from yesterday. Leukocytosis improved today 20-->17.5, patient remains afebrile. Continues to receive TPN. She tolerates her full liquid diet. Plan to d/c [facility] today, get OOB to recliner, PT/OT tomorrow. Reason For Visit: PANCREATITIS Physical Exam Vital Signs: Temp Pulse Resp BP Pulse Ox 97.8 F 65 17 152/75 H 91 L 02/21/19 07:50 02/21/19 14:00 02/21/19 07:50 02/21/19 07:50 02/21/19 07:50 Pulse Oximeter Continuous Start: 02/08/19 13:05 Freq: RTQ4 Status: Complete Protocol: Document 02/11/19 08:00 LDA (Rec: 02/11/19 09:42 LDA [email or web address]) Pulse Oximetry Assessment Equipment Usage Equipment Discontinued Continuous SpO2 Machine # 8 Intake & Output 02/20/19 02/21/19 02/22/19 06:59 06:59 06:59 Intake Total 4095 3045 1924 Output Total 5854 8198 1300 Balance 870 -7512 624 Weight 91.8 kg 92.6 kg General appearance: PRESENT: morbidly obese Head exam: PRESENT: atraumatic Eye exam: PRESENT: conjunctiva pink, PERRLA Mouth exam: PRESENT: moist, tongue midline Teeth exam: PRESENT: poor dentation Neck exam: PRESENT: full ROM Respiratory exam: PRESENT: clear to auscultation josh, decreased breath sounds, symmetrical, unlabored Cardiovascular exam: PRESENT: RRR Pulses: PRESENT: normal radial pulses, normal dorsalis pedis pul Vascular exam: PRESENT: normal capillary refill GI/Abdominal exam: PRESENT: distended, normal bowel sounds, soft, tenderness. ABSENT: firm Rectal exam: PRESENT: deferred Extremities exam: PRESENT: full ROM. ABSENT: pedal edema Musculoskeletal exam: PRESENT: ambulatory - with assistance, full ROM Results Laboratory Results: 02/21/19 05:15 02/21/19 05:15 02/21/19 02/21/19 05:15 05:15 WBC 17.5 H RBC 2.92 L Hgb 8.9 L Hct 27.6 L MCV 94 MCH 30.5 MCHC 32.3 RDW 14.6 H Plt Count 676 H Sodium 133.2 L Potassium 4.6 D Chloride 99 Carbon Dioxide 29 Anion Gap 5 BUN 12 Creatinine 0.62 Est GFR ( Amer) > 60 Est GFR (Non-Af Amer) > 60 Glucose 660 H* Calcium 7.8 L Phosphorus 3.4 Magnesium 2.3 Total Bilirubin 0.3 AST 65 H ALT 38 Alkaline Phosphatase 114 Total Protein 4.9 L Albumin 2.1 L 02/09/19 07:30 NT-Pro-B Natriuret Pep 1330 H Impressions: KUB X-Ray 02/12/19 00:00 IMPRESSION: NO RADIOGRAPHIC EVIDENCE FOR ACUTE ABDOMINAL DISEASE. Abdomen/Pelvis CT 02/17/19 00:00 IMPRESSION: 1. Findings compatible with pancreatitis with interval development of a 10.9 x 7.2 cm hypodense collection anterior to the pancreatic body most compatible with a pseudocyst. Additional fluid posterior to the pancreas and tracking into the left paracolic gutter as detailed above. 2. Hypoattenuation of the pancreatic body. Evaluation for pancreatic necrosis limited secondary to lack of intravenous contrast. Venous Doppler Study 02/17/19 00:00 IMPRESSION: NO EVIDENCE DVT OR SVT IN EITHER LEG. Chest X-Ray 02/18/19 00:00 IMPRESSION: Small left pleural effusion and associated airspace disease consistent with pneumonia. Guidance Fluoroscopy 02/19/19 00:00 IMPRESSION: SUCCESSFUL PLACEMENT OF A 5 FR DUAL LUMEN 33 CM PICC IN THE RIGHT BASILIC VEIN. Interventional Vascular Procedure 02/19/19 00:00 IMPRESSION: SUCCESSFUL PLACEMENT OF A 5 FR DUAL LUMEN 33 CM PICC IN THE RIGHT BASILIC VEIN. PICC Line Insertion 02/19/19 00:00 IMPRESSION: SUCCESSFUL PLACEMENT OF A 5 FR DUAL LUMEN 33 CM PICC IN THE RIGHT BASILIC VEIN. Assessment and Plan - Diagnosis (1) Acute pancreatitis Qualifiers: Pancreatitis type: other Acute pancreatitis complication: no infection or necrosis Qualified Code(s): K85.80 - Other acute pancreatitis without necrosis or infection Is this a current diagnosis for this admission?: Yes (2) Acute encephalopathy Is this a current diagnosis for this admission?: Yes (3) Hypertensive urgency Is this a current diagnosis for this admission?: Yes (4) Obesity (BMI 30.0-34.9) Is this a current diagnosis for this admission?: Yes (5) Hyponatremia Is this a current diagnosis for this admission?: Yes Plan: Secondary to malnutrition Continue TPN 1000mL free water restriction (6) Serum albumin decreased Is this a current diagnosis for this admission?: Yes Plan: Secondary to malnutrition Plan to initiate 50G albumin BID - Time Time Spent with patient: 15-24 minutes Medications reviewed and adjusted accordingly: Yes Anticipated discharge: Acute Rehab Within: Other - 1 week - Inpatient Certification Based on my medical assessment, after consideration of the patient's comorbidities, presenting symptoms, or acuity I expect that the services needed warrant INPATIENT care.: Yes I certify that my determination is in accordance with my understanding of Medicare's requirements for reasonable and necessary INPATIENT services [42 CFR 412.3e].: Yes Medical Necessity: Significant Comorbidiites Make Outpatient Treatment Too Risky, Need For Continuous Telemetry Monitoring, Risk of Complication if Not Cared For in Hospital
[2019-02-21] MEDS: ALBUMIN HUMAN 25 GM/100 ML RTUINJ IV SCH (17:21)
[2019-02-21] MEDS ORDERED: ALBUMIN HUMAN 12.5 GM/50 ML RTUINJ IV SCH (18:00)
[2019-02-22] MEDS: INSULIN REG, HUMAN 100 UNIT/ML 3 ML VIAL (PYX) SUBCUT SCH ×4 (00:06→18:29)
[2019-02-22] MEDS: NORMAL SALINE 1000 ML 1,000 ML IV PRN ×2 (02:22→22:18)
[2019-02-22] MEDS: AMINO ACIDS 5 %/DEXTROSE 20 % 1,000 ML IV PRN ×2 (03:33→22:18)
[2019-02-22 05:55] LABS: HEMATOCRIT 29.6 % (36.0-47.0); HEMOGLOBIN 9.9 g/dL (12.0-15.5); MEAN CORPUSCULAR HEMOGLOBIN 30.4 pg (27.0-33.4)
[2019-02-22 06:03] LABS: MEAN CORPUSCULAR HGB CONC 33.5 g/dL (32.0-36.0); MEAN CORPUSCULAR VOLUME 91 fl (80-97); PLATELET COUNT 601 10^3/uL (150-450); RED BLOOD COUNT 3.25 10^6/uL (3.72-5.28)
[2019-02-22 06:13] LABS: ALANINE AMINOTRANSFERASE 35 U/L (9-52); ALBUMIN 2.7 g/dL (3.5-5.0); ALKALINE PHOSPHATASE 149 U/L (38-126); ANION GAP 7 (5-19); ASPARTATE AMINO TRANSFERASE 52 U/L (14-36); BILIRUBIN,DIRECT 0.3 mg/dL (0.0-0.4); BILIRUBIN,TOTAL 0.6 mg/dL (0.2-1.3); BLOOD UREA NITROGEN 15 mg/dL (7-20); CALCIUM 8.4 mg/dL (8.4-10.2); CARBON DIOXIDE 30 mmol/L (22-30); CHLORIDE 98 mmol/L (98-107); GLUCOSE 217 mg/dL (75-110); PHOSPHORUS 2.8 mg/dL (2.5-4.5); SODIUM 134.7 mmol/L (137-145)
[2019-02-22] MEDS: OCTREOTIDE ACETATE INJ/PF 100 MCG/1 ML SDV SUBCUT SCH ×3 (06:44→21:25)
--- NOTE | 2019-02-22 07:48 | PDOC PROGRESS REPORT ---
Subjective Progress Note for:: 02/22/19 Subjective:: states she feels better however does have some left sided abd pain Reason For Visit: PANCREATITIS Physical Exam Vital Signs: Temp Pulse Resp BP Pulse Ox 98.0 F 73 16 135/62 H 91 L 02/22/19 00:29 02/22/19 07:00 02/22/19 00:29 02/22/19 00:29 02/22/19 00:29 Pulse Oximeter Continuous Start: 02/08/19 13:05 Freq: RTQ4 Status: Complete Protocol: Document 02/11/19 08:00 LDA (Rec: 02/11/19 09:42 LDA [email or web address]) Pulse Oximetry Assessment Equipment Usage Equipment Discontinued Continuous SpO2 Machine # 8 Intake & Output 02/21/19 02/22/19 02/23/19 06:59 06:59 06:59 Intake Total 3045 4124 Output Total 6377 3750 Balance -3330 374 Weight 92.6 kg 87.2 kg General appearance: PRESENT: no acute distress Head exam: PRESENT: normocephalic Eye exam: PRESENT: EOMI Mouth exam: PRESENT: moist Neck exam: PRESENT: full ROM Respiratory exam: PRESENT: clear to auscultation josh Cardiovascular exam: PRESENT: RRR Pulses: PRESENT: normal radial pulses, normal femoral pulses Vascular exam: PRESENT: normal capillary refill GI/Abdominal exam: PRESENT: tenderness - tenderness left abd no peritoneal signs. Rectal exam: PRESENT: deferred Extremities exam: PRESENT: full ROM Musculoskeletal exam: PRESENT: full ROM Neurological exam: PRESENT: alert, awake, oriented to person, oriented to place, oriented to time, oriented to situation Psychiatric exam: PRESENT: appropriate affect Results Laboratory Results: 02/22/19 05:40 02/22/19 05:40 02/22/19 02/22/19 05:40 05:40 WBC 21.0 H RBC 3.25 L Hgb 9.9 L Hct 29.6 L MCV 91 MCH 30.4 MCHC 33.5 RDW 14.0 Plt Count 601 H Sodium 134.7 L Potassium 4.0 Chloride 98 Carbon Dioxide 30 Anion Gap 7 BUN 15 Creatinine 0.49 L Est GFR ( Amer) > 60 Est GFR (Non-Af Amer) > 60 Glucose 217 H Calcium 8.4 Phosphorus 2.8 Magnesium 2.1 Total Bilirubin 0.6 AST 52 H ALT 35 Alkaline Phosphatase 149 H Total Protein 6.0 L Albumin 2.7 L 02/09/19 07:30 NT-Pro-B Natriuret Pep 1330 H Impressions: KUB X-Ray 02/12/19 00:00 IMPRESSION: NO RADIOGRAPHIC EVIDENCE FOR ACUTE ABDOMINAL DISEASE. Abdomen/Pelvis CT 02/17/19 00:00 IMPRESSION: 1. Findings compatible with pancreatitis with interval development of a 10.9 x 7.2 cm hypodense collection anterior to the pancreatic body most compatible with a pseudocyst. Additional fluid posterior to the pancreas and tracking into the left paracolic gutter as detailed above. 2. Hypoattenuation of the pancreatic body. Evaluation for pancreatic necrosis limited secondary to lack of intravenous contrast. Venous Doppler Study 02/17/19 00:00 IMPRESSION: NO EVIDENCE DVT OR SVT IN EITHER LEG. Chest X-Ray 02/18/19 00:00 IMPRESSION: Small left pleural effusion and associated airspace disease consistent with pneumonia. Guidance Fluoroscopy 02/19/19 00:00 IMPRESSION: SUCCESSFUL PLACEMENT OF A 5 FR DUAL LUMEN 33 CM PICC IN THE RIGHT BASILIC VEIN. Interventional Vascular Procedure 02/19/19 00:00 IMPRESSION: SUCCESSFUL PLACEMENT OF A 5 FR DUAL LUMEN 33 CM PICC IN THE RIGHT BASILIC VEIN. PICC Line Insertion 02/19/19 00:00 IMPRESSION: SUCCESSFUL PLACEMENT OF A 5 FR DUAL LUMEN 33 CM PICC IN THE RIGHT BASILIC VEIN. Assessment & Plan - Diagnosis (1) Acute pancreatitis Qualifiers: Pancreatitis type: other Acute pancreatitis complication: no infection or necrosis Qualified Code(s): K85.80 - Other acute pancreatitis without necrosis or infection Is this a current diagnosis for this admission?: Yes - Plan Summary Plan Summary: wbc 21k today' lft', creat lytes ok still with some left sided abd pain there is a small fluid collection on left side seen on ct large posterior gastric pseudocyst overall she appears improved, ambulating in hallways and taking some po plan- too early to drain pseudocyst however will repeat ct tomorrow and consider perc drain of left sided fluid collection if not smaller.
[2019-02-22] MEDS: ALBUMIN HUMAN 25 GM/100 ML RTUINJ IV SCH ×2 (10:53→18:28)
[2019-02-22] MEDS: FAT EMULSIONS 250 ML IV SCH (10:54)
[2019-02-22] MEDS: LISINOPRIL 10 MG TABLET PO SCH (10:55)
[2019-02-22] MEDS: AMLODIPINE BESYLATE 10 MG TABLET PO SCH (10:55)
[2019-02-22] MEDS: METOPROLOL TARTRATE 25 MG TABLET PO SCH ×2 (10:55→21:21)
[2019-02-22] MEDS: ASPIRIN 81 MG TABLET, CHEWABLE PO SCH (10:55)
[2019-02-22] MEDS: FLUTICASONE NASAL SPRAY 50 MCG/SPRY 120 SPRAY/16 GM NASL SCH (10:56)
[2019-02-22] MEDS: CHLORTHALIDONE 25 MG TABLET PO SCH (10:56)
[2019-02-22] MEDS: NORMAL SALINE 10 ML SDV (SCHEDULED) IV SCH ×2 (11:19→21:19)
[2019-02-22] MEDS: MEROPENEM 1 GM in NORMAL SALINE 50 ML IV SCH ×2 (11:19→21:25)
--- NOTE | 2019-02-22 17:13 | PDOC PROGRESS REPORT ---
Subjective Progress Note for:: 02/22/19 Subjective:: STARR TAYLOR is a 73 year old female with a PMH of HTN, morbid obesity and bronchitis. who recently underwent laparoscopic cholecystectomy. She was discharged home. Unfortunately she was not compliant with Dr. Roman's diet instructions and had one bite of chicken at breakfast the next morning. Initial Lipase 17,000. She was admitted to [facility] with pancreatitis. She is resting in bed on room air. The patient awake today but still somewhat lethargic, she fell asleep once during the interview. Nursing staff reports that the patient is able to ambulate to the restroom independently. Abdomen (+) TTP (+) bowel sounds. On exam, her abdomen appears less distended today when compared to yesterday. Leukocytosis slightly worse today 17.5-->21.0, patient remains afebrile. Continues to receive TPN. She tolerates her full liquid diet but does not eat very much. Patient states she does not have much of an appetite. PT/OT today Reason For Visit: PANCREATITIS Physical Exam Vital Signs: Temp Pulse Resp BP Pulse Ox 98.2 F 74 20 146/61 H 93 02/22/19 07:55 02/22/19 07:55 02/22/19 07:55 02/22/19 07:55 02/22/19 07:55 Pulse Oximeter Continuous Start: 02/08/19 13:05 Freq: RTQ4 Status: Complete Protocol: Document 02/11/19 08:00 LDA (Rec: 02/11/19 09:42 LDA [email or web address]) Pulse Oximetry Assessment Equipment Usage Equipment Discontinued Continuous SpO2 Machine # 8 Intake & Output 02/21/19 02/22/19 02/23/19 06:59 06:59 06:59 Intake Total 3045 4124 Output Total 63 3750 400 Balance -3330 374 -400 Weight 92.6 kg 87.2 kg General appearance: PRESENT: morbidly obese Head exam: PRESENT: atraumatic Eye exam: PRESENT: conjunctiva pink, PERRLA Mouth exam: PRESENT: moist, tongue midline Teeth exam: PRESENT: poor dentation Neck exam: PRESENT: full ROM Respiratory exam: PRESENT: clear to auscultation josh, decreased breath sounds, symmetrical, unlabored Cardiovascular exam: PRESENT: RRR Pulses: PRESENT: normal radial pulses, normal dorsalis pedis pul GI/Abdominal exam: PRESENT: distended, normal bowel sounds, soft, tenderness. ABSENT: firm, guarding, rigid Rectal exam: PRESENT: deferred Extremities exam: PRESENT: full ROM. ABSENT: pedal edema Musculoskeletal exam: PRESENT: ambulatory, full ROM Neurological exam: PRESENT: alert, awake, oriented to person, oriented to place, oriented to time, oriented to situation Psychiatric exam: PRESENT: appropriate affect Skin exam: PRESENT: dry, intact, normal color Results Laboratory Results: 02/22/19 05:40 02/22/19 05:40 02/22/19 02/22/19 02/22/19 05:40 05:40 05:40 WBC 21.0 H RBC 3.25 L Hgb 9.9 L Hct 29.6 L MCV 91 MCH 30.4 MCHC 33.5 RDW 14.0 Plt Count 601 H Sodium 134.7 L Potassium 4.0 Chloride 98 Carbon Dioxide 30 Anion Gap 7 BUN 15 Creatinine 0.49 L Est GFR ( Amer) > 60 Est GFR (Non-Af Amer) > 60 Glucose 217 H Calcium 8.4 Phosphorus 2.8 Magnesium 2.1 Total Bilirubin 0.6 AST 52 H ALT 35 Alkaline Phosphatase 149 H Total Protein 6.0 L Albumin 2.7 L Lipase 128.3 02/09/19 07:30 NT-Pro-B Natriuret Pep 1330 H Impressions: KUB X-Ray 02/12/19 00:00 IMPRESSION: NO RADIOGRAPHIC EVIDENCE FOR ACUTE ABDOMINAL DISEASE. Abdomen/Pelvis CT 02/17/19 00:00 IMPRESSION: 1. Findings compatible with pancreatitis with interval development of a 10.9 x 7.2 cm hypodense collection anterior to the pancreatic body most compatible with a pseudocyst. Additional fluid posterior to the pancreas and tracking into the left paracolic gutter as detailed above. 2. Hypoattenuation of the pancreatic body. Evaluation for pancreatic necrosis limited secondary to lack of intravenous contrast. Venous Doppler Study 02/17/19 00:00 IMPRESSION: NO EVIDENCE DVT OR SVT IN EITHER LEG. Chest X-Ray 02/18/19 00:00 IMPRESSION: Small left pleural effusion and associated airspace disease consistent with pneumonia. Guidance Fluoroscopy 02/19/19 00:00 IMPRESSION: SUCCESSFUL PLACEMENT OF A 5 FR DUAL LUMEN 33 CM PICC IN THE RIGHT BASILIC VEIN. Interventional Vascular Procedure 02/19/19 00:00 IMPRESSION: SUCCESSFUL PLACEMENT OF A 5 FR DUAL LUMEN 33 CM PICC IN THE RIGHT BASILIC VEIN. PICC Line Insertion 02/19/19 00:00 IMPRESSION: SUCCESSFUL PLACEMENT OF A 5 FR DUAL LUMEN 33 CM PICC IN THE RIGHT BASILIC VEIN. Status: Imported from PACS Assessment and Plan - Diagnosis (1) Acute pancreatitis Qualifiers: Pancreatitis type: other Acute pancreatitis complication: no infection or necrosis Qualified Code(s): K85.80 - Other acute pancreatitis without necrosis or infection Is this a current diagnosis for this admission?: Yes Plan: Primary management per surgery Lipase 96.4-->126 today, still within normal range Slightly worsening leukocytosis 17-->21 Afebrile. Nontoxic appearing. Tolerating full liquids but does not have much appetite Abdominal distention is improving today, +BS, +TTP Continue TPN via PICC line 02/17/19 CT Abd/Pelvis shows interval development of pseudocyst with additional fluid collections tracking posterior to the pancreas. Octreotide 200mg TID Continue broad spectrum antibiotic coverage with meropenem If patient were to deteriorate, plan for repeat CT to evaluate for pancreatic necrosis or abscess formation in the paracolic gutter Morphine PRN for pain scale 4-5 Tramadol PRN for pain scale 1-[address] Roman, plan for routine CT ABd/Pelvis tomorrow to evaluate pseudocyst and fluid collection in the paracolic gutter (2) Acute encephalopathy Is this a current diagnosis for this admission?: Yes Plan: Improved Patient is mildly lethargic but able to answer questions appropriately Occasionally falls asleep during conversation Patient's clinical presentation today is lethargy more than encephalopathy (3) Hypertensive urgency Is this a current diagnosis for this admission?: Yes Plan: Lisinopril 40 mg twice daily Amlodipine 10mg PO daily Chlorthalidone 12.5mg PO daily Toprol XL 25mg BID SBP 130s today (4) Obesity (BMI 30.0-34.9) Is this a current diagnosis for this admission?: Yes Plan: Encouraged lifestyle modification (5) Hyponatremia Is this a current diagnosis for this admission?: Yes Plan: Secondary to malnutrition Continue TPN 1000mL free water restriction (6) Serum albumin decreased Is this a current diagnosis for this admission?: Yes Plan: Improving 2.1-->2.7 today secondary to malnutrition Continue 25 g albumin twice daily for (total) 48 hours - Time Time Spent with patient: 15-24 minutes Medications reviewed and adjusted accordingly: Yes Anticipated discharge: Home - Inpatient Certification Based on my medical assessment, after consideration of the patient's comorbidities, presenting symptoms, or acuity I expect that the services needed warrant INPATIENT care.: Yes I certify that my determination is in accordance with my understanding of Medicare's requirements for reasonable and necessary INPATIENT services [42 CFR 412.3e].: Yes Medical Necessity: Significant Comorbidiites Make Outpatient Treatment Too Risky, Need Close Monitoring Due to Risk of Patient Decompensation, Risk of Complication if Not Cared For in Hospital
[2019-02-23] MEDS: INSULIN REG, HUMAN 100 UNIT/ML 3 ML VIAL (PYX) SUBCUT SCH ×4 (00:49→18:45)
[2019-02-23] MEDS: OCTREOTIDE ACETATE INJ/PF 100 MCG/1 ML SDV SUBCUT SCH ×3 (05:26→21:12)
[2019-02-23 06:01] LABS: HEMATOCRIT 29.3 % (36.0-47.0); HEMOGLOBIN 9.9 g/dL (12.0-15.5); MEAN CORPUSCULAR HEMOGLOBIN 30.1 pg (27.0-33.4); MEAN CORPUSCULAR HGB CONC 33.9 g/dL (32.0-36.0); MEAN CORPUSCULAR VOLUME 89 fl (80-97); PLATELET COUNT 591 10^3/uL (150-450); RED CELL DISTRIBUTION WIDTH 13.7 % (11.5-14.0); WHITE BLOOD COUNT 20.7 10^3/uL (4.0-10.5)
[2019-02-23 07:35] LABS: ALANINE AMINOTRANSFERASE 45 U/L (9-52); ALBUMIN 3.2 g/dL (3.5-5.0); ALKALINE PHOSPHATASE 159 U/L (38-126); ANION GAP 8 (5-19); ASPARTATE AMINO TRANSFERASE 85 U/L (14-36); BILIRUBIN,DIRECT 0.4 mg/dL (0.0-0.4); BILIRUBIN,TOTAL 0.4 mg/dL (0.2-1.3); BLOOD UREA NITROGEN 16 mg/dL (7-20); CALCIUM 8.9 mg/dL (8.4-10.2); CARBON DIOXIDE 31 mmol/L (22-30); CHLORIDE 99 mmol/L (98-107); GLUCOSE 235 mg/dL (75-110); PHOSPHORUS 3.4 mg/dL (2.5-4.5); POTASSIUM 3.8 mmol/L (3.6-5.0); SODIUM 138.3 mmol/L (137-145); TOTAL PROTEIN 7.1 g/dL (6.3-8.2)
--- NOTE | 2019-02-23 07:48 | PDOC PROGRESS REPORT ---
Subjective Progress Note for:: 02/23/19 Subjective:: didnt sleep well frustrated wants to go home tatum full liquids pain better passing bm's Reason For Visit: PANCREATITIS Physical Exam Vital Signs: Temp Pulse Resp BP Pulse Ox 97.8 F 71 16 144/64 H 93 02/23/19 03:25 02/23/19 07:00 02/23/19 03:25 02/23/19 03:25 02/23/19 00:39 Pulse Oximeter Continuous Start: 02/08/19 13:05 Freq: RTQ4 Status: Complete Protocol: Document 02/11/19 08:00 LDA (Rec: 02/11/19 09:42 LDA [email or web address]) Pulse Oximetry Assessment Equipment Usage Equipment Discontinued Continuous SpO2 Machine # 8 Intake & Output 02/22/19 02/23/19 02/24/19 06:59 06:59 06:59 Intake Total 4124 2831 Output Total 3750 4400 Balance 374 -1569 Weight 87.2 kg 83.2 kg General appearance: PRESENT: no acute distress Eye exam: PRESENT: EOMI Mouth exam: PRESENT: moist Neck exam: PRESENT: full ROM Respiratory exam: PRESENT: clear to auscultation josh Cardiovascular exam: PRESENT: RRR Pulses: PRESENT: normal radial pulses, normal femoral pulses Vascular exam: PRESENT: normal capillary refill GI/Abdominal exam: PRESENT: soft Rectal exam: PRESENT: deferred Extremities exam: PRESENT: full ROM Musculoskeletal exam: PRESENT: full ROM Neurological exam: PRESENT: alert, awake, oriented to person, oriented to place, oriented to time, oriented to situation Psychiatric exam: PRESENT: agitated, anxious Skin exam: PRESENT: dry Results Laboratory Results: 02/23/19 05:30 02/23/19 05:30 02/22/19 02/22/19 02/23/19 05:40 22:48 05:30 WBC 20.7 H RBC 3.30 L Hgb 9.9 L Hct 29.3 L MCV 89 MCH 30.1 MCHC 33.9 RDW 13.7 Plt Count 591 H Sodium Potassium Chloride Carbon Dioxide Anion Gap BUN Creatinine Est GFR ( Amer) Est GFR (Non-Af Amer) Glucose Calcium Phosphorus Magnesium Total Bilirubin AST ALT Alkaline Phosphatase Total Protein Albumin Triglycerides 244 H Lipase 128.3 02/23/19 05:30 WBC RBC Hgb Hct MCV MCH MCHC RDW Plt Count Sodium 138.3 Potassium 3.8 Chloride 99 Carbon Dioxide 31 H Anion Gap 8 BUN 16 Creatinine 0.44 L Est GFR ( Amer) > 60 Est GFR (Non-Af Amer) > 60 Glucose 235 H Calcium 8.9 Phosphorus 3.4 Magnesium 2.2 Total Bilirubin 0.4 AST 85 H ALT 45 Alkaline Phosphatase 159 H Total Protein 7.1 Albumin 3.2 L Triglycerides Lipase 02/09/19 07:30 NT-Pro-B Natriuret Pep 1330 H Impressions: KUB X-Ray 02/12/19 00:00 IMPRESSION: NO RADIOGRAPHIC EVIDENCE FOR ACUTE ABDOMINAL DISEASE. Abdomen/Pelvis CT 02/17/19 00:00 IMPRESSION: 1. Findings compatible with pancreatitis with interval development of a 10.9 x 7.2 cm hypodense collection anterior to the pancreatic body most compatible with a pseudocyst. Additional fluid posterior to the pancreas and tracking into the left paracolic gutter as detailed above. 2. Hypoattenuation of the pancreatic body. Evaluation for pancreatic necrosis limited secondary to lack of intravenous contrast. Venous Doppler Study 02/17/19 00:00 IMPRESSION: NO EVIDENCE DVT OR SVT IN EITHER LEG. Chest X-Ray 02/18/19 00:00 IMPRESSION: Small left pleural effusion and associated airspace disease consistent with pneumonia. Guidance Fluoroscopy 02/19/19 00:00 IMPRESSION: SUCCESSFUL PLACEMENT OF A 5 FR DUAL LUMEN 33 CM PICC IN THE RIGHT BASILIC VEIN. Interventional Vascular Procedure 02/19/19 00:00 IMPRESSION: SUCCESSFUL PLACEMENT OF A 5 FR DUAL LUMEN 33 CM PICC IN THE RIGHT BASILIC VEIN. PICC Line Insertion 02/19/19 00:00 IMPRESSION: SUCCESSFUL PLACEMENT OF A 5 FR DUAL LUMEN 33 CM PICC IN THE RIGHT BASILIC VEIN. Assessment & Plan - Diagnosis (1) Acute pancreatitis Qualifiers: Pancreatitis type: other Acute pancreatitis complication: no infection or necrosis Qualified Code(s): K85.80 - Other acute pancreatitis without necrosis or infection Is this a current diagnosis for this admission?: Yes - Plan Summary Plan Summary: wbc sl down today still 20k lytes ok will repeat ct today if fluid collection decreased will defer aspiration cont full liquids for now when wbc trends down, will\ plan on dc home on home tpn
--- NOTE | 2019-02-23 08:54 | RADIOLOGY REPORT (SQ) ---
EXAM DESCRIPTION: CT ABD/PELVIS NO ORAL OR IV COMPLETED DATE/TIME: 02/23/2019 8:21 am REASON FOR STUDY: f/u pancreatic pseudocyst and left sided fluid COMPARISON: 10/05/2008, 02/02/2014, 08/15/2018, 02/06/2019, 02/09/2019, 02/12/2019, 02/17/2019 CT abdomen p jose elias TECHNIQUE: CT scan of the abdomen and pelvis performed without intravenous or oral contrast. Images reviewed with lung, soft tissue, and bone windows. Reconstructed coronal and sagittal MPR images revi ewed. All images stored on PACS. All CT scanners at this facility use dose modulation, iterative reconstruction, and/or weight based d osing when appropriate to reduce radiation dose to as low as reasonably achievable (ALARA). [facility]: Dose Right [facility]: CareDose [facility]: Dose Right [facility]: Teradose 4D [facility]: Smart [employer] RADIATION DOSE: CT Rad equipment meets quality standard of care and radiation dose reduction techniq ues were employed. CTDIvol: 12.2 mGy. DLP: 656 mGy-cm.mGy. LIMITATIONS: None. FINDINGS: Large lesser sac pancreatic pseudocyst is present, 10 cm transverse x 7 cm AP x 7 cm crani ocaudad. There is now hyperdense material within the pseudocyst measuring 53-66 Hounsfield units wor risome for superimposed hemorrhage. Hemorrhage is new compared to 02/17/2019. Overall size of the les ser sac pseudocyst is similar compared to 02/17/2019. This report was called to Dr. Mcnamara as a crit ical finding, 02/23/2019 0841 hours. There is a 10 cm transverse by 5 cm AP by 5 cm craniocaudad phlegmon surrounding the pancreas along i ts inferior aspect. This is similar compared to 02/17/2019 and 02/12/2019. Multiple loculations of fluid are present in the left upper quadrant mesentery, together measuring ab out 10 x 5 cm in size. These are new compared to 02/17/2019. There is a loculation of fluid along the dorsal aspect splenic flexure colon, 5 cm AP x 4 cm transver se x 9 cm craniocaudad. This is larger than on 02/17/2019 and 02/06/2019. LOWER CHEST: There is left basilar atelectasis, similar compared to prior study NON-CONTRASTED LIVER, SPLEEN, ADRENALS: Liver unremarkable. There are now multiple splenic vein liz aterals at the splenic hilum and left upper quadrant on axial images 18-22. No splenomegaly. Adrena l glands unremarkable. PANCREAS: Hemorrhagic lesser sac pseudocyst as above. Probably occluded splenic vein with new left u pper quadrant venous collaterals. Increasing pseudocyst size along the left upper quadrant mesentery and left retroperitoneum along the splenic flexure colon as above GALLBLADDER: Surgically absent RIGHT KIDNEY AND URETER: No suspicious masses. Assessment limited by lack of IV contrast. No signif icant calcifications. No hydronephrosis or hydroureter. LEFT KIDNEY AND URETER: No suspicious masses. Assessment limited by lack of IV contrast. No signifi cant calcifications. No hydronephrosis or hydroureter. AORTA AND RETROPERITONEUM: No abdominal aortic aneurysm. Retroperitoneal peripancreatic pseudocysts as above. BOWEL AND PERITONEAL CAVITY: Left upper quadrant mesenteric pseudocysts as above. No bowel obstructi on. Scattered colonic diverticuli without CT signs of acute diverticulitis APPENDIX: Surgically absent PELVIS, BLADDER, AND ABDOMINAL WALL:No abnormal masses. No free fluid. Bladder normal. Post hysterec kt. BONES: No significant findings. OTHER: No other significant finding. IMPRESSION: New hemorrhage in the lesser sac pancreatic pseudocyst. Increasing left upper quadrant mesenteric pseudocyst, increasing left retroperitoneal pseudocyst zohreh g splenic flexure colon COMMENT: Pertinent findings on the imaging study reported as a CRITICAL RESULT to CARROL MAGDALENO at08: 41 on 02/23/2019. Category of Critical Result: HEMORRHAGIC PANCREATIC PSEUDOCYST Quality ID # [id number]: Final reports with documentation of one or more dose reduction techniques (e.g., Au tomated exposure control, adjustment of the mA and/or kV according to patient size, use of iterative reconstruction technique) TECHNICAL DOCUMENTATION: JOB ID: [id number] [employer]- All Rights Reserved Reading location - IP/workstation name: [email or web address]
[2019-02-23] MEDS: CHLORTHALIDONE 25 MG TABLET PO SCH (09:41)
[2019-02-23] MEDS: FLUTICASONE NASAL SPRAY 50 MCG/SPRY 120 SPRAY/16 GM NASL SCH (09:41)
[2019-02-23] MEDS: ALBUMIN HUMAN 25 GM/100 ML RTUINJ IV SCH (09:41)
[2019-02-23] MEDS: LISINOPRIL 10 MG TABLET PO SCH (09:41)
[2019-02-23] MEDS: ASPIRIN 81 MG TABLET, CHEWABLE PO SCH (09:42)
[2019-02-23] MEDS: METOPROLOL TARTRATE 25 MG TABLET PO SCH ×2 (09:42→21:12)
[2019-02-23] MEDS: NORMAL SALINE 10 ML SDV (SCHEDULED) IV SCH ×2 (09:42→21:16)
[2019-02-23] MEDS: MEROPENEM 1 GM in NORMAL SALINE 50 ML IV SCH ×2 (09:42→21:12)
[2019-02-23] MEDS: AMLODIPINE BESYLATE 10 MG TABLET PO SCH (09:42)
[2019-02-23 11:12] LABS: INTERNATIONAL RATION (INR) 1.07; PROTHROMBIN TIME 14.4 SEC (11.4-15.4)
[2019-02-23 11:13] LABS: PARTIAL THROMBOPLASTIN TIME 32.2 SEC (23.5-35.8)
[2019-02-23] MEDS: AMINO ACIDS 5 %/DEXTROSE 20 % 1,000 ML IV PRN (16:21)
[2019-02-23] MEDS: NORMAL SALINE 1000 ML 1,000 ML IV PRN (16:22)
--- NOTE | 2019-02-23 22:19 | PDOC PROGRESS REPORT ---
Subjective Progress Note for:: 02/23/19 Subjective:: STARR TAYLOR is a 73 year old female with a PMH of HTN, morbid obesity and bronchitis. who recently underwent laparoscopic cholecystectomy. She was discharged home. Unfortunately she was not compliant with Dr. Roman's diet instructions at breakfast the next morning. Initial Lipase 17,000. She was admitted to [facility] with pancreatitis. Patient was seen on morning rounds and again briefly in the afternoon when family members were present. This morning she was noted to be lethargic and fell asleep multiple times during my visit. She reports continued epigastric abdominal discomfort that radiates bilaterally and intermittent nausea without emesis. She reports a poor appetite but then requests to eat "normal food." Otherwise, the patient had no specific questions or concerns. Family members had multiple questions about pancreatitis and development of pseudocysts. Their questions were answered to the best of my ability, but many had to be deferred to the Surgicalist. Patient denied fever, chills, bodyaches, chest pain, dyspnea, orthopnea, emesis, diarrhea and constipation. She does report (+) flatus and bm. No concerns per nursing. Reason For Visit: PANCREATITIS Physical Exam Vital Signs: Temp Pulse Resp BP Pulse Ox 98.2 F 72 17 149/66 H 94 02/23/19 19:22 02/23/19 19:22 02/23/19 19:22 02/23/19 19:22 02/23/19 19:22 Pulse Oximeter Continuous Start: 02/08/19 13:05 Freq: RTQ4 Status: Complete Protocol: Document 02/11/19 08:00 LDA (Rec: 02/11/19 09:42 LDA [email or web address]) Pulse Oximetry Assessment Equipment Usage Equipment Discontinued Continuous SpO2 Machine # 8 Intake & Output 02/22/19 02/23/19 02/24/19 06:59 06:59 06:59 Intake Total 4128 0875 5670 Output Total 3483 3010 700 Balance 614 -7105 1790 Weight 87.2 kg 83.2 kg General appearance: PRESENT: no acute distress, cooperative, morbidly obese Head exam: PRESENT: atraumatic, normocephalic Eye exam: PRESENT: conjunctiva pink, EOMI, PERRLA Mouth exam: PRESENT: moist, neck supple, tongue midline Teeth exam: PRESENT: poor dentation Neck exam: ABSENT: carotid bruit, full ROM, JVD, lymphadenopathy, meningismus, tenderness, thyromegaly, tracheal deviation, tracheostomy, other Respiratory exam: PRESENT: clear to auscultation josh, decreased breath sounds - bibasilar; poor inspiratory effort, symmetrical, unlabored. ABSENT: rales, rhonchi, wheezes Cardiovascular exam: PRESENT: RRR. ABSENT: diastolic murmur, rubs, systolic murmur Pulses: PRESENT: normal dorsalis pedis pul Vascular exam: PRESENT: normal capillary refill GI/Abdominal exam: PRESENT: distended, normal bowel sounds, soft, tenderness. ABSENT: guarding, mass, organolmegaly, rebound Rectal exam: PRESENT: deferred Extremities exam: PRESENT: full ROM. ABSENT: calf tenderness, clubbing, pedal edema Musculoskeletal exam: PRESENT: ambulatory Neurological exam: PRESENT: alert, awake, oriented to person, oriented to place, oriented to time, oriented to situation, CN II-XII grossly intact. ABSENT: motor sensory deficit Psychiatric exam: PRESENT: appropriate affect, normal mood. ABSENT: homicidal ideation, suicidal ideation Skin exam: PRESENT: dry, warm. ABSENT: cyanosis, rash Results Laboratory Results: 02/23/19 05:30 02/23/19 05:30 02/22/19 02/23/19 02/23/19 22:48 05:30 05:30 WBC 20.7 H RBC 3.30 L Hgb 9.9 L Hct 29.3 L MCV 89 MCH 30.1 MCHC 33.9 RDW 13.7 Plt Count 591 H Sodium 138.3 Potassium 3.8 Chloride 99 Carbon Dioxide 31 H Anion Gap 8 BUN 16 Creatinine 0.44 L Est GFR ( Amer) > 60 Est GFR (Non-Af Amer) > 60 Glucose 235 H Calcium 8.9 Phosphorus 3.4 Magnesium 2.2 Total Bilirubin 0.4 AST 85 H ALT 45 Alkaline Phosphatase 159 H Total Protein 7.1 Albumin 3.2 L Triglycerides 244 H Blood Type Antibody Screen 02/23/19 09:15 WBC RBC Hgb Hct MCV MCH MCHC RDW Plt Count Sodium Potassium Chloride Carbon Dioxide Anion Gap BUN Creatinine Est GFR ( Amer) Est GFR (Non-Af Amer) Glucose Calcium Phosphorus Magnesium Total Bilirubin AST ALT Alkaline Phosphatase Total Protein Albumin Triglycerides Blood Type O POSITIVE Antibody Screen NEGATIVE 02/09/19 07:30 NT-Pro-B Natriuret Pep 1330 H Impressions: KUB X-Ray 02/12/19 00:00 IMPRESSION: NO RADIOGRAPHIC EVIDENCE FOR ACUTE ABDOMINAL DISEASE. Venous Doppler Study 02/17/19 00:00 IMPRESSION: NO EVIDENCE DVT OR SVT IN EITHER LEG. Chest X-Ray 02/18/19 00:00 IMPRESSION: Small left pleural effusion and associated airspace disease consistent with pneumonia. Guidance Fluoroscopy 02/19/19 00:00 IMPRESSION: SUCCESSFUL PLACEMENT OF A 5 FR DUAL LUMEN 33 CM PICC IN THE RIGHT BASILIC VEIN. Interventional Vascular Procedure 02/19/19 00:00 IMPRESSION: SUCCESSFUL PLACEMENT OF A 5 FR DUAL LUMEN 33 CM PICC IN THE RIGHT BASILIC VEIN. PICC Line Insertion 02/19/19 00:00 IMPRESSION: SUCCESSFUL PLACEMENT OF A 5 FR DUAL LUMEN 33 CM PICC IN THE RIGHT BASILIC VEIN. Abdomen/Pelvis CT 02/23/19 00:00 IMPRESSION: New hemorrhage in the lesser sac pancreatic pseudocyst. Increasing left upper quadrant mesenteric pseudocyst, increasing left retroperitoneal pseudocyst along splenic flexure colon Assessment and Plan - Diagnosis (1) Acute pancreatitis Qualifiers: Pancreatitis type: other Acute pancreatitis complication: no infection or necrosis Qualified Code(s): K85.80 - Other acute pancreatitis without necrosis or infection Is this a current diagnosis for this admission?: Yes Plan: Primary management per surgery Lipase 96.4-->126 Elevated leukocytosis 17-->21; patient is afebrile and clinically improved. Nontoxic appearing. Possibly inflammatory reaction; will discuss d/c abx with surgery. Tolerating full liquids but does not have much appetite Abdominal distention present, +BS, + flatus and bms 02/17/19 CT Abd/Pelvis shows interval development of pseudocyst with additional fluid collections tracking posterior to the pancreas. 02/23/19 CT Abd/Pelvis wo demonstrated ? hemorrhage to lesser sac pancreatic pseudocyst, increased LUQ mesenteric pseudocyst, and increased left retroperitoneal pseudocyst. Continue Octreotide 200mg TID Continue broad spectrum antibiotic coverage with meropenem Analgesics and Antiemetics as needed. Diet to be advanced per Surgery's recommendations. Currently receiving TPN via PICC line (2) Acute encephalopathy Is this a current diagnosis for this admission?: Yes Plan: Improved; likely approaching baseline. Patient remains mildly lethargic but able to answer questions appropriately Occasionally falls asleep during conversation Agree w/ previous provider's assessment that the patient's clinical presentation today is lethargy more than encephalopathy (3) Hypertensive urgency Is this a current diagnosis for this admission?: Yes Plan: Blood pressures much improved; now acceptable for age. Continue: Lisinopril 40 mg twice daily Amlodipine 10mg PO daily Chlorthalidone 12.5mg PO daily Toprol XL 25mg BID (4) Hyponatremia Is this a current diagnosis for this admission?: Yes Plan: Resolved. Secondary to malnutrition Continue TPN 1000mL free water restriction (5) Obesity (BMI 30.0-34.9) Is this a current diagnosis for this admission?: Yes Plan: Encouraged lifestyle modification (6) Serum albumin decreased Is this a current diagnosis for this admission?: Yes Plan: Improving 2.1-->3.2 today Secondary to malnutrition, poor p.o. intake in setting of prolonged pancreatitis course preceeded by cholecystits. Received 25 g albumin twice daily for (total) 48 hours (7) Leukocytosis Is this a current diagnosis for this admission?: Yes Plan: Likely an inflammatory response r/t pancreatitis and pseudocyst formation. May also be directly related to use of meropenem. Less likely an infectious process at this time as the patient remains afebrile, clinically improved, nontoxic appearing and although abdomen is tender, it is without firmness/rigidity. Blood cultures are negative at 5 days. Urine cultures are negative. Stool cultures are negative. PICC line tip is negative. Would recommend considering discontinuing IV antibiotics and continuing close monitoring for development of clear evidence of infectious process that would w arrant resumption of antibiotic therapy. - Time Time Spent with patient: 25-34 minutes Medications reviewed and adjusted accordingly: Yes Anticipated discharge: Home with Homehealth
[2019-02-24] MEDS: INSULIN REG, HUMAN 100 UNIT/ML 3 ML VIAL (PYX) SUBCUT SCH ×5 (00:30→23:50)
[2019-02-24] MEDS: OCTREOTIDE ACETATE INJ/PF 100 MCG/1 ML SDV SUBCUT SCH ×2 (05:18→14:31)
[2019-02-24 06:27] LABS: HEMATOCRIT 30.4 % (36.0-47.0); HEMOGLOBIN 10.2 g/dL (12.0-15.5); MEAN CORPUSCULAR HEMOGLOBIN 30.1 pg (27.0-33.4); MEAN CORPUSCULAR HGB CONC 33.4 g/dL (32.0-36.0); MEAN CORPUSCULAR VOLUME 90 fl (80-97); PLATELET COUNT 616 10^3/uL (150-450); RED BLOOD COUNT 3.38 10^6/uL (3.72-5.28); RED CELL DISTRIBUTION WIDTH 13.7 % (11.5-14.0)
[2019-02-24 06:57] LABS: ALANINE AMINOTRANSFERASE 36 U/L (9-52); ALKALINE PHOSPHATASE 148 U/L (38-126); ANION GAP 8 (5-19); ASPARTATE AMINO TRANSFERASE 47 U/L (14-36); BILIRUBIN,DIRECT 0.3 mg/dL (0.0-0.4); BILIRUBIN,TOTAL 0.5 mg/dL (0.2-1.3); BLOOD UREA NITROGEN 18 mg/dL (7-20); CALCIUM 8.7 mg/dL (8.4-10.2); CARBON DIOXIDE 30 mmol/L (22-30); CHLORIDE 97 mmol/L (98-107); GLUCOSE 214 mg/dL (75-110); PHOSPHORUS 3.3 mg/dL (2.5-4.5); POTASSIUM 4.3 mmol/L (3.6-5.0); TOTAL PROTEIN 6.4 g/dL (6.3-8.2)
[2019-02-24] MEDS: NORMAL SALINE 1000 ML 1,000 ML IV PRN (10:13)
[2019-02-24] MEDS: AMINO ACIDS 5 %/DEXTROSE 20 % 1,000 ML IV PRN (10:14)
--- NOTE | 2019-02-24 10:17 | PDOC PROGRESS REPORT ---
Subjective Progress Note for:: 02/24/19 Subjective:: feels better passing stool tatum full liquids Reason For Visit: PANCREATITIS Physical Exam Vital Signs: Temp Pulse Resp BP Pulse Ox 98.0 F 67 18 139/49 H 94 02/24/19 03:05 02/24/19 07:00 02/24/19 03:05 02/24/19 03:05 02/24/19 03:05 Pulse Oximeter Continuous Start: 02/08/19 13:05 Freq: RTQ4 Status: Complete Protocol: Document 02/11/19 08:00 LDA (Rec: 02/11/19 09:42 LDA [email or web address]) Pulse Oximetry Assessment Equipment Usage Equipment Discontinued Continuous SpO2 Machine # 8 Intake & Output 02/23/19 02/24/19 02/25/19 06:59 06:59 06:59 Intake Total 2831 3317 Output Total 4400 1800 Balance -1569 1517 Weight 83.2 kg 81.5 kg General appearance: PRESENT: no acute distress Head exam: PRESENT: normocephalic Eye exam: PRESENT: EOMI Mouth exam: PRESENT: moist Neck exam: PRESENT: full ROM Respiratory exam: PRESENT: clear to auscultation josh Cardiovascular exam: PRESENT: RRR Pulses: PRESENT: normal radial pulses, normal femoral pulses GI/Abdominal exam: PRESENT: soft Rectal exam: PRESENT: deferred Extremities exam: PRESENT: full ROM Musculoskeletal exam: PRESENT: full ROM Neurological exam: PRESENT: alert, awake, oriented to person, oriented to place, oriented to time, oriented to situation - pancreatitis pt appears improved min pain tatum full liquids wbc trending down h/h stable plan ok for her to shower dc tele cont full liquids if wbc conts to decrease can be discharged on home tpn., Results Laboratory Results: 02/24/19 05:30 02/24/19 05:30 02/23/19 02/24/19 02/24/19 09:15 05:30 05:30 WBC 18.0 H RBC 3.38 L Hgb 10.2 L Hct 30.4 L MCV 90 MCH 30.1 MCHC 33.4 RDW 13.7 Plt Count 616 H Sodium 135.0 L Potassium 4.3 Chloride 97 L Carbon Dioxide 30 Anion Gap 8 BUN 18 Creatinine 0.44 L Est GFR ( Amer) > 60 Est GFR (Non-Af Amer) > 60 Glucose 214 H Calcium 8.7 Phosphorus 3.3 Total Bilirubin 0.5 AST 47 H ALT 36 Alkaline Phosphatase 148 H Total Protein 6.4 Albumin 3.0 L Blood Type O POSITIVE Antibody Screen NEGATIVE 02/09/19 07:30 NT-Pro-B Natriuret Pep 1330 H Impressions: KUB X-Ray 02/12/19 00:00 IMPRESSION: NO RADIOGRAPHIC EVIDENCE FOR ACUTE ABDOMINAL DISEASE. Venous Doppler Study 02/17/19 00:00 IMPRESSION: NO EVIDENCE DVT OR SVT IN EITHER LEG. Chest X-Ray 02/18/19 00:00 IMPRESSION: Small left pleural effusion and associated airspace disease consistent with pneumonia. Guidance Fluoroscopy 02/19/19 00:00 IMPRESSION: SUCCESSFUL PLACEMENT OF A 5 FR DUAL LUMEN 33 CM PICC IN THE RIGHT B ASILIC VEIN. Interventional Vascular Procedure 02/19/19 00:00 IMPRESSION: SUCCESSFUL PLACEMENT OF A 5 FR DUAL LUMEN 33 CM PICC IN THE RIGHT BASILIC VEIN. PICC Line Insertion 02/19/19 00:00 IMPRESSION: SUCCESSFUL PLACEMENT OF A 5 FR DUAL LUMEN 33 CM PICC IN THE RIGHT BASILIC VEIN. Abdomen/Pelvis CT 02/23/19 00:00 IMPRESSION: New hemorrhage in the lesser sac pancreatic pseudocyst. Increasing left upper quadrant mesenteric pseudocyst, increasing left retroperitoneal pseudocyst along splenic flexure colon Assessment & Plan - Diagnosis (1) Acute pancreatitis Qualifiers: Pancreatitis type: other Acute pancreatitis complication: no infection or necrosis Qualified Code(s): K85.80 - Other acute pancreatitis without necrosis or infection Is this a current diagnosis for this admission?: Yes
[2019-02-24] MEDS: ASPIRIN 81 MG TABLET, CHEWABLE PO SCH (10:24)
[2019-02-24] MEDS: METOPROLOL TARTRATE 25 MG TABLET PO SCH ×2 (10:24→21:10)
[2019-02-24] MEDS: LISINOPRIL 10 MG TABLET PO SCH (10:25)
[2019-02-24] MEDS: CHLORTHALIDONE 25 MG TABLET PO SCH (10:26)
[2019-02-24] MEDS: FLUTICASONE NASAL SPRAY 50 MCG/SPRY 120 SPRAY/16 GM NASL SCH (10:26)
[2019-02-24] MEDS: NORMAL SALINE 10 ML SDV (SCHEDULED) IV SCH ×2 (10:27→21:10)
[2019-02-24] MEDS: MEROPENEM 1 GM in NORMAL SALINE 50 ML IV SCH (10:29)
[2019-02-24] MEDS: AMLODIPINE BESYLATE 10 MG TABLET PO SCH (10:29)
--- NOTE | 2019-02-24 17:22 | PDOC PROGRESS REPORT ---
Subjective Progress Note for:: 02/24/19 Subjective:: STARR TAYLOR is a 73 year old female with a PMH of HTN, morbid obesity and bronchitis. who recently underwent laparoscopic cholecystectomy. She was discharged home. Unfortunately she was not compliant with Dr. Roman's diet instructions at breakfast the next morning. Initial Lipase 17,000. She was admitted to [facility] with pancreatitis. Patient was seen on afternoon rounds. She was noted to be lethargic and fell asleep multiple times during my visit but woke easily when I would say her name. She denies abdominal discomfort, nausea, and emesis. She reports feeling "frustrated" and "agitated" but can not clarify what is bothering her or if there is anything that can be done to help her. Otherwise, the patient had no specific questions or concerns. Patient denied fever, chills, bodyaches, chest pain, dyspnea, orthopnea, emesis, diarrhea and constipation. She does report (+) flatus and bm. No concerns per nursing. Reason For Visit: PANCREATITIS Physical Exam Vital Signs: Temp Pulse Resp BP Pulse Ox 98.2 F 72 16 131/55 H 95 02/24/19 11:12 02/24/19 11:12 02/24/19 11:12 02/24/19 11:12 02/24/19 11:12 Pulse Oximeter Continuous Start: 02/08/19 13:05 Freq: RTQ4 Status: Complete Protocol: Document 02/11/19 08:00 LDA (Rec: 02/11/19 09:42 LDA [email or web address]) Pulse Oximetry Assessment Equipment Usage Equipment Discontinued Continuous SpO2 Machine # 8 Intake & Output 02/23/19 02/24/19 02/25/19 06:59 06:59 06:59 Intake Total 2831 3317 0 Output Total 4400 1800 Balance -1569 1517 2049 Weight 83.2 kg 81.5 kg General appearance: PRESENT: no acute distress, obese, well-developed Head exam: PRESENT: atraumatic, normocephalic Eye exam: PRESENT: conjunctiva pink, EOMI, PERRLA. ABSENT: scleral icterus Mouth exam: PRESENT: moist, tongue midline Neck exam: ABSENT: carotid bruit, JVD, lymphadenopathy, thyromegaly Respiratory exam: PRESENT: clear to auscultation josh, decreased breath sounds - bibasilar; secondary to positioning and poor inspiratory effort, symmetrical, unlabored. ABSENT: rales, rhonchi, wheezes Cardiovascular exam: PRESENT: RRR. ABSENT: diastolic murmur, rubs, systolic murmur Pulses: PRESENT: normal dorsalis pedis pul Vascular exam: PRESENT: normal capillary refill GI/Abdominal exam: PRESENT: normal bowel sounds, soft, tenderness. ABSENT: distended, guarding, mass, organolmegaly, rebound Rectal exam: PRESENT: deferred Extremities exam: PRESENT: full ROM. ABSENT: calf tenderness, clubbing, pedal edema Neurological exam: PRESENT: oriented to person, oriented to place, oriented to time, oriented to situation, CN II-XII grossly intact, other - lethargic. ABSENT: motor sensory deficit Psychiatric exam: PRESENT: agitated, flat affect, normal mood. ABSENT: homicidal ideation, suicidal ideation Skin exam: PRESENT: dry, intact, warm. ABSENT: cyanosis, rash Results Laboratory Results: 02/24/19 05:30 02/24/19 05:30 02/24/19 02/24/19 05:30 05:30 WBC 18.0 H RBC 3.38 L Hgb 10.2 L Hct 30.4 L MCV 90 MCH 30.1 MCHC 33.4 RDW 13.7 Plt Count 616 H Sodium 135.0 L Potassium 4.3 Chloride 97 L Carbon Dioxide 30 Anion Gap 8 BUN 18 Creatinine 0.44 L Est GFR ( Amer) > 60 Est GFR (Non-Af Amer) > 60 Glucose 214 H Calcium 8.7 Phosphorus 3.3 Total Bilirubin 0.5 AST 47 H ALT 36 Alkaline Phosphatase 148 H Total Protein 6.4 Albumin 3.0 L 02/09/19 07:30 NT-Pro-B Natriuret Pep 1330 H Impressions: KUB X-Ray 02/12/19 00:00 IMPRESSION: NO RADIOGRAPHIC EVIDENCE FOR ACUTE ABDOMINAL DISEASE. Venous Doppler Study 02/17/19 00:00 IMPRESSION: NO EVIDENCE DVT OR SVT IN EITHER LEG. Chest X-Ray 02/18/19 00:00 IMPRESSION: Small left pleural effusion and associated airspace disease consistent with pneumonia. Guidance Fluoroscopy 02/19/19 00:00 IMPRESSION: SUCCESSFUL PLACEMENT OF A 5 FR DUAL LUMEN 33 CM PICC IN THE RIGHT BASILIC VEIN. Interventional Vascular Procedure 02/19/19 00:00 IMPRESSION: SUCCESSFUL PLACEMENT OF A 5 FR DUAL LUMEN 33 CM PICC IN THE RIGHT BASILIC VEIN. PICC Line Insertion 02/19/19 00:00 IMPRESSION: SUCCESSFUL PLACEMENT OF A 5 FR DUAL LUMEN 33 CM PICC IN THE RIGHT BASILIC VEIN. Abdomen/Pelvis CT 02/23/19 00:00 IMPRESSION: New hemorrhage in the lesser sac pancreatic pseudocyst. Increasing left upper quadrant mesenteric pseudocyst, increasing left retroperitoneal pseudocyst along splenic flexure colon Assessment and Plan - Diagnosis (1) Acute pancreatitis Qualifiers: Pancreatitis type: other Acute pancreatitis complication: no infection or necrosis Qualified Code(s): K85.80 - Other acute pancreatitis without necrosis or infection Is this a current diagnosis for this admission?: Yes Plan: Primary management per surgery Lipase 96.4-->126 Leukocytosis is improving, patient is afebrile and clinically improved. Nontoxic appearing. Elevated WBCs likely inflammatory reaction; have discussed with surgery and will discontinue antibiotics. Tolerating full liquids but does not have much appetite Abdominal distention present, +BS, + flatus and bms 02/17/19 CT Abd/Pelvis shows interval development of pseudocyst with additional fluid collections tracking posterior to the pancreas. 02/23/19 CT Abd/Pelvis wo demonstrated ? hemorrhage to lesser sac pancreatic pseudocyst, increased LUQ mesenteric pseudocyst, and increased left retroperitoneal pseudocyst. Discontinue meropenem today. Analgesics and Antiemetics as needed. Diet to be advanced per Surgery's recommendations. Currently receiving TPN via PICC line Discussed with Dr. Roman; plan is to discharge home with TPN. (2) Acute encephalopathy Is this a current diagnosis for this admission?: Yes Plan: Improved; likely approaching baseline. Patient remains mildly lethargic but able to answer questions appropriately Occasionally falls asleep during conversation Agree w/ previous provider's assessment that the patient's clinical presentation is lethargy more than encephalopathy (3) Hypertensive urgency Is this a current diagnosis for this admission?: Yes Plan: Blood pressures much improved; now acceptable for age. Continue: Lisinopril 40 mg twice daily Amlodipine 10mg PO daily Chlorthalidone 12.5mg PO daily Toprol XL 25mg BID (4) Hyponatremia Is this a current diagnosis for this admission?: Yes Plan: Resolved. Secondary to malnutrition Continue TPN 1000mL free water restriction (5) Obesity (BMI 30.0-34.9) Is this a current diagnosis for this admission?: Yes Plan: Encouraged lifestyle modification (6) Serum albumin decreased Is this a current diagnosis for this admission?: Yes Plan: Improving 2.1-->3.0 today Secondary to malnutrition, poor p.o. intake in setting of prolonged pancreatitis course preceeded by cholecystits. Received 25 g albumin twice daily for (total) 48 hours Continue TPN. Continue full liquid diet; advance as directed by surgical service. (7) Leukocytosis Is this a current diagnosis for this admission?: Yes Plan: Likely an inflammatory response r/t pancreatitis and pseudocyst formation. May also be directly related to use of meropenem. Less likely an infectious process at this time as the patient remains afebrile, clinically improved, nontoxic appearing and although abdomen is tender, it is without firmness/rigidity. Blood cultures are negative at 5 days. Urine cultures are negative. Stool cultures are negative. PICC line tip is negative. Discussed with surgery today; meropenem is discontinued. We will continue to trend. (8) Debility Is this a current diagnosis for this admission?: Yes Plan: Secondary to body habitus and prolonged illness. Physical therapy is consulted. Out of bed to chair 3 times daily. Discharge planning is consulted; discharged home with home health services versus SNF for short-term rehab. - Time Time Spent with patient: 15-24 minutes Medications reviewed and adjusted accordingly: Yes Anticipated discharge: Home with Homehealth
[2019-02-24] MEDS: BUSPIRONE HCL 10 MG TABLET PO SCH (21:10)
[2019-02-24] MEDS: ACETAMINOPHEN 325 MG TABLET PO PRN (23:42)
[2019-02-25] MEDS: NORMAL SALINE 1000 ML 1,000 ML IV PRN ×2 (01:53→17:14)
[2019-02-25] MEDS: AMINO ACIDS 5 %/DEXTROSE 20 % 1,000 ML IV PRN ×2 (04:32→17:14)
[2019-02-25] MEDS: INSULIN REG, HUMAN 100 UNIT/ML 3 ML VIAL (PYX) SUBCUT SCH ×4 (05:51→23:16)
[2019-02-25 06:14] LABS: HEMATOCRIT 29.9 % (36.0-47.0); HEMOGLOBIN 10.1 g/dL (12.0-15.5); MEAN CORPUSCULAR HEMOGLOBIN 30.1 pg (27.0-33.4); MEAN CORPUSCULAR HGB CONC 33.7 g/dL (32.0-36.0); MEAN CORPUSCULAR VOLUME 89 fl (80-97); PLATELET COUNT 589 10^3/uL (150-450); RED BLOOD COUNT 3.35 10^6/uL (3.72-5.28)
[2019-02-25 06:41] LABS: ALANINE AMINOTRANSFERASE 43 U/L (9-52); ALBUMIN 2.8 g/dL (3.5-5.0); ALKALINE PHOSPHATASE 157 U/L (38-126); ANION GAP 6 (5-19); ASPARTATE AMINO TRANSFERASE 56 U/L (14-36); BILIRUBIN,DIRECT 0.3 mg/dL (0.0-0.4); BILIRUBIN,TOTAL 0.4 mg/dL (0.2-1.3); BLOOD UREA NITROGEN 21 mg/dL (7-20); CALCIUM 8.6 mg/dL (8.4-10.2); CARBON DIOXIDE 31 mmol/L (22-30); CHLORIDE 99 mmol/L (98-107); GLUCOSE 233 mg/dL (75-110); PHOSPHORUS 3.6 mg/dL (2.5-4.5); POTASSIUM 4.3 mmol/L (3.6-5.0); TOTAL PROTEIN 6.3 g/dL (6.3-8.2)
[2019-02-25] MEDS: BUSPIRONE HCL 10 MG TABLET PO SCH ×2 (08:28→21:21)
[2019-02-25] MEDS: FLUTICASONE NASAL SPRAY 50 MCG/SPRY 120 SPRAY/16 GM NASL SCH (10:12)
[2019-02-25] MEDS: CHLORTHALIDONE 25 MG TABLET PO SCH (10:13)
[2019-02-25] MEDS: ASPIRIN 81 MG TABLET, CHEWABLE PO SCH (10:13)
[2019-02-25] MEDS: FAT EMULSIONS 250 ML IV SCH (10:13)
[2019-02-25] MEDS: METOPROLOL TARTRATE 25 MG TABLET PO SCH ×2 (10:14→21:21)
[2019-02-25] MEDS: AMLODIPINE BESYLATE 10 MG TABLET PO SCH (10:14)
[2019-02-25] MEDS: NORMAL SALINE 10 ML SDV (SCHEDULED) IV SCH ×2 (10:14→21:22)
[2019-02-25] MEDS: LISINOPRIL 10 MG TABLET PO SCH (10:15)
--- NOTE | 2019-02-25 11:59 | PDOC PROGRESS REPORT ---
Subjective Progress Note for:: 02/25/19 Reason For Visit: PANCREATITIS Physical Exam Vital Signs: Temp Pulse Resp BP Pulse Ox 97.7 F 65 20 130/62 H 96 02/25/19 03:12 02/25/19 03:12 02/25/19 03:12 02/25/19 03:12 02/25/19 03:12 Pulse Oximeter Continuous Start: 02/08/19 13:05 Freq: RTQ4 Status: Complete Protocol: Document 02/11/19 08:00 LDA (Rec: 02/11/19 09:42 LDA [email or web address]) Pulse Oximetry Assessment Equipment Usage Equipment Discontinued Continuous SpO2 Machine # 8 Intake & Output 02/24/19 02/25/19 02/26/19 06:59 06:59 06:59 Intake Total 3317 4638 Output Total 1800 2550 Balance 1517 2088 Weight 81.5 kg 79 kg General appearance: PRESENT: no acute distress Eye exam: PRESENT: EOMI Mouth exam: PRESENT: moist Neck exam: PRESENT: full ROM Respiratory exam: PRESENT: clear to auscultation josh Cardiovascular exam: PRESENT: RRR Pulses: PRESENT: normal radial pulses, normal femoral pulses GI/Abdominal exam: PRESENT: soft Rectal exam: PRESENT: deferred Extremities exam: PRESENT: full ROM Musculoskeletal exam: PRESENT: full ROM Neurological exam: PRESENT: alert, altered, awake, oriented to person, oriented to place, oriented to time, oriented to situation Psychiatric exam: PRESENT: appropriate affect Results Laboratory Results: 02/25/19 06:03 02/25/19 06:03 02/25/19 02/25/19 06:03 06:03 WBC 16.0 H RBC 3.35 L Hgb 10.1 L Hct 29.9 L MCV 89 MCH 30.1 MCHC 33.7 RDW 14.0 Plt Count 589 H Sodium 136.0 L Potassium 4.3 Chloride 99 Carbon Dioxide 31 H Anion Gap 6 BUN 21 H Creatinine 0.41 L Est GFR ( Amer) > 60 Est GFR (Non-Af Amer) > 60 Glucose 233 H Calcium 8.6 Phosphorus 3.6 Total Bilirubin 0.4 AST 56 H ALT 43 Alkaline Phosphatase 157 H Total Protein 6.3 Albumin 2.8 L 02/09/19 07:30 NT-Pro-B Natriuret Pep 1330 H Impressions: KUB X-Ray 02/12/19 00:00 IMPRESSION: NO RADIOGRAPHIC EVIDENCE FOR ACUTE ABDOMINAL DISEASE. Venous Doppler Study 02/17/19 00:00 IMPRESSION: NO EVIDENCE DVT OR SVT IN EITHER LEG. Chest X-Ray 02/18/19 00:00 IMPRESSION: Small left pleural effusion and associated airspace disease consistent with pneumonia. Guidance Fluoroscopy 02/19/19 00:00 IMPRESSION: SUCCESSFUL PLACEMENT OF A 5 FR DUAL LUMEN 33 CM PICC IN THE RIGHT BASILIC VEIN. Interventional Vascular Procedure 02/19/19 00:00 IMPRESSION: SUCCESSFUL PLACEMENT OF A 5 FR DUAL LUMEN 33 CM PICC IN THE RIGHT BASILIC VEIN. PICC Line Insertion 02/19/19 00:00 IMPRESSION: SUCCESSFUL PLACEMENT OF A 5 FR DUAL LUMEN 33 CM PICC IN THE RIGHT BASILIC VEIN. Abdomen/Pelvis CT 02/23/19 00:00 IMPRESSION: New hemorrhage in the lesser sac pancreatic pseudocyst. Increasing left upper quadrant mesenteric pseudocyst, increasing left retroperitoneal pseudocyst along splenic flexure colon Assessment & Plan - Diagnosis (1) Acute pancreatitis Qualifiers: Pancreatitis type: other Acute pancreatitis complication: no infection or necrosis Qualified Code(s): K85.80 - Other acute pancreatitis without necrosis or infection Is this a current diagnosis for this admission?: Yes - Plan Summary Plan Summary: continures to improve wbx stopped yesteday and wbc down today to 16 tatum full liquids will wheen off tpn if conts to tatum po full liqluids \ could dc home tomorow or sat.
--- NOTE | 2019-02-25 19:52 | PDOC PROGRESS REPORT ---
Subjective Progress Note for:: 02/25/19 Subjective:: STARR TAYLOR is a 73 year old female with a PMH of HTN, morbid obesity and bronchitis. who recently underwent laparoscopic cholecystectomy. She was discharged home. Unfortunately she was not compliant with Dr. Roman's diet instructions at breakfast the next morning. Initial Lipase 17,000. She was admitted to [facility] with pancreatitis. Patient was seen on morning rounds. She was found to be resting comfortably on room air. She is noted to be much more alert and well-appearing today. She tells me that she is feeling well. She denies abdominal discomfort. She states that she has had to eat so far this morning is chocolate pudding, however, notes that she did not have increased abdominal discomfort nausea, or emesis related to her p.o. intake. She states that she is pleased to know that she will be discharged home soon; per patient, Dr. Roman has stated that the patient may go home on a full liquid diet and will not require TPN. She further denies fever, chills, bodyaches, chest pain, dyspnea, orthopnea, emesis, diarrhea and constipation. She reports large bowel movement today. She has no other questions or concerns. No concerns per nursing. Reason For Visit: PANCREATITIS Physical Exam Vital Signs: Temp Pulse Resp BP Pulse Ox 97.7 F 71 16 124/41 L 95 02/25/19 15:56 02/25/19 15:56 02/25/19 15:56 02/25/19 15:56 02/25/19 15:56 Pulse Oximeter Continuous Start: 02/08/19 13:05 Freq: RTQ4 Status: Complete Protocol: Document 02/11/19 08:00 LDA (Rec: 02/11/19 09:42 LDA [email or web address]) Pulse Oximetry Assessment Equipment Usage Equipment Discontinued Continuous SpO2 Machine # 8 Intake & Output 02/24/19 02/25/19 02/26/19 06:59 06:59 06:59 Intake Total 3318 4629 2484 Output Total 9754 0960 Balance 7261 5700 2486 Weight 81.5 kg 79 kg General appearance: PRESENT: no acute distress, obese, well-developed, well- nourished Head exam: PRESENT: atraumatic, normocephalic Eye exam: PRESENT: conjunctiva pink, EOMI, PERRLA. ABSENT: scleral icterus Ear exam: PRESENT: normal external ear exam Mouth exam: PRESENT: moist, tongue midline Neck exam: ABSENT: carotid bruit, JVD, lymphadenopathy, thyromegaly Respiratory exam: PRESENT: clear to auscultation josh, decreased breath sounds - Bibasilar, symmetrical, unlabored. ABSENT: rales, rhonchi, wheezes Cardiovascular exam: PRESENT: RRR. ABSENT: diastolic murmur, rubs, systolic murmur Pulses: PRESENT: normal dorsalis pedis pul Vascular exam: PRESENT: normal capillary refill GI/Abdominal exam: PRESENT: normal bowel sounds, soft. ABSENT: distended, guarding, mass, organolmegaly, rebound, tenderness Rectal exam: PRESENT: deferred Extremities exam: PRESENT: full ROM. ABSENT: calf tenderness, clubbing, pedal edema Musculoskeletal exam: PRESENT: ambulatory Neurological exam: PRESENT: alert, awake, oriented to person, oriented to place, oriented to time, oriented to situation, CN II-XII grossly intact. ABSENT: motor sensory deficit Psychiatric exam: PRESENT: appropriate affect, normal mood. ABSENT: homicidal ideation, suicidal ideation Skin exam: PRESENT: dry, intact, warm. ABSENT: cyanosis, rash Results Laboratory Results: 02/25/19 06:03 02/25/19 06:03 02/25/19 02/25/19 02/25/19 06:03 06:03 17:18 WBC 16.0 H RBC 3.35 L Hgb 10.1 L Hct 29.9 L MCV 89 MCH 30.1 MCHC 33.7 RDW 14.0 Plt Count 589 H Sodium 136.0 L Potassium 4.3 Chloride 99 Carbon Dioxide 31 H Anion Gap 6 BUN 21 H Creatinine 0.41 L Est GFR ( Amer) > 60 Est GFR (Non-Af Amer) > 60 Glucose 233 H Calcium 8.6 Phosphorus 3.6 Total Bilirubin 0.4 AST 56 H ALT 43 Alkaline Phosphatase 157 H Total Protein 6.3 Albumin 2.8 L Triglycerides 284 H 02/09/19 07:30 NT-Pro-B Natriuret Pep 1330 H Impressions: KUB X-Ray 02/12/19 00:00 IMPRESSION: NO RADIOGRAPHIC EVIDENCE FOR ACUTE ABDOMINAL DISEASE. Venous Doppler Study 02/17/19 00:00 IMPRESSION: NO EVIDENCE DVT OR SVT IN EITHER LEG. Chest X-Ray 02/18/19 00:00 IMPRESSION: Small left pleural effusion and associated airspace disease consistent with pneumonia. Guidance Fluoroscopy 02/19/19 00:00 IMPRESSION: SUCCESSFUL PLACEMENT OF A 5 FR DUAL LUMEN 33 CM PICC IN THE RIGHT BASILIC VEIN. Interventional Vascular Procedure 02/19/19 00:00 IMPRESSION: SUCCESSFUL PLACEMENT OF A 5 FR DUAL LUMEN 33 CM PICC IN THE RIGHT BASILIC VEIN. PICC Line Insertion 02/19/19 00:00 IMPRESSION: SUCCESSFUL PLACEMENT OF A 5 FR DUAL LUMEN 33 CM PICC IN THE RIGHT BASILIC VEIN. Abdomen/Pelvis CT 02/23/19 00:00 IMPRESSION: New hemorrhage in the lesser sac pancreatic pseudocyst. Increasing left upper quadrant mesenteric pseudocyst, increasing left retroperitoneal pseudocyst along splenic flexure colon Assessment and Plan - Diagnosis (1) Acute pancreatitis Qualifiers: Pancreatitis type: other Acute pancreatitis complication: no infection or necrosis Qualified Code(s): K85.80 - Other acute pancreatitis without necrosis or infection Is this a current diagnosis for this admission?: Yes Plan: Continues to improve. Primary management per surgery Lipase 17k-> 96.4-->126 Leukocytosis continues to improve, patient is afebrile and clinically improved. Nontoxic appearing. Tolerating full liquids but does not have much appetite Abdominal distention present, +BS, + flatus and bms 02/17/19 CT Abd/Pelvis shows interval development of pseudocyst with additional fluid collections tracking posterior to the pancreas. 02/23/19 CT Abd/Pelvis wo demonstrated ? hemorrhage to lesser sac pancreatic pseudocyst, increased LUQ mesenteric pseudocyst, and increased left retroperitoneal pseudocyst. Discontinue meropenem yesterday. Analgesics and Antiemetics as needed. Diet to be advanced per Surgery's recommendations. Currently receiving TPN via PICC line Per patient; plan is to discharge in the next 48-72 hrs w/o TPN. Discharge planning is consulted to arrange for home health nursing services. (2) Acute encephalopathy Is this a current diagnosis for this admission?: Yes Plan: Resolved. (3) Hypertensive urgency Is this a current diagnosis for this admission?: Yes Plan: Blood pressures much improved; now acceptable for age. Continue: Lisinopril 40 mg twice daily Amlodipine 10mg PO daily Chlorthalidone 12.5mg PO daily Toprol XL 25mg BID (4) Hyponatremia Is this a current diagnosis for this admission?: Yes Plan: Resolved. Secondary to malnutrition Continue TPN 1000mL free water restriction (5) Obesity (BMI 30.0-34.9) Is this a current diagnosis for this admission?: Yes Plan: Encouraged lifestyle modification (6) Serum albumin decreased Is this a current diagnosis for this admission?: Yes Plan: Improving 2.1--> 2.8 today Secondary to malnutrition, poor p.o. intake in setting of prolonged pancreatitis course preceeded by cholecystits. Previously received 25 g x4 doses Continue TPN. Continue full liquid diet; advance as directed by surgical service. (7) Leukocytosis Is this a current diagnosis for this admission?: Yes Plan: Continues to improve. WBC 20-> 18-> 16 Likely an inflammatory response r/t pancreatitis and pseudocyst formation. May also be directly related to use of meropenem. Less likely an infectious process at this time as the patient remains afebrile, clinically improved, nontoxic appearing and although abdomen is tender, it is without firmness/rigidity. Blood cultures are negative at 5 days. Urine cultures are negative. Stool cultures are negative. PICC line tip is negative. Discussed with surgery; meropenem discontinued yesterday We will continue to trend. (8) Debility Is this a current diagnosis for this admission?: Yes Plan: Secondary to body habitus and prolonged illness. Physical therapy is consulted. Out of bed to chair 3 times daily. Discharge planning is consulted; discharged home with home health services. - Time Time Spent with patient: 15-24 minutes Medications reviewed and adjusted accordingly: Yes Anticipated discharge: Home with Homehealth Within: within 72 hours - per Surgery's direction
[2019-02-26] MEDS: ACETAMINOPHEN 325 MG TABLET PO PRN (01:22)
[2019-02-26] MEDS: AMINO ACIDS 5 %/DEXTROSE 20 % 1,000 ML IV PRN (02:28)
[2019-02-26] MEDS: INSULIN REG, HUMAN 100 UNIT/ML 3 ML VIAL (PYX) SUBCUT SCH ×4 (05:32→23:15)
[2019-02-26 06:10] LABS: HEMATOCRIT 28.5 % (36.0-47.0); HEMOGLOBIN 9.6 g/dL (12.0-15.5); MEAN CORPUSCULAR HGB CONC 33.7 g/dL (32.0-36.0); MEAN CORPUSCULAR VOLUME 89 fl (80-97); PLATELET COUNT 471 10^3/uL (150-450); WHITE BLOOD COUNT 18.5 10^3/uL (4.0-10.5)
[2019-02-26 06:28] LABS: ALANINE AMINOTRANSFERASE 50 U/L (9-52); ALBUMIN 2.6 g/dL (3.5-5.0); ALKALINE PHOSPHATASE 160 U/L (38-126); ANION GAP 8 (5-19); ASPARTATE AMINO TRANSFERASE 55 U/L (14-36); BILIRUBIN,DIRECT 0.2 mg/dL (0.0-0.4); BILIRUBIN,TOTAL 0.6 mg/dL (0.2-1.3); BLOOD UREA NITROGEN 19 mg/dL (7-20); CALCIUM 8.6 mg/dL (8.4-10.2); CARBON DIOXIDE 27 mmol/L (22-30); CHLORIDE 101 mmol/L (98-107); GLUCOSE 184 mg/dL (75-110); PHOSPHORUS 4.4 mg/dL (2.5-4.5); POTASSIUM 4.2 mmol/L (3.6-5.0)
--- NOTE | 2019-02-26 08:46 | PDOC PROGRESS REPORT ---
Subjective Progress Note for:: 02/26/19 Subjective:: feels ok taking po full liquids with min complaints has some left sided abd pain last pm, now better Reason For Visit: PANCREATITIS Physical Exam Vital Signs: Temp Pulse Resp BP Pulse Ox 98.0 F 69 17 118/50 L 97 02/26/19 08:04 02/26/19 08:04 02/26/19 08:04 02/26/19 08:04 02/26/19 08:04 Pulse Oximeter Continuous Start: 02/08/19 13:05 Freq: RTQ4 Status: Complete Protocol: Document 02/11/19 08:00 LDA (Rec: 02/11/19 09:42 LDA [email or web address]) Pulse Oximetry Assessment Equipment Usage Equipment Discontinued Continuous SpO2 Machine # 8 Intake & Output 02/25/19 02/26/19 02/27/19 06:59 06:59 06:59 Intake Total 4638 2761 Output Total 2550 225 Balance 2088 2536 Weight 79 kg 81.4 kg General appearance: PRESENT: no acute distress Head exam: PRESENT: normocephalic Mouth exam: PRESENT: moist Neck exam: PRESENT: full ROM Respiratory exam: PRESENT: clear to auscultation josh Cardiovascular exam: PRESENT: RRR Pulses: PRESENT: normal radial pulses, normal femoral pulses, normal dorsalis pedis pul GI/Abdominal exam: PRESENT: soft Rectal exam: PRESENT: deferred Extremities exam: PRESENT: full ROM Musculoskeletal exam: PRESENT: full ROM Neurological exam: PRESENT: alert, awake, oriented to person, oriented to place, oriented to time, oriented to situation Psychiatric exam: PRESENT: appropriate affect Results Laboratory Results: 02/26/19 05:40 02/26/19 05:40 02/25/19 02/26/19 02/26/19 17:18 05:40 05:40 WBC 18.5 H RBC 3.20 L Hgb 9.6 L Hct 28.5 L MCV 89 MCH 30.0 MCHC 33.7 RDW 14.0 Plt Count 471 H Sodium 136.0 L Potassium 4.2 Chloride 101 Carbon Dioxide 27 Anion Gap 8 BUN 19 Creatinine 0.43 L Est GFR ( Amer) > 60 Est GFR (Non-Af Amer) > 60 Glucose 184 H Calcium 8.6 Phosphorus 4.4 Total Bilirubin 0.6 AST 55 H ALT 50 Alkaline Phosphatase 160 H Total Protein 6.0 L Albumin 2.6 L Triglycerides 284 H 02/09/19 07:30 NT-Pro-B Natriuret Pep 1330 H Impressions: KUB X-Ray 02/12/19 00:00 IMPRESSION: NO RADIOGRAPHIC EVIDENCE FOR ACUTE ABDOMINAL DISEASE. Venous Doppler Study 02/17/19 00:00 IMPRESSION: NO EVIDENCE DVT OR SVT IN EITHER LEG. Chest X-Ray 02/18/19 00:00 IMPRESSION: Small left pleural effusion and associated airspace disease con sistent with pneumonia. Guidance Fluoroscopy 02/19/19 00:00 IMPRESSION: SUCCESSFUL PLACEMENT OF A 5 FR DUAL LUMEN 33 CM PICC IN THE RIGHT BASILIC VEIN. Interventional Vascular Procedure 02/19/19 00:00 IMPRESSION: SUCCESSFUL PLACEMENT OF A 5 FR DUAL LUMEN 33 CM PICC IN THE RIGHT BASILIC VEIN. PICC Line Insertion 02/19/19 00:00 IMPRESSION: SUCCESSFUL PLACEMENT OF A 5 FR DUAL LUMEN 33 CM PICC IN THE RIGHT B ASILIC VEIN. Abdomen/Pelvis CT 02/23/19 00:00 IMPRESSION: New hemorrhage in the lesser sac pancreatic pseudocyst. Increasing left upper quadrant mesenteric pseudocyst, increasing left retroperitoneal pseudocyst along splenic flexure colon Assessment & Plan - Diagnosis (1) Acute pancreatitis Qualifiers: Pancreatitis type: other Acute pancreatitis complication: no infection or necrosis Qualified Code(s): K85.80 - Other acute pancreatitis without necrosis or infection Is this a current diagnosis for this admission?: Yes - Plan Summary Plan Summary: feels ok today able to tatum po full liquids we discussed what she can eat when she goes home. full liquids iwth at least 3 protein shakes/day her wbc sl up today 18k, without evidence of infection will plan on wheening tpn off today and if she is tatum the full liquids tomorrow will dc her home with close f/u in my office will prob repoeat ct in a couple of weeks
[2019-02-26] MEDS: AMLODIPINE BESYLATE 10 MG TABLET PO SCH (10:00)
[2019-02-26] MEDS: LISINOPRIL 10 MG TABLET PO SCH (10:00)
[2019-02-26] MEDS: METOPROLOL TARTRATE 25 MG TABLET PO SCH ×2 (10:00→21:09)
[2019-02-26] MEDS: ASPIRIN 81 MG TABLET, CHEWABLE PO SCH (10:00)
[2019-02-26] MEDS: BUSPIRONE HCL 10 MG TABLET PO SCH ×2 (10:00→21:09)
[2019-02-26] MEDS: NORMAL SALINE 1000 ML 1,000 ML IV PRN (10:03)
[2019-02-26] MEDS: FLUTICASONE NASAL SPRAY 50 MCG/SPRY 120 SPRAY/16 GM NASL SCH (10:07)
[2019-02-26] MEDS: CHLORTHALIDONE 25 MG TABLET PO SCH (10:09)
[2019-02-26] MEDS: NORMAL SALINE 10 ML SDV (SCHEDULED) IV SCH ×2 (11:35→21:10)
--- NOTE | 2019-02-26 16:31 | PDOC PROGRESS REPORT ---
Subjective Progress Note for:: 02/26/19 Subjective:: STARR TAYLOR is a 73 year old female with a PMH of HTN, morbid obesity and bronchitis. who recently underwent laparoscopic cholecystectomy. She was discharged home. Unfortunately she was not compliant with Dr. Roman's diet instructions at breakfast the next morning. Initial Lipase 17,000. She was admitted to [facility] with pancreatitis. Patient was seen on morning rounds. She was found to be resting comfortably on room air. She is wake, alert and orientated x 4. She tells me that she is feeling well; but frustrated at remaining in the hospital 1 additional day. She had slight abdominal discomfort early this morning but was relieved by bowel movement. She continued to reports poor appetite; mostly disinterested in maintaining a full liquid diet. She denies increased abdominal discomfort nausea, or emesis related to her p.o. intake. She further denies fever, chills, bodyaches, chest pain, dyspnea, orthopnea, emesis, diarrhea and constipation. She has no other questions or concerns. No concerns per nursing. Reason For Visit: PANCREATITIS Physical Exam Vital Signs: Temp Pulse Resp BP Pulse Ox 98.0 F 69 17 118/50 L 97 02/26/19 08:04 02/26/19 08:04 02/26/19 08:04 02/26/19 08:04 02/26/19 08:04 Pulse Oximeter Continuous Start: 02/08/19 13:05 Freq: RTQ4 Status: Complete Protocol: Document 02/11/19 08:00 LDA (Rec: 02/11/19 09:42 LDA [email or web address]) Pulse Oximetry Assessment Equipment Usage Equipment Discontinued Continuous SpO2 Machine # 8 Intake & Output 02/25/19 02/26/19 02/27/19 06:59 06:59 06:59 Intake Total 4638 2761 1000 Output Total 2330 225 Balance 3170 9876 1000 Weight 79 kg 81.4 kg General appearance: PRESENT: no acute distress, cooperative, obese, well- developed, well-nourished Head exam: PRESENT: atraumatic, normocephalic Eye exam: PRESENT: conjunctiva pink, EOMI, PERRLA. ABSENT: scleral icterus Mouth exam: PRESENT: moist, tongue midline Neck exam: ABSENT: carotid bruit, JVD, lymphadenopathy, thyromegaly Respiratory exam: PRESENT: clear to auscultation josh, decreased breath sounds - Bibasilar, symmetrical, unlabored. ABSENT: rales, rhonchi, wheezes Cardiovascular exam: PRESENT: RRR. ABSENT: diastolic murmur, rubs, systolic murmur Pulses: PRESENT: normal dorsalis pedis pul Vascular exam: PRESENT: normal capillary refill GI/Abdominal exam: PRESENT: normal bowel sounds, soft. ABSENT: distended, guarding, mass, organolmegaly, rebound, tenderness Rectal exam: PRESENT: deferred Extremities exam: PRESENT: full ROM. ABSENT: calf tenderness, clubbing, pedal edema Neurological exam: PRESENT: alert, awake, oriented to person, oriented to place, oriented to time, oriented to situation, CN II-XII grossly intact. ABSENT: motor sensory deficit Psychiatric exam: PRESENT: appropriate affect, normal mood. ABSENT: homicidal ideation, suicidal ideation Skin exam: PRESENT: dry, intact, warm. ABSENT: cyanosis, rash Results Laboratory Results: 02/26/19 05:40 02/26/19 05:40 02/25/19 02/26/19 02/26/19 17:18 05:40 05:40 WBC 18.5 H RBC 3.20 L Hgb 9.6 L Hct 28.5 L MCV 89 MCH 30.0 MCHC 33.7 RDW 14.0 Plt Count 471 H Sodium 136.0 L Potassium 4.2 Chloride 101 Carbon Dioxide 27 Anion Gap 8 BUN 19 Creatinine 0.43 L Est GFR ( Amer) > 60 Est GFR (Non-Af Amer) > 60 Glucose 184 H Calcium 8.6 Phosphorus 4.4 Total Bilirubin 0.6 AST 55 H ALT 50 Alkaline Phosphatase 160 H Total Protein 6.0 L Albumin 2.6 L Triglycerides 284 H 02/09/19 07:30 NT-Pro-B Natriuret Pep 1330 H Impressions: KUB X-Ray 02/12/19 00:00 IMPRESSION: NO RADIOGRAPHIC EVIDENCE FOR ACUTE ABDOMINAL DISEASE. Venous Doppler Study 02/17/19 00:00 IMPRESSION: NO EVIDENCE DVT OR SVT IN EITHER LEG. Chest X-Ray 02/18/19 00:00 IMPRESSION: Small left pleural effusion and associated airspace disease consistent with pneumonia. Guidance Fluoroscopy 02/19/19 00:00 IMPRESSION: SUCCESSFUL PLACEMENT OF A 5 FR DUAL LUMEN 33 CM PICC IN THE RIGHT BASILIC VEIN. Interventional Vascular Procedure 02/19/19 00:00 IMPRESSION: SUCCESSFUL PLACEMENT OF A 5 FR DUAL LUMEN 33 CM PICC IN THE RIGHT BASILIC VEIN. PICC Line Insertion 02/19/19 00:00 IMPRESSION: SUCCESSFUL PLACEMENT OF A 5 FR DUAL LUMEN 33 CM PICC IN THE RIGHT BASILIC VEIN. Abdomen/Pelvis CT 02/23/19 00:00 IMPRESSION: New hemorrhage in the lesser sac pancreatic pseudocyst. Increasing left upper quadrant mesenteric pseudocyst, increasing left retroperitoneal pseudocyst along splenic flexure colon Assessment and Plan - Diagnosis (1) Acute pancreatitis Qualifiers: Pancreatitis type: other Acute pancreatitis complication: no infection or necrosis Qualified Code(s): K85.80 - Other acute pancreatitis without necrosis or infection Is this a current diagnosis for this admission?: Yes Plan: Continues to improve. Primary management per surgery Lipase 17k-> 96.4-->126 Leukocytosis overall improved (slight increase to 18K today), patient is afebrile and clinically improved. Nontoxic appearing. Tolerating full liquids but does not have much appetite Abdominal distention present, +BS, + flatus and bms 02/17/19 CT Abd/Pelvis shows interval development of pseudocyst with additional fluid collections tracking posterior to the pancreas. 02/23/19 CT Abd/Pelvis wo demonstrated ? hemorrhage to lesser sac pancreatic pseudocyst, increased LUQ mesenteric pseudocyst, and increased left retroperitoneal pseudocyst. Antibiotics have been discontinued. Analgesics and Antiemetics as needed. Diet to be advanced per Surgery's recommendations. Currently receiving TPN via PICC line; have begun weaning. Likely discharge tomorrow. Discharge planning is consulted to arrange for home health nursing services. (2) Acute encephalopathy Is this a current diagnosis for this admission?: Yes Plan: Resolved. (3) Hypertensive urgency Is this a current diagnosis for this admission?: Yes Plan: Blood pressures much improved; now normotensive. Continue: Lisinopril 40 mg twice daily Amlodipine 10mg PO daily Chlorthalidone 12.5mg PO daily Toprol XL 25mg BID (4) Hyponatremia Is this a current diagnosis for this admission?: Yes Plan: Resolved. Secondary to malnutrition Continue TPN; have begun weaning. Nutritional plan as above. (5) Obesity (BMI 30.0-34.9) Is this a current diagnosis for this admission?: Yes Plan: Encouraged lifestyle modification (6) Serum albumin decreased Is this a current diagnosis for this admission?: Yes Plan: Improving 2.1--> 2.6 today Secondary to malnutrition, poor p.o. intake in setting of prolonged pancreatitis course preceeded by cholecystits. Previously received 25 g x4 doses Continue TPN; have begun weaning. Continue full liquid diet; advance as directed by surgical service. (7) Leukocytosis Is this a current diagnosis for this admission?: Yes Plan: Overall improved. WBC 20-> 18-> 16-> 18 Likely an inflammatory response r/t pancreatitis and pseudocyst formation. Less likely an infectious process at this time as the patient remains afebrile, clinically improved, nontoxic appearing and although abdomen is tender, it is without firmness/rigidity. Blood cultures are negative at 5 days. Urine cultures are negative. Stool cultures are negative. PICC line tip is negative. Discussed with surgery; meropenem has been discontinued. We will continue to trend. (8) Debility Is this a current diagnosis for this admission?: Yes Plan: Secondary to body habitus and prolonged illness. Physical therapy is consulted. Out of bed to chair 3 times daily. Discharge planning is consulted; will go home with home health services. - Time Time Spent with patient: 15-24 minutes Medications reviewed and adjusted accordingly: Yes Anticipated discharge: Home with Homehealth Within: within 24 hours - At surgery's direction - Plan Summary Plan Summary: The patient's clinical course continues to improve. Per surgery, have begun weaning TPN with plans to discharge to home with home health services on a full liquid diet tomorrow. Patient will follow up with surgery and have follow-up imaging in 2-3 weeks. At this time, the patient's chronic medical conditions are stable and is cleared for discharge. Hospitalist service will sign off; thank you for allowing us to participate in the care of this patient. Prescriptions for amlodipine, chlorthalidone, lisinopril, metoprolol, aspirin, and BuSpar have been placed on the patient's chart.
[2019-02-26] MEDS: MAG HYDROX/AL HYDROX/SIMETH SUSP 30 ML UDCUP PO PRN (19:24)
[2019-02-27] MEDS: NORMAL SALINE 1000 ML 1,000 ML IV PRN (02:04)
[2019-02-27] MEDS: ONDANSETRON HCL INJ/PF 4 MG/2 ML SDV IV PRN (03:19)
[2019-02-27] MEDS: MAG HYDROX/AL HYDROX/SIMETH SUSP 30 ML UDCUP PO PRN ×2 (03:24→07:55)
[2019-02-27] MEDS: INSULIN REG, HUMAN 100 UNIT/ML 3 ML VIAL (PYX) SUBCUT SCH (05:27)
[2019-02-27 08:29] LABS: HEMATOCRIT 29.5 % (36.0-47.0); HEMOGLOBIN 9.7 g/dL (12.0-15.5); MEAN CORPUSCULAR HEMOGLOBIN 29.4 pg (27.0-33.4); MEAN CORPUSCULAR VOLUME 89 fl (80-97); PLATELET COUNT 548 10^3/uL (150-450); RED CELL DISTRIBUTION WIDTH 14.4 % (11.5-14.0); WHITE BLOOD COUNT 18.8 10^3/uL (4.0-10.5)
[2019-02-27 08:41] LABS: ANION GAP 6 (5-19); BLOOD UREA NITROGEN 15 mg/dL (7-20); CALCIUM 8.9 mg/dL (8.4-10.2); CARBON DIOXIDE 29 mmol/L (22-30); CHLORIDE 101 mmol/L (98-107); GLUCOSE 139 mg/dL (75-110); POTASSIUM 4.3 mmol/L (3.6-5.0); SODIUM 136.4 mmol/L (137-145)
[2019-02-27 08:53] LABS: ABSOLUTE LYMPHOCYTES# (MANUAL) 3.2 10^3/uL (0.5-4.7); ABSOLUTE MONOCYTES # (MANUAL) 0.8 10^3/uL (0.1-1.4); ABSOLUTE NEUTROPHILS# (MANUAL) 14.1 10^3/uL (1.7-8.2); BAND NEUTROPHILS % (MANUAL) 3 % (3-5); BASOPHILS % (MANUAL) 1 % (0-2); EOSINOPHILS % (MANUAL) 3 % (0-6); LYMPHOCYTES % (MANUAL) 17 % (13-45); MONOCYTES % (MANUAL) 4 % (3-13); SEGMENTED NEUTROPHILS % (MAN) 72 % (42-78); TOTAL CELLS COUNTED 100
[2019-02-27 08:55] LABS: ANISOCYTOSIS SLIGHT; PLATELET COMMENT ADEQUATE; PLATELET LARGE PRESENT; TOXIC GRANULATION SLIGHT; TOXIC VACUOLATION PRESENT
[2019-02-27] MEDS: BUSPIRONE HCL 10 MG TABLET PO SCH (09:14)
[2019-02-27] MEDS: METOPROLOL TARTRATE 25 MG TABLET PO SCH (09:15)
[2019-02-27] MEDS: LISINOPRIL 10 MG TABLET PO SCH (09:15)
[2019-02-27] MEDS: AMLODIPINE BESYLATE 10 MG TABLET PO SCH (09:16)
[2019-02-27] MEDS: ASPIRIN 81 MG TABLET, CHEWABLE PO SCH (09:17)
[2019-02-27] MEDS: NORMAL SALINE 10 ML SDV (AFTER EACH USE) IV PRN (09:18)
[2019-02-27] MEDS: CHLORTHALIDONE 25 MG TABLET PO SCH (09:19)
[2019-02-27] MEDS: FLUTICASONE NASAL SPRAY 50 MCG/SPRY 120 SPRAY/16 GM NASL SCH (09:20)
--- NOTE | 2019-02-27 11:09 | DISCHARGE SUMMARY E ---
Discharge Summary NAME: STARR TAYLOR : 1945 AGE: 73Y ADMITTED: 02/06/2019 DISCHARGED: 02/27/2019 ADMISSION DIAGNOSIS: Acute pancreatitis post laparoscopic cholecystectomy. DISCHARGE DIAGNOSIS: Pancreatitis with pancreatic pseudocyst. OPERATIONS/PROCEDURES: Multiple CT scans. REASON FOR HOSPITALIZATION/HOSPITAL COURSE: This is a 73-year-old female who presented approximately 2 days after a laparoscopic cholecystectomy on 02/06/2019 with acute abdominal pain and an elevated lipase in the 17,000 range, seen in the emergency room. A CT scan was initially obtained, which showed diffuse swelling of the pancreas, and it was felt that the patient had gallstone pancreatitis status post laparoscopic cholecystectomy. She was admitted with her initial white blood count of 13 that slowly progressed up to 16 on the following day, and required aggressive resuscitation for her pancreatitis. CT scan on 02/06/2019 showed acute pancreatitis without evidence of a pseudocyst. We continued pain management and IV hydration for the first two days and close observation. She was initially getting Toradol, which was stopped. She was continued NPO and a PICC line was placed, and she was started on total parenteral nutrition. Her abdominal pain waxed and waned for the first couple of days, and was controlled well with narcotics. On hospital day 2 or 3, she became more confused and this was felt due to the narcotics, which spontaneously resolved after 2 days. Her lipase was monitored and it slowly trended down. On 02/17/2019, her abdominal pain was improving, although her white count had increased to 22.2. Chest x-ray showed atelectasis and repeat CT scan showed worsening pancreatitis with considerable free fluid and a definable 5 x 8 cm pseudocyst. She was converted back to NPO status. Prior to that, she had started a diet. Because of the increased white blood count, we obtained Doppler studies to rule out DVT and that proved to be negative. Also, because of her elevated white count, her initially placed PICC line was removed. On 02/18/2019, a repeat CT scan showed an enlarging pseudocyst with a posterior compression of her stomach and a small fluid collection in the pericolic gutter. I spoke with Dr. Nicolas at the time about a possible pancreatic stent. He felt that it would be of no benefit. Her white count was elevated on that day at 29. The Doppler scan again was negative. CT scan was not consistent with an abscess. Chest was clear bilaterally without respiratory symptoms. Urinalysis obtained which was negative. Because she was tolerating p.o., we continued her on full liquids and started her on Sandostatin. Plans were made for repeat PICC line placement and continued TPN. On 02/19/2019, white count came down slightly to 21,000. She was feeling better. Creatinine was normal. Lipase had normalized. She was tolerating full liquid diet, but a PICC line still was placed because she was only taking minimal amounts. A PICC line was placed for restarting TPN. She was seen the next day. Her white count continued to decrease. We evaluated her CT scan for possible necrosis of the pancreas and it did not seem like she had pancreatic necrosis, although she did have a large 10 x 7 cm pseudocyst that was compressing the back wall of her stomach. We continued her on antibiotics per Medicine, and continued to trend her white blood count and restarted her TPN on that day. On 02/21/2019, she continued to feel better. She was passing stools now. Tenderness on the left side of her abdomen over where the fluid collection was noted was much better. Her white count continued to trend down. She was tolerating clear liquid diet. Her TPN was restarted. Her lipase was normal, and she was slowly improving. On 02/22/2019, she stated that she felt better. White count increased back up to 21,000. Liver functions were evaluated and they were normal. Creatinine was normal. There was a small fluid collection on the left side, again seen on the CT scan which we felt could be the cause of her elevated white count. However, she was ambulating the hallways and taking some p.o. She was wanting to be discharged home, as she felt she was strong enough to do that, but because of her elevated white count we elected to perform another CT scan the following day. On 02/23/2019, repeat CT scan was obtained, which showed the pseudocyst, but the radiologist felt that there was a question of possible bleeding within the pseudocyst because of an increased density; however, she did not have IV contrast during that CT scan and there was no change in her hematocrit. A call was made to one of the hepatobiliary surgeons at [facility] for possible transfer because of suspected bleeding; he felt that there was no strong evidence for pseudocyst bleeding, and therefore because of that and because no evidence of change in her hematocrit, we continued to monitor her here. On 02/24/2019, she continued to improve. White count came down. She was not tolerating a full liquid diet. Her abdominal pain essentially resolved and she wanted to be sent home. I continued to watch her in the hospital, however, but made plans for possible discharge in the following two to three days. She was tolerating enough p.o. full liquids by this time that we started weaning down her TPN. On 02/25/2019, she continued to improve. White count trended down to 16,000. She was up and around. She was having bowel movements. She had some diarrhea and C. diff was obtained, which was negative. We continued to wean her TPN off and she continued to take a full liquid diet, and plans were being made for her discharge. On 02/26/2019, her TPN was weaned off. She was taking a full liquid diet. She had minimal complaints. Her left-sided abdominal pain was improved. White count was around 18,000. On 02/27/2019, she stated that she felt well, although weak, but wanted to go home. She felt like she could tolerate a full liquid diet at home. She did complain of some heartburn, and therefore was started on Pepcid twice daily. At this point, her white count is stable at 18,000. Her abdomen is soft and nontender. She is tolerating a full liquid diet. She is having normal bowel movements. She has been started on some antihypertensives during this hospital course, which include lisinopril and metoprolol, 81 mg aspirin tablet daily, chlorthalidone 25 mg tablet 1/2 tab daily. The nurse practitioner, Mer De Santiago, will reconcile her medications and instruct her on their use prior to her discharge. She will be discharged home today on a full liquid diet with strict instructions to call my office or the emergency room should she have recurrence of her abdominal pain, to avoid eating anything solid other than the full liquid diet, and she will be given a follow-up appointment with me next week. I will repeat her CT scan in a couple of weeks depending on how she is feeling, and she may be a candidate for cystgastrostomy either endoscopically or open, if her cyst does not slowly resolve in the next four to six weeks. FINAL DIAGNOSIS AT DISCHARGE: Acute pancreatitis with pancreatic pseudocyst. DICTATING PHYSICIAN: LAQUITA RIOS M.D. [id number] PHY#: [id number] ID: [id number] JOB#: [id number] ACCT: [id number] cc:LAQUITA RIOS M.D. >
[2019-02-27 11:58] VITALS: BP 138/64
== END 2019-02-27 12:46 | disposition home health service (06) | DRG 438 ==
LOC: ER 16:53 → EH 21:19 → 2N 23:07 → 4S 02-07 01:20 → 3W 02-09 19:59
PROVIDERS: ADMIT Surgery; ATTEND Surgery
PROC: 02HV33Z Insertion of Infusion Device into Superior Vena Cava, Percutaneous Approach (ICD-10-PCS; principal; 2019-02-08)
PROC: B518ZZA Fluoroscopy of Superior Vena Cava, Guidance (ICD-10-PCS; 2019-02-08)
PROC: B548ZZA Ultrasonography of Superior Vena Cava, Guidance (ICD-10-PCS; 2019-02-08)
PROC: 3E0436Z Introduction of Nutritional Substance into Central Vein, Percutaneous Approach (ICD-10-PCS; 2019-02-08)
PROC: 02HV33Z Insertion of Infusion Device into Superior Vena Cava, Percutaneous Approach (ICD-10-PCS; 2019-02-18)
PROC: B518ZZA Fluoroscopy of Superior Vena Cava, Guidance (ICD-10-PCS; 2019-02-18)
PROC: B548ZZA Ultrasonography of Superior Vena Cava, Guidance (ICD-10-PCS; 2019-02-18)
DX: K85.90 Acute pancreatitis without necrosis or infection, unspecified (principal); J96.01 Acute respiratory failure with hypoxia; K86.3 Pseudocyst of pancreas; G93.40 Encephalopathy, unspecified; E46 Unspecified protein-calorie malnutrition; R65.10 Systemic inflammatory response syndrome (SIRS) of non-infectious origin without acute organ dysfunction; E87.1 Hypo-osmolality and hyponatremia; E66.01 Morbid (severe) obesity due to excess calories; E83.39 Other disorders of phosphorus metabolism; E11.9 Type 2 diabetes mellitus without complications; R19.7 Diarrhea, unspecified; R12 Heartburn; I10 Essential (primary) hypertension; M19.90 Unspecified osteoarthritis, unspecified site; F32.9 Major depressive disorder, single episode, unspecified; T40.605A Adverse effect of unspecified narcotics, initial encounter; Y92.230 Patient room in hospital as the place of occurrence of the external cause; R40.0 Somnolence; I16.0 Hypertensive urgency; E87.6 Hypokalemia; R94.5 Abnormal results of liver function studies; R53.81 Other malaise; Z91.11 Patient's noncompliance with dietary regimen; Z90.49 Acquired absence of other specified parts of digestive tract; Z68.35 Body mass index [BMI] 35.0-35.9, adult; Z79.82 Long term (current) use of aspirin
CPT/HCPCS: 36415; 36569; 36600; 71045; 74018; 74176; 74177; 76937; 77001; 80048; 80053; 80069; 80076; 80202; 81001; 82140; 82570; 82803; 82962; 83036; 83605; 83690; 83735; 83880; 84100; 84132; 84134; 84300; 84478; 85025; 85027; 85610; 85730; 86850; 86900; 86901; 86920; 87040; 87045; 87070; 87086; 87205; 87493; 88304; 93005; 93010; 93306; 93970; 94762; 94799; 96361; 96374; 96375; 99285; J0295; J0360; J0692; J1170; J1200; J1630; J1642; J1815; J1885; J1940; J2060; J2185; J2270; J2354; J2405; J2543; J2550; J3370; J3480; J3490; J7030; J7040; J7060; P9047; S0028

== ENCOUNTER → 2019-03-12 | Outpatient (CLI) | payer MEDICARE, BC ==
--- NOTE | 2019-03-12 08:59 | RADIOLOGY REPORT (SQ) ---
EXAM DESCRIPTION: CT ABD/PELVIS NO ORAL OR IV COMPLETED DATE/TIME: 03/12/2019 8:23 am REASON FOR STUDY: PSEUDOCYST OF PANCREAS (K86.3) K86.3 PSEUDOCYST OF PANCREAS COMPARISON: 02/23/2019, 02/17/2019 TECHNIQUE: CT scan of the abdomen and pelvis performed without intravenous or oral contrast. Images reviewed with lung, soft tissue, and bone windows. Reconstructed coronal and sagittal MPR images revi ewed. All images stored on PACS. All CT scanners at this facility use dose modulation, iterative reconstruction, and/or weight based d osing when appropriate to reduce radiation dose to as low as reasonably achievable (ALARA). [facility]: Dose Right [facility]: CareDose [facility]: Dose Right [facility]: Teradose 4D [facility]: [employer] RADIATION DOSE: CT Rad equipment meets quality standard of care and radiation dose reduction techniq ues were employed. CTDIvol: 8.5 mGy. DLP: 454 mGy-cm.mGy. LIMITATIONS: None. FINDINGS: LOWER CHEST: No significant findings. No nodules or infiltrates. NON-CONTRASTED LIVER, SPLEEN, ADRENALS: Evaluation limited by lack of IV contrast. No identified sign ificant masses. PANCREAS: Multiple peripancreatic fluid collections are again identified. The largest 2 collections have coalesced. No hemorrhage on the current study. Overall dimensions of the largest collection ar e measured 14.4 x 11.4 cm. There is a smaller 2.9 x 3.8 cm collection posterior and inferior to the head of the pancreas. Loculated small fluid collections remain along the left anterior abdominal wal l and in the left pericolic gutter. These have decreased in size since prior exam. GALLBLADDER: Surgically absent. RIGHT KIDNEY AND URETER: No suspicious masses. Assessment limited by lack of IV contrast. No signif icant calcifications. No hydronephrosis or hydroureter. LEFT KIDNEY AND URETER: No suspicious masses. Assessment limited by lack of IV contrast. No signifi cant calcifications. No hydronephrosis or hydroureter. AORTA AND RETROPERITONEUM: No aneurysm. No retroperitoneal masses or adenopathy. BOWEL AND PERITONEAL CAVITY: Scattered diverticuli. No bowel wall thickening. No acute diverticulit is. APPENDIX: Surgically absent. PELVIS, BLADDER, AND ABDOMINAL WALL:No abnormal masses. No free fluid. Bladder normal. BONES: No interval change. OTHER: No other significant finding. IMPRESSION: Multiple peripancreatic fluid collections are again identified. Compared to the prior s tudy the largest to collections have coalesced. Overall size is measured 14.4 x 11.4 cm. Previously described hemorrhagic component is no longer identified. Small loculated fluid collections along the anterior abdominal wall and in the left pericolic gutter are slightly smaller in size. A small collection along the posterior inferior aspect of the pancreat ic head is stable in size measured 2.9 x 3.8 cm. COMMENT: Quality ID # 436: Final reports with documentation of one or more dose reduction techniques (e.g., Automated exposure control, adjustment of the mA and/or kV according to patient size, use of iterative reconstruction technique) TECHNICAL DOCUMENTATION: JOB ID: [id number] [employer]- All Rights Reserved Reading location - IP/workstation name: [email or web address]
== END ==
LOC: RAD 08:09
PROVIDERS: ATTEND Surgery
DX: K86.3 Pseudocyst of pancreas (principal)
CPT/HCPCS: 74176

== ENCOUNTER → 2019-04-23 | Outpatient (CLI) | payer MEDICARE, BC ==
--- NOTE | 2019-04-23 14:44 | RADIOLOGY REPORT (SQ) ---
EXAM DESCRIPTION: INTRO/GI TUBE W/FLUORO; INTRO LONG GI TUBE (MILLAB) COMPLETED DATE/TIME: 04/23/2019 2:07 pm; 04/23/2019 2:06 pm REASON FOR STUDY: K85.90 ACUTE PANCREATITIS WITHOUT NECROSIS OR INFECTION, UNSP; K85.90 ACUTE PANCRE ATITIS WITHOUT NECROSIS OR INFECTION K85.90 ACUTE PANCREATITIS WITHOUT NECROSIS OR INFECTION, UNS R1 1.2 NAUSEA WITH VOMITING, UNSPECIFIED COMPARISON: None. TECHNIQUE: Live fluoroscopic guidance. RADIATION DOSE: Fluoro time: 2.9 minute. 2 images saved to PACS. LIMITATIONS: None. FINDINGS: The patient was brought to the fluoroscopy room and placed supine on the fluoroscopy table . A Dobhoff tube was advanced through the right nostril through the stomach and ending in the mid duo denum. Approximately 5 mL of non ionic contrast was injected through the catheter to confirm placeme nt. A fluoroscopic spot film was saved to PACs demonstrating catheter tip within the mid portion of t he duodenum. IMPRESSION: SUCCESSFUL FLUOROSCOPIC GUIDED PLACEMENT OF A DOBHOFF TUBE. COMMENT: Quality ID 145: Final reports for procedures using fluoroscopy that document radiation exp osure indices, or exposure time and number of fluorographic images (if radiation exposure indices are not available) TECHNICAL DOCUMENTATION: JOB ID: [id number] [employer]- All Rights Reserved Reading location - IP/workstation name: [email or web address]
--- NOTE | 2019-04-23 14:44 | RADIOLOGY REPORT (SQ) ---
EXAM DESCRIPTION: INTRO/GI TUBE W/FLUORO; INTRO LONG GI TUBE (MILLAB) COMPLETED DATE/TIME: 04/23/2019 2:07 pm; 04/23/2019 2:06 pm REASON FOR STUDY: K85.90 ACUTE PANCREATITIS WITHOUT NECROSIS OR INFECTION, UNSP; K85.90 ACUTE PANCRE ATITIS WITHOUT NECROSIS OR INFECTION K85.90 ACUTE PANCREATITIS WITHOUT NECROSIS OR INFECTION, UNS R1 1.2 NAUSEA WITH VOMITING, UNSPECIFIED COMPARISON: None. TECHNIQUE: Live fluoroscopic guidance. RADIATION DOSE: Fluoro time: 2.9 minute. 2 images saved to PACS. LIMITATIONS: None. FINDINGS: The patient was brought to the fluoroscopy room and placed supine on the fluoroscopy table . A Dobhoff tube was advanced through the right nostril through the stomach and ending in the mid duo denum. Approximately 5 mL of non ionic contrast was injected through the catheter to confirm placeme nt. A fluoroscopic spot film was saved to PACs demonstrating catheter tip within the mid portion of t he duodenum. IMPRESSION: SUCCESSFUL FLUOROSCOPIC GUIDED PLACEMENT OF A DOBHOFF TUBE. COMMENT: Quality ID 145: Final reports for procedures using fluoroscopy that document radiation exp osure indices, or exposure time and number of fluorographic images (if radiation exposure indices are not available) TECHNICAL DOCUMENTATION: JOB ID: [id number] [employer]- All Rights Reserved Reading location - IP/workstation name: [email or web address]
== END ==
LOC: EDSTATUS 08:38 → RAD 12:57
PROVIDERS: ATTEND Surgery
DX: K85.90 Acute pancreatitis without necrosis or infection, unspecified (principal); R11.2 Nausea with vomiting, unspecified
CPT/HCPCS: 44500; 74340

== ENCOUNTER → 2019-09-10 | Outpatient (CLI) | payer MEDICARE, BC ==
--- NOTE | 2019-09-10 10:57 | RADIOLOGY REPORT (SQ) ---
EXAM DESCRIPTION: CT ABDOMEN COMBO COMPLETED DATE/TIME: 09/10/2019 10:25 am REASON FOR STUDY: ABNORMAL GI X RAY (R93.3) K85.00 IDIOPATHIC ACUTE PANCREATITIS WITHOUT NECROSIS O R INF R93.3 ABNORMAL FINDINGS ON DX IMAGING OF PRT DIGESTIVE TRACT COMPARISON: CT of the abdomen pelvis from 05/04/2019. TECHNIQUE: CT scan of the abdomen performed with and without intravenous contrast, and without oral contrast. Contrasted imaging performed using helical scanning technique with dynamic intravenous cont rast injection. Images reviewed with lung, soft tissue, and bone windows. Reconstructed coronal and s agittal MPR images reviewed. Delayed images for evaluation of the urinary system also acquired and ev aluated. All images stored on PACS. All CT scanners at this facility use dose modulation, iterative reconstruction, and/or weight based d osing when appropriate to reduce radiation dose to as low as reasonably achievable (ALARA). [facility]: Dose Right [facility]: CareDose [facility]: Dose Right [facility]: Teradose 4D [facility]: [employer] CONTRAST TYPE AND DOSE: 48.1 mL Omnipaque 350- low osmolar. RENAL FUNCTION: Creatinine 0.6 mg/dl LIMITATIONS: None. FINDINGS: NONCONTRASTED IMAGING: There is no CT evidence of hepatic steatosis or nephrolithiasis. POSTCONTRASTED IMAGING: LOWER CHEST: Unchanged mild cardiomegaly. There is no pericardial or pleural effusion. LIVER: The liver morphology is non cirrhotic. There is no hepatic mass. There is a standard arteria l branch pattern. The portal veins are patent. SPLEEN: The spleen is normal in size. There is a trace amount of fluid in the perisplenic space ; th e fluid measures less than 20 Hounsfield units in attenuation. PANCREAS: There is a fluid collection in the mid pancreatic body that extends to the adjacent stomach that measures approximately 2.8 x 1.4 cm. The main pancreatic duct is normal in caliber. The lumen apposing stent is no longer in place. GALLBLADDER: The gallbladder is surgically absent. The CBD is normal in caliber. There is no dilata tion of the intrahepatic biliary ducts. ADRENAL GLANDS: No abnormality. RIGHT KIDNEY AND URETER: No solid masses or hydronephrosis. LEFT KIDNEY AND URETER: No solid masses or hydronephrosis. 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 RETROPERITONEUM: No enlarged retroperitoneal adenopathy. BOWEL AND PERITONEAL CAVITY: Hiatal hernia and extensive colonic diverticulosis ; there is no evidenc e of acute diverticulitis. There is no upper abdominal adenopathy. ABDOMINAL WALL: No masses. No hernias. BONES: No acute findings. OTHER: No other finding. IMPRESSION: 1. Fluid collection that extends from the mid pancreatic body to the adjacent stomach an d measures approximately 2.8 x 1.4 cm. The pancreatic parenchyma demonstrates homogeneous enhancemen t and there is no dilatation of the pancreatic duct. The degree of stranding of the peripancreatic f at has decreased from 05/04/2019. The collection is favored to represent a pseudocyst. 2. Trace amount of free fluid in the perisplenic space; the fluid measures less than 20 Hounsfield u nits in attenuation. 3. 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 TECHNICAL DOCUMENTATION: JOB ID: [id number] Quality ID # 436: Final reports with documentation of one or more dose reduction techniques (e.g., Au tomated exposure control, adjustment of the mA and/or kV according to patient size, use of iterative reconstruction technique) 2010 [employer]- All Rights Reserved Reading location - IP/workstation name: [email or web address]
== END ==
LOC: RAD 09:43
PROVIDERS: ATTEND Internal Medicine Gastroenterology
DX: K85.00 Idiopathic acute pancreatitis without necrosis or infection (principal); K57.30 Diverticulosis of large intestine without perforation or abscess without bleeding; K44.9 Diaphragmatic hernia without obstruction or gangrene
CPT/HCPCS: 74170; 82565

== ENCOUNTER 2019-10-16 11:19 | Emergency (ER) | payer MEDICARE, BC ==
[2019-10-16] MEDS ORDERED: OXYCODONE HCL IR 5 MG TABLET PO ONE (13:06)
--- NOTE | 2019-10-16 13:12 | ER Document Report ---
ED General - General Chief Complaint: Fall Injury Stated Complaint: FALL/NECK/BACK PAIN Time Seen by Provider: 10/16/19 12:38 TRAVEL OUTSIDE OF THE [place] IN LAST 30 DAYS: No - HPI Notes: Patient is a 74-year-old female with a history of chronic neck pain who presents complaining of low back pain and bilateral hip pain status post fall prior to arrival. Patient states that she was standing on a step stool in her closet which is about 2 feet off the ground when she lost her balance and fell landing on her buttock. Patient states that she had immediate pain to her lower back and hip area. Patient states that weightbearing and movement makes her pain worse. Patient states that she did not hit her head or lose consciousness. She is able to urinate without difficulty otherwise. She is not on any blood thinning medications. Denies any headache, fever, head injury, acute neck pain, changes in vision/speech/mentation/hearing, URI, sore throat, chest pain, palpitations, syncope, cough, shortness of breath, wheeze, dyspnea, abdominal pain, nausea/vomiting/diarrhea, urinary retention, dysuria, hematuria, loss of control of bowel or bladder, numbness/tingling, saddle anesthesia, muscle paralysis/weakness, or rash. - Related Data Allergies/Adverse Reactions: morphine Adverse Reaction (Severe, Verified 10/16/19 13:19) Hallucinations Home Medications: amlodipine, lisinopril, vit d2, fluoxetine Past Medical History - Social History Smoking Status: Never Smoker Chew tobacco use (# tins/day): No Frequency of alcohol use: None Drug Abuse: None Family History: Reviewed & Not Pertinent, COPD - Father and 2 brothers Patient has suicidal ideation: No Patient has homicidal ideation: No - Past Medical History Cardiac Medical History: Reports: Hx Hypertension Denies: Hx Coronary Artery Disease, Hx Heart Attack Pulmonary Medical History: Reports: Hx Bronchitis, Hx Pneumonia Denies: Hx Asthma, Hx COPD Neurological Medical History: Denies: Hx Cerebrovascular Accident, Hx Seizures Endocrine Medical History: Denies: Hx Diabetes Mellitus Type 1, Hx Diabetes Mellitus Type 2 Renal/ Medical History: Denies: Hx Peritoneal Dialysis GI Medical History: Denies: Hx Hepatitis, Hx Hiatal Hernia, Hx Ulcer Musculoskeletal Medical History: Reports Hx Arthritis Psychiatric Medical History: Reports: Hx Depression - occasional takes prozac Infectious Medical History: Denies: Hx Hepatitis Past Surgical History: Reports: Hx Appendectomy, Hx Cholecystectomy, Hx Hysterectomy, Hx Orthopedic Surgery - Left thumb arthroplasty, bilateral plantar fasciitis. Denies: Hx Mastectomy, Hx Open Heart Surgery, Hx Pacemaker - Immunizations Hx Diphtheria, Pertussis, Tetanus Vaccination: No Hx Pneumococcal Vaccination: 11/17/16 Review of Systems - Review of Systems -: Yes All other systems reviewed and negative Physical Exam - Vital signs Vitals: Temp Pulse Resp BP Pulse Ox 97.5 F 73 24 H 144/85 H 97 10/16/19 11:19 10/16/19 11:19 10/16/19 11:19 10/16/19 11:19 10/16/19 11:19 - Notes Notes: PHYSICAL EXAMINATION: accompanied by female nurse GENERAL: Well-appearing, well-nourished and in no acute distress. A&Ox4. Answers questions appropriately. HEAD: Atraumatic, normocephalic. Non-tender. No schrader sign EYES: Pupils equal round and reactive to light, extraocular movements intact, sclera anicteric, conjunctiva are normal. No raccoon eyes/entrapment ENT: EAC clear b/l. TM's intact b/l without erythema, fluid, or perforation. Nares patent and without discharge. oropharynx clear without exudates. No tonsilar hypertrophy or erythema. Moist mucous membranes. No sinus tenderness. No hemotympanum/CSF discharge. NECK: Normal range of motion, supple without lymphadenopathy. No rigidity. No midline tenderness. Spurling negative. NEXUS negative. + mild tenderness to the c-paraspinal mm into the traps b/l and inferiorly. Chest: no seatbelt sign. No flail chest. equal rise/fall. Non-tender LUNGS: Breath sounds clear to auscultation bilaterally and equal. No wheezes rales or rhonchi. HEART: Regular rate and rhythm without murmurs, rubs, gallops. ABDOMEN: Soft, nontender, nondistended abdomen. No guarding, no rebound. Normal bowel sounds present. No CVA tenderness bilaterally. No seatbelt sign. Musculoskeletal: Ext b/l: FROM to passive/active. Strength 5+/5. No deficits noted. No bony tenderness of extremities. aside from b/l hips/pelvis as noted below. Back: FROM to passive/active. Strength 5+/5. + tenderness L-spine to palp and paraspinal as well as the pelvis and b/l hips. Still have FROM at the hips b/l otherwise. N/V intact distal. Extremities: No cyanosis, clubbing, or edema b/l. Peripheral pulses 2+. Capillary refill less than 2 seconds. NEUROLOGICAL: NIH 0. GCS 15. Cranial nerves grossly intact. Normal speech. Normal sensory, motor exams. Reflexes 2+ b/l. RUPINDER's negative. Pronator drift negative. Heel/gordon, finger/nose wnl. PSYCH: Normal mood, normal affect. SKIN: Warm, Dry, normal turgor, no rashes or lesions noted. Course - Re-evaluation Re-evalutation: 10/16/19 13:[address] Maher who is in agreement. 10/16/19 15:11 Patient is an afebrile, well-hydrated, 74-year-old female who presents with newer onset compression deformity at L1 as compared to previous recent films in the setting of injury today. Vitals are acceptable without significant tachycardia, tachypnea, or hypoxia. PE is otherwise unremarkable. Patient is nontoxic-appearing and is tolerating p.o. without difficulty. Patient was able to ambulate for his greater than [address] imaging. No further work-up warranted. Low suspicion for any meningitis, expanding/ruptured AAA, cauda equina syndrome, epidural mass lesion/abscess, herniated disc causing severe spinal stenosis, or other systemic infection at this time. Patient is aware that this condition can change from initial presentation and that she needs monitor symptoms closely for any acute changes. Patient to scallop raker for possible kyphoplasty. Recheck with your PCM next week as well. Return to the ED with any other worsening/concerning symptoms. Patient is in agreement. - Vital Signs Vital signs: Temp Pulse Resp BP Pulse Ox 97.5 F 73 24 H 163/82 H 97 10/16/19 11:19 10/16/19 11:19 10/16/19 11:19 10/16/19 12:01 10/16/19 11:19 Discharge - Discharge Clinical Impression: Compression fracture of L1 vertebra Qualifiers: Encounter type: initial encounter Qualified Code(s): S32.010A - Wedge compression fracture of first lumbar vertebra, initial encounter for closed fracture Condition: Stable Disposition: HOME, SELF-CARE Instructions: Compression Fracture of the Spine ([facility]) Additional Instructions: Rest, Ice Tylenol/ibuprofen as needed Light stretches daily Strength exercises as able Moist heat and massage may help F/u with your PCP in 3-5 days for a recheck Schedule consult with pain management for further evaluation and management, Dr. Torres. Return to the ED with any worsening symptoms and/or development of fever, headache, chest pain, palpitations, syncope, shortness of breath, trouble breathing, abdominal pain, n/v/d, blood in stool/urine, loss of control of bowel/bladder, urinary retention, muscle weakness/paralysis, saddle anesthesia, numbness/tingling, or other worsening symptoms that are concerning to you. Prescriptions: Tramadol HCl [Ultram 50 mg Tablet] 50 mg PO TID #15 tab Forms: Elevated Blood Pressure Referrals: ELI TORRES MD [ACTIVE STAFF] - Follow up in 3-5 days
--- NOTE | 2019-10-16 14:08 | RADIOLOGY REPORT (SQ) ---
EXAM DESCRIPTION: CT PELVIS WITHOUT COMPLETED DATE/TIME: 10/16/2019 1:56 pm REASON FOR STUDY: pain s/p fall COMPARISON: CT abdomen and pelvis 09/10/2019, 05/04/2019 TECHNIQUE: CT scan of the pelvis performed without intravenous or oral contrast. Images reviewed wi th soft tissue and bone windows. Reconstructed coronal and sagittal MPR images reviewed. All images stored on PACS. All CT scanners at this facility use dose modulation, iterative reconstruction, and/or weight based d osing when appropriate to reduce radiation dose to as low as reasonably achievable (ALARA). [facility]: Dose Right [facility]: CareDose [facility]: Dose Right [facility]: Teradose 4D [facility]: [facility] [employer] RADIATION DOSE: CT Rad equipment meets quality standard of care and radiation dose reduction techniq ues were employed. CTDIvol: 22.4 mGy. DLP: 630 mGy-cm. mGy. LIMITATIONS: None. FINDINGS: PELVIC BONES: No acute fracture. No worrisome bone lesions. VISUALIZED SPINE: No acute findings. HIPS: No acute fracture or dislocation. No worrisome bone lesions. PELVIC SOFT TISSUES: Post appendectomy and hysterectomy. Colonic diverticulosis without CT signs of acute diverticulitis EXTRAPELVIC SOFT TISSUES: No significant findings. OTHER: Mild bilateral SI joint vacuum phenomenon. IMPRESSION: No acute fracture. TECHNICAL DOCUMENTATION: JOB ID: [id number] Quality ID # [id number]: Final reports with documentation of one or more dose reduction techniques (e.g., Au tomated exposure control, adjustment of the mA and/or kV according to patient size, use of iterative reconstruction technique) 2010 [employer]- All Rights Reserved Reading location - IP/workstation name: [email or web address]
--- NOTE | 2019-10-16 14:12 | RADIOLOGY REPORT (SQ) ---
EXAM DESCRIPTION: CT LUMBAR SPINE WITHOUT COMPLETED DATE/TIME: 10/16/2019 1:56 pm REASON FOR STUDY: moderate to severe pain s/p fall on buttocks/back COMPARISON: CT pelvis same date CT abdomen pelvis 09/10/2019 TECHNIQUE: Axial images acquired through the lumbar spine without intravenous contrast. Images revi ewed with lung, soft tissue and bone windows. Reconstructed coronal and sagittal MPR images reviewed . All images stored on PACS. All CT scanners at this facility use dose modulation, iterative reconstruction, and/or weight based d osing when appropriate to reduce radiation dose to as low as reasonably achievable (ALARA). [facility]: Dose Right [facility]: CareDose [facility]: Dose Right [facility]: Teradose 4D [facility]: [employer] RADIATION DOSE: 18.5 mGy. LIMITATIONS: None. FINDINGS: SEGMENTATION: Normal. No transitional anatomy. ALIGNMENT: Normal. VERTEBRAL BODIES: Acute upper endplate less than 25% compression at the L1 vertebral body. Minimal u pper endplate irregularity. This is new compared to CT abdomen pelvis 09/10/2019. No significant re tropulsion of the posterosuperior corner of L1. This would be amenable to kyphoplasty for pain manag ement. DISCS: At L3-4, minimal posterior disc bulging is present, mild bilateral facet and ligament hypertro phy. No significant central or foraminal encroachment. At L4-5, mild diffuse posterior disc bulging, moderate bilateral facet and ligament hypertrophy. No significant central or foraminal stenosis. At L5-S1, broad diffuse posterior disc bulging and bulky bilateral facet hypertrophy is present witho ut significant central or foraminal stenosis. PEDICLES, TRANSVERSE PROCESSES: No fractures. No dislocation. No acute findings. FACETS, POSTERIOR ELEMENTS: No fractures. No dislocation. HARDWARE: None in the spine. VISUALIZED RIBS: No fractures. SOFT TISSUES: No significant or acute finding in adjacent soft tissues. OTHER: No other significant finding. IMPRESSION: Acute upper endplate less than 25% compression at the L1 vertebral body. Minimal upper e ndplate irregularity. This is new compared to CT abdomen pelvis 09/10/2019. No significant retropuls ion of the posterosuperior corner of L1. This would be amenable to kyphoplasty for pain management. TECHNICAL DOCUMENTATION: JOB ID: [id number] Quality ID # [id number]: Final reports with documentation of one or more dose reduction techniques (e.g., Au tomated exposure control, adjustment of the mA and/or kV according to patient size, use of iterative reconstruction technique) 2010 [employer]- All Rights Reserved Reading location - IP/workstation name: [id number]
[2019-10-16] MEDS ORDERED: ONDANSETRON ODT 4 MG TAB (6 TAB/ER DISP) PO PRN (15:24)
[2019-10-16 15:51] VITALS: BP 136/76
== END 2019-10-16 15:51 | disposition home or self-care (01) ==
LOC: ER 11:19
DX: S32.010A Wedge compression fracture of first lumbar vertebra, initial encounter for closed fracture (principal); M54.2 Cervicalgia; M25.552 Pain in left hip; M25.551 Pain in right hip; W17.89XA Other fall from one level to another, initial encounter; Y92.003 Bedroom of unspecified non-institutional (private) residence as the place of occurrence of the external cause; I10 Essential (primary) hypertension; Z90.49 Acquired absence of other specified parts of digestive tract; Z90.710 Acquired absence of both cervix and uterus; Z88.6 Allergy status to analgesic agent
CPT/HCPCS: 99283; 72131; 72192; A9270 ×2

== ENCOUNTER → 2020-04-05 | Outpatient (CLI) | payer MEDICARE, BC ==
[2020-04-05 16:49] LABS: ABSOLUTE BASOPHILS # (AUTO) 0.1 10^3/uL (0.0-0.2); ABSOLUTE EOSINOPHILS # (AUTO) 0.3 10^3/uL (0.0-0.6); ABSOLUTE LYMPHOCYTES (AUTO) 1.9 10^3/uL (0.5-4.7); ABSOLUTE MONOCYTES (AUTO) 0.7 10^3/uL (0.1-1.4); ABSOLUTE NEUT (AUTO) 5.6 10^3/uL (1.7-8.2); EOSINOPHILS % (AUTO) 3.1 % (0-6); HEMATOCRIT 39.7 % (36.0-47.0); HEMOGLOBIN 13.9 g/dL (12.0-15.5); LYMPHOCYTES % (AUTO) 22.4 % (13-45); MEAN CORPUSCULAR HEMOGLOBIN 31.4 pg (27.0-33.4); MEAN CORPUSCULAR HGB CONC 35.1 g/dL (32.0-36.0); MEAN CORPUSCULAR VOLUME 89 fl (80-97); MONOCYTES % (AUTO) 7.9 % (3-13); PLATELET COUNT 236 10^3/uL (150-450); RED BLOOD COUNT 4.43 10^6/uL (3.72-5.28); RED CELL DISTRIBUTION WIDTH 13.5 % (11.5-14.0); SEGMENTED NEUTROPHILS % (AUTO) 65.6 % (42-78); TOTAL CELLS COUNTED % (AUTO) 100 %; WHITE BLOOD COUNT 8.5 10^3/uL (4.0-10.5)
[2020-04-05 17:00] LABS: ALBUMIN 4.3 g/dL (3.5-5.0); ALKALINE PHOSPHATASE 128 U/L (38-126); AMYLASE 140 U/L (30-110); ANION GAP 7 (5-19); ASPARTATE AMINO TRANSFERASE 31 U/L (14-36); BILIRUBIN,TOTAL 0.5 mg/dL (0.2-1.3); BLOOD UREA NITROGEN 23 mg/dL (7-20); CALCIUM 9.4 mg/dL (8.4-10.2); CARBON DIOXIDE 29 mmol/L (22-30); CHLORIDE 103 mmol/L (98-107); GLUCOSE 137 mg/dL (75-110); POTASSIUM 4.5 mmol/L (3.6-5.0); TOTAL PROTEIN 7.4 g/dL (6.3-8.2)
== END ==
LOC: OD 15:17
PROVIDERS: ATTEND Registered Nurse
DX: R14.0 Abdominal distension (gaseous) (principal)
CPT/HCPCS: 36415; 80053; 82150; 83690; 85025